=== PATIENT | female | born 1995 | race Caucasian/White ===

== ENCOUNTER 2020-03-19 14:41 | Outpatient (REF) | payer MEDICAID, SELFPAY ==
[2020-03-22 21:57] LABS: SARS-CoV-2 RNA Undetected (Undetected); SARS-CoV-2 Specimen Source Nasal
== END 2020-03-19 15:01 ==
LOC: NCHCN 14:41
PROVIDERS: Visit Provider Nurse Practitioner Family
DX: J02.9 Acute pharyngitis, unspecified (principal)
CPT/HCPCS: U0003

== ENCOUNTER 2020-09-12 16:19 | Outpatient (REF) | payer MEDICAID, SELFPAY ==
[2020-09-16 16:24] LABS: Chlamydia Result Negative (Negative); GC Result Negative (Negative)
== END 2020-09-12 16:20 | disposition home or self-care (01) ==
LOC: NCHCN 16:19
PROVIDERS: Visit Provider Nurse Practitioner Family
DX: Z11.3 Encounter for screening for infections with a predominantly sexual mode of transmission (principal)
CPT/HCPCS: 87491; 87591

== ENCOUNTER 2024-01-27 18:07 | Outpatient (REF) | payer MEDICAID, SELFPAY ==
[2024-01-27 16:22] LABS: Anion Gap 8.8 mmol/L (3-11); BUN 6 mg/dL (7-18); CO2 24.2 mmol/L (21.0-32.0); CREATININE 0.6 mg/dL (0.55-1.02); Calcium 9.1 mg/dL (8.5-10.1); Chloride 106 mmol/L (98-107); Estimated GFR 126.87 (mL/min/1.73m2); Glucose 86 mg/dL (74-106); Sodium 139 mmol/L (136-145); TSH (W/Ref FT4) 2.93 uIU/mL (0.36-3.74)
--- OUTSIDE RECORDS SUMMARY | 2024-01-27 18:09 | XMS_ITS | Encounter Summary ---
Author Organization [facility] Address [address] [place] [address] Care Team Providers Care Insurance Sales Manager Name Role Phone Amanda Knox Tricia AIR AND HYDRONIC BALANCING TECHNICIAN Primary Care Provider [phone] Encounter Details Date Type Department Care Team (Latest Contact Info) Description 11/29/2022 Travel Social History Tobacco Use Types Packs/Day Years Used Date Smoking Tobacco: Every Day Cigarettes Smokeless Tobacco: Never Alcohol Use Standard Drinks/Week Comments Yes 0 (1 standard drink = 0.6 oz pur e alcohol) binges Interpersonal Safety Answer Date Record ed Physically Hurt Never 01/06/2020 Verbally Threaten Not on file 01/06/2020 Sex and Gender Information Value Date Recorded Sex Assigned at Not on file Gender Identity Female 04/01/2019 9:34 EDT Sexual Orientation Not on file COVID-19 Exposure Response Date Recorded In the last 10 days, have yo u been in contact with someone who was confirmed or suspected to have Coronavirus/COVID-19? No / Unsure 11/29/2022 13:02 EDT documented as of this encounter Functional Status Functional Status Response Date of Assess ment Are you deaf or do you have serious difficulty h earing? No 10/12/2022 Are you blind or do you have serious difficulty seeing, even when wearing glasses? No 02/13/2022 Do you have serious difficul ty walking or climbing stairs? (5 years old or older) No 02/13/2022 Do you have difficulty dress ing or bathing? (5 years old or older) No 02/13/2022 Because of a physical, menta l, or emotional condition, do you have difficulty doing errands alone such as visiting a doctor's office or shopping? (15 years old or older) No 02/13/2022 documented as of this encounter Plan of Treatment Not on file documented as of this encounter Visit Diagnoses Not on filedocumented in this encounter Care Teams Insurance Sales Manager Relationship Specialty Start Date End Date Amanda Knox FNP [address] [place] [phone] PCP - General 08/13/19 documented as of this encounter
--- OUTSIDE RECORDS SUMMARY | 2024-01-27 18:09 | XMS_ITS | Encounter Summary ---
Author Organization [facility] Address [address] [place] [address] Care Team Providers Care Evs Tech Name Role Phone Abilio Amanda Tricia SPIRAL RUNNER Primary Care Provider Encounter Details Date Type Department Care Team (Late st Contact Info) Description 02/13/2022 21:22 EDT Anesthesia Event [facility] OR [address] [place], [place] [id number] Lady Javier DO [address] [facility], [address] [place] [phone] Steph Hill MD [address] [facility] [address] [place] [address] Anesthesia Record Procedure Summary Procedure Name Responsible Anesthesiologist Anesthesia Start Time Anesthesia Stop Time APPENDECTOMY, LAPAROSCOPIC Lady Javier DO 02/13/22212102/13/222254 Events Date Time Event Comment 02/13/20222121 An Start The patient was re-evaluated immediately before moderate or deep sedation use, before anesthesia induction, or before the anesthesia procedure. 2121 An Start Data 2128 An Induction The patient was reevaluated immediately before moderate or deep sedation use and before anesthesia induction. 2130 An Intubation 2145 Anesthesia Ready 2148 Jack Pt placed into L lateral trendelenburg, tachycardia and BP improved 5 An Extubation 2240 an stop data 2253 Handoff to RN I completed my handoff to the receiving nurse during which we: 1. Identified the patient 2. Identified the responsible provider 3. Reviewed the pertinent medical history 4. Discussed the surgical course 5. Reviewed intra-op anesthesia management and issues during anesthesia 6. Set expectations for post-procedure period 7. Allowed opportunity for questions and acknowledgement of understanding. 2254 An Stop Meds Name Total fentanyl citrate (PF) injection 100 mcg ondansetron (PF) (ZOFRAN) injection 4 mg lidocaine 2% (PF) injection glass vial 9 0 mg phenylephrine pre-filled syringe 300 mcg propOFol (DIPRIVAN) injection 250 mg propOFol injection 427,344 mcg rocuronium 10 mg/mL vial 40 mg succinylcholine 20 mg/mL vial 140 mg sugammadex 100 mg/mL 2 mL vial 200 mg ceFAZolin injection 2,000 mg phenylephrine pre-made bag 20 mg/250 mL 1,400 mcg diphenhydrAMINE injection 12.5 mg lactated ringers (LR) infusion 550 mL * Agents Name Insp Sevoflurane Exp Sevoflurane O2 N2O Air * Blood No blood administrations on file. Lines, Drains, and Airways Type Details Placement Removal Wound 02/13/22; 2156; Incision; Other (Comment) (x 3 lap sites); Umbilicus; N 02/13/222156 by Brenda Edward RN Peripheral IV 02/13/22; 1200; 20; 1.25; Anterior, Right; Forearm; Documenting on behalf of someone else (enter name) (outside hospital); 02/14/22; 0059; Alternate access; No complications, Catheter intact, Dressing applied 02/13/22 1200 by Ruthie Hamm RN 02/14/22 0059 by Gisella Gallegos RN Peripheral IV 02/13/22; 1916; 18; 1.25; Protect IV Plus; Posterior, Right; Wrist; Inserted by RN; 1; 70% IPA; 02/14/22; 1040; Per protocol, Discharged; No complications, Catheter intact 02/13/221915 by Ruthie Hamm RN 02/14/221039 by Dawna Marques RN Non-Surgical Airway 02/13/22; 2153 (paul [place] via procedure documentation); 02/13/22; 223402/13/222153 by Steph Hill MD 02/13/222234 by Steph Hill MD documented in this encounter Social History Tobacco Use Types Packs/Day Years Used Date Smoking Tobacco: Former Cigarettes Smokeless Tobacco: Never Interpersonal Safety Answer Date Record ed Physically Hurt Never 01/06/2020 Verbally Threaten Not on file 01/06/2020 Comments Yes Sex and Gender Information Value Date Recorded Sex Assigned at Not on file Gender Identity Female 04/01/2019 9:34 EDT Sexual Orientation Not on file COVID-19 Exposure Response Date Recorded In the last 10 days, have yo u been in contact with someone who was confirmed or suspected to have Coronavirus/COVID-19? Unable to assess 02/13/2022 14:48 EDT documented as of this encounter Functional Status Functional Status Response Date of Assess ment Are you deaf or do you have serious difficulty h earing? No 02/13/2022 Are you blind or do you have [...] No 02/13/2022 documented as of this encounter OR Notes * Anesthesia Postprocedure Evaluation - Steph Hill MD - 02/13/20222254 EDT Patient: Ana Juarez Vital signs were reviewed with the recovery nurse. Complete [facility]als [facility]. Vitals Value Taken Time BP 117/82 02/13/222254 Temp 36.9 02/13/225 Resp 14 02/13/222254 Pulse From Oximetry 89 02/13/222254 SpO2 99% 02/13/222254 Heart Rate 89 02/13/222254 Last Pain Score - Numeric Pain Level (Scale 1-10): 4 Type of Anesthesia - general Anesthesia Post Evaluation Post-procedure vitals reviewed and are stable. Level of consciousness: awake Temperature status: normothermia and patient returned to pre-procedure baseline Respiratory status: airway patent, stable and nasal cannula Cardiovascular status: stable Hydration status: adequate Nausea/Vomiting: nausea, no vomiting Pain management: adequate Post-Op Assessment: patient tolerated procedure well with no complications Patient participation: able to participate Disposition: inpatient Anesthesia Complications: No apparent anesthesia complications * Anesthesia Procedure Notes - Steph Hill MD - 02/13/20222153 EDT Associated Order(s): Airway Airway Date/Time: 02/13/2022 21:31 Urgency: elective Airway not difficult General Information and Staff Patient location during procedure: OR Anesthesiologist: Lady Javier DO Resident/CEMENT TRUCK LOADER: Steph Hill MD Performed: resident/CEMENT TRUCK LOADER/AA Indications and Patient Condition Indications for airway management: anesthesia Sedation level: GA Preoxygenated: yes Patient position: sniffing Ventilation assessment: 0 - not attempted Final Airway Details Final airway type: endotracheal airway Successful airway: ETT Cuffed: yes Successful intubation technique: video laryngoscopy Castrejon Facilitating devices/methods: intubating stylet Endotracheal tube insertion site: oral Blade: Christiano Blade size: #3 ETT size (mm): 7.0 Cormack-Lehane Classification: grade I - full view of glottis Placement verified by: chest auscultation and capnometry Measured from: teeth ETT to teeth (cm): 20 Number of attempts at approach: 1 * Anesthesia Preprocedure Evaluation - Lady Javier DO - 02/13/20229 EDT Images from the original note were not included. Anesthesia Preprocedure Evaluation Patient Medical History, including Anesthesia History reviewed. Chart and Nursing Notes reviewed, including NPO status and Medication History. Additional ROS/History Findings: 27 yo female with no significant PMH presents to OR for urgent laparoscopic appendectomy. Patient notes N/V, last vomited today around 11 am. Patient denies any complications with this pregnancyother than acid reflux for which she takes TUMS (last took this morning but vomited shortly after).No problems with anesthesia in the past or family history of anesthetic complications. Current Outpatient Medications Medication Instructions ??? Multivitamins with Minerals tablet tablet 1 Tablet, oral, DAILY Lab Results Component Value Date WBC 18.16 (H) 02/13/2022 HGB 10.1 (L) 02/13/2022 HCT 29.5 (L) 02/13/2022 MCV 82 02/13/2022 PLT 211 02/13/2022 Lab Results Component Value Date NA 139 10/21/2020 K 4.1 10/21/2020 CL 103 10/21/2020 CO2 23 10/21/2020 No Known Allergies Past Medical History: Diagnosis Date ??? Contraceptive management Relevant Problems No relevant active problems Clinical information reviewed: Physical Exam Airway Mallampati: I TM distance: >3 FB Neck ROM: full Cardiovascular Rate: normal Dental Comments: Patient endorses cavities, possibly other chipped teeth Pulmonary Breath sounds clear to auscultation Abdominal Anesthesia Plan ASA 3 Anesthesia Type - general, to include intravenous induction. Anesthesia plan and risks discussed. Informed consent obtained from patient. Use of blood products discussed with patient who consented to blood products. Specific risks discussed were dental injury and other (Discussed potential risks including but not limited to N/V, sore throat, cardiopulmonary issues, and CVA). Consent signed on paper and in the patient's chart. Discussed potential risks to fetus. PAT Note Notes from 01/14/22 through 02/13/22 No notes of this type exist for this encounter. documented in this encounter Plan of Treatment Not on file documented as of this encounter Procedures Procedure Name Priority Date/Time Associated Diagnosis Comments ANESTHESIA INTUBATION Routine 02/13/2022 21:31 EDT documented in this encounter Results * RI AN ELECTIVE ENDOTRACHEAL AIRWAY (02/13/2022 21:31 EDT) Narrative Steph Hill MD - 02/13/2022 21:31 EDT Steph Hill MD ? 02/13/2022 21:54 Airway Date/Time: 02/13/2022 21:31 Urgency: elective Airway not difficult General Information and Staff Patient location during procedure: OR Anesthesiologist: Lady Javier DO Resident/CEMENT TRUCK LOADER: Steph Hill MD Performed: resident/CEMENT TRUCK LOADER/AA Indications and Patient Condition Indications for airway management: anesthesia Sedation level: GA Preoxygenated: yes Patient position: sniffing Ventilation assessment: 0 - not attempted Final Airway Details Final airway type: endotracheal airway Successful airway: ETT Cuffed: yes Successful intubation technique: video laryngoscopy Castrejon Facilitating devices/methods: intubating stylet Endotracheal tube insertion site: oral Blade: Christiano Blade size: #3 ETT size (mm): 7.0 Cormack-Lehane Classification: grade I - full view of glottis Placement verified by: chest auscultation and capnometry Measured from: teeth ETT to teeth (cm): 20 Number of attempts at approach: 1 Lady Javier DO ANESTHESIA ORDERABLE S documented in this encounter Visit Diagnoses Not on filedocumented in this encounter Administered Medications Inactive Administered Medications - up to 3 most recent administrations Medication Order MAR Action Action Date Dose Rate Site ceFAZolin (ANCEF) injection intravenous, PRN, Starting on 02/13/22 at 2144, Until 02/13/22 at 2255, Routine, Anesthesia Intraprocedure Given 02/13/2022 21:44 EDT 2,000 mg diphenhydrAMINE (BENADRYL) injection intravenous, PRN, Starting on 02/13/22 at 2243, Until 02/13/22 at 2255, Routine, Anesthesia Intraprocedure Given 02/13/2022 22:43 EDT 12.5 mg fentaNYL citrate (PF) injection intravenous, PRN, Starting on 02/13/22 at 2129, Until 02/13/22 at 2255, Routine, Anesthesia Intraprocedure Given 02/13/2022 21:53 EDT 50 mcg Given 02/13/2022 21:29 EDT 50 mcg lactated ringers (LR) infusion intravenous, FA IP EQF CONTINUOUS PRN FOR ONE STEP MEDS, Starting on 02/13/22 at 2122, Until 02/13/22 at 2255, Routine, Anesthesia Intraprocedure New Bag 02/13/2022 21:22 EDT lidocaine (PF) 20 mg/mL (2 %) injection intravenous, PRN, Starting on 02/13/22 at 2129, Until 02/13/22 at 2255, Routine, Anesthesia Intraprocedure Given 02/13/2022 21:29 EDT 90 mg ondansetron (PF) (ZOFRAN) injection intravenous, PRN, Starting on 02/13/22 at 2216, Until 02/13/22 at 2255, Routine, Anesthesia Intraprocedure Given 02/13/2022 22:16 EDT 4 mg phenylephrine HCl in 0.9% NaCl (NEO_SYNEPHRINE) 20 mg/250 mL (80 mcg/mL) infusion solution intravenous, FA IP EQF CONTINUOUS PRN FOR ONE STEP MEDS, Starting on 02/13/22 at 2133, Until 02/13/22 at 2255, Routine, Anesthesia Intraprocedure Rate Change 02/13/2022 21:53 EDT 20 mcg/min 15 mL/hr Rate Change 02/13/2022 21:50 EDT 40 mcg/min 30 mL/hr Rate Change 02/13/2022 21:37 EDT 80 mcg/min 60 mL/hr phenylephrine HCl in 0.9% NaCl injection intravenous, PRN, Starting on 02/13/22 at 2141, Until 02/13/22 at 2255, Routine, Anesthesia Intraprocedure Given 02/13/2022 21:41 EDT 150 mcg Given 02/13/2022 21:33 EDT 150 mcg propOFol (DIPRIVAN) injection intravenous, PRN, Starting on 02/13/22 at 2129, Until 02/13/22 at 2255, Routine, Anesthesia Intraprocedure Given 02/13/2022 21:29 EDT 250 mg propOFol (DIPRIVAN) injection intravenous, FA IP EQF CONTINUOUS PRN FOR ONE STEP MEDS, Starting on 02/13/22 at 2133, Until 02/13/22 at 2255, Routine, Anesthesia Intraprocedure Rate Change 02/13/2022 22:20 EDT 50 mcg/kg/min 27.63 mL/hr Rate Change 02/13/2022 21:53 EDT 70 mcg/kg/min 38.682 mL/h r New Bag 02/13/2022 21:33 EDT 50 mcg/kg/min 27.63 mL/hr rocuronium (ZEMURON) injection intravenous, PRN, Starting on 02/13/22 at 2141, Until 02/13/22 at 2255, Routine, Anesthesia Intraprocedure Given 02/13/2022 21:53 EDT 10 mg Given 02/13/2022 21:41 EDT 30 mg succinylcholine (ANECTINE) injection intravenous, PRN, Starting on 02/13/22 at 2129, Until 02/13/22 at 2255, Routine, Anesthesia Intraprocedure Given 02/13/2022 21:29 EDT 140 mg sugammadex (BRIDION) injection intravenous, PRN, Starting on 02/13/22 at 2231, Until 02/13/22 at 2255, Routine, Anesthesia Intraprocedure Given 02/13/2022 22:31 EDT 200 mg documented in this encounter Care Teams Evs Tech Relationship Specialty Start Date End Date Amanda Knox FNP [address] [place] [address] PCP - General 08/13/19 documented as of this encounter
--- OUTSIDE RECORDS SUMMARY | 2024-01-27 18:09 | XMS_ITS | Encounter Summary ---
Author Organization [facility] Address [address] [place] [address] Care Team Providers Care Substation Inspector Name Role Phone Hueymike Amanda Tricia PURE CULTURE OPERATOR Primary Care Provider [phone] Reason for Visit * Reason Onset Date Comments Hospital Discharge Follow Up 02/16/2022 Encounter Details Date Type Department Care Team (Late st Contact Info) Description 02/16/2022 Telephone [facility] [place] Acute Care Surgery - [facility] [address] [place] [address] Nicole Georges RN Hospital Discharge Follow Up Social History Tobacco Use Types Packs/Day Years [...] No 02/13/2022 documented as of this encounter Miscellaneous Notes * Telephone Encounter - Rodger Alexander - 02/16/2022 1108 EDT Patient returning call to Nicole, please call back . Jointer Operator updated phone number.. * Telephone Encounter - Nicole Georges RN - 02/16/2022 1056 EDT ACS/Trauma/Burn Hospital Discharge Call Patient Name: Ana Juarez , : 1995 Admission Date: 02/13/22 Date of Discharge: 02/14/22 Admission Diagnosis: appendicitis Surgeon/Attending: Dr. Schmitt Procedure Date: 02/14 Type of Procedure: lap appy Wound and/or Incisions: Yes healing well Comments: top right side incision is tender, not red, is bruised Home Health?:no Agency: Restrictions: No Driving while on Narcotics No Lifting/Pulling/Pushing greater than 15 lbs for 2 weeks It is ok to shower, wash gently and pat area dry Please no pools, lakes, tubs or hot tubs for 2 weeks Other: Recovery at Home: Fevers since home greater than 101.5?:No Pain: Yes 1 relaxation and pain medication Pain Management: Yes Taking: tylenol and dilaudid as needed Medication Reconciliation: Reviewed with Patient Yes Any Discrepancies?No Comments/Concerns: BM's & Voiding Issues:No Loose last 24 hrs Comments: Bowel Meds: No Comments: Issues with ADL's: No Assistive Device: No Eating & Drinking ok?: Yes Comments: Heavy on fluids, environmental monitoring technician on foods Sleeping ok?: states last 2 nights, she has hard time falling asleep, but is getting rest Any Other Questions or Concerns: [place], will follow up with her PCP Hospital Discharge Follow Up Appointment: 03/09/22 @ 130 pm / cancelled documented in this encounter Plan of Treatment Not on file documented as of this encounter Visit Diagnoses Not on filedocumented in this encounter Care Teams Substation Inspector Relationship Specialty Start Date End Date Amanda Knox FNP [address] [place] [phone] PCP - General 08/13/19 documented as of this encounter
--- OUTSIDE RECORDS SUMMARY | 2024-01-27 18:09 | XMS_ITS | Clinical Summary ---
Author Organization [facility] Address [address] [place] [address] Care Team Providers Care Wind Power Project Manager Name Role Phone Amanda Knox [facility] Primary Care Provider [phone] Allergies No known active allergies Medications Medication Sig Dispensed Refills Start Date End Date Status Multivitamins with Minerals tablet tablet Take 1 Tablet by mouth daily. Active acetaminophen (TYLENOL) 500 mg tablet Take 2 Tablets by mouth every 8 hours as needed for Pain. 02/14/2022 Active Additional Information Patient not taking.Reported on 11/29/2022 cloNIDine HCL (CATAPRES) 0.1 mg tablet Take 0.5 Tablets by mouth 2 times daily as needed for Other (anxiety, agitation). 30 Tablet 10/15/2022 Active Additional Information Patient not taking.Reported on 11/29/2022 calcium carbonate (TUMS) 200 mg calcium (500 mg) tablet,chewable Take 2 Tablets by mouth 4 times daily as needed for Heartburn or Indigestion. 10/15/2022 Active Additional Information Patient not taking.Reported on 11/29/2022 lurasidone HCl (LATUDA ORAL) Take 20 mg by mouth daily. Active Active Problems Problem Noted Date Diagnosed Date Cigarette nicotine dependence without complicati on 10/13/2022 Dyspepsia 10/13/2022 Depression, unspecified depression type 10/13/19 23 RLQ abdominal pain 02/13/2022 MDD (major depressive disord er), recurrent episode, moderate (HCC-CMS) Borderline personality disorder (HCC-CMS) Anxiety disorder Alcohol use disorder Cannabis use disorder Resolved Problems Problem Noted Date Diagnosed Date Resolved Date Supervision of normal 02/13/2022 01/18/2023 Acute appendicitis affecting 02/13/2022 01/18/2023 Overview: Added automatically from request for surgery [id number] Encounter for surveillance o f contraceptive pills 04/20/2019 01/18/2023 Overview: On POPs since delivery 02/2019 Women's annual routine gynec ological examination 04/20/2019 01/18/2023 Overview: Pap 08/2016 WNL with no Tzone cells. GC/CL also negative. Suicidal ideation 10/15/2022 Immunizations Name Administration Dates Next Due DTaP Vaccine (INFANRIX) <7YO IM 02/08/20,05/13/1998,1997,07/09,1997 HPV Quadrivalent Recombinant Vaccine 10/21/2008, 06/17/2008,04/12/2008 Hepatitis B Vaccine Ped/Adol escent 3-dose IM 1997,1997,1997 Hib PRP-T Conjugate Vaccine 4 Dose IM ,1997,1997,04/22 Influenza Vaccine Nasal 03/16/2011,03/09/2010 MMR Vaccine SQ 02/12/2002,1998 Meningococcal Conjugate (MCV 4) Vaccine (MENACTRA) 4-Valent IM 03/16/2011 Pneumococcal Conjugate (PCV7) <5YO IM 2001 PolioVirus Vaccine OPV Oral 1998, 8,1997 Poliovirus Vaccine IPV IM OR SQ 02/12/2002 Tdap Vaccine =>7YO IM 12/15/2018,02/08/2008 Varicella (Chickenpox) vacci ne (VARIVAX) SQ 02/08/2008,05/13/1998 Surgical History Surgery Date Site/Laterality Comments CHOLECYSTECTOMY 06/06/2015 - 06/05/2016 LAPAROSCOPIC APPENDECTOMY N/A 2021 Medical History Medical History Date Comments Contraceptive management Anxiety state Situational depression Covid-24 May 2021, May 25 Mood swings Self mutilating behavior Family History Medical History Relation Comments Diabetes Type II Maternal Grandmother Depression Mother Cancer Paternal Grandmother Relation Status Comments Maternal Grandmother Mother Paternal Grandmother Social History Tobacco Use Types Packs/Day Years Used Date Smoking Tobacco: Every Day Cigarettes Smokeless Tobacco: Never Tobacco Cessation:Ready to Q uit: Not Asked; Counseling Given: Not Answered Alcohol Use Standard Drinks/Week Comments Yes 0 (1 standard drink = 0.6 oz pur e alcohol) binges Interpersonal Safety Answer Date Record ed Physically Hurt Never 01/06/2020 Verbally Threaten Not on file 01/06/2020 Sex and Gender Information Value Date Recorded Sex Assigned at Not on file Gender Identity Female 04/01/2019 9:34 EDT Sexual Orientation Not on file Obstetrics History Para Term AB IAB SAB Ectopic Multiple Livin g Live Births 2 2 2 2 2 Date Outcome GA Total Labor Labor/2nd/3rd Weight Sex Type Anes PTL Mel A1 A5 Name Clin 019 Term 39w 4d 4082 g (9 lb) F N Livin g Qian Baca MD Complications:None [place] [place]22 Term 40w 5d M Vag-S pont Livin g Last Filed Vital Signs Vital Sign Reading Time Taken Comments Blood Pressure 114/80 01/18/2023 1243 EDT Pulse 71 12/01/2022 1007 EDT Temperature 36.5 ??C (97.7 ??F) 12/01/2022 0824 EDT Respiratory Rate 18 12/01/2022 1007 EDT Oxygen Saturation 99% 11/30/2022 2130 EDT Inhaled Oxygen Concentration - - Weight 86.2 kg (190 lb) 01/18/2023 1243 EDT Height 162.6 cm (5' 4) 01/18/2023 1243 EDT Body Mass Index 32.61 01/18/2023 1243 EDT Plan of Treatment Health Maintenance Due Date Last Done Comments Pneumococcal Immunization (1 of 2 - PCV) 2003 2001 COVID-19 Vaccine (2022-24 season) 2023 Hepatitis B Vaccine Completed 1995, [birth year] Hepatitis C Screen Completed 09/28/2021 Procedures Procedure Name Priority Date/Time Associated Diagnosis Comments HEPATITIS C AB W REFLEX TO HCV RNA BY PCR Routine 09/28/2021 8:30 EDT from Last 3 Months or Most Recently Relevant to Health Maintenance Results * HEPATITIS C AB W REFLEX TO HCV RNA BY PCR (09/28/2021 8:30 EDT) Hep C Antibody Negative Negative 09/29/2021 9:[address] [facility] Blood VENOUS BLOOD / Unknown 09/28/2021 8:30 EDT 09/28/2021 16:46 EDT Provider Outr Resulting Lab CHEMISTRY & BLOOD GAS ORDERABLES [facility] [address] [place] [address] from Last 3 Months or Most Recently Relevant to Health Maintenance Advance Directives For more information, please contact: [phone] * Full Code (Latest Code Status on File) Date Activated Date Inactivated Comments 10/12/2022 20:12 10/15/2022 20:03 Question Answer Comments When the patient has NO PULSE: Full Code / CPR Who Made the Decision? Patient * Full Code Date Activated Date Inactivated Comments 02/13/2022 18:22 02/14/2022 12:52 Question Answer Comments When the patient has NO PULSE: Full Code / CPR Who Made the Decision? Default/Not Discussed Care Teams Wind Power Project Manager Relationship Specialty Start Date End Date Amanda Knox FNP [address] [place] [phone] PCP - General 08/13/19
--- OUTSIDE RECORDS SUMMARY | 2024-01-27 18:09 | XMS_ITS | Encounter Summary ---
Author Organization [facility] Address [address] [place] [address] Care Team Providers Care Business Management Intern Name Role Phone Abilio Amanda Tricia UNDERGRADUATE INTERN Primary Care Provider [phone] Encounter Details Date Type Department Care Team (Latest Contact Info) Description 10/12/2022 Travel Social History Tobacco Use Types Packs/Day [...] suspected to have Coronavirus/COVID-19? No / Unsure 10/12/2022 17:54 EDT documented as of this encounter Functional [...] on filedocumented in this encounter Care Teams Business Management Intern Relationship Specialty Start Date End Date Amanda Knox FNP [address] [place] [phone] PCP - General 08/13/19 documented as of this encounter
--- OUTSIDE RECORDS SUMMARY | 2024-01-27 18:09 | XMS_ITS | Encounter Summary ---
Author Organization [facility] Address [address] [place] [address] Care Team Providers Care Loan Approver Name Role Phone Hueymike Amanda Tricia [employer] SPECIALIST Primary Care Provider [phone] Encounter Details Date Type Department Care Team (Late st Contact Info) Description 10/13/2022 Plan of Care Documentation [facility] Inpatient Psychiatry [address] [place] [address] Social History Tobacco Use Types Packs/Day Years [...] No 02/13/2022 documented as of this encounter Progress Notes * Esthela White - 10/13/2022 7654 EDT Psychiatry Treatment Plan Admit Date: 10/12/22 Initial Observation Date (if different): 10/12/2022 Hospital day: LOS: 1 day Date of Service: 10/13/2022 Legal Status: Legal status: Voluntary Locus of Harm: 4 Suicidal Ideation with active plan: No Patient's stated reason for hospitalization: worsening depression and concerns of keeping herself safe. Current Stressors: increase in alcohol use in the setting of trying to cope Target Symptoms: Depressed-reported; Depressed-observed, Racing/pressured- observed; Racing/pressured-reported, Hopeless/desparing-reported Problems being addressed this admission: Anxiety Depression Substance Abuse SI/ Self injury Identified strengths and barriers: Ana Juarez's Strengths:Interested in / accepting treatment and supportive family Ana Juarez's Barriers: traumatic history and substance use Goals: 1. Ana Juarez will demonstrate stabilization of acute target signs and symptoms 2. Ana Juarez will increase understanding of her illness and treatment interventions 3. Ana Juarez will develop and implement aftercare plan for discharge Interventions / Plans: Psychiatry: Ongoing psychiatric evaluation and counseling Pharmacological management Appropriate medical studies and laboratory monitoring Nursing: See Care Plan documentation Social Work: Assist patient with discharge planning, including identifying discharge options Assisting with referrals Facilitate collaboration with family / support network Conduct treatment groups and encourage participation Collaboration with outpatient providers Advanced Practice Provider: See NORRIS's Assessment and Treatment Plan under History and Physical Outpatient Providers information: Name Number Mental Health Agency [facility] [phone] Psychiatrist Therapist Deanna Banks, [facility] [phone] [address] [facility] PCP Amanda Knox [phone] Guardian Family Contact Go Arteaga [phone] Other Pt: Date: MD: Date: AP: Date: RN: Date: SW: Date: documented in this encounter Plan of Treatment Not on file documented as of this encounter Visit Diagnoses Not on filedocumented in this encounter Care Teams Loan Approver Relationship Specialty Start Date End Date Amanda Knox FNP [address] [place] [phone] PCP - General 08/13/19 documented as of this encounter
--- OUTSIDE RECORDS SUMMARY | 2024-01-27 18:09 | XMS_ITS | Encounter Summary ---
Author Organization [facility] Address [address] [place] [address] Care Team Providers Care Fur Cleaner Name Role Phone Amanda Knox [facility] Primary Care Provider [phone] Reason for Visit * Reason Comments Suicidal Pt ambulatory to tri age w/ ; reporting depression, self harm w/ thoughts, w/ plan of drinking heavily. Denies ingestion today. Denies HI. [place] [facility] Taking meds as prescribed. Encounter Details Date Type Department Care Team (Late st Contact Info) Description 11/29/2022 13:06 EDT - 12/01/2022 10:29 EDT Emergency [facility] Emergency Department - [address] [id number] Isael Herrera PA-C [address] [place] [address] [place] [address] [id number] Enriqueta Munoz PA-C [address] [place] [phone] Jun Chester MD [address] [place] [phone] Darling Dale PA-C [address] [place] [phone] Minh Urbano, DO [address] [facility], Level [address] [place] [phone] Discharge Disposition: Psychiatric Hospital Social History Tobacco Use Types Packs/Day Years [...] 13:02 EDT documented as of this encounter Last Filed Vital Signs Vital Sign Reading Time Taken Comments Blood Pressure 104/75 12/01/2022 1007 EDT Pulse 71 12/01/2022 1007 EDT Temperature 36.5 ??C (97.7 ??F) 12/01/2022 0824 EDT Respiratory Rate 18 12/01/2022 1007 EDT Oxygen Saturation 99% 11/30/20222129 EDT Inhaled Oxygen Concentration - - Weight 88.5 kg (195 lb) 11/30/20222129 EDT Height 162.6 cm (5' 4) 11/30/20222129 EDT Body Mass Index 33.47 11/30/2022 2130 EDT documented in this encounter Functional Status Functional Status Response [...] No 02/13/2022 documented as of this encounter Medications at Time of Discharge Medication Sig Dispensed Refills Start Date End Date acetaminophen (TYLENOL) 500 mg tablet Take 2 Tablets by mouth every 8 hours as needed for Pain. 02/14/2022 calcium carbonate (TUMS) 200 mg calcium (500 mg) tablet,chewable Take 2 Tablets by mouth 4 times daily as needed for Heartburn or Indigestion. 10/15/2022 cloNIDine HCL (CATAPRES) 0.1 mg tablet Take 0.5 Tablets by mouth 2 times daily as needed for Other (anxiety, agitation). 30 Tablet 10/15/2022 lurasidone HCl (LATUDA ORAL) Take 20 mg by mouth daily. Multivitamins with Minerals tablet tablet Take 1 Tablet by mouth daily. documented as of this encounter Discharge Disposition Disposition Code Departure Means Destination Comment [facility] documented in this encounter ED Notes * Minh Urbano DO - 12/01/2022 1029 EDT Is a 27-year-old female who is being seen for suicidal ideation. No issues during shift. Patient transported to [facility] in stable condition * Angeles Marie RN - 12/01/2022 1009 EDT Pt off unit with ambulance service for transportation to [facility]. Pt provided with personal belongings for discharge from ER. Paperwork given to ambulance crew. Pt off unit in stable condition and with steady gait. * Nadre Raines RN - 11/30/2022 1046 EDT Spoke with assigned ER attending. Reordered Malachi patch. Awaiting from pharmacy. * Nader Raines RN - 11/30/2022 2030 EDT Pharmacy contacted by this RN requesting Nicotine patch. * Nader Raines RN - 11/30/2022 1850 EDT Spoke with RN from . Facility requests chart with MAR be faxed. Report given by this RN. * Maximus Og - 11/29/2022 2326 EDT Emergency Department Visit Medical Decision Making Corie is a 27-year-old female seen from the evening shift for psychiatry evaluation the morning. Patient came in for suicidal ideation is currently on a one-to-one setting and will be monitored until psychiatric evaluation in the morning. Relevant Data as of 11/30/22 0751 TueNov 29, 2022 1836 Assumed care at change of shift. 27 year-old female presenting with SI with plan to drink herself to Crisis did see the patient and would like patient to be seen by psychiatry, awaiting psychiatry assessment at time of sign out. [SS] 2255 Gates from pharmacy resident, patient will stay in the ED overnight to be re-evaluated by psychiatry team tomorrow. Signed out at change of shift. [SS] 2315 Am reassessemtn [Si, plan drink to ] [WF] Relevant Data User Index [SS] Enriqueta Munoz PA-C [WF] Jun Chester IV, MD Patient signed out to day team in stable condition pending psychiatric evaluation. Laboratory data was reviewed. Medical Decision Making Amount and/or Complexity of Data Reviewed Labs: ordered. Risk OTC drugs. Final diagnoses: None Disposition: Psych Planning Chief complaint: SI HPI Corie Naveed Juarez is a 27 y.o. female assumed from evening shift for psychiatry evaluation in the morning. Per previous shift patient is to be evaluated overnight and is currently in stable condition. Procedures Associated attestation - Jun Chester MD - 11/30/2022 0827 EDT ATTENDING ATTESTATION Jun Aaron IV, performed a history and exam of this patient and discussed the case withthe resident. I have reviewed and edited this note, and the documentation is consistent with my findings, assessment and plan. I fully participated in the medical decision making. * Enirqueta Munoz PA-C - 11/29/2022 1845 EDT Relevant Data as of 11/29/22 2255 Mon Nov 29, 2022 1836 Assumed care at change of shift. 27 year-old female presenting with SI with plan to drink herself to Crisis did see the patient and would like patient to be seen by psychiatry, awaiting psychiatry assessment at time of sign out. [SS] 2255 Gates from pharmacy resident, patient will stay in the ED overnight to be re-evaluated by psychiatry team tomorrow. Signed out at change of shift. [SS] Relevant Data User Index [SS] Enriqueta Munoz PA-C * Isael Herrera PA-C - 11/29/2022 1331 EDT Emergency Department Visit Medical Decision Making Pt presents for vague SI today. Medically cleared. Crisis consult pending at signout to HALLIE Lombardo. Medical Decision Making Amount and/or Complexity of Data Reviewed Labs: ordered. Risk OTC drugs. Final diagnoses: None Disposition: No disposition on file Chief complaint: SI HPI Corie Juarez is a 27 y.o. female with history of depression who comes in with thoughts of wanting to harm herself. She [place] an [place] of drinking herselfto . She did drink alcohol but then called her who picked her up. She comes in today because she continues to have these thoughts of wanting to harm herself. She is taking her medications as prescribed. She uses marijuana daily. She smokes daily. She has no physical complaints today other than some mild diarrhea. She does not drink alcohol daily. She has no abdominal pain. Patient's pertinent PMH, FH, SH were reviewed and edited as necessary. Nursing notes reviewed. A medical screening exam was performed. Physical Exam BP 139/76 Temp 37.2 ??C (99 ??F) (Temporal) Resp 18 Wt 88.5 kg (195 lb) SpO2 100% BMI 33.47 kg/m?? Physical Exam Alert, oriented, appears comfortable Conjunctiva pink, sclera white. Pupils round, 3-4mm, equal sized Neck supple No respiratory distress Gait normal Procedures Procedures * Sangeetha Fagan, DONNA - 11/29/2022 1325 EDT Introduced self and RN role. Discussed POC, CLWR and side rail x 1up for safety. Pt verbalizes understanding documented in this encounter Miscellaneous Notes * ED Consult - Nate Brooke DO - 11/29/2022 2107 EDT [facility] Emergency Department Emergency Psychiatry Assessment Reason for consult: Psychiatric evaluation SUBJECTIVE Ana Juarez is a 27 y.o. female, not previously known by HC (lives in [facility]), history of borderline personality disorder versus bipolar affective disorder, previous psychiatric admissions (last in 10/26 for similar presentation) who presents to the emergency department with SI and prior plan to by alcohol ingestion. Please see Alex's First [facility] assessment from 11/29 for additional details. Most salient details below: -Pt made plan to end her own life yesterday; reserved a campsite and bought a lot of alcohol, went there with a plan to drink herself to , having done some research about what ROLAND could be lethal. Pt drank for a couple hours then called her intoxicated, who came to get her. She had no other plan to end her life but drinking. Today she came to the ED seeking admission to psychiatry because she does not feel safe with herself. ??-Admitted to [facility] [place] this year for SI and depression. - She was discharged [place] [facility] with a plan to attend a DBT program through [facility] but apparently thetiming and insurance didn't work out. Ct sees Amanda Knox at [facility] for primary care and takes 20mg Latuda. - Reports struggling with chronic depression and SI, along with a trauma history growing up -She describes being able to hold it together when around others, but when alone, small emotionalissues can turn into larger ones leading to SI. -She has two children who are deterrents to suicide. - She feels like she doesn't understand her issues that cause her to become so focused on ending her life, and feels guilty after something like what happened last night. -She reports a mostly positive relationship with her , up until a month ago she was considering divorce but has re-committed to the relationship more recently, though some issues around parenting and ct's own issues around sex cause friction. -Since last night, ct hasn't had as much briseyda SI - as she usually only has SI when alone, but has had thoughts of cutting herself, for instance when washing the dishes. -Ct has chronic insomnia but it has improved slightly with the last 6 wks of Latuda (gets 4-6 hrs nightly). - Ct describes her frequent SI as feeling in a panic. Like, I don't know how I am supposed to do it - to manage it. I don't feel like I can trust myself. I always have the thought. When asked what she is looking for, ct states she is looking for psychiatric admission to better understand her issues and learn coping skills, and she has not been feeling safe with herself. On my assessment: Pt confirms the above history. She reports that when it comes to her, I take things very literally. So when I'm asked things like what brought me here, that leads me to last night yesterday. If I were to be asked why I feel I need to be here, it's because at this point I'm scared that my kids are going to end up without a mom. She elaborates that for the last few months, she has been in a placewhere she has been in a place where she tries to fix this or get back on a better path, she has to fight and overcome obstacles. Pt feels that when she starts taking those kind of risks (initiating suicide attempt last night), she feels that things line up perfectly. Right now, my head is telling me what I don't want... which is to end my own life as patient begins to present with tearfulness. She describes her kids as deterrents against ending her own life. Pt states that she has chronic SI, and she feels that a whole bunch of small little things precipitated yesterday's events of per plan to drink herself to . She feels that right now, she cannot handle any kind of agitation or anxiety as it sends her into a place of I don't know what to do. We discussed disposition options and including IP psychiatric hospitalization versus returning to home with her with referrals to [facility] emergency bed, similar to [facility], but it'snearer to her. Also discussed [facility]. Pt is most open to the prior option. Pt has intake number so that she she can call and get connected with DBT group through [facility], whichshe is open to. Also discussed safety planning to do with (lock up sharps, meds, alcohol), which patient believes will be helpful. [facility] left message for pt's therapist and PCP. Psychiatric Review of Systems: ?? Psychotic: none endorsed or evident ?? Suicidal/violent: passive thoughts of ?? Sleep: patient denies any changes ?? Appetite: Pt endorses intermittent eating issues (both restricting and binging), though she is required to eat when taking Latuda so her eating habits have improved recently. ?? General Review of Systems: A complete 10 point ROS was performed and pertinent positive and negative findings listed in HPI, otherwise negative. HISTORY: Past Medical History: Diagnosis Date ??? Anxiety state ??? Contraceptive management ??? COVID-24 May 2021, May 2022 ??? Mood swings ??? Self mutilating behavior ??? Situational depression Pertinent Psychiatric History: Psychiatric history reviewed with patient and from prior records - Lives with 2 kids- 3 years and 8 months. Lives with a . - Prior diagnoses: BPD versus BAPD - Current psychiatric medications: 20 mg Latuda - Prior psychiatric medications: Lamotrigine, Escitalopram, I don't know, I've had a lot of antidepressants - Prior hospitalizations: Ad[place] [facility] [place] this year for SI and depression. [facility] indicated atentative diagnosis of Borderline Personality Disorder though ct has reported a historical diagnosis of a bipolar disorder, which was not entirely ruled out. She has been admitted to [facility] twice in 2019 as well, having attempted suicide by medication overdose shortly after the first admission, precipitating the second. She also had an admission at age 20. Last admission was in 10/26 for same stuff; she notes she was trying to get connected with resources but then did the same thing as she did just barely (binge drank until point of black out which she states was new for her) - Prior suicide attempts: Reports one SA at age 21 with similar plan as now; not really anything major going on at that time. Also reports one other time since (2019; ingestion) with [facility] stay, went to ED and re-admitted to [facility] [place] Pt overdosed on lamotrigine but did not require medicine or ICU admission. - NSSI: She has a hx of SH as a teen, but not recently. - Family psychiatric history: a mother who attempted suicide and a father with anger issues - History of attempted/completed suicide in family/friends: Yes, see above - Current psychiatric providers: She has engaged in a great deal of therapy historically, and currently is seeing a trauma therapist, [facility], [facility]. Feels this is going well- started about [address] sees Amanda Knox at [facility] for primary care and takes 20 mg Latuda. Sue Myles at [facility] prescribes for her. ?? 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 Mental Status Examination: Appearance: 27 y.o. female wearing hospital scrubs, fair grooming and hygiene. Behavior: cooperative, good eye contact, normal psychomotor activity, normal tone and no abnormal movements Speech: of normal rate, tone and volume, normal spontaneity Mood: down Affect: congruent with mood, tearful at times during interview Perceptions: no perceptual disturbances Thought process: logical and goal directedAssociations: tight Thought content: intact, future-oriented, hopelessness, helplessness and [id number] thinking, passive thoughts of and no HI Sensorium: alert Orientation: Not formally assessed, oriented to situation at hand. Attention: grossly intact Memory: grossly intact Language: is normal Knowledge: provider relations representative of her education level Insight: fair to poor Judgment: fair to poor ASSESSMENT Ana Juarez is a 27 y.o. female, not previously known by HC (lives in [facility]), history of borderline personality disorder versus bipolar affective disorder, previous psychiatric admissions (last in 10/26 for similar presentation) who presents to the emergency department with SI and prior plan to by alcohol ingestion. On assessment, patient presents as intermittently tearful and with some insight into her chronic suicidal ideation.The most likely diagnosis is an unspecified mood disorder. This is evidenced by hopelessness, helplessness, anhedonia, changes in appetite, SI. The differential diagnoses includes borderline personality disorder given impulsivity, high risk behaviors including substance use (binge drinking), low distress tolerance/vulnerability to affective states, emotional instability and reaction to day to day events, recurrent suicidal behavior/gestures. There is no evidence of george or psychosis at this time. This patient's presentation is complicated by alcohol use and daily cannabis use,and insomnia. At this time, patient is voluntary for admission, however is also considering the option of returning to her robust treatment care team in OP setting (see above in psychiatric history) in addition toobtaining an emergency crisis bed (similar to [facility]) in the [facility] and self-referring to receive DBT therapy. Also discussed her returning home with who will lock up sharps, medications, alcohol and pick her up from the ED in the evening unless she could get a cab voucher to leave during the daytime. Hospitalization would be appropriate at this time for acute crisis stabilization, medication management, diagnostic clarity, outpatient care coordination, and increasing distress tolerance. However, daytime team will reassess her suicide risk and appropriateness for aforementioned placement options in the morning. Suicide Risk Assessment Modifiable Risk Factors: Current suicidal ideation, Means available, Substance abuse/dependence, Impulsivity, Psychic distress/anxiety/pain, Vulnerability to painful affective states, Hopelessness, Helplessness and Cluster B Personality Disorder/Traits Non-Modifiable Risk Factors: prior suicide attempt discharge from psychiatric hospital in last 3 months personal history of trauma Protective Factors: Children in home, Sense of responsibility to family and social supports/connections, Capacity to establish therapeutic alliance, Willingness to comply with treatment plan and Outpatient care in place Overall Risk Rating: Acute: Moderate Chronic: Moderate Patient may benefit from brief inpatient hospitalization, however at this time does seem like her outpatient treatment care plan in addition to an emergency bed in the [facility] versus [facility] plus DBT group would ultimately be more beneficial for the patient. Patient and treatment team to decide togetherin the AM about which option would be best for her. Patient does not meet criteria for involuntary hold , however is currently voluntary for psychiatric admission. Differential Diagnosis: 1. Cluster B traits; R/o borderline personality disorder 2. R/o Unspecified mood disorder 3. Cannabis use disorder 4. Alcohol use disorder PLAN: 1. Continue 1:1 observation 2. Patient is voluntary for psychiatric admission - Please do not allow to leave the emergency department without psychiatric clearance. 3. Continue GOLD LEAF LAYER medications a. Latuda 20 mg every day 4. In the event of a psychiatric emergency: Haloperidol 5 mg and Lorazepam 2 mg to be offered PO unless patient is an acute danger to themselves/other in which case this should be given IM x1. If emergency medications are given please notify the psychiatrist senior online marketing manager for the ED. Above assessment and plan discussed with psychiatry attending, Dr. Dey. Plan discussed with ED Provider. First Call was updated about this patient's disposition, personal computer network engineer Casey. Srini Botello M.D. Psychiatry PGY1 [facility] 11/29/2022 21:07 Attending Attestation I performed or was present during the cole or critical portions of the visit and participated in themanagement of the patient on 11/30/2022. I agree with the findings and plan of care documented in the resident's/fellow's note. Presentation most consistent with complex PTSD. Could benefit from psychiatric hospitalization for safety/stabilization, and potential clarification of diagnosis. Would also be well served by connecting with DBT groups. My edits to the note above, if present, are OLIVE. Nate Brooke DO 11/30/2022 11:21 * ED Consult - Alex Barragan - 11/29/2022 5804 EDT Computer Systems Support Specialist Initial Assessment Note Clinical Interpretation: Leatha is a 27 yr old female, not previously known by the (lives out of [facility]), presenting for assessment at the [facility] ED due to concerns of SI. Yesterday ct made a plan to end her life. She reserved a campsite and bought a lot of alcohol, and went there with a plan to drink herself to , having done some research about what ROLAND could be lethal. She drank for a couplehours then called her intoxicated, who came to get her. She had no other plan to end her life but drinking. Today she came to the ED seeking admission to psychiatry because she does not feel safe with herself. Leatha was admitted to [facility] [place] this [place] for SI and depression. [facility] indicated a tentative diagnosis of Borderline Personality Disorder though ct has reported a historical diagnosis of a bipolar disorder, which was not entirely ruled out. She has been admitted to [facility] [place] in 2019 as well, having attempted suicide by medication overdose shortly after the first admission, precipitating the second. She also had an admission at age 20. She has engaged in a great deal of therapy historically, and currently is seeing a trauma therapist, [facility], [facility]. She was discharged from [facility] with a plan to attend a DBT program through [facility] but apparently the timing and i nsurance didn't work out. Ct sees Amanda Knox at [facility] for primary care and [id number] Latuda. Upon assessment, leatha was cooperative, somewhat low mood but also engaged in humor and laughing. She described struggling with chronic depression and SI. She reported a trauma history growing up, a mother who attempted suicide and a father with anger issues. She describes being able to hold it together when around others, but when alone, small emotional issues can turn into larger ones leading toSI. She has two children who are deterrents to suicide. She feels like she doesn't understand her issues that cause her to become so focused on ending her life, and feels guilty after something like what happened last night. She reports a mostly positive relationship with her , up until a month ago she was considering divorce but has re-committed to the relationship more recently, though some issues around parenting and leatha's own issues around sex cause friction. Since last night, leatha hasn't had as much briseyda SI - as she usually only has SI when alone, but has had thoughts of cutting herself, for instance when washing the dishes. She has a hx of SH as a teen, but not recently. She binge drinks occasionally and uses cannabis daily 2-7x. Leatha has chronic insomnia but it has improved slightly with the last 6 wks of Latuda (gets 4-6 hrs nightly). Leatha also endorses intermittent eating issues (both restricting and binging), though she is required to eat when taking Latuda so her eating habits have improved recently. Leatha describes her frequent SI as feeling in a panic. Like, I don't know how I am supposed to do it - to manage it. I don't feel like I can trust myself. I always have the thought. When asked what she is looking for, leatha states she is looking for psychiatric admission to better understand her issues and learn coping skills, and she has not been feeling safe with herself. Plan: Leatha is a 27 yr old female who presented for assessment due to concerns of SI. While what occurred last night was quite concerning, it does appear part of a long history of thoughts of suicide, with one lifetime attempt. Given that she had a recent psychiatric admission, as well as prior admissions, and the tentative diagnosis of Borderline Personality Disorder, this promotion writer believes avoiding a psychiatric admission again would be beneficial. Clients with borderline personality organization often do not benefit from psychiatric hospitalization and it can often worsen prognosis. Congruent with that, leatha states [place] [facility] [place], then overdosed shortly after her discharge and was re-admitted. Hence, this promotion writer recommends that leatha continue with her outpatienttherapist, and augment her treatment with a DBT group, which is available through [facility]. There may be some benefit to a brief stabilization placement at a crisis stabilization program, such as [facility]'s emergency beds. If ct is discharged home to wait for such a placement, safety planning will need to be conducted with her and her . This promotion writer left a message for ct's therapist andPCP. Psychiatry will evaluate the patient next and finalize disposition. The planned disposition for this patient is: awaiting psychiatry assessment Consultation with: Dr. Marx Please see full note in scanned media. Alex Barragan Computer Systems Support Specialist [facility] documented in this encounter Plan of Treatment Not on file documented as of this encounter Procedures Procedure Name Priority Date/Time Associated Diagnosis Comments POCT TEST, CLINITEK STAT 11/29/2022 14:00 EDT POCT CSN BARCODE URINE PREG TEST STAT 11/29/2022 13:56 EDT POCT TEST, CLINITEK ORDER STAT 11/29/2022 13:56 EDT DRUG SCREEN 11, URINE STAT 11/29/2022 13:56 EDT documented in this encounter Results * POCT TEST, CLINITEK (11/29/2022 14:00 EDT) UPT Result Negative Negative 11/29/2022 14:06 EDT [facility] HN LAB COMMENT (CLINITEK, UPT) Test performed at Emergency Department 11/29/2022 14:06 EDT [facility] Comment:False negative resul ts may occur in women who are beyond 5-8 weeks gestation. Diagnosis of should be based on a correlation of test results with typical clinical signs and symptoms. Urine URINE SPECIMEN COLLECTION, CLEAN CATCH / Unknown 11/29/2022 14:00 EDT 11/29/2022 14:06 EDT Isael Herrera PA-C POINT OF CARE TEST ORDERABLES [facility] [address] [place] [address] * POCT CSN BARCODE URINE PREG TEST (11/29/2022 13:56 EDT) Urine URINE SPECIMEN COLLECTION, CLEAN CATCH / Unknown Urine Collect / Unknown 11/29/2022 13:56 EDT 11/29/2022 13:56 EDT Isael Herrera PA-C LAB INFO SERVI CE AND SUPPORT & PHONE RESULT [facility] [address] [place] [address] * (ABNORMAL) DRUG SCREEN 11, URINE (11/29/2022 13:56 EDT) Amphetamine Screen, Ur Negative Screen Negative, Negative Screen 11/29/2022 14:28 EDT [facility] Comment: Confirmation testing available upon request. Suitable for medical purposes only. Will not detect all drugs within class. Cutoff = 500 ng/mL Barbiturates Screen, Ur Negative Screen Negative, Negative Screen 11/29/2022 14:28 EDT [facility] Comment: Confirmation testing available upon request. Suitable for medical purposes only. Will not detect all drugs within class. Cutoff = 200 ng/mL Benzodiazepine Screen, Ur Negative Screen Negative, Negative Screen 11/29/2022 14:28 T [facility] Comment: Confirmation testing available upon request. Suitable for medical purposes only. Will not detect all drugs within class. Cutoff = 150 ng/mL Buprenorphine and Metabolites Screen, Ur Negative Screen Negative, Negative Screen 11/29/2022 14:28 T [facility] Comment: Confirmation testing available upon request. Suitable for medical purposes only. Will not detect all drugs within class. Cutoff = 10 ng/mL Cannabinoids Screen, Ur Presumptive Positive, interpret with caution.(A) Negative, Negative Screen 11/29/2022 14:28 T [facility] Comment: Confirmation testing available upon request. Suitable for medical purposes only. Will not detect all drugs within class. Cutoff = 50 ng/mL Cocaine Metabolites Screen, Ur Negative Screen Negative, Negative Screen 11/29/2022 14:28 T [facility] Comment: Confirmation testing available upon request. Suitable for medical purposes only. Will not detect all drugs within class. Cutoff = 150 ng/mL Methadone Screen, Ur Negative Screen Negative, Negative Screen 11/29/2022 14:28 EDT [facility] Comment: Confirmation testing available upon request. Suitable for medical purposes only. Will not detect all drugs within class. Cutoff = 200 ng/mL Methamphetamine Screen, Ur Negative Screen Negative, Negative Screen 11/29/2022 14:28 EDT [facility] Comment: Confirmation testing available upon request. Suitable for medical purposes only. Will not detect all drugs within class. Cutoff = 500 ng/mL Opiates Screen, Ur Negative Screen Negative, Negative Screen 11/29/2022 14:28 EDT [facility] Comment: Confirmation testing available upon request. Suitable for medical purposes only. Will not detect all drugs within class. Cutoff = 100 ng/mL Oxycodone Screen, Ur Negative Screen Negative, Negative Screen 11/29/2022 14:28 EDT [facility] Comment: Confirmation testing available upon request. Suitable for medical purposes only. Will not detect all drugs within class. Cutoff = 100 ng/mL Propoxyphene Screen, Ur Negative Screen Negative, Negative Screen 11/29/2022 14:28 T [facility] Comment: Confirmation testing available upon request. Suitable for medical purposes only. Will not detect all drugs within class. Cutoff = 300 ng/mL Urine URINE / Unknown Urine Collect / Unknown 11/29/2022 13:56 EDT 11/29/2022 14:11 EDT Isael Herrera PA-C GEN LAB UNIT C OLLECT ORDERABLES [facility] [address] [place] [address] documented in this encounter Visit Diagnoses Not on filedocumented in this encounter Administered Medications Inactive Administered Medications - up to 3 most recent administrations Medication Order MAR Action Action Date Dose Rate Site lurasidone (LATUDA) tablet 20 mg 20 mg, oral, DAILY, First dose on Tue11/30/22 at 0900, Until Discontinued, Routine Given 12/01/2022 8:19 EDT 20 mg Given 11/30/2022 10:24 EDT 20 mg melatonin 3 mg tablet 1 dose, Starting on Tue12/01/22 at 0313, Until Tue12/01/22 at 1229 melatonin 3 mg tablet 1 dose, Starting on Tue12/01/22 at 0317, Until Tue12/01/22 at 0315 melatonin tablet 3 mg 3 mg, oral, AT BEDTIME, First dose on Tue12/01/22 at 2100, Until Discontinued, STAT melatonin tablet 3 mg 3 mg, oral, NOW X1, 1 dose, On Tue12/01/22 at 0400, STAT Given 12/01/2022 3:15 EDT 3 mg nicotine (NICODERM CQ) 21 mg/24 hr patch 1 Patch 1 Patch, transdermal, NOW X1, 1 dose, On Tue11/30/22 at 2245, STAT Patch Applied 11/30/2022 22:58 EDT 1 Patch Right Shoulder documented in this encounter Historical Medications * This list may reflect changes made after this encounter. Medication Sig Dispensed Refills Start Date End Date lurasidone HCl (LATUDA ORAL) Take 20 mg by mouth daily. added in this encounter Active and Recently Administered Medications Times are shown in EDT. Scheduled Medication Order 11/29/2022 11/30/2022 12/01/2022 lurasidone (LATUDA) tablet 20 mg 20 mg, oral, DAILY, First dose on Tue11/30/22 at 0900, Until Discontinued, Routine 1024 (Given - Provider: Haritha Jordan RN) 0819 (Given - Provider: Nichole Campos RN) melatonin tablet 3 mg 3 mg, oral, AT BEDTIME, First dose on Tue12/01/22 at 2100, Until Discontinued, STAT melatonin tablet 3 mg (COMPLETED) 3 mg, oral, NOW X1, 1 dose, On Tue12/01/22 at 0400, STAT 0315 (Given - Provid er: Nichole Campos RN) nicotine (NICODERM CQ) 21 mg/24 hr patch 1 Patch 1 Patch, transdermal, NOW X1, 1 dose, On Tue11/30/22 at 2245, STAT 2258 (Patch Applied - Provider: Antonio Hendrix RN) 1029 (Due: Patch Removed - Provider: Batch Job User Admin - Comment: Time automatically adjusted from order being discontinued) No Frequency Medication Order 11/29/2022 11/30/2022 12/01/2022 melatonin 3 mg tablet 1 dose, Starting on Tue12/01/22 at 0313, Until Tue12/01/22 at 1229 documented in this encounter Orders Medications Ordered That Christ ht Not Have Been Administered Count Last Ordered Date First Ordered Date melatonin 3 mg tablet 1 12/01/2022 melatonin tablet 3 mg 1 12/01/2022 nicotine (NICODERM CQ) 21 mg /24 hr patch 1 Patch 1 11/29/2022 documented in this encounter Care Teams Fur Cleaner Relationship Specialty Start Date End Date Amanda Knox FNP [address] [place] [phone] PCP - General 08/13/19 documented as of this encounter
--- OUTSIDE RECORDS SUMMARY | 2024-01-27 18:09 | XMS_ITS | Encounter Summary ---
Author Organization [facility] Address [address] [place] [address] Care Team Providers Care Transformer Molder Name Role Phone Amanda Knox STARCH TREATING ASSISTANT Primary Care Provider [phone] Encounter Details Date Type Department Care Team (Latest Contact Info) Description 02/13/2022 - 02/13/2022 17:17 EDT Hospital Encounter [facility] Secondary Reads [place] Discharge Disposition: Home or Self Care Social History Tobacco Use Types Packs/Day Years [...] 8 hours as needed for Pain. 02/14/2022 HYDROmorphone (DILAUDID) 2 mg tablet Take 1-2 Tablets by mouth every 4 hours as needed for Pain. Daily Max: 24 mg 10 Tablet 02/14/2022 10/12/2022 polyethylene glycol 3350 (MIRALAX) 17 gram packet Take 17 g by mouth daily. 02/14/2022 10/15/2022 documented as of this encounter Discharge Disposition Disposition Code Departure Means Destination Home or Self Care documented in this encounter Plan of Treatment Not on file documented as of this encounter Procedures Procedure Name Priority Date/Time Associated Diagnosis Comments CT OUTSIDE IMAGES BODY Routine 02/13/2022 6:58 EDT documented in this encounter Results * CT OUTSIDE IMAGES BODY (02/13/2022 6:58 EDT) Narrative 02/14/2022 6:58 EDT This is a non-reportable exam. External Imaging IMG OTHER IMAGING OR DERABLES documented in this encounter Visit Diagnoses Not on filedocumented in this encounter Care Teams Transformer Molder Relationship Specialty Start Date End Date Amanda Knox FNP [address] [place] [phone] PCP - General 08/13/19 documented as of this encounter
--- OUTSIDE RECORDS SUMMARY | 2024-01-27 18:09 | XMS_ITS | Encounter Summary ---
Author Organization [facility] Address [address] [place] [address] Care Team Providers Care Manager Pet Name Role Phone Hueymike Amanda Tricia [facility] Primary Care Provider [phone] Reason for Visit * Reason Comments Advice Only * PRECISION LATHE OPERATOR (Routine) - Receiving Office to Obtain Authorization Specialty Diagnoses / Procedures Referred By Cynthia rosenberg Referred To Contact Diagnoses Encounter for contraceptive management, unspecified Procedures CONSULT - [address] [address] Referral ID Status Reason Start Date Expiration Date Visits Requested Visits Authorized [id number] Receiving Office to Obtain Authorization 1 1 Encounter Details Date Type Department Care Team (Latest Contact Info) Description 01/18/2023 12:40 EDT Initial consult [facility] - [address] [phone] Danisha Brunner MD [address] [place] [address] [address] [place] [address] Sterilization consult (Primary Dx) Social History Tobacco Use Types Packs/Day Years [...] 9:34 EDT Sexual Orientation Not on file documented as of this encounter Last Filed Vital Signs Vital Sign Reading Time Taken Comments Blood Pressure 114/80 01/18/2023 1243 EDT Pulse - - Temperature - - Respiratory Rate - - Oxygen Saturation - - Inhaled Oxygen Concentration - - Weight 86.2 kg (190 lb) 01/18/2023 1243 EDT Height 162.6 cm (5' 4) 01/18/2023 1243 EDT Body Mass Index 32.61 01/18/2023 1243 EDT documented in this encounter Functional Status [...] No 02/13/2022 documented as of this encounter Patient Instructions * Attachments The following attachments cannot be sent through Care Everywhere. * levonorgestrel intrauterine system (Lebanese) * IUD: General Info (Lebanese) * Contraceptive Implant (Lebanese) documented in this encounter Progress Notes * Danisha Brunner MD - 01/18/2023 1240 EDT Consult requested by patient HPI Ana Juarez is a 27 y.o. P2 LMP 01/03/2023 who presents for consultation for permanent sterilization. Patient has two children, has very difficult time and does not want future fertility. Patient has regular periods, no heavy bleeding or pain. Patient has tried condoms, depo, oral contraceptive pills. Patient has thought about LARC method, unsure about. Patient denies history of HTN, DM, Liver disease, migraines w/aura, hx of VTE. Every day 3 cigarette smoker. PRECISION LATHE OPERATOR Hx Patient's last menstrual period was 01/03/2023 (approximate). Menses: As above, q28 days with 5-7 days of bleeding. STI's: denies Sexual activity: one male partner Contraception: none Cervical cancer screenin NILM, per patient had pap 2020 normal History of fibroids/polyps/ovarian cysts: denies OB History Para Term AB Living 2 2 2 2 SAB IAB Ectopic Multiple Live Births 2 # Outcome Date GA Lbr Ej/2nd Weight Sex Delivery Anes PTL Lv 2 Term 04/04/22 40w5d M Vag-Spont THIERRY 1 Term 03/03/19 39w4d 4082 g (9 lb) F N THIERRY Problem List Past Medical History Patient Active Problem List Diagnosis ??? RLQ abdominal pain ??? Depression, unspecified depression type ??? MDD (major depressive disorder), recurrent episode, moderate (HCC) ??? Borderline personality disorder (HCC-CMS) (HCC) ??? Anxiety disorder ??? Alcohol use disorder ??? Cannabis use disorder ??? Cigarette nicotine dependence without complication ??? Dyspepsia Past Medical History: Diagnosis Date ??? Anxiety state ??? Contraceptive management ??? COVID-24 May 2021, May 2022 ??? Mood swings ??? Self mutilating behavior ??? Situational depression Allergies Past Surgical History No Known Allergies Past Surgical History: Procedure Laterality Date ??? CHOLECYSTECTOMY 2015 ??? LAPAROSCOPIC APPENDECTOMY N/A 2021 Social History Family History Social History Tobacco Use ??? Smoking status: Every Day Packs/day: .5 Types: Cigarettes ??? Smokeless tobacco: Never Substance Use Topics ??? Alcohol use: Yes Comment: binges ??? Drug use: Yes Types: Marijuana Comment: daily Problem Relation Name Comments Cancer Paternal Grandmother Depression Mother Diabetes Type II Maternal Grandmother Medications Current Outpatient Medications Medication ??? acetaminophen (TYLENOL) 500 mg tablet ??? calcium carbonate (TUMS) 200 mg calcium (500 mg) tablet,chewable ??? cloNIDine HCL (CATAPRES) 0.1 mg tablet ??? lurasidone HCl (LATUDA ORAL) ??? Multivitamins with Minerals tablet tablet No current facility-administered medications for this visit. Objective BP 114/80 Ht 162.6 cm (64) Wt 86.2 kg (190 lb) LMP 01/03/2023 (Approximate) No BMI 32.61 kg/m?? Deferred No data Assessment/Plan Ana Juarez is a 27 y.o. seen today for: 1. Sterilization consult I reviewed numerous contraceptive options today including natural family planning, barrier methods,OCPs, progesterone only pills, patch, ring, Depo- Provera, Nexplanon, IUD, tubal ligation, and partner vasectomy. No contraindications to estrogen use- denies HTN, DM, Liver disease, migraines w/aura, hx of VTE. Does use cigarettes but given age not contraindication to estrogen. After full discussion of contraceptive options patient desires tubal ligation. She understands thatthis is a permanent procedure and that equally effective but reversible methods exist, we reviewed those options today including Nexplanon and IUD. We reviewed that in the absence of hormonal contraception her menstrual cycles may be heavier and longer with more associated symptoms. We discussed the risks of failure, she understands that a tuballigation is greater than 99% effective but not 100% effective. We reviewed that in the event of failure she would have an increased risk of ectopic and that this could be a potentially life-threatening situation. We reviewed the age-related risk of regret (approximately 20% under the age of 30 and 6% over the age of 30). We briefly reviewed the procedure and risks of procedure includingbleeding, infection, damage to surrounding structures, patient has had two prior laparoscopic surger ies which increases her risk of adhesive disease. I recommended bilateral salpingectomy to reduce her risk of ovarian cancer if we are able to perform this safely during the procedure with the alternative being Filshie clips vs cutting and cauterizing a segment of the tube. All of patient questions answered. She is currently using nothing for contraception. We also discussed LARCs, all questions answered regarding. She is desiring more information regarding LARC methods and will consider her options prior to choosing method. 2. Cervical cancer screening Patient states last pap normal October 2020. This note was prepared using voice recognition software and the EMR. There may be inadvertent errors and omissions. I spent a total of 40 minutes on the date of this encounter meeting with the patient and reviewing documentation/coordinating care as described in the above note. Danisha Brunner MD (she/her) Obstetrics and Gynecology [facility] Women's Health 01/18/2023 13:15 * Ayse Alvarez - 01/18/2023 1240 EDT Medical Records release sent to patients home as she requested. Return envelope included. documented in this encounter Plan of Treatment Not on file documented as of this encounter Visit Diagnoses Diagnosis Sterilization consult- Primary Other general counseling and advice for contraceptive management documented in this encounter Care Teams Manager Pet Relationship Specialty Start Date End Date Amanda Knox FNP [address] [place] [phone] PCP - General 08/13/19 documented as of this encounter
--- OUTSIDE RECORDS SUMMARY | 2024-01-27 18:09 | XMS_ITS | Encounter Summary ---
Author Organization [facility] Address [address] [place] [address] Care Team Providers Care Break Out Worker Name Role Phone Amanda Knox EXECUTIVE BUSINESS COACH Primary Care Provider [phone] Reason for Referral * Consult (See Order Priority) - Receiving Office to Obtain Authorization Specialty Diagnoses / Procedures Referred By Cynthia rosenberg Referred To Contact Trauma Surgery Diagnoses Acute appendicitis affecting Ivanna Santiago PA-C [address] [place] [phone] [facility] Ep5 Trauma/Crit Care [address] [place] [address] Referral ID Status Reason Start Date Expiration Date Visits Requested Visits Authorized [id number] Receiving Office to Obtain Authorization Specialty Services Required 2 1 1 Question Answer Scheduling Comments (optional ? describe specific scheduling needs if applicable): 2-3 weeks norris post op Reason for Request: 33 week lap appy with M[facility] for acute uncomplicated non perforated appendicitis * Specialty Diagnoses / Procedures Referred By Cynthia rosenberg Referred To Contact Ivanna Santiago PA-C [address] [place] [phone] Referral ID Status Reason Start Date Expiration Date Visits Re quested Visits Authorized Comments Please make an appointment with your primary care physician in 1 week(s). Call your physician immediately if you have any fevers greater than 102.5, drainage from your wound that is not clear or looks infected, persistent bleeding, increasing abdominal pain, problems urinating, or persistent nausea/vomiting. Our clinic nurse will call you in the next 3-4 days to see how you are doing at home and to schedule an outpatient post operative clinic appointment. If you have any questions or concerns, please call our clinic at [phone] . We have someone available 24 hours a day. * Specialty Diagnoses / Procedures Referred By Cynthia rosenberg Referred To Contact Ivanna Santiago PA-C [address] [place] [phone] Referral ID Status Reason Start Date Expiration Date Visits Re quested Visits Authorized Comments We are currently collecting quality data on patients having surgery. You may receive a phone call, email, and/or letter about your surgery asking you a series of follow up questions to evaluate specifics aspects of your care. Thank you for your participation. * Consult (See Order Priority) - Denied Specialty Diagnoses / Procedures Referred By Cynthia rosenberg Referred To Contact Trauma Surgery Diagnoses Acute appendicitis affecting Pipo Sanchez MD [address] [place] [address] [place] [address] Trauma/Crit Care [address] [place] [phone] Referral ID Status Reason Start Date Expiration Date V isits Requested Visits Authorized [id number] Denied Specialty Services Required 02/14/2022 1 0 Question Answer Reason for Request: 2wk follow-up after appendectomy done at 33wk gestation Expected Discharge Date (Inpatient Only): 02/14/2022 * Specialty Diagnoses / Procedures Referred By Cynthia rosenberg Referred To Contact Pipo Sanchez MD [address] [place] [address] Referral ID Status Reason Start Date Expiration Date Visits Re quested Visits Authorized Comments See your customer servicer in 1 weeks. Please call your home OB for an appointment. * Specialty Diagnoses / Procedures Referred By Cynthia rosenberg Referred To Contact Pipo Sanchez MD [address] [place] [address] Referral ID Status Reason Start Date Expiration Date Visits Re quested Visits Authorized Encounter Details Date Type Department Care Team (Late st Contact Info) Description 02/13/2022 17:18 EDT - 02/14/2022 10:45 EDT Hospital Encounter [facility] [address] [place] [address] Chad Villasenor MD [address] [facility], Level [address] [place] [address] Acute appendicitis affecting (Primary Dx); Encounter for supervision of other normal in third trimester Discharge Disposition: Home or Self Care Social [...] 14:48 EDT documented as of this encounter Last Filed Vital Signs Vital Sign Reading Time Taken Comments Blood Pressure 111/60 02/14/2022 0807 EDT Pulse - - Temperature 37 ??C (98.6 ??F) 02/14/2022 0805 EDT Respiratory Rate 16 02/14/2022 0805 EDT Oxygen Saturation 99% 02/14/2022 1003 EDT Inhaled Oxygen Concentration - - Weight 92.1 kg (203 lb) 02/13/2022 1746 EDT Height 169.5 cm (5' 6.75) 02/13/2022 1746 EDT Body Mass Index 32.03 02/13/2022 1746 EDT documented in this encounter Functional Status [...] No 02/13/2022 documented as of this encounter Discharge Summaries * Pipo Sanchez MD - 02/14/2022 1026 EDT Discharge Summary Admit Date: 02/13/22 Discharge Date: 02/14/22 Principal/Final Diagnosis: Acute appendicitis affecting Chief Complaint: RLQ pain Principal Procedure: laparoscopic appendectomy Secondary Procedure: none Condition at Discharge: Stable Hospital Course: Ana is a 27 y.o. yo at 33wk4d who was transported from [facility] due to RLQ pain and concern for appendicitis. She was evaluated by the General Surgery service at [facility] and taken to the OR overnight for a laparoscopic appendectomy. She did well post-op and had a reactive NST on POD#1. Discharged home with plan to follow-up with her home OB for routine care and a 2 week follow-up visit with [facility]. Discharged with dilaudid for pain control. Relevant Studies at Discharge: none Last Lab Results at Discharge: Lab Results Component Value Date WBC 11.97 02/14/2022 HGB 9.5 (L) 02/14/2022 HCT 27.8 (L) 02/14/2022 MCV 82 02/14/2022 PLT 194 02/14/2022 Discharge Summary Completed: Pipo Sanchez MD 02/14/22 10:29 Obstetrics & Gynecology, PGY4 [employer] Pager #[phone] documented in this encounter Medications at Time of Discharge Medication Sig Dispensed Refills Start Date End Date acetaminophen (TYLENOL) 500 mg tablet Take 2 Tablets by mouth every 8 hours as needed for Pain. 02/14/2022 Multivitamins with Minerals tablet tablet Take 1 Tablet by mouth daily. HYDROmorphone (DILAUDID) 2 mg tablet Take 1-2 Tablets by mouth every 4 hours as needed for Pain. Daily Max: 24 mg 10 Tablet 02/14/2022 10/12/2022 polyethylene glycol 3350 (MIRALAX) 17 gram packet Take 17 g by mouth daily. 02/14/2022 10/15/2022 documented as of this encounter Ordered Prescriptions Prescription Sig Dispensed Refills Start Date End Da te acetaminophen (TYLENOL) 500 mg tablet Take 2 Tablets by mouth every 8 hours as needed for Pain. 02/14/2022 polyethylene glycol 3350 (MIRALAX) 17 gram packet Take 17 g by mouth daily. 02/14/2022 10/15/2022 HYDROmorphone (DILAUDID) 2 mg tablet Take 1-2 Tablets by mouth every 4 hours as needed for Pain. Daily Max: 24 mg 10 Tablet 02/14/2022 10/12/2022 documented in this encounter Discharge Disposition Disposition Code Departure Means Destination Home or Self Assisted documented in this encounter Progress Notes * Dawna Marques RN - 02/14/2022 1034 EDT NST Report Baseline Heart Rate: 120's - very active baby Accelerations: present Movement: present Decelerations: absent Contractions: absent Interpretation: Reactive [id number] Dr Jennings did review NST strip prior to pt d/c'd home. Co-sign Provider (Physician Name): DAWNA MARQUES RN * Ivanna Santiago PA-C - 02/14/2022 1025 EDT Surgery Progress Note Service Date: 02/14/2022 Admit Date: 02/13/2022 17:18 POD: 1 (02/13/2022) Procedure: Laparoscopic Appendectomy Chief Complaint: Acute Appendicitis 24 Hour Events: ?? To OR for above Subjective/Objective Subjective Doing well this am. Pain has resolved. No nausea. Tyron reg diet. Mostly doing well with tylenol for pain control. Passing gas. No BM. Incision sites feel great. Understands all post op care instructions. Denies fevers, chills, nausea, vomiting, CP, SOB, skin changes, dysuria. Objective Vital Signs Temp: [36.1 ??C (97 ??F)-37 ??C (98.6 ??F)] , Heart Rate: [62 BPM-91 BPM] , Pulse: [105] , Pulse From Oximetry: --, Resp: [16-20] , BP: (95-132)/(47-90) , SpO2: [96 %-100 %] Physical Exam General Appearance: alert, cooperative, no distress, , lying in bed with partner at [facility] Lung: non labored breathing Abdomen: Soft, NT, NABS, ND Extremities: Warm and well perfused, no LE edema Skin: Skin color, temperature, turgor normal. No rashes or lesions Incision(s)/Wound(s): clean, dry, intact glue overlying incisions Is PICC or Central line present? No, PICC/Central line not present. Assessment/Plan Assessment Ms Juarez is a 27 yo female who is 33 weeks who presented with acute appendicitis and is now s/p Laparoscopic Appendectomy in the early hours of 02/14/22. Intraoperative findings of a graviduterus with an inflamed non perforated appendix. She is tolerating a regular diet with pain well controlled on an oral regimen and medically appropriate for discharge from a surgical perspective. Plan - OK for DC home - Reg diet - Multimodal pain control per primary - no lifting/pushing/pulling greater than 15 lbs for 2 weeks - shower ok 24-48 hours s/p surgery - no bathing or submersion for 2 weeks or until wounds healed - Rec follow up in 7-10 days with PCP for coordination of care - Follow up in [facility] post op clinic in 2-3 weeks - All follow up recs/referrals will be placed in the discharge navigator - Remaining care per primary - ACS to sign off at this time. Please call with questions or concerns. VTE Prophylaxis Service not responsible for VTE therapy Discharge Plan per Primary vIanna Santiago PA-C 02/14/2022 10:26 * Pipo Sanchez MD - 02/14/2022 0830 EDT Antepartum Progress Note Chief Complaint: IUP @ 33w5d admitted @ 33+4 with appendicitis Hospital Day: 2 Interval Events: - s/p laparoscopic appendectomy with [facility] team Subjective: see attending attestation. Objective: BP 111/60 Temp 37 ??C (98.6 ??F) (Temporal) Resp 16 Ht 169.5 cm (66.75) Wt 92.1kg (203 lb) LMP 06/23/2021 SpO2 99% BMI 32.03 kg/m?? Physical exam deferred, see attending attestation Assessment/Plan: 27 y.o. @ 33w5d with acute appendicitis, now POD#0 s/p laparoscopic appendectomy. Currently stable, pain well controlled with reactive NST. Appendicitis, s/p lap appendectomy - recovering well, tolerating PO, pain well controlled - Plan to follow-up per ACS results ?? FWB - Daily NST Global Rh pos GBS unk, will collect if signs of labor Immunizations indicated : Rubella;Varicella Dispo - Per ACS recommendations, likely today PIPO SANCHEZ MD 02/14/22 10:30 PGY4, OBGYN #[id number] Associated attestation - Mell Jennings MD - 02/14/2022 1535 EDT Attestation statement: I saw and examined the patient. I agree with the resident's/fellow's findings and plans as documented. 27yo female @ 33w5d who is POD#1 s/p laparoscopic appendectomy with ACS for acute appendicitis. - Recovering well, meeting all post-op milestones - Incisions clean/dry/intact - Reactive NST - Cleared for discharge with plan for f/u with ACS in 2wks Mell Jennings MD 02/14/2022 15:33 Obstetrics and Gynecology * Ethan Barrett MD - 02/13/2022 2310 EDT L&D Shift Progress Note CC: 27 y.o. at 33w4d, admitted for appendicitis, now s/p laparoscopic appendectomy Shift resident: ETHAN BARRETT MD Shift provider: Dr. Jacklyn Mckeon - Pain: tylenol PRN, PO/IV dilaudid - EFW: 50% at 33w3d - PPH risk: mod Hct 29.5, plt 211 - Placenta location: posterior - Global: Rh pos, GBS unk Active Problems: - Appendicitis, now s/p laparoscopic appendectomy - Breech malpresentation Assessment/Plan/Updates: 23:10: Cat 1 FHT, 140 bpm, mod variability, pos accels, neg decels. Quiet toco. Feeling nausea, plan for zofran now. 00:30: POD #1 s/p laparoscopic appendectomy. Feeling well, pain is well controlled - only mild discomfort with movement. Passing flatus. Emptying her bladder without issue. Tolerating a regulardiet w/o n/v. Denies ctx, LOF, VB. +FM. Ok to transfer to , anticipate d/c in the morning. ETHAN BARRETT MD 02/13/2022 23:10 * Johnathan Schmitt MD - 02/13/2022 1942 EDT Patient booked and consented for surgery. However, no images pushed from transferring hospital. Multiple calls made, no answer in [facility] Radiology department. Call made to L&D and ED who are bothattempting to contact radiology without success. Will attempt to contact technology administrator educational technology specialist on [facility]. Johnathan Schmitt MD Acute Care Surgery Pager: [phone] * Ruthie Hamm RN - 02/13/2022 1742 EDT 1730 Pt arrived on unit via ambulance transport from [facility]. Pt ambulated to bathroom to urinate then placed EFM on. Pt denies ROM, VB or CTX. Pt states great movement. Pt here for complaints of vomiting and right flank pain. MRI from [facility] for possible appendicitis. 182 Dump Truck Operator at bedside awaiting imaging from [facility] to be reviewed to decide surgical candidate or not. NPO maintained. Labs drawn and IV antibiotics administered. Second IV placed PRTY obtained. Pt report given to Gisella Gallegos Rn. Awaiting Surgery's decision. documented in this encounter H&P Notes * Ethan Barrett MD - 02/13/2022 1842 EDT Department of Obstetrics History & Physical Admit Date: 02/13/2022 No chief complaint on file. Admission indication: Other (comment) (RLQ pain, concern for appendicitis) Maternal transport/Outside delivery: Yes Patient transported from: hospital Sending hospital name: [facility] Indications for transport: maternal disease HPI: Ana Juarez is a 27 y.o. at 33w4d by LMP c/w 1st [facility] who presents with right flank pain and vomiting with symptoms starting at [address] imaging showing a dilated appendix with fat stranding, concerning for appendicitis. CRP 20, WBC 18 with left shift, Hct 29.5. Denies ctx, LOF, VB. +FM. c/b: - Hx of lap cholecystectomy - hx of depression and pp depression. On escitalopram 10 mg daily - rubella non-imm, varicella equivocal - THC use - breech malpresentation Hx of in 2019, 9 lb Review of Systems: as above Current Complications: Preeclampsia prevention: None Testing: Genetic screening: NIPT Medication Exposure: No data recorded Labs: Rh pos/ Antibody screen neg / Rubella imm / Varicella equiv / RPR NR / Gonorrhea neg / Chlamydia neg / Hepatitis B neg/ Hepatitis C neg / HIV neg / 1hr GTT 132 / 3hr GTT not indicated / GBS not done Ultrasound 33w3d: breech malpresentation, EFW 50%, DAWN 15.8 cm 20wk: posterior placenta, normal anatomy FOB History: No data recorded OB History Para Term AB Living 2 1 1 1 SAB TAB Ectopic Multiple Live Births 1 # Outcome Date GA Lbr Ej/2nd Weight Sex Delivery Anes PTL Lv 2 Current 1 Term 03/03/19 39w4d 4082 g (9 lb) F N THIERRY Previous Complications: No data recorded Past Medical History Past Surgical History Past Medical History: Diagnosis Date ??? Contraceptive management Past Surgical History: Procedure Laterality Date ??? CHOLECYSTECTOMY 2016 Past Gynecological History Social History Non-contributory Social History Tobacco Use ??? Smoking status: Former Smoker Types: Cigarettes ??? Smokeless tobacco: Never Used Substance Use Topics ??? Alcohol use: Not on file has no history on file for drug use. Medications Allergies Medications Prior to Admission Medication Sig Dispense Refill Last Dose ??? Multivitamins with Minerals tablet tablet Take 1 Tablet by mouth daily. No Known Allergies Objective: Weights Prepregnancy Weight: 83.9 kg (185 lb) Weight : 92.1 kg (203 lb) Prepregnancy BMI (Calculated): 29.25 Weight Gain (kg) (Calculated): 8.17 kg Patient Vitals for the past 8 hrs: BP Heart Rate Resp Temp SpO2 02/13/22 1956 117/66 87 BPM 16 -- 97 % 02/13/22 1931 -- 80 BPM -- -- -- 02/13/22 1844 107/67 80 BPM 16 36.4 ??C (97.5 ??F) 98 % 02/13/22 1733 100/51 87 BPM 16 36.1 ??C (97 ??F) 96 % General: NAD Cardiovascular: RRR Respiratory: CTAB Abdomen: soft, gravid Extremities: WWP Physical Lie: Longitudinal Presentation: Breech FHT: 130 baseline. mod variability, present accels, no decels; Cat I tracing. TOCO: quiet SSE: deferred SVE: deferred BSUS: deferred, breech on CT imaging Lab Results Component Value Date WBC 18.16 (H) 02/13/2022 HGB 10.1 (L) 02/13/2022 HCT 29.5 (L) 02/13/2022 MCV 82 02/13/2022 PLT 211 02/13/2022 Lab Results Component Value Date CRP 20.0 (H) 02/13/2022 Lab Results Component Value Date CREATININE 0.28 (L) 02/13/2022 Assessment/Problems/Plan: Ana Juarez is a 27 y.o. at 33w4d by LMP c/w 1st tri US presenting with RLQ, leukocytosis and CT imaging concerning for appendicitis. NPO with plans for laparoscopic appendectomy with ACS. Cat 1 tracing pre-op RLQ pain and vomiting, concern for appendicitis - Transported from [facility] - NPO - Attempting to have images pushed from [facility] to [facility] system - IV in place - s/p ceftriaxone at [facility], now given flagyl at [facility] - ACS consulted, recs appreciated FWB - cEFM prior to and immediately following surgery - Plan for recovery on L&D post op - Breech malpresentation - AGA Global Rh pos GBS unk, will collect if signs of labor Immunizations indicated : Rubella;Varicella Discussed with Dr. Villasenor. ETHAN BARRETT MD 02/13/2022 21:42 Associated attestation - Chad Villasenor MD - 02/14/2022 0505 EDT Attending attestation statement: I saw and examined the patient with the resident. I agree with thefindings and plan of care documented in the resident's note. Chad Villasenor MD * Mayo Hanna MD - 02/13/2022 1804 EDT Images from the original note were not included. Surgical H+P Admission Admit Date: 02/13/2022 Date of Service: 02/13/2022 Hospital day: LOS: 0 days Chief Complaint: Vomiting and right flank pain HPI: Ana Juarez is a 27 y.o. female who is 34 weeks with a history of cholecystectomy(2016) presenting with right flank pain and vomiting. She initially presented to [facility] where she was found to have eukocytosis (WBC 17.9 with left shift 83.2%) and CT at [facility] concerning for appendicitis. Onset of symptoms was 0800 on 02/13/22 with right abdominal pain, chills, nausea and emesis. She reports having intermittent chronic diarrhea for the past year. She recently has been having diarrhea. Her pain is worse with movement - of herself and of the fetus. She denies abdominal trauma, fever, chest pain, shortness of breath, dysuria, hematuria, melena, hematochezia, vaginal discharge or bleeding. She denies headache, visual changes, hypertension. PMH PSH Past Medical History: Diagnosis Date ??? Contraceptive management Past Surgical History: Procedure Laterality Date ??? CHOLECYSTECTOMY 2016 Social History Family history Social History Tobacco Use ??? Smoking status: Former Smoker ??? Smokeless tobacco: Never Used Substance Use Topics ??? Alcohol use: Not on file No family history on file. Medications Medications Prior to Admission Medication Sig Dispense Refill Last Dose ??? Multivitamins with Minerals tablet tablet Take 1 Tablet by mouth daily. Allergies No Known Allergies Review of Systems: A ten point review of systems was performed and was negative except for pertinent positives noted in the HPI Last Meal: 0800 Objective/Physical Exam: VS: Patient Vitals for the past 8 hrs: BP Heart Rate Resp Temp SpO2 02/13/22 1733 100/51 87 BPM 16 36.1 ??C (97 ??F) 96 % Pain: No data found. ECG: N/A. Exam: General Appearance: alert, cooperative, mild distress Lung: clear to auscultation bilaterally, non labored breathing Heart: regular rate and rhythm Abdomen: gravid, soft, tender on right side, Extremities: all extremities warm and well perfused Skin: Skin color, temperature, turgor normal. No rashes or lesions Incision(s)/Wound(s): NA Pressure Ulcer Present on admission? No Data Review: I have independently visualized the CT ABDOMEN PELVIS Labs: CBC: Lab Results Component Value Date WBC 18.16 (H) 02/13/2022 RBC 3.59 (L) 02/13/2022 HGB 10.1 (L) 02/13/2022 HCT 29.5 (L) 02/13/2022 MCV 82 02/13/2022 MCH 28.1 02/13/2022 MCHC 34.2 02/13/2022 PLT 211 02/13/2022 NEUTROABS 15.32 (H) 02/13/2022 BMP: Lab Results Component Value Date NA 139 10/21/2020 K 4.1 10/21/2020 CL 103 10/21/2020 CO2 23 10/21/2020 BUN 12 10/21/2020 CREATININE 0.28 (L) 02/13/2022 Assessment: 27 y.o. female who is 34 weeks with a history of cholecystectomy (2016) presenting with acute appendicitis. Plan for emergent laparoscopic appendectomy. Problems/Plan: Acute appendicitis Emergent laparoscopic appendectomy Mayo Hanna MD 02/13/2022 18:04 Associated attestation - Johnathan Schmitt MD - 02/13/2022 2240 EDT Attestation: I performed or was present during the cole or critical portions of the visit and participated in the management of the patient on 02/13/2022. I agree with the findings and plan of care documented in the resident's/NORRIS's note. CT proven appendicitis in 34 week 27 yo female. To OR for laparoscopic appendectomy. Johnathan Schmitt MD Acute Care Surgery Pager: [phone] documented in this encounter OR Notes * OR Surgeon - Johnathan Schmitt MD - 02/14/2022 0015 EDT APPENDECTOMY, LAPAROSCOPIC Operative Note Date: 02/13/2022 Location: [facility] OR Name: Ana Juarez, : 1995, Diagnosis Pre-Op Diagnosis Codes: * Acute appendicitis affecting [O99.619, K35.80] Post-op Diagnosis * Acute appendicitis affecting [O99.619, K35.80] Procedures * APPENDECTOMY, LAPAROSCOPIC Surgeons Johnathan Schmitt MD - Primary HadiShweta MD - Roll Mechanic Procedure Summary Anesthesia: General ASA: III Estimated Blood Loss: No Blood Loss Documented LDAs: Peripheral IV 02/13/22 1200 Anterior;Right Forearm (Active) Peripheral IV 02/13/22 1916 Posterior;Right Wrist (Active) Wound 02/13/22 Incision Other (Comment) Umbilicus (Active) [REMOVED] Non-Surgical Airway (Removed) Staff: Jailer: Brenda Edward RN Scrub Person: Angeles Marrufo Indications: 27 y.o. female who is 34 weeks with a history of cholecystectomy (2016) presenting with acute appendicitis. ?? Procedure Details: Informed consent was obtained. The patient was brought to the operating room and placed in a slightly left lateral decubitus position. After induction of general anesthesia, the anterior abdomen was prepped and draped in the usual sterile fashion. A brief timeout was performed, confirming patient, procedure, position, use of SCDs, and use of perioperative antibiotics. Access to the abdomen was obtained with a 5 mm optical trocar at [place]. The peritoneal cavity was then insufflated to 15 mm Hg with carbon dioxide. The uterus was visualized and there was noinjury after trocar placement. A second 5 mm supraumbilical trocar and a 12 mm epigastric trocar was placed. The tip of the inflamed appendix was noted on the right side of the abdomen. The tip and body of the appendix was quite stuck down. We were able to identify the base of the appendix going into the cecum. Some adhesions throughout the sidewall as well as towards the terminal ileum were noted and taken down with a combination of electrocautery and blunt dissection. We then made a window through the mesoappendix using a [place]. We transected the appendix using an Endo SERGIO campbell load. Given how stuck and shortened the mesoappendix was, we took this structure with a Ligasure. The specimen was placed in an Endocatch bag. We verified that our staple line was intact and there was goodhemostasis. Under direct visualization, all trocars were removed and the specimen was removed via the umbilicalsite. The epigastric port site fascia was reapproximated with a [id number] 0 Vicryl suture. Skin sites were closed with 4-0 Monocryl subcuticular stitches and Dermabond. The patient was then extu bated without complication and transferred to the recovery room in stable condition. There were no complications. Sponge count and needle count were correct at the end of the case. As the attending of record, I was present and scrubbed for the entire procedure. Findings: - Gravid uterus - Inflamed, non-perforated appendicitis Complications: None; patient tolerated the procedure well. Disposition: PACU - hemodynamically stable; patient will stay the night on L&D Condition: stable Specimens:Appendix was sent for Routine Pathology Implants: none Johnathan Schmitt MD Acute Care Surgery Pager: [phone] documented in this encounter Miscellaneous Notes * Plan of Care - Dawna Marques RN - 02/14/2022 1046 EDT Data: Antepartum @ 33+ 5. admitted for s/p appendectomy. Action: monitor maternal/ wellbeing. Educated patient on s/sx to report. Offered pain meds. NST done. Response: Patient verbalizes/demonstrates understanding s/sx to report. NST reactive, +FM, pt denies bleeding, leaking or bryon. maintained. Pt declined pain meds. 0/[address] Jennings looked at strip prior to pt d/c'd. AVS given and reviewed w/ pt. * Plan of Care - Elaine Flores RN - 02/14/2022 0247 EDT Problem: Daily Care Plan Goals Goal: Care Plan Documentation Outcome: Ongoing Flowsheets (Taken 02/14/2022 0152) Area of Focus: Pain/ Comfort Goal This Shift: pain will be well managed Note: Data: Patient is here s/p appy yesterday. 33w5d. VSS. Patient denies bleeding, leaking or bryon and endorses movement. Action: Pain will be well managed with meds. Response: Patient rating her pain 0-5/10 overnight. Discomfort relieved with rest, tylenol and dilaudid. Patient is tolerating PO intake. ELAINE FLORES RN 02/14/2022 2:45 Problem: High Fall Risk: Goal: Patient will Remain Free of Falls due to Med. Side Effects Outcome: Met This Shift * Brief Op Note - Shweta Barcenas MD - 02/13/2022 2231 EDT Date: 02/13/2022 Location: [facility] OR Name: Ana Juarez, : 1995, Diagnosis Pre-Op Diagnosis Codes: * Acute appendicitis affecting [O99.619, K35.80] Post-op Diagnosis * Acute appendicitis affecting [O99.619, K35.80] Procedures * APPENDECTOMY, LAPAROSCOPIC Surgeons * Johnathan Schimtt MD - Primary Procedure Summary Anesthesia: General ASA: ASA status not filed in the log. Estimated Blood Loss: 25ml Total IV Fluids: 500 mL LDAs: Peripheral IV 02/13/22 1200 Anterior;Right Forearm (Active) Peripheral IV 02/13/22 1916 Posterior;Right Wrist (Active) Non-Surgical Airway (Active) Wound 02/13/22 Incision Other (Comment) Umbilicus (Active) Staff: Jailer: Brenda Edward RN Scrub Person: Angeles Marrufo Indications: Ana Juarez is an 27 y.o. female who is having surgery for acute appendicitis Findings: Inflamed retrocecal non perforated appendicitis. Complications: None; patient tolerated the procedure well. Disposition: PACU - hemodynamically stable. Condition: stable Specimens Collected: No specimens collected during this procedure. Attending Attestation: Dr. Schmitt was present and scrubbed for the entire procedure Plan: - No further Antibiotics needed from ACS perspective - Ok to advance to regular diet - Rest of care per primary team Ana Maria Pete documented in this encounter Plan of Treatment Scheduled Referrals Name Type Priority Associated Diagnoses Order Schedule PROVIDER FOLLOW-UP INSTRUCTIONS Outpatient Referral Routine/Next Available Ordered: 02/14/2022 PROVIDER FOLLOW-UP INSTRUCTIONS Outpatient Referral Routine/Next Available Ordered: 02/14/2022 AMB CONS/FOLLOW UP ACUTE CARE SURGERY/TRAUMA/BURN Outpatient Referral Routine/Next Available Acute appendicitis affecting Expected: 02/28/2022 (Approximate), Expires: 02/14/2023 PROVIDER FOLLOW-UP INSTRUCTIONS Outpatient Referral Routine/Next Available Ordered: 02/14/2022 PROVIDER FOLLOW-UP INSTRUCTIONS Outpatient Referral Routine/Next Available Ordered: 02/14/2022 AMB CONS/FOLLOW UP ACUTE CARE SURGERY/TRAUMA/BURN Outpatient Referral Routine/Next Available Acute appendicitis affecting Expected: 03/16/2022 (Approximate), Expires: 02/14/2023 documented as of this encounter Procedures Procedure Name Priority Date/Time Associated Diagnosis Comments COMPLETE BLOOD COUNT Routine 02/14/2022 9:19 EDT SURGICAL PATHOLOGY Routine 02/13/2022 22 :15 EDT APPENDECTOMY, LAPAROSCOPIC 02/13/2022 21:12 EDT Acute appendicitis affecting PATIENT RE-TYPE Routine 02/13/2022 19:12 EDT URINE CHEMICAL (DIP) & SEDIMENT (MICRO) WITH REFLEX TO CULTURE Routine 02/13/2022 18:30 EDT TYPE AND SCREEN Routine 02/13/2022 18:08 EDT COMPLETE BLOOD COUNT AND DIFFERENTIAL Routine 02/13/2022 18:03 EDT C REACTIVE PROTEIN Routine 02/13/2022 18 :03 EDT CREATININE Routine 02/13/2022 18:[address] OUTSIDE IMAGES BODY Routine 02/13/2022 6:58 EDT documented in this encounter Results * (ABNORMAL) COMPLETE BLOOD COUNT (02/14/2022 9:19 EDT) WBC 11.97 4.00 - 12.40 K/cmm 02/14/2022 9:30 EDT [facility] RBC 3.38(L) 3.86 - 5.04 M/cmm 02/14/2022 9:30 EDT [facility] Hemoglobin 9.5(L) 11.6 - 15.2 gm/dL 02/14/2022 9:30 EDT [facility] HCT 27.8(L) 34.9 - 44.4 % 02/14/2022 9:30 EDT [facility] MCV 82 81 - 98 fl 02/14/2022 9:30 EDT [facility] MCH 28.1 26.7 - 33.3 pg 02/14/2022 9:30 EDT [facility] MCHC 34.2 32.1 - 35.9 gm/dL 02/14/2022 9:30 EDT [facility] RDW-CV 14.0 <14.7 % 02/14/2022 9:30 EDT [facility] RDW-SD 41.2 <50.4 fl 02/14/2022 9:30 EDT [facility] PLT 194 141 - 377 K/cmm 02/14/2022 9:30 T [facility] MPV 11.2 9.5 - 12.7 fl 02/14/2022 9:30 EDT [facility] Blood VENOUS BLOOD / Unknown Venipuncture / Unknown 02/14/2022 9:19 EDT 02/14/2022 9:23 EDT Ethan Barrett MD HEMATOLOGY & PF4 ORD ERABLES [facility] [address] [place] [address] * SURGICAL PATHOLOGY (02/13/2022 22:15 EDT) Note to Patient The following pathology results have been interpreted by your pathologist and may be available to you before your health provider has had the opportunity to review them. Please allow time for your provider to receive these results and explore management options, if applicable. 02/18/2022 10:53 EDT [facility] Final Diagnosis A. APPENDIX, APPENDECTOMY: - Acute appendicitis and periappendicitis. 02/18/2022 10:53 EDT [facility] Attestation There was significant resident/fellow involvement in the diagnostic evaluation of this case. By the signature below, the attending physician certifies that they have personally conducted a gross and/or microscopic examination of the described specimens and rendered or confirmed the above diagnosis. 02/18/2022 10:53 [facility] at 1053 Clinical History Acute appendicitis affecting 02/18/2022 10:53 [facility] Gross Description A. Received in normal saline labelled with proper patient identification (initials R, D) and appendix is an appendix (4.5 cm in length x 0.7 cm in diameter), with moderate attached mesoappendix. The proximal margin is stapled. The serosa is smooth and campbell with white exudate. The cut surface is unremarkable. The average wall thickness is 0.2 cm. A perforation site is not identified. The lumen ranges from pinpoint to 0.3 cm in diameter. A fecalith is not identified. The proximal margin is inked black. The section adjacent to the stapled proximal margin, 2 union contract representative cross sections, and one half of the longitudinally bisected distal tip are submitted in A1. Jameson Goodman MD 02/16/2022 15:56 02/18/2022 10:53 [facility] Resident/Tae w: Jameson Goodman MD 02/18/2022 10:53 [facility] Performing Lab [facility] 02/18/2022 10:53 [facility] Scanned Images 02/18/2022 10:53 [facility] Tissue APPENDECTOMY / Unknown 02/13/2022 22:15 EDT 02/15/2022 8:49 EDT Johnathan Schmitt MD PATHOLOGY ORDER BRADY [facility] [address] [place] [address] * PATIENT RE-TYPE (02/13/2022 19:12 EDT) ABO A 02/13/2022 19:36 T [facility] Rh Factor Positive 02/13/2022 19:36 T [facility] Blood VENOUS BLOOD / Unknown Venipuncture / Unknown 02/13/2022 19:12 EDT 02/13/2022 19:20 EDT Pipo Sanchez MD BLOOD BANK TESTS [facility] [address] [place] [address] * (ABNORMAL) URINE CHEMICAL (DIP) & SEDIMENT (MICRO) WITH REFLEX TO CULTURE (02/13/2022 18:30 EDT) Color UA Yellow Colorless, Yellow 02/13/2022 18:52 [facility] Clarity UA Clear Clear 02/13/2022 18:52 [facility] Glucose UA Negative Negative 02/13/2022 18:52 [facility] Bilirubin UA Negative Negative 02/13/2022 18:52 [facility] Ketones UA 3+(AA) Negative 02/13/2022 18:52 [facility] Specific [place], Urine >1.050(H) 1.001 - 1.035 02/13/2022 18:52 [facility] Comment:Urine Specific Gravi ty results greater than 1.035 suggest possible interference from glucose or radiographic dye. Blood UA Negative Negative 02/13/2022 18:52 [facility] Urobilinogen UA Normal Normal mg/dL 022 18:52 [facility] Nitrite UA Negative Negative 02/13/2022 18:52 [facility] Leukocyte Esterase UA Negative Negative 02/13/2022 18:52 [facility] Protein UA 1+(A) Negative 02/13/2022 18:52 [facility] pH, UA 6.5 4.6 - 8.0 02/13/2022 18:52 [facility] Urine RBC Count, Auto 0 - 2 0 - 2 Cells/HPF 02/13/2022 18:52 [facility] Urine WBC Count, Auto 0 - 3 0 - 3 Cells/HPF 02/13/2022 18:52 EDT [facility] Urine Squamous Count, Auto Few(A) None Seen Cells/HPF 02/13/2022 18:52 EDT [facility] Urine Hyaline Cast Count, Auto <=10 <=10 Casts/LPF 02/13/2022 18:52 EDT [facility] Urine Bacteria Count, Auto None Seen None Seen Bacteria/HPF 02/13/2022 18:52 EDT [facility] Urine URINE SPECIMEN COLLECTION, CLEAN CATCH / Unknown Urine Collect / Unknown 02/13/2022 18:30 EDT 02/13/2022 18:36 EDT Narrative [facility] - 02/13/2022 18:52 EDT NOTE: Reflex to Urine Culture test is not indicated based on Urine Sediment Analysis results. Urine Sediment Analysis results are unreliable on urines that are unrefrigerated for >2 hrs or refrigerated >8 hrs. Pipo Sanchez MD URINALYSIS ORDERABLE S Performing Organization Address City/[facility]/ZIP Co de Phone Number [facility] [address] [place] [address] * TYPE AND SCREEN (02/13/2022 18:08 EDT) ABO A 02/13/2022 18:56 EDT [facility] Rh Factor Positive 02/13/2022 18:56 EDT [facility] Antibody Screen Negative 02/13/2022 18:56 EDT [facility] Specimen Expires: 02/16/2022 @ 23:59 02/13/2022 18:56 EDT [facility] Blood VENOUS BLOOD / Unknown Venipuncture / Unknown 02/13/2022 18:08 EDT 02/13/2022 18:17 EDT Pipo Sanchez MD BLOOD BANK TESTS Performing Organization Address City/[facility]/ZIP Co de Phone Number [facility] [address] [place] [address] * (ABNORMAL) C REACTIVE PROTEIN (02/13/2022 18:03 EDT) C-Reactive Protein 20.0(H) <10.0 mg/L 02/13/2022 18:31 EDT [facility] Blood VENOUS BLOOD / Unknown Venipuncture / Unknown 02/13/2022 18:03 EDT 02/13/2022 18:14 EDT Pipo Sanchez MD CHEMISTRY & BLOOD GA S ORDERABLES Performing Organization Address City/[facility] Co de Phone Number [facility] [address] [place] [address] * (ABNORMAL) CREATININE (02/13/2022 18:03 EDT) [facility] Creatinine 0.28(L) 0.52 - 1.04 mg/dL 02/13/2022 18:31 EDT [facility] eGFR 153 >60 mL/min/1.73 m2 02/13/2022 18:31 T [facility] Blood VENOUS BLOOD / Unknown Venipuncture / Unknown 02/13/2022 18:03 EDT 02/13/2022 18:14 EDT Pipo Sanchez MD CHEMISTRY & BLOOD GA S ORDERABLES Performing Organization Address [facility] Co de Phone Number [facility] [address] [place] [address] * (ABNORMAL) COMPLETE BLOOD COUNT AND DIFFERENTIAL (02/13/2022 18:03 EDT) Pathologist [facility] WBC 18.16(H) 4.00 - 12.40 K/cmm 02/13/2022 18:26 T [facility] RBC 3.59(L) 3.86 - 5.04 M/cmm 02/13/2022 18:26 [facility] Hemoglobin 10.1(L) 11.6 - 15.2 gm/dL 02/13/2022 18:26 T [facility] HCT 29.5(L) 34.9 - 44.4 % 02/13/2022 18:26 [facility] MCV 82 81 - 98 fl 02/13/2022 18:26 [facility] MCH 28.1 26.7 - 33.3 pg 02/13/2022 18:26 [facility] MCHC 34.2 32.1 - 35.9 gm/dL 02/13/2022 18:26 [facility] RDW-CV 13.8 <14.7 % 02/13/2022 18:26 [facility] RDW-SD 40.6 <50.4 fl 02/13/2022 18:26 [facility] PLT 211 141 - 377 K/cmm 02/13/2022 18:26 [facility] MPV 11.6 9.5 - 12.7 fl 02/13/2022 18:26 [facility] % Neutrophils 84.3 % 02/13/2022 18:26 [facility] % Lymphocytes 11.1 % 02/13/2022 18:26 [facility] % Monocytes 3.5 % 02/13/2022 18:26 [facility] % Eosinophils 0.3 % 02/13/2022 18:26 [facility] % Basophils 0.2 % 02/13/2022 18:26 [facility] % Immature Grans 0.6 % 02/14/20 18:26 [facility] Absolute Neutrophils 15.32(H) 2.20 - 8.85 K/cmm 02/13/2022 18:26 [facility] Absolute Lymphocytes 2.01 1.09 - 3.30 K/cmm 02/13/2022 18:26 [facility] Absolute Monocytes 0.64 0.10 - 0.80 K/cmm 02/13/2022 18:26 [facility] Absolute Eosinophils 0.06 0.03 - 0.61 K/cmm 02/13/2022 18:26 [facility] ABS Basophils 0.03 0.01 - 0.11 K/cmm 02/13/2022 18:26 EDT [facility] Absolute Immature Grans 0.10(H) 0.00 - 0.06 K/cmm 02/13/2022 18:26 EDT [facility] Type of Differential: Auto 02/13/2022 18:26 EDT [facility] Blood VENOUS BLOOD / Unknown Venipuncture / Unknown 02/13/2022 18:03 EDT 02/13/2022 18:14 EDT Pipo Sanchez MD PACKAGES & DNA PROBE ORDERABLES [facility] [address] [place] [address] * CT OUTSIDE IMAGES BODY (02/13/2022 6:58 EDT) Narrative 02/14/2022 6:58 EDT This is a non-reportable exam. External Imaging IMG OTHER IMAGING OR DERABLES documented in this encounter Visit Diagnoses Diagnosis Acute appendicitis affecting - Primary Acute appendicitis affecting Encounter for supervision of other normal in third trimester RLQ abdominal pain Abdominal pain, right lower quadrant Supervision of normal Supervision of other normal documented in this encounter Admitting Diagnoses Diagnosis RLQ abdominal pain Abdominal pain, right lower quadrant Acute appendicitis affecting documented in this encounter Administered Medications Inactive Administered Medications - up to 3 most recent administrations Medication Order MAR Action Action Date Dose Rate Site acetaminophen (TYLENOL) tablet 1,000 mg 1,000 mg, oral, EVERY 8 HOURS PRN, Starting on 02/13/22 at 2237, Until 02/14/22 at 1252, Pain, Routine Given 02/14/2022 6:47 EDT 1,000 mg Given 02/13/2022 23:16 EDT 1,000 mg HYDROmorphone (DILAUDID) tablet 2-4 mg 2-4 mg, oral, EVERY 30 MINUTES PRN, 2 doses, Starting on 02/13/22 at 2306, Until 02/14/22 at 0129, Pain, Routine Given 02/14/2022 1:29 EDT 4 mg Given 02/13/2022 23:16 EDT 4 mg HYDROmorphone (DILAUDID) tablet 2-4 mg 2-4 mg, oral, EVERY 4 HOURS PRN, Starting on 02/14/22 at 0209, Until 02/14/22 at 1252, Pain, Routine Given 02/14/2022 5:26 EDT 2 mg HYDROmorphone (PF) (DILAUDID) 0.5 mg/0.5 mL syringe 0.3-0.5 mg 0.3-0.5 mg, intravenous, EVERY 10 MINUTES PRN, Starting on 02/13/22 at 2306, Until 02/14/22 at 1252, Pain, Routine lactated ringers (LR) infusion 75 mL/hr, intravenous, CONTINUOUS, Starting on [facility] 02/13/22 at 1845, Until [place] 02/14/22 at 0053, Routine, Pre-Delivery New Bag 02/13/2022 23:23 EDT 75 mL/hr 75 mL/hr New Bag 02/13/2022 18:39 EDT 75 mL/hr 75 mL/hr lactated ringers BOLUS 500 mL 500 mL, intravenous, NOW X1, 1 dose, On 02/13/22 at 1915, Routine Given 02/13/2022 19:00 EDT 500 mL metoclopramide (REGLAN) injection 10 mg 10 mg, intravenous, EVERY 6 HOURS, First dose on 02/13/22 at 1900, Until Discontinued, Routine Given 02/13/2022 19:56 EDT 10 mg metronidazole (FLAGYL) infusion 500 mg 500 mg, intravenous, Administer over 30 Minutes, EVERY 8 HOURS, 1 dose, First dose on [facility] 02/13/22 at 1830, Type of Therapy: Empiric, Suspected Indication (Select all that apply): Appendicitis (including perforated appendicitis), ID Consult: No, Routine Given 02/13/2022 18:41 EDT 500 mg naloxone (NARCAN) injection 0.2 mg 0.2 mg, intravenous, PRN, Starting on 02/13/22 at 2306, Until [place] 02/14/22 at 1252, Opioid Reversal, Routine ondansetron (PF) (ZOFRAN) injection 4 mg 4 mg, intravenous, PRN, 1 dose, Starting on 02/13/22 at 2306, Until 02/13/22 at 2316, Nausea, Vomiting, Routine, Recovery (only) Given 02/13/2022 23:16 EDT 4 m g documented in this encounter Historical Medications * This list may reflect changes made after this encounter. Medication Sig Dispensed Refills Start Date End Date Multivitamins with Minerals tablet tablet Take 1 Tablet by mouth daily. added in this encounter Active and Recently Administered Medications Times are shown in EDT. Scheduled Medication Order 02/12/2022 02/13/2022 02/14/2022 lactated ringers BOLUS 500 mL (COMPLETED) 500 mL, intravenous, NOW X1, 1 dose, On 02/13/22 at 1915, Routine 1900 (Given - Provider: Ruthie Hamm, RN) metoclopramide (REGLAN) injection 10 mg (CANCELED) 10 mg, intravenous, EVERY 6 HOURS, First dose on 02/13/22 at 1900, Until Discontinued, Routine 1955 (Given - Provider: Gisella Gallegos, DONNA)2121 (AUG Hold - Provider: Automatic Transfer Provider Hn - Reason: Patient off unit)2304 (AUG Unhold - Provider: Automatic Transfer Provider Hn) 005 (Not Given - Provider: Gisella Gallegos RN - Reason: Other - Comment: Med not due. Last gvn @1999.) metronidazole (FLAGYL) infusion 500 mg (COMPLETED) 500 mg, intravenous, Administer over 30 Minutes, EVERY 8 HOURS, 1 dose, First dose on 02/13/22 at 1830, Type of Therapy: Empiric, Suspected Indication (Select all that apply): Appendicitis (including perforated appendicitis), ID Consult: No, Routine 184 (Given - Provider: Ruthie Hamm, DONNA) multivitamin vit-iron fumarate-FA (STUARTNATAL) 27 mg iron- 1 mg tablet 1 Tablet 1 Tablet, oral, DAILY, First dose on 02/14/22 at 0900, Until Discontinued, Routine, Release 0900 (Canceled Entry - Provider: Batch Job User Admin - Comment: Automatically canceled at discontinue of medication order) senna (SENOKOT) tablet 1 Tablet 1 Tablet, oral, DAILY, First dose on 02/14/22 at 0900, Until Discontinued, Routine, Release 0900 (Canceled Entry - Provider: Batch Job User Admin - Comment: Automatically canceled at discontinue of medication order) sodium chloride 0.9 % (flush) flush 5 mL 5 mL, intravenous, EVERY 8 HOURS, First dose on 02/14/22 at 0115, Until Discontinued, Routine, Release 0115 (Canceled Entry - Provider: Batch Job User Admin - Comment: Automatically canceled at discontinue of medication order)0800 (Canceled Entry - Provider: Batch Job User Admin - Comment: Automatically canceled at discontinue of medication order) Continuous Medication Order 02/12/2022 02/13/2022 02/14/2022 lactated ringers (LR) infusion (CANCELED) 75 mL/hr, intravenous, CONTINUOUS, Starting on 02/13/22 at 1845, Until 02/14/22 at 0053, Routine, Pre-Delivery 1839 (New Bag - Provider: Ruthie Hamm RN)2323 (New Bag - Provider: Gisella Gallegos RN) PRN Medication Order 02/12/2022 02/13/2022 02/14/2022 acetaminophen (TYLENOL) tablet 1,000 mg 1,000 mg, oral, EVERY 8 HOURS PRN, Starting on 02/13/22 at 2237, Until 02/14/22 at 1252, Pain, Routine 2316 (Given - Provider: Gisella Gallegos RN) 0647 (Given - Provider: Elaine Flores RN) bupivacaine (PF) (MARCAINE) 0.5% injection (CANCELED) PRN, Starting on 02/13/22 at 2223, Until 02/13/22 at 2242, Routine, Intraprocedure 2223 (Given - Provider: Johnathan Schmitt MD) calcium carbonate (TUMS) 200 mg calcium (500 mg) per chewable tablet tablet,chewable 2 Tablet 2 Tablet, oral, 4 TIMES DAILY PRN, Starting on 02/14/22 at 0046, Until 02/14/22 at 1252, Heartburn, Routine, Release HYDROmorphone (DILAUDID) tablet 2-4 mg (COMPLETED) 2-4 mg, oral, EVERY 30 MINUTES PRN, 2 doses, Starting on 02/13/22 at 2306, Until 02/14/22 at 0129, Pain, Routine 2316 (Given - Provider: Gsiella Gallegos RN) 0129 (Given - Provider: Gisella Gallegos RN) HYDROmorphone (DILAUDID) tablet 2-4 mg 2-4 mg, oral, EVERY 4 HOURS PRN, Starting on 02/14/22 at 0209, Until 02/14/22 at 1252, Pain, Routine 0526 (Given - Provid er: Elaine Flores RN)1040 (Not Given - Provider: Dawna Marques RN - Reason: Patient/family refused) HYDROmorphone (PF) (DILAUDID) 0.5 mg/0.5 mL syringe 0.3-0.5 mg 0.3-0.5 mg, intravenous, EVERY 10 MINUTES PRN, Starting on 02/13/22 at 2306, Until 02/14/22 at 1252, Pain, Routine naloxone (NARCAN) injection 0.2 mg 0.2 mg, intravenous, PRN, Starting on 02/13/22 at 2306, Until 02/14/22 at 1252, Opioid Reversal, Routine ondansetron (PF) (ZOFRAN) injection 4 mg (COMPLETED) 4 mg, intravenous, PRN, 1 dose, Starting on 02/13/22 at 2306, Until 02/13/22 at 2316, Nausea, Vomiting, Routine, Recovery (only) 2316 (Given - Provider: Gisella Gallegos RN) documented in this encounter Orders Medications Ordered That Christ ht Not Have Been Administered Count Last Ordered Date First Ordered Date calcium carbonate (TUMS) 200 mg calcium (500 mg) per chewable tablet tablet,chewable 2 Tablet 1 02/14/2022 multivitamin vit-ir on fumarate-FA (STUARTNATAL) 27 mg iron- 1 mg tablet 1 Tablet 1 02/14/2022 senna (SENOKOT) tablet 1 Tablet 1 2 sodium chloride 0.9 % (flush) flush 5 mL 1 02/14/2022 atropine 0.1 mg/mL syringe 0.5 mg 1 022 bupivacaine (PF) (MARCAINE) 0.5% injection 1 02/13/2022 fentaNYL citrate (PF) injection 25-50 mcg 02/13/2022 HYDROmorphone (PF) (DILAUDID ) 0.5 mg/0.5 mL syringe 0.3-0.5 mg 1 02/13/2022 lactated ringers (LR) infusion 1 02/13/2022 lidocaine (PF) 10 mg/mL (1 % ) injection 2 mg 1 02/13/2022 naloxone (NARCAN) injection 0.2 mg 1 2021 ondansetron (PF) (ZOFRAN) injection 4 mg 1 02/13/2022 oxyCODONE (ROXICODONE) immed iate release tablet 5-10 mg 1 02/13/2022 Diet Count Last Ordered Date First Orde red Date DISCHARGE DIET 5 02/14/2022 Nursing Count Last Ordered Date First Orde red Date ACTIVITY INSTRUCTIONS 2 02/14/2022 BATHING INSTRUCTIONS 3 02/14/2022 DRIVING INSTRUCTIONS 1 02/14/2022 WOUND CARE INSTRUCTIONS 3 02/14/2022 Admission Count Last Ordered Date First Orde red Date OUTPATIENT WITH OBSERVATION SERVICES (INITIATE OBSERVATION STATUS) 1 02/13/2022 Discharge Count Last Ordered Date First Orde red Date DISCHARGE PATIENT 1 02/14/2022 Legal Count Last Ordered Date First Orde red Date MISCELLANEOUS DISCHARGE INSTRUCTIONS 2 02/04 Case Request Count Last Ordered Date First Orde red Date CASE REQUEST OPERATING ROOM 1 02/13/2022 documented in this encounter Care Teams Break Out Worker Relationship Specialty Start Date End Date Amanda Knox FNP [address] [place] [id number] PCP - General 08/13/19 documented as of this encounter
--- OUTSIDE RECORDS SUMMARY | 2024-01-27 18:09 | XMS_ITS | Referral Summary ---
Author Organization [facility] Address [address] [place] [address] Care Team Providers Care Technical Clerk Name Role Phone Amanda Knox [facility] Primary Care Provider [phone] Allergies No known active allergies Medications Medication [...] Overview: Added automatically from request for surgery [id number] Encounter for surveillance o f contraceptive pills [...] Varicella (Chickenpox) vacci ne (VARIVAX) SQ 02/08/2008,05/13/1998 Social History Tobacco Use Types Packs/Day Years [...] 9:34 EDT Sexual Orientation Not on file Last Filed Vital Signs Vital Sign Reading [...] Body Mass Index 32.61 01/18/2023 1243 EDT Functional Status Functional Status Response Date of [...] (15 years old or older) No 02/13/2022 Plan of Treatment Not on file Procedures Procedure Name Priority Date/Time Associated Diagnosis Comments HEPATITIS C AB W REFLEX TO HCV RNA BY PCR Routine 09/28/2021 8:30 EDT from Last 3 Months or Most Recently Relevant to Health Maintenance Results * HEPATITIS C AB W REFLEX TO HCV RNA BY PCR (09/28/2021 8:30 EDT) Hep C Antibody Negative Negative 09/29/2021 9:[address] [facility] Blood VENOUS BLOOD / Unknown 09/28/2021 8:30 EDT 09/28/2021 16:46 EDT Provider Outr Resulting Lab CHEMISTRY & BLOOD GAS ORDERABLES [facility] [address] [place] [address] from Last 3 Months or Most Recently Relevant to Health Maintenance Advance Directives For more information, please contact: [phone] * Full Code (Latest Code Status on [...] Made the Decision? Default/Not Discussed Care Teams Technical Clerk Relationship Specialty Start Date End Date Amanda Knox FNP [address] [facility] [place] [address] [facility] - General 08/13/19
--- OUTSIDE RECORDS SUMMARY | 2024-01-27 18:09 | XMS_ITS | Encounter Summary ---
Author Organization [facility] Address [address] [place] [address] Care Team Providers Care Geosciences Associate Professor Name Role Phone Amanda Knox [employer] Primary Care Provider [phone] Reason for Visit * Reason Comments Psychiatric Evaluation Pt arrives statin g I am seeking for inpatient admission or a 24-48 hour hold. Is in contact with psych services in [facility] and they completed intake and pt has plans for [facility] Crisis bed but is unable to get bed today because I drank a lot of alcohol last night and they don't manage detox. Has been admitted here to [facility] in 2020. Pt reports severe depression, I don't trust myself I am making bad decisions, in regards to SI states passive intent to hurt self. * Auth/Cert (Routine) Specialty Diagnoses / Procedures Referred By Contac t Referred To Contact Diagnoses Depression, unspecified depression type Referral ID Status Reason Start Date Expiration Date Visits Re quested Visits Authorized [id number] 1 1 Encounter Details Date Type Department Care Team (Late st Contact Info) Description 10/12/2022 18:13 EDT - 10/15/2022 17:45 EDT Hospital Encounter [facility] Inpatient Psychiatry [address] [place] [address] Yazan Husain MD [address] [facility], Level [address] [place] [address] Gavino Campbell, [address] [place] [address] Yazmin Mobley MD [address] [place] [id number] Suicidal ideation (Primary Dx); MDD (major depressive disorder), recurrent episode, moderate (HCC-CMS); Borderline personality disorder (HCC-CMS); Anxiety disorder, unspecified type; Alcohol use disorder; Cannabis use disorder; Cigarette nicotine dependence without complication; Dyspepsia; Depression, unspecified depression type Discharge Disposition: Home or Self Care Social [...] 17:54 EDT documented as of this encounter Last Filed Vital Signs Vital Sign Reading Time Taken Comments Blood Pressure 101/77 10/15/2022 0900 EDT Pulse 66 10/15/2022 0900 EDT Temperature 36.6 ??C (97.8 ??F) 10/15/2022 0900 EDT Respiratory Rate 16 10/15/2022 0900 EDT Oxygen Saturation 100% 10/15/2022 0900 EDT Inhaled Oxygen Concentration - - Weight 86.2 kg (190 lb) 10/12/20222040 EDT Height 162.6 cm (5' 4) 10/12/20222040 EDT Body Mass Index 32.61 10/12/20222040 EDT documented in this encounter Functional Status [...] as of this encounter Discharge Summaries * Yazmin Mobley MD - 10/15/2022 1354 EDT INPATIENT PSYCHIATRIC DISCHARGE SUMMARY Patient Name: Ana Juarez : 1995 Date of Admission: 10/12/22 Primary Care Provider: Amanda Knox Date of Discharge: 10/15/22 Attending at time of discharge: Yazmin Mobley MD Reason for Admission: Worsening depression and SI Principal/Discharge Diagnosis: Depression, unspecified depression type Additional Problems Managed in the Hospital: Active Hospital Problems Diagnosis Date Noted ??? *Depression, unspecified depression type 10/12/2022 ??? Cigarette nicotine dependence without complication 10/13/2022 ??? Dyspepsia 10/13/2022 ??? Borderline personality disorder (HCC-CMS) (HCC) ??? Anxiety disorder ??? Alcohol use disorder ??? Cannabis use disorder Resolved Hospital Problems Diagnosis Date Noted Date Resolved ??? Suicidal ideation 10/15/2022 History of Present Illness as Documented by Dr. Gavino Campbell on Day of Admission: Patient is a 27 y.o. woman with a reported history of bipolar related illness [facility] complaints of worsening depressive symptoms and concerns related to keeping herself safe at home. She reports that over the past month her mood has been increasingly angry and depressed. She identifies a lifelong history of being quick to anger and dealing with self-hatred. ?? She reports drinking large amounts of alcohol to cope with negative emotions she has been feelings.She reports having thoughts of overdosing on medications but states she would never do so because of her children. ?? She reports carrying a lot of guilt. She reports low energy, anhedonia, and reduced appetite. Shereports feeling overhwelmed and having difficulties improving her circumstances. ?? She denies history of briseyda manic symptoms. She does use the term george to describe a reaction she had to a medication while on IPP at age 24. She is uncertain of the medication but states that she became tachycardic, increasingly suicidal, and tearful. ? Reason for Failure of Outpatient Treatment: Increased severity of psychiatric symptoms Current Support System: ?? HISTORY ?? Psychiatric History: Patient reports 3 prior psychiatric hospitalizations including once at age 20 and twice at [facility] [place] 24. She describes severe anxiety and suicidal thoughts leading to admission at age 20. She reports saving Lamictal she had been receiving on the unit with intent to overdose. She reports overdosing on Lamictal with suicidal intent after discharge from the hospital and being readmitted. She currently sees a therapist weekly, Darling Merritt who she has been seeing the past 5 months. She reports that Sue Washington recently prescribed her Latuda which she only took two doses of and then stopped due to concern that it increased anxiety. ?? PMH PSH Past Medical History: Diagnosis Date ??? Contraceptive management ? Past Surgical History: Procedure Laterality Date ??? CHOLECYSTECTOMY ?? 2016 ? Family History Social History History reviewed. No pertinent family history. Social History ?? Tobacco Use ??? Smoking status: Former ? Types: Cigarettes ??? Smokeless tobacco: Never Substance Use Topics ??? Alcohol use: Not on file ? Family History (psychiatric) suicide attempt: mother - reportedly has taken antidepressants ?? Substance Abuse History (in past 12 months) Substance Abuse History (Lifetime) Social History ?? Substance and Sexual Activity Drug Use Not on file ? Reports drinking 4 drinks - 6 drinks thrice weekly. She reports smoking cannabis weekly. ? Medications Prescriptions Prior to Admission Medications Prior to Admission Medication Sig Dispense Refill Last Dose ??? acetaminophen (TYLENOL) 500 mg tablet Take 2 Tablets by mouth every 8 hours as needed for Pain.? lurasidone (LATUDA) 20 mg tablet TAKE ONE-HALF TABLET BY MOUTH EVERY EVENING WITH MEAL ? Multivitamins with Minerals tablet tablet Take 1 Tablet by mouth daily. ? polyethylene glycol 3350 (MIRALAX) 17 gram packet Take 17 g by mouth daily. ? Allergies No Known Allergies ?? / :: lactating ?? 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 Advanced Directives: Medical: Patient does not have Advance Directive, is not interested. Psychiatric:Patient does not have Advance Directive. ?? Hospital Course: Ana Juarez was a 27 y.o. F with a long history of depression, anxiety, childhood trauma, cannabis use disorder, alcohol use disorder, probable BPD, and previous concern for bipolar disorder due to manic spectrum symptoms in the context of sertraline, with several admissions to [facility]. She was admitted voluntarily for worsening depression, anxiety, and SI in the context of recent alcohol and cannabis use, life stressors, and 6 months post-. While we were unable to rule out bipolar disorder previously, her history and presentation appeared most consistent with MDD with BPD in the context of significant childhood trauma. She has historically struggled to navigate and cope with ambivalence and conflicting thoughts and feelings. It appeared that she was continuing to experience these struggles. History was reviewed. Available medical records were reviewed. Care was coordinated with outpatientpsychiatric provider. Pt was recently started on lurasidone by outpatient psychiatric provider but had only taken on dose. After reviewing options, she collaborated on a plan to resume meds. She appeared to tolerate it and was agreeable to further titration. We also collaborated on a plan to resumePRN clonidine for agitation, anxiety. She was monitored for alcohol withdrawal but remained asymptomatic. She readily acknowledged problems around her alcohol and cannabis use and planned to abstain. She denied any ongoing cravings and MAT did not seem indicated. The patient engaged well in the milieu and activities of the hospital. Patient responded well to the support of the milieu and other patients and also the treatment team. Her mood quickly improved and suicidal ideation resolved. She exhibited improved insight into her struggles and was motivated for ongoing treatment. We discussed recommendation for a stepdown to [facility] and or DBT through [facility]. Alea already initiated intake and had an assessment scheduled for 10/22, with consideration for theirDBT program. She wished to discharge in time for Mother's Day. She convincingly denied any ongoing suicidal ideation or thoughts of self-harm. She was agreeable to a safety plan whereby she will talk with her family, call [phone] or local crisis line, or present to the nearest emergency department if she felt unsafe. She continued to identify her children as deterrents to suicide. Condition on Discharge: Overall improved. The patient reported resolution of suicidal ideation and improvement of mood. Herinsight into illness was improved. There was a corresponding improvement in mental status exam. Although the patient acknowledges important risk factors suicide and worsening of symptoms, including long history of depression and anxiety, childhood trauma, substance use, psychosocial stressors; she is working to mitigate this risk via outpatient therapy, medication treatment, avoiding substances and via safety planning that includes calling 911, local [facility] crisis service or returning to the hospital if she feels unsafe; and the patient consistently and convincingly denies suicidal ideation. I have spoken to the patient and they are in agreement with the discharge plan. The patient was collaborative in their discharge plan and stated that she was grateful for their care here at the hospital. While suicide is difficult to predict and the patient's mental illness is chronic in nature, imminent risk of self-harm or harm of others is not present and there is no contraindication to discharge and there is no grounds for emergency evaluation. Suicide Risk Assessment: Modifiable Risk Factors: Substance abuse / dependence;Impulsivity;Vulnerability to painful affective states;Decreased self esteem;Insomnia Non-modifiable risk factors: Prior suicide attempt;Chronic or terminal illness;;Mood disorder;Cluster B personality disorder / trait;Childhood abuse/neglect;Family history of attempted or completed suicide;Family history of psychiatric illness Protective factors: Children in home;Sense of responsibility to family & social supports/connections;Positive coping skills/potential;Capacity for self- observation;Positive problem solving;Capacity to self-regulate;Capacity to establish therapeutic alliance;Outpatient care in place;Willingness to comply with treatment plan;Capacity to realistically appraise one's self & one's life circumstances Overall Acute Risk Rating: moderate Overall Chronic Risk Rating: moderate Violence Risk Assessment: Historical Risk Factors (in the past 12 months): Substance abuse;Trauma history;Early abuse or trauma (victim or victimizer);Major mental illness;Personality disorder (borderline, histrionic, antisocial) Current Risk Factors: None Modifiable Risk Factors: Impulsivity Protective Risk Factors: History of stable relationships;History of treatment adherence Acute Risk Rating: low Chronic Risk Rating: low Mental Status Exam on Discharge: Appearance: 27 y.o. female appearing chronological age, dressed in casual attire, with intact hygiene and grooming Behavior: calm Arousal: awake, alert Attitude toward examiner: Cooperative; well engaged; good eye contact Attention/Concentration: attentive to conversation Orientation: grossly oriented Memory: recalls recent events and conversations Mood: Good. Affect: bright; relaxed; full range; mood congruent; appropriate; non-labile Speech: regular to rate, rhythm, and volume Thought Process/Language: linear, logical, and goal-directed; organized Associations: no loosening Gait: steady, with normal station Motor: no psychomotor disturbances or abnormal movements Content,Peroccupations, Over-valued, Ideas, Delusions: future oriented; motivated for ongoing treatment; no briseyda delusions Perceptual: denies AVH; none apparent Danger Self: Denies SI or thoughts of self-harm; future oriented and agreeable to a safety plan; deterred by kids Danger Other: Denies homicidal or violent ideation; no threatening statements or postures Fund of Knowledge: appropriate Insight/Judgement: improving; improved; wishes to proceed with discharge as discussed Discharge Medications: Lurasidone 20 mg qPM with dinner Clonidine 0.05 mg BID PRN anxiety, agitation Tums two tabs 4 times daily PRN Acetaminophen as needed MVI one tab daily Rationale for prescription of more than one antipsychotic medication: N/A Disposition: Home Follow-up Referrals and Appointments: 16 Call [facility] Sun Wednesday October 19, 2022 Virtual Session 11:[address] [place] [address] ??[id number] Go to [facility] Thursday October 20, 2022 3:30 p.m. 4 On license of [facility] [id number] Go to [facility] Saturday October 22, 2022 9:45 am with [facility] [phone] Patient was also referred to [facility] program. They will be contacting her to schedule an intakeappointment next week. Patient will also follow up with her psychiatric provider, Sue Evans, as previously scheduled. Time Specifier: Greater than 30 minutes was spent evaluating the patient, preparing the patient fordischarge, preparing paperwork for discharge, and preparing this report. Yazmin Mobley MD documented in this encounter Discharge Instructions * Discharge Instr - AVS First Page* Angeles Montelongo - 10/14/2022 15:58 EDT Corie, you are being discharged with PCP, therapist, and [facility] appointments in place. Please follow up with the appointments listed below. You have also been referred to [facility]. Please follow up with providers. If you are feeling unsafe, please call the [facility] 24 hr Crisis Phone at [phone], the [facility] Crisis Phone at [phone], or go to the nearest hospital ED. documented in this encounter Medications at Time [...] for Other (anxiety, agitation). 30 Tablet 10/15/2022 Multivitamins with Minerals tablet tablet Take 1 Tablet by mouth daily. lurasidone (LATUDA) 20 mg tablet Take 1 Tablet by mouth every evening for 30 days. 30 Tablet 10/15/2022 11/14/2022 documented as of this encounter Ordered Prescriptions Prescription Sig Dispensed Refills Start Date End Da te calcium carbonate (TUMS) 200 mg calcium (500 mg) tablet,chewable Take 2 Tablets by mouth 4 times daily as needed for Heartburn or Indigestion. 10/15/2022 cloNIDine HCL (CATAPRES) 0.1 mg tablet Take 0.5 Tablets by mouth 2 times daily as needed for Other (anxiety, agitation). 30 Tablet 10/15/2022 lurasidone (LATUDA) 20 mg tablet Take 1 Tablet by mouth every evening for 30 days. 30 Tablet 10/15/2022 11/14/2022 documented in this encounter Discharge Disposition Disposition Code Departure Means Destination Home or Self Halfway documented in this encounter Progress Notes * Tash Bermudez NP - 10/15/2022 1427 EDT IPP Communication to PCP on discharge Admit Date: 10/12/2022 Hospital Day: LOS: 3 days Date of Discharge: 10/15/2022 PCP: Amanda Knox Reason for admission: Depression. Anxiety. Psychiatrist evaluation: See psychiatrist discharge summary for more information and list below for conditions addressed during this admission. Assessment/Problems addressed during hospitalization:(update problem list daily as appropriate) Active Hospital Problems Diagnosis Date Noted ??? *Depression, unspecified depression type 10/12/2022 ??? Cigarette nicotine dependence without complication 10/13/2022 ??? Dyspepsia 10/13/2022 ??? Borderline personality disorder (HCC-CMS) ([facility]) ??? Anxiety disorder ??? Alcohol use disorder ??? Cannabis use disorder Resolved Hospital Problems Diagnosis Date Noted Date Resolved ??? Suicidal ideation 10/15/2022 Social History Social History Narrative Lives with male partner Go and their daughter Qian (b. 02/2018) in [place] Family lives close by in [place], [place] Past Medical History: Diagnosis Date ??? Anxiety state ??? Contraceptive management ??? COVID-24 May 2021, May 2022 ??? Situational depression Past Surgical History: Procedure Laterality Date ??? CHOLECYSTECTOMY 2015 ??? LAPAROSCOPIC APPENDECTOMY N/A 2021 Current Facility-Administered Medications Medication Route Frequency ??? acetaminophen (TYLENOL) tablet 650 mg oral Q4H PRN ? ? aluminum & magnesium hydroxide-simethicone (MAALOX PLUS) 200-200-20 mg/5 mL suspension 30 mL oral Q4H PRN ??? calcium carbonate (TUMS) tablet 500 mg (200 mg elemental calcium) 2 Tablet oral QID PRN ??? cloNIDine HCL (CATAPRES) tablet 0.05 mg oral BID PRN ??? lurasidone (LATUDA) tablet 20 mg oral QPM ??? melatonin tablet 3 mg oral AT BEDTIME PRN ??? nicotine (NICOTROL) 10 mg inhaler 1 Inhaler inhalation Q2H PRN ??? nicotine inhaler (delivery device) ??? polyethylene glycol 3350 (MIRALAX) packet 17 g oral Daily PRN ??? senna (SENOKOT) tablet 1 Tablet oral AT BEDTIME PRN Discharge Medications START Sig calcium carbonate 200 mg calcium (500 mg) tablet,chewable Refills: 0 Commonly known as: TUMS Take 2 Tablets by mouth 4 times daily as needed for Heartburn or Indigestion. cloNIDine HCL 0.1 mg tablet Refills: 0 Commonly known as: CATAPRES Take 0.5 Tablets by mouth 2 times daily as needed for Other (anxiety, agitation). Quantity: 30 Tablet MODIFY Sig lurasidone 20 mg tablet Refills: 0 Commonly known as: LATUDA What changed: See the new instructions. Take 1 Tablet by mouth every evening for 30 days. Quantity: 30 Tablet CONTINUE Sig acetaminophen 500 mg tablet Refills: 0 Commonly known as: TYLENOL Take 2 Tablets by mouth every 8 hours as needed for Pain. Multivitamins with Minerals tablet tablet Refills: 0 Take 1 Tablet by mouth daily. STOP polyethylene glycol 3350 17 gram packet Commonly known as: MIRALAX Subjective/HPI: She feels ready for discharge this afternoon, with her picking her up after his work day. She lives in [place] with plans to follow through with DBT at [facility] in [facility], she is not concerned about transportation to make appointments. She denies any new or worsening medical concerns, see A/P for detailed discussion and plan. VS: Patient Vitals for the past 8 hrs: BP Pulse Resp Temp SpO2 10/15/22 0900 101/77 66 16 36.6 ??C (97.8 ??F) 100 % Pain: No data found. Weight: Weight : 86.2 kg (190 lb) Weights Filed This Admission 10/12/22 1759 10/12/222040 Weight: 86.2 kg (190 lb) 86.2 kg (190 lb) Labs: Admission on 10/12/2022 Component Date Value Ref Range Status ??? Glucose, Screening 10/12/2022 93 70 - 100 mg/dL Final ??? Sodium 10/12/2022 138 136 - 145 mmol/L Final ??? Potassium 10/12/2022 3.7 3.5 - 5.0 mmol/L Final ??? Chloride 10/12/2022 106 96 - 110 mmol/L Final ??? CO2 Total 10/12/2022 24 22 - 32 mmol/L Final ??? Anion Gap 10/12/2022 8 5 - 14 mmol/L Final ??? BUN 10/12/2022 8 (A) 10 - 26 mg/dL Final ??? Creatinine 10/12/2022 0.52 0.52 - 1.04 mg/dL Final ? ? eGFR 10/12/2022 132 >60 mL/min/1.73m2 Final ??? Alkaline Phosphatase 10/12/2022 61 38 - 126 U/L Final ? ? GGT 10/12/2022 16 <44 U/L Final ??? Albumin 10/12/2022 4.4 3.4 - 4.9 g/dL Final ??? AST 10/12/2022 27 15 - 46 U/L Final ? ? ALT 10/12/2022 26 <35 U/L Final ??? TSH 10/12/2022 1.50 0.47 - 4.68 mIU/L Final ??? WBC 10/12/2022 8.79 4.00 - 12.40 K/cmm Final ??? RBC 10/12/2022 4.70 3.86 - 5.04 M/cmm Final ??? Hemoglobin 10/12/2022 12.8 11.6 - 15.2 gm/dL Final ??? HCT 10/12/2022 39.1 34.9 - 44.4 % Final ??? MCV 10/12/2022 83 81 - 98 fl Final ??? MCH 10/12/2022 27.2 26.7 - 33.3 pg Final ??? MCHC 10/12/2022 32.7 32.1 - 35.9 gm/dL Final ? ? RDW-CV 10/12/2022 13.5 <14.7 % Final ? ? RDW-SD 10/12/2022 41.1 <50.4 fl Final ??? PLT 10/12/2022 264 141 - 377 K/cmm Final ??? MPV 10/12/2022 11.2 9.5 - 12.7 fl Final ??? % Neutrophils 10/12/2022 58.9 % Final ??? % Lymphocytes 10/12/2022 31.3 % Final ??? % Monocytes 10/12/2022 6.4 % Final ??? % Eosinophils 10/12/2022 2.7 % Final ??? % Basophils 10/12/2022 0.5 % Final ??? % Immature Grans 10/12/2022 0.2 % Final ??? Absolute Neutrophils 10/12/2022 5.18 2.20 - 8.85 K/cmm Final ??? Absolute Lymphocytes 10/12/2022 2.75 1.09 - 3.30 K/cmm Final ??? Absolute Monocytes 10/12/2022 0.56 0.10 - 0.80 K/cmm Final ??? Absolute Eosinophils 10/12/2022 0.24 0.03 - 0.61 K/cmm Final ??? ABS Basophils 10/12/2022 0.04 0.01 - 0.11 K/cmm Final ??? Absolute Immature Grans 10/12/2022 0.02 0.00 - 0.06 K/cmm Final ??? Type of Differential: 10/12/2022 Auto Final ? ? Hemoglobin A1c 10/12/2022 5.1 <5.7 % Final ??? Est Avg Glucose 10/12/2022 100 mg/dL Final ? ? Cholesterol 10/12/2022 133 <200 mg/dL Final ? ? HDL 10/12/2022 48 (A) >=50 mg/dL Final ? ? LDL, Calculated 10/12/2022 66 <160 mg/dL Final ? ? Triglyceride 10/12/2022 93 <=150 mg/dL Final ??? Chol/HDL Ratio 10/12/2022 2.8 See Note Final ? ? Non HDL Cholesterol 10/12/2022 85 <160 mg/dL Final Assessment/Plan: Depression. Anxiety. - See psychiatrist discharge summary for more information and list below for conditions addressed during this admission. Dyspepsia. - TUMS as needed. - Consider discussing PPI or H2 cindy if symptoms persist or worsen. Tobacco use disorder, smoked approx 3 cigarettes/day prior to admission: - Patient has been counseled about the benefits of smoking cessation - Patient would like to continue the nicotine inhaler but aware that insurance will not cover the expense. - She considers the oral habit more addictive than the nicotine; discussed mimicking movements withuse of a straw or empty inhaler cartridge. - Referred to 802-Quits for further support as needed. - Patient encouraged to discuss cessation with PCP at follow up Cannabis use. - She admits that she may likely continue occasional use, but planning to avoid daily, excessive use. - Encouraged to discuss with PCP and/or in individual or group therapy. Hx alcohol overuse, in remission. - Reinforced the benefit of recovery support, reach out as needed. I spent 25 minutes with the patient and in direct floor time today. Over 50% of the time was spent counseling and coordinating care. Tash Bermudez NP 10/15/2022 14:27 * Angeles Montelongo - 10/15/2022 0926 EDT Discharge Note Discharge options / discharge plan discussed: Discharge options and plan were discussed and agreed upon by patient. Demonstration of coping skills prior to discharge: Patient has demonstrated various coping skills while on the unit. Crisis/safety plan identified prior to discharge: Patient has crisis/safety plan in place and crisis line contact information is printed on AVS. * Angeles Montelongo - 10/14/2022 1139 EDT Patient met with , Medical Student & [facility] for check in and discharge planning. [facility] MD stated that she would be able to ask questions during intake call and that the staff there would be the most knowledgeable about times, duration, insurance, etc... Patient stated that she called [facility] and found out that they do have a DBT Group there. SW to make referrals to both. Patient asked about the [facility] program, but neither MD nor SW was familiar with it. SW stated that she would research it. Patient went on to say that her mood is better and that she has not had any negative side effects from her meds. She added that the SI was way better. Patient attributed it, at least in part, to sobriety and good sleep. Patient commented that she wants to learn new coping skills and that her biggest challenge is co-parenting because she and her partner come from different backgrounds that lend themselves to different parenting styles. She went on to say the both are interested in couples therapy to help co-parent more cohesively. Patient and MD discussed medications briefly. Patient requested to d/c on Tuesday evening. MD agreed. She had no further questions or comments. Patient has [facility] assessment call scheduled for October 22. * Yazmin Mobley MD - 10/14/2022 0808 EDT Inpatient Psychiatry Daily Progress Note 10/14/2022 Admit Date: 10/12/22 Hospital day: LOS: 2 days Legal Status: Legal status: Voluntary Observation Level: Observation / visual check: Q 15 minutes (frequent)frequent with SP Locus/Risk of Harm: IV Reason for Admission/Chief Complaint: Depression, unspecified depression type Clinical Update/24-hour Events: Per RN: She appeared sad with flat affect. CIWA of 0. She attended groups. BP elevated after a phone call with . She met with staff and expressed concerns regarding 's comfort and skillwith parenting. She was appreciative of staff. Brighter affect. No SI endorsed. Made needs known. Social with peers. Slept 7+ hours. Per SW: Pt to be referred to [facility]. Per NORRIS: Subjective: Pt is discussed with outpatient psychiatric provider, Sue Washington, at [facility]. She reports that patient recently reached out to reconnect after 1.5 years. She also acknowledges diagnostic uncertainty and concern for borderline traits. However, she has also observed moodcycling over the years and tendency to decompensate during spring and possibly fall. Med managementhas also been challenging as pt has struggled to tolerate meds due to SEs. Lurasidone was identified due to possibility of bipolar spectrum disorder. She is also in support of step down to PPHP and or DBT. Notes that [place] is technically in [facility] catchment area and not [facility]. Pt is seen with SW and MS3 for follow up. She looks considerably brighter and confirms symptom improvement. She reports diminished SI. Mood is brighter, without any irritation or agitation. She is much more future oriented and engages in thoughtful discussion. She demonstrates improved insight intoher cognitive distortions and her tendency to regress into maladaptive behaviors. She attributes improvement to good sleep, sobriety from substances, and getting some time and distance from stressors. Feels she needed to take a breather and resettle. She reports ongoing struggles and disagreement with her around co- parenting. She recognizesthat some of this stems from her own childhood during which she often felt neglected by her parentsand having to fend for herself. However, she and are committed to working through it and are both interested in couples counseling. She also researched [facility] program and brings up very reasonable questions and concerns. She is unsure if PPHP is feasible as it would be difficult to have someone watch her kids for so long butkisha is open to the referral and completing the intake, so that she can ask more questions. She alsonotes that she had already reached out to [facility] previously and has an assessment on 10/22 with consideration for their DBT program. She is hoping to discharge as early as tomorrow, in time for mother's day. She also finds it difficult to be in the hospital over the weekend. She is feeling safe at this time. She also collaborates on a plan to increase lurasidone tonight as she wants to make med adjustments while in the hospital. Current Facility-Administered Medications Medication Route Frequency ??? acetaminophen (TYLENOL) tablet 650 mg oral Q4H PRN ? ? aluminum & magnesium hydroxide-simethicone (MAALOX PLUS) 200-200-20 mg/5 mL suspension 30 mL oral Q4H PRN ??? calcium carbonate (TUMS) tablet 500 mg (200 mg elemental calcium) 2 Tablet oral QID PRN ??? cloNIDine HCL (CATAPRES) tablet 0.05 mg oral BID PRN ??? lurasidone (LATUDA) tablet 20 mg oral QPM ??? melatonin tablet 3 mg oral AT BEDTIME PRN ??? nicotine (NICOTROL) 10 mg inhaler 1 Inhaler inhalation Q2H PRN ??? nicotine inhaler (delivery device) ??? polyethylene glycol 3350 (MIRALAX) packet 17 g oral Daily PRN ??? senna (SENOKOT) tablet 1 Tablet oral AT BEDTIME PRN Objective: BP 111/81 (BP Cuff Location: Right arm, BP Patient Position: Sitting) Pulse 69 Temp 36.3 ??C (97.3 ??F) (Temporal) Resp 16 Ht 162.6 cm (64) Wt 86.2 kg (190 lb) SpO2 99% BMI 32.61 kg/m?? MSE: Appearance: 27 y.o. female appearing chronological age, dressed in casual attire, with intact hygiene and grooming Behavior: calm Arousal: awake, alert Attitude toward examiner: Cooperative; well engagedc Attention/Concentration: attentive to conversation Orientation: grossly oriented Memory: recalls recent events and conversations Mood: Good... A lot better. Affect: brighter and relaxed; full range; mood congruent; appropriate; non-labile Speech: regular to rate, rhythm, and volume Thought Process/Language: linear, logical, and goal-directed; organized Associations: no loosening Gait: steady, with normal station Motor: no psychomotor disturbances or abnormal movements Content,Peroccupations, Over-valued, Ideas, Delusions: future oriented; optimistic; no briseyda delusions Perceptual: denies AVH; none apparent Danger Self: resolution of SI; future oriented; deterred by kids Danger Other: no threatening statements or postures Fund of Knowledge: appropriate Insight/Judgement: improving; improving Data Review: Labs: No results found for this or any previous visit (from the past 24 hour(s)). Other studies:N/A Assessment/Formulation: (include vol/invol, mode of transport to hosp, who referred, risk to self/others) Ana Juarez is a 27 y.o. F with a long history of depression, anxiety, childhood trauma, cannabis use disorder, alcohol use disorder, probable BPD, and previous concern for bipolar disorder due to manic spectrum symptoms in the context of sertraline. She has been hospitalized several times and is readmitted voluntarily for worsening depression, anxiety, and SI in the context of recent alcoholand cannabis use, life stressors, and 6 months post-. While we were unable to rule out bipolar disorder previously, her history and presentation has appeared most consistent with MDD with BPD in the context of significant childhood trauma. She has historically struggled to navigate and cope with ambivalence and conflicts thoughts and feelings. It appears she is continuing to experience these struggles. She has benefited from inpatient hospitalization in the past. While she has been recommended a step down to PPHP and IOP, it appears she has not followed through with them previously, butthis was in part complicated by early phase of pandemic. Pt was recently started on lurasidone by outpatient psychiatric provider. She appears to be tolerating it thus far and is agreeable to further titration. Pt is reporting symptom improvement and resolution of SI. She is appropriately future oriented. Shedemonstrates improved insight and is motivated for outpatient treatment. Should symptom improvementpersistent, she is hoping to discharge tomorrow night. Will dc SP. SW to continue with efforts around discharge planning. Diagnostic Impression Psychiatric Diagnoses (including Personality Traits/Disorders): MDD BPD Unspecified Anxiety Disorder Alcohol Use Disorder Cannabis Use Disorder Other Medical Conditions: 6 months post- Plan: (comment on changes in Level of Observation or Locus Risk of Harm) -Level of Observation: frequent; dc SP -Locus Risk of Harm: Change to III -Medications: -Increase lurasidone to 20 mg q5PM with dinner -continue clonidine 0.05 mg VBID PRN anxiety, agitation, with hold parameters -Continue to review B/R/SE and alternatives to current meds. -Continue to provide support and encouragement. -coordinate care with outpatient providers -Continue to review cognitive and behavioral strategies to help with problems and symptoms. -Continue to encourage ongoing engagement in the milieu and activities of the unit. -Will otherwise continue current treatment plan. Discharge Plan: Discharge planning per multidisciplinary team rounds. Time Specifier: I spent a total of 45 minutes with this patient and in direct floor time today. Over 50% of this time was spent in counseling and coordination of care as described in the note. Yazmin Mobley MD 10/14/2022 14:50 * Yazmin Mobley MD - 10/13/2022 2621 EDT Inpatient Psychiatry Daily Progress Note 10/13/2022 Admit Date: 10/12/22 Hospital day: LOS: 1 day Legal Status: Legal status: Voluntary Observation Level: frequent with SP Locus/Risk of Harm: IV Reason for Admission/Chief Complaint: Depression, unspecified depression type Clinical Update/24-hour Events: Per RN: Admitted voluntarily for worsening depression and suicidal ideation. Reported using alcoholto self medicate. Monitored for withdrawal but scored 0. Slept 7.5 hours. Per SW: Needs a team meeting. Per NORRIS: Chart was reviewed for history. Pt is known to me from previous admission. Subjective: Pt is seen for initial team meeting. Pt reports chronic depression, anxiety, and suicidal ideation, which has been worse in the past month or so. She is 6 months post- and has a healthy 6 month old son and a 3 year old daughter. She had reservation about having another child and bringing kids into a world that (she) hates. Reports that she only agreed to have this child because her wanted it and promised to make somechanges. She expresses frustration that her has not followed through with his promises. Rayo reports conflicts and disagreements around parenting. She reports feeling overwhelmed with everything and life. She expresses anger and frustration over interactions with others. She describes worsening depression, characterized by chronic insomnia, erratic intake, racing thoughts, feelingss of guilt, and self hatred. She has not had any time for selfcare, though notes that she enjoys spending time with her kids. She reports worsening SI with consideration of some plans, but has been deterred by her kids. She feels some SH behavior, including taking a very hot bath. She also reports heavy alcohol use to the point of black out, which she thinks was a passive suicide attempt. She expresses distress and anger that she is forced to continue to live even though she does not want to be alive. She reports about 4 weeks of increased alcohol and cannabis use, during which she drank 5-7 drinks,few times a week. She stopped for a couple of weeks and drank heavily on on Tuesday and blacked out.She acknowledges that she is at low risk of withdrawal. She denies any other substance use. She reports a tendency to over-think and over-analyze things. She worries about her kids health andfears they may be taken away. She also thinks that people are not being truthful with her. She denies any panic. Note that she experienced possible hypomania with sertraline during a previous admission, characterized by elevated mood, decreased sleep, increased energy, and increased SI. When asked about recent episodes, she indicates that she has, but primarily describes episodes of mood lability. It is difficult to elicit any other associated manic symptoms. She expresses frustration with her interactions with [facility] prior to admission. She had hoped to avoid hospitalization as it has only provided temporarily relief. She indicates that she has never consistently participated in PPHP/IOP despite referrals. She is open to [facility] referral as it continues to be available remotely. Current Facility-Administered Medications Medication Route Frequency ??? acetaminophen (TYLENOL) tablet 650 mg oral Q4H PRN ? ? aluminum & magnesium hydroxide-simethicone (MAALOX PLUS) 200-200-20 mg/5 mL suspension 30 mL oral Q4H PRN ??? calcium carbonate (TUMS) tablet 500 mg (200 mg elemental calcium) 2 Tablet oral QID PRN ??? cloNIDine HCL (CATAPRES) tablet 0.05 mg oral BID PRN ??? lurasidone (LATUDA) tablet 10 mg oral QPM ??? melatonin tablet 3 mg oral AT BEDTIME PRN ??? nicotine (NICOTROL) 10 mg inhaler 1 Inhaler inhalation Q2H PRN ??? nicotine inhaler (delivery device) ??? polyethylene glycol 3350 (MIRALAX) packet 17 g oral Daily PRN ??? senna (SENOKOT) tablet 1 Tablet oral AT BEDTIME PRN Objective: BP 102/65 Pulse 71 Temp 36.7 ??C (98 ??F) (Tympanic) Resp 16 Ht 162.6 cm (64) Wt 86.2 kg(190 lb) SpO2 98% BMI 32.61 kg/m?? MSE: Appearance: 27 y.o. female appearing chronological age, dressed in casual attire, with intact hygiene and grooming Behavior: frustrated Arousal: awake, alert Attitude toward examiner: cooperative Attention/Concentration: attentive to conversation Orientation: grossly oriented Memory: recalls recent events and conversations Mood: angry, depressed. Affect: dysphoric, irritated, and frustrated, restricted in range; mood congruent; appropriate Speech: regular to rate, rhythm, and volume Thought Process/Language: linear, logical, and goal-directed; organized Associations: no loosening Gait: steady, with normal station Motor: no psychomotor disturbances or abnormal movements Content,Peroccupations, Over-valued, Ideas, Delusions: low sense of self; self hatred; significant ambivalence and conflicts thoughts; no briseyda delusions Perceptual: denies AVH; none apparent Danger Self: endorses SI but deterred by kids; notes that she doesn't want to live but is forced tocontinue to live for her kids Danger Other: no threatening statements or postures Fund of Knowledge: appropriate Insight/Judgement: limited; impaired Data Review: Labs: Results for orders placed or performed during the hospital encounter of 10/12/22 (from the past 24 hour(s)) SCREENING GLUCOSE Result Value Ref Range Glucose, Screening 93 70 - 100 mg/dL ELECTROLYTES Result Value Ref Range Sodium 138 136 - 145 mmol/L Potassium 3.7 3.5 - 5.0 mmol/L Chloride 106 96 - 110 mmol/L CO2 Total 24 22 - 32 mmol/L Anion Gap 8 5 - 14 mmol/L BUN Result Value Ref Range BUN 8 (L) 10 - 26 mg/dL CREATININE Result Value Ref Range Creatinine 0.52 0.52 - 1.04 mg/dL eGFR 132 >60 mL/min/1.73m2 ALKALINE PHOSPHATASE Result Value Ref Range Alkaline Phosphatase 61 38 - 126 U/L GGT Result Value Ref Range GGT 16 <44 U/L ALBUMIN Result Value Ref Range Albumin 4.4 3.4 - 4.9 g/dL AST Result Value Ref Range AST 27 15 - 46 U/L ALT Result Value Ref Range ALT 26 <35 U/L TSH Result Value Ref Range TSH 1.50 0.47 - 4.68 mIU/L LIPID PROFILE (INCLUDES CHOLESTEROL, TRIGLYCERIDES, HDL, LDL) Result Value Ref Range Cholesterol 133 <200 mg/dL HDL 48 (L) >=50 mg/dL LDL, Calculated 66 <160 mg/dL Triglyceride 93 <=150 mg/dL Chol/HDL Ratio 2.8 See Note Non HDL Cholesterol 85 <160 mg/dL COMPLETE BLOOD COUNT AND DIFFERENTIAL Result Value Ref Range WBC 8.79 4.00 - 12.40 K/cmm RBC 4.70 3.86 - 5.04 M/cmm Hemoglobin 12.8 11.6 - 15.2 gm/dL HCT 39.1 34.9 - 44.4 % MCV 83 81 - 98 fl MCH 27.2 26.7 - 33.3 pg MCHC 32.7 32.1 - 35.9 gm/dL RDW-CV 13.5 <14.7 % RDW-SD 41.1 <50.4 fl PLT 264 141 - 377 K/cmm MPV 11.2 9.5 - 12.7 fl % Neutrophils 58.9 % % Lymphocytes 31.3 % % Monocytes 6.4 % % Eosinophils 2.7 % % Basophils 0.5 % % Immature Grans 0.2 % Absolute Neutrophils 5.18 2.20 - 8.85 K/cmm Absolute Lymphocytes 2.75 1.09 - 3.30 K/cmm Absolute Monocytes 0.56 0.10 - 0.80 K/cmm Absolute Eosinophils 0.24 0.03 - 0.61 K/cmm ABS Basophils 0.04 0.01 - 0.11 K/cmm Absolute Immature Grans 0.02 0.00 - 0.06 K/cmm Type of Differential: Auto HEMOGLOBIN A1C Result Value Ref Range Hemoglobin A1c 5.1 <5.7 % Est Avg Glucose 100 mg/dL Other studies:N/A Assessment/Formulation: (include vol/invol, mode of transport to hosp, who referred, risk to self/others) Ana Juarez is a 27 y.o. F with a long history of depression, anxiety, childhood trauma, cannabis use disorder, alcohol use disorder, probable BPD, and previous concern for bipolar disorder due to manic spectrum symptoms in the context of sertraline. She has been hospitalized several times and is readmitted voluntarily for worsening depression, anxiety, and SI in the context of recent alcoholand cannabis use, life stressors, and 6 months post-. While we were unable to rule out bipolar disorder previously, her history and presentation has appeared most consistent with MDD with BPD in the context of significant childhood trauma. She has historically struggled to navigate and cope with ambivalence and conflicts thoughts and feelings. It appears she is continuing to experience these struggles. She has benefited from inpatient hospitalization. While she has been recommended a stepdown to PPHp and IOP, it appears she has not followed through with them previously. No evidence of alcohol withdrawal at this time and she is at low risk given recent use. Will dc CIWA. Pt was recently started on lurasidone by outpatient psychiatric provider. Plan to continue it for now. Will also offer PRN clonidine with hold parameters as it's been helpful for anxiety and agitation in the past. She reports ongoing SI. She identifies her children as deterrents but also seems to harbor a lot ofresentment Will continue with SP for today. Diagnostic Impression Psychiatric Diagnoses (including Personality Traits/Disorders): MDD BPD Unspecified Anxiety Disorder Alcohol Use Disorder Cannabis Use Disorder Other Medical Conditions: 6 months post- Plan: (comment on changes in Level of Observation or Locus Risk of Harm) -Level of Observation: frequent with SP -Locus Risk of Harm: IV -Medications: -Resume lurasidone 10 mg q5PM with dinner -reintroduce clonidine 0.05 mg VBID PRN anxiety, agitation, with hold parameters -DC CIWA -Continue to review B/R/SE and alternatives to current meds. -Continue to provide support and encouragement. -coordinate care with outpatient providers -Continue to review cognitive and behavioral strategies to help with problems and symptoms. -Continue to encourage ongoing engagement in the milieu and activities of the unit. -Will otherwise continue current treatment plan. Discharge Plan: Discharge planning per multidisciplinary team rounds. Time Specifier: I spent a total of 80 minutes with this patient and in direct floor time today. Over 50% of this time was spent in counseling and coordination of care as described in the note. Yazmin Mobley MD 10/13/2022 16:58 * Valarie Stoner RN - 10/13/2022 0653 EDT Pt admitted for depression and passive si, having racing thoughts especially after and children are asleep. Reported recent decrease in alcohol and two 14% drink the night 10/11. No symptoms ofdetox during CIWA assessments. Appeared to sleep 7.5hrs. * José Luis Chirinos - 10/12/2022 1820 EDT Patient admitted to the [facility] at 1820, patient changed into scrubs and wanded by security. documented in this encounter H&P Notes * Olinda Devlin NP - 10/13/2022 0920 EDT Date of Service: 10/13/22 Admit Date : 10/12/2022 PCP: Amanda Knox Subjective: Chief Complaint: feeling overwhelmed with life. I don't want to live, but I have to because of the kids. Patient is a 27 y.o. female with depression, anxiety, borderline personality traits, alcohol abuse who was voluntarily admitted to inpatient psychiatry on 10/12/2022 for worsening depression and suicidal ideation. Pt is known [facility] for 2 prior admissions both of which were in the spring and one . She is currently 6 months with her second child. . See psychiatrist Admission Psychiatric Assessment for further details. Therapist: Rena Merritt Outpatient psychiatrist: Leti Washington APRN, surveying teacher residential sales manager: none Today in team meeting, she corroborated what she told the admitting psychiatrist. She endorses being overwhelmed with life and that having her second child has been much harder than anticipated. She endorses hopelessness with thoughts that everyone would be better off and less stressed without her. When talking about suicide she notes she has chronic suicidal ideation, but the thought have becomemore acute. She has recently been engaged in some self harm through alcohol abuse and taking very hot showers in hopes of burning self. She notes that her mood is up and down and her head just says things (thoughts) and becomes easily irritated and agitated. She notes poor sleep. She does not trust others or herself right now. She questions her experiences and feels that she is told one thing, then the complete opposite happens. I don't like myself. I don't like being alone and describes experiences of depersonalization, dissociation, and feeling like an imposter. She notes racing thoughts and constantly analyzing things to a fault. She worries about her children with a fear that they will be taken away despite being a good mother. Substance [place], she reports she was drinking heavily for about a month, but quit 2 weeks ago, and then drank two 20 oz 14% beers the day before presenting to the ED. When she was drinking she drank 4days a week 5-7 drinks in a sitting. She also was smoking marijuana daily until recently and cut back knowing that she was using too much. She denies any other illicit drugs. She drinks a Monster drink 1-2 times a week, but no coffee or soda. She smokes a ppd of cigarettes. Physically, she reports she has been consciously trying to lose weight and has lost about 7 lbs- 10lbs in recent weeks. She has been trying to watch what she eating and walking every day. [facility]. She states she was just prescribed Latuda, but only took 1 dose. Shehas not taken any other medications recently except Tums or an OTC NSAID. She has had some indigestion, reflux symptoms, nausea since the heavy drinking. She has used TUMs prn. She reports her appetite is ok. She tends to get the cannabis munchies, but since not using her appetite has decreased. She did have COVID 19 twice since the Pandemic. [facility] She notices she gets some fogginess, pressure in bridge of nose and forehead which she associates with stress. These episodes are fleeting, last 30- 60 seconds a couple time a day and have occurred in the past 2 months. More recently she has noticed her right hand dorsum aspect of wrist and 1st, second finger has been painful, particularly with use, but has not recalled any repetitive movements or injury. Pain seems to radiated into the fingers and up the forearm a bit and is sharp. Patient Active Problem List Diagnosis ??? Encounter for surveillance of contraceptive pills ??? Women's annual routine gynecological examination ??? RLQ abdominal pain ??? Supervision of normal ??? Acute appendicitis affecting ??? Depression, unspecified depression type ??? Suicidal ideation ??? MDD (major depressive disorder), recurrent episode, moderate (HCC) ??? Borderline personality disorder (HCC-CMS) (HCC) ??? Anxiety disorder ??? Alcohol use disorder ??? Cannabis use disorder ??? Cigarette nicotine dependence without complication ??? Dyspepsia Past Medical History: Diagnosis Date ??? Anxiety state ??? Contraceptive management ??? COVID-24 May 2021, May 2022 ??? Situational depression Past Surgical History: Procedure Laterality Date ??? CHOLECYSTECTOMY 2015 ??? LAPAROSCOPIC APPENDECTOMY N/A 2021 Medications Prior to Admission Medication Sig Dispense Refill Last Dose ??? acetaminophen (TYLENOL) 500 mg tablet Take 2 Tablets by mouth every 8 hours as needed for Pain. ??? lurasidone (LATUDA) 20 mg tablet TAKE ONE-HALF TABLET BY MOUTH EVERY EVENING WITH MEAL ??? Multivitamins with Minerals tablet tablet Take 1 Tablet by mouth daily. ??? polyethylene glycol 3350 (MIRALAX) 17 gram packet Take 17 g by mouth daily. No Known Allergies Family History Problem Relation Age of Onset ??? Diabetes Type II Maternal Grandmother ??? Cancer Paternal Grandmother Social history: 27 yo woman lives with , 3 yo daughter Annette and 6 month old son. Her mother is helpful and swings by daily to give her a break. 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 Her 3 yo does attend [employer]. Etoh: heavy use for a couple of months, stopped 2 weeks ago except brief slip up a day before presenting to the ED Tobacco: 1ppd Marijuana:was heavy use, stopped 2 weeks ago Other substance use:denies Review of Systems A ten point review of systems was performed and was negative except for pertinent positives noted in the HPI Objective: VS: Patient Vitals for the past 24 hrs: BP Temp Temp src Pulse Resp SpO2 10/13/22 1921 131/80 36.2 ??C (97.1 ??F) Temporal 65 14 100 % 10/13/22 1330 102/65 -- -- -- -- -- 10/13/22 0631 104/70 36.7 ??C (98 ??F) Tympanic 71 16 98 % Exam: General appearance: alert, cooperative, no distress, appears stated age, moderately obese Skin: Skin color, temperature, turgor normal. No rashes or lesions Head: Normocephalic, without obvious abnormality, atraumatic Eyes: conjunctivae/corneas clear. PERRL, EOM's intact. Ears: normal TM's and external ear canals AU Nose: Nares normal. Septum midline. Mucosa normal. No drainage Throat/Mouth: lips, mucosa, and tongue normal; teeth and gums normal Neck: supple, symmetrical, trachea midline, no adenopathy and thyroid: not enlarged, symmetric, no tenderness/mass/nodules Lungs: clear to auscultation bilaterally, non labored breathing Heart: regular rate and rhythm, S1, S2 normal, no murmur, click, rub or gallop Abdomen: soft, non-tender; bowel sounds normal; no masses, no organomegaly Back: symmetric, no curvature. ROM normal. No CVA tenderness. Neurologic: Alert and oriented X 3, normal strength and tone. Normal symmetric reflexes. Normal coordination and gait Mental Status: awake and alert; oriented to person, place, and time Extremities: extremities warm, atraumatic, no cyanosis or edema positive pulses bilat ECG: N/A CXR: none Data Review: CBC: Lab Results Component Value Date WBC 8.79 10/12/2022 RBC 4.70 10/12/2022 HGB 12.8 10/12/2022 HCT 39.1 10/12/2022 MCV 83 10/12/2022 MCH 27.2 10/12/2022 MCHC 32.7 10/12/2022 PLT 264 10/12/2022 NEUTROABS 5.18 10/12/2022 BMP: Lab Results Component Value Date NA 138 10/12/2022 K 3.7 10/12/2022 CL 106 10/12/2022 CO2 24 10/12/2022 BUN 8 (L) 10/12/2022 CREATININE 0.52 10/12/2022 LABALBU 4.4 10/12/2022 LFT: Lab Results Component Value Date ALKPHOS 61 10/12/2022 AST 27 10/12/2022 ALT 26 10/12/2022 LIPASE 87 08/07/2018 TSH 1.50 Assessment: Active Hospital Problems Diagnosis Date Noted ??? *Depression, unspecified depression type 10/12/2022 ??? Cigarette nicotine dependence without complication 10/13/2022 ??? Dyspepsia 10/13/2022 ??? Suicidal ideation ??? MDD (major depressive disorder), recurrent episode, moderate (HCC) ??? Borderline personality disorder (HCC-CMS) (HCC) ??? Anxiety disorder ??? Alcohol use disorder ??? Cannabis use disorder Resolved Hospital Problems No resolved problems to display. Plan: Depression with suicidal ideation, Borderline Personality disorder -Admission to Inpatient Psychiatry per psychiatrist, see psychiatrist intake note. -Associate Providers will collaborate with psychiatrist for ongoing assessment, education, and interventions. -Will co- monitor usage patterns, efficacy, and side effects of current psychiatric medications. - Will encourage groups and socializing with peers in the milieu. - Metabolic screen for antipsychotic medication prescribing -Measurements Lab Results Component Value Date CHOL 133 10/12/2022 HDL 48 (L) 10/12/2022 LDLBASE 66 10/12/2022 TRIG 93 10/12/2022 CHOLHDL 2.8 10/12/2022 Lab Results Component Value Date HGBA1C 5.1 10/12/2022 Wt Readings from Last 1 Encounters: 10/12/22 86.2 kg (190 lb) Ht Readings from Last 1 Encounters: 10/12/22 162.6 cm (64) BMI Readings from Last 1 Encounters: 10/12/22 32.61 kg/m?? -Plan: 1) Reviewed numbers and counseled on diet and exercise 2) Recommend repeat studies at 3 months post start or change in antipsychotic dosing. 3) Options for medication management with Metformin/statin is not currently indicated. Dyspesia -Tums PRN -Pepcid 20 mg BID x 7 days then prn -abstinence from alcohol Alcohol use disorder,early remission -pt declined vitamin therapies at this time -CIWA not indicated and discontinued -head tennis coach may be helpful for support Tobacco dependence - Pt currently smoking 1ppd.. she is contemplative about quitting at this time. - Discussed cessation including thinking as non smoker currently, making smoking unpleasant, comingup with other habits, triggers for use. - The patient has a 21 mg patch and is using the nicotine inhaler prn. We discussed acute nicotine withdrawal including insomnia, restlessness, and irritability. Health maintenance/health supervision: -Discussed use of exercise bike or walking. -Discussed warm compress to loosen tight painful muscles/tendons, and or icepacks to reduce swelling /pain as needed by requesting from your nurse. Acetaminophen and/or ibuprofen also available. -Discussed frequency of constipation while hospitalized, bowel preparations are available from nursing, don't wait for problem to be significant before asking for help. Immunizations: No Immunizations Indicated VTE Prophylaxis: Ambulate Patient was discussed with psychiatry team in rounds and team meetings. Release of information obtained for continuity of care and communication with PCP. I spent a total of 60 minutes on the date of this encounter meeting with the patient and reviewing documentation/coordinating care as described in the above note.as well as participated in Team Meeting. Olinda Devlin NP 10/13/2022 22:57 * Gavino Campbell, DO - 10/12/2022 2118 EDT Inpatient Admission Psychiatric Evaluation Inpatient admit date: 10/12/22 Initial arrival date (if different): 10/12/2022 Date of service: 10/12/2022 [place] [facility] PCP: Amanda Knox Information obtained from: patient Legal Status: Admission is voluntary Chief Complaint: I cannot trust myself; worsening depressive symptoms HPI: Patient is a 27 y.o. woman with a reported history of bipolar related illness who [facility] complaints of worsening depressive symptoms and concerns related to keeping herself safe at home. She reports that over the past month her mood has been increasingly angry and depressed. She identifies a lifelong history of being quick to anger and dealing with self-hatred. She reports drinking large amounts of alcohol to cope with negative emotions she has been feelings.She reports having thoughts of overdosing on medications but states she would never do so because of her children. She reports carrying a lot of guilt. She reports low energy, anhedonia, and reduced appetite. Shereports feeling overhwelmed and having difficulties improving her circumstances. She denies history of briseyda manic symptoms. She does use the term george to describe a reaction she had to a medication while on IPP at age 24. She is uncertain of the medication but states that she became tachycardic, increasingly suicidal, and tearful. Reason for Failure of Outpatient Treatment: Increased severity of psychiatric symptoms Current Support System: HISTORY Psychiatric History: Patient reports 3 prior psychiatric hospitalizations including once at age 20 and twice at [facility] [place] 24. She describes severe anxiety and suicidal thoughts leading to admission at age 20. She reports saving Lamictal she had been receiving on the unit with intent to overdose. She reports overdosing on Lamictal with suicidal intent after discharge from the hospital and being readmitted. She currently sees a therapist weekly, Darling Merritt who she has been seeing the past 5 months. She reports that Sue Washington recently prescribed her Latuda which she only took two doses of and then stopped due to concern that it increased anxiety. PMH PSH Past Medical History: Diagnosis Date ??? Contraceptive management Past Surgical History: Procedure Laterality Date ??? CHOLECYSTECTOMY 2016 Family History Social History History reviewed. No pertinent family history. Social History Tobacco Use ??? Smoking status: Former Types: Cigarettes ??? Smokeless tobacco: Never Substance Use Topics ??? Alcohol use: Not on file Family History (psychiatric) suicide attempt: mother - reportedly has taken antidepressants Substance Abuse History (in past 12 months) Substance Abuse History (Lifetime) Social History Substance and Sexual Activity Drug Use Not on file Reports drinking 4 drinks - 6 drinks thrice weekly. She reports smoking cannabis weekly. Medications Medications Prior to Admission Medication Sig Dispense Refill Last Dose ??? acetaminophen (TYLENOL) 500 mg tablet Take 2 Tablets by mouth every 8 hours as needed for Pain. ??? lurasidone (LATUDA) 20 mg tablet TAKE ONE-HALF TABLET BY MOUTH EVERY EVENING WITH MEAL ??? Multivitamins with Minerals tablet tablet Take 1 Tablet by mouth daily. ??? polyethylene glycol 3350 (MIRALAX) 17 gram packet Take 17 g by mouth daily. 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 Psychiatric:Patient does not have Advance Directive. Review of Systems: Denies visual problems or pain OBJECTIVE: Patient Vitals for the past 24 hrs: BP Temp Temp src Pulse Resp SpO2 Height Weight 10/12/22 2041 128/88 36.3 ??C (97.3 ??F) Tympanic 67 17 98 % 162.6 cm (64) 86.2 kg (190 lb) 10/12/22 1759 (!) 135/93 36.7 ??C (98 ??F) Oral 82 14 100 % 169.5 cm (66.75) 86.2 kg (190 lb) Labs: Results for orders placed or performed during the hospital encounter of 10/12/22 (from the past 24 hour(s)) SCREENING GLUCOSE Result Value Ref Range Glucose, Screening 93 70 - 100 mg/dL ELECTROLYTES Result Value Ref Range Sodium 138 136 - 145 mmol/L Potassium 3.7 3.5 - 5.0 mmol/L Chloride 106 96 - 110 mmol/L CO2 Total 24 22 - 32 mmol/L Anion Gap 8 5 - 14 mmol/L BUN Result Value Ref Range BUN 8 (L) 10 - 26 mg/dL CREATININE Result Value Ref Range Creatinine 0.52 0.52 - 1.04 mg/dL eGFR 132 >60 mL/min/1.73m2 ALKALINE PHOSPHATASE Result Value Ref Range Alkaline Phosphatase 61 38 - 126 U/L ALBUMIN Result Value Ref Range Albumin 4.4 3.4 - 4.9 g/dL AST Result Value Ref Range AST 27 15 - 46 U/L ALT Result Value Ref Range ALT 26 <35 U/L COMPLETE BLOOD COUNT AND DIFFERENTIAL Result Value Ref Range WBC 8.79 4.00 - 12.40 K/cmm RBC 4.70 3.86 - 5.04 M/cmm Hemoglobin 12.8 11.6 - 15.2 gm/dL HCT 39.1 34.9 - 44.4 % MCV 83 81 - 98 fl MCH 27.2 26.7 - 33.3 pg MCHC 32.7 32.1 - 35.9 gm/dL RDW-CV 13.5 <14.7 % RDW-SD 41.1 <50.4 fl PLT 264 141 - 377 K/cmm MPV 11.2 9.5 - 12.7 fl % Neutrophils 58.9 % % Lymphocytes 31.3 % % Monocytes 6.4 % % Eosinophils 2.7 % % Basophils 0.5 % % Immature Grans 0.2 % Absolute Neutrophils 5.18 2.20 - 8.85 K/cmm Absolute Lymphocytes 2.75 1.09 - 3.30 K/cmm Absolute Monocytes 0.56 0.10 - 0.80 K/cmm Absolute Eosinophils 0.24 0.03 - 0.61 K/cmm ABS Basophils 0.04 0.01 - 0.11 K/cmm Absolute Immature Grans 0.02 0.00 - 0.06 K/cmm Type of Differential: Auto Mental Status Examination: Appearance: appropriate Behavior: cooperative Psychomotor activity: normal Musculoskeletal: normal tone, normal bulk and no abnormal movements Gait: steady Speech: normal rate, normal rhythm and normal volume Mood: angry, depressed Affect: restricted Perceptions: no perceptual disturbances Thought Process: goal-directed Thought Content: excessive guilt Impulses: passive thoughts of Sensorium: alert Orientation: person, place, time and situation Attention: intact Concentration: intact Short Term Memory: intact Glass Novelty Maker Memory: intact Language: normal Fund of Knowledge: 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 She identifies negative coping strategies including drinking alcohol. She identifies as strong support. She advocates for inpatient treatment and reports feeling unsafe to leave the hospital. She would benefit from inpatient treatment at this time. Diagnostic Impression w/ Differential Diagnosis Psychiatric Diagnoses (including Personality Traits/Disorders): Unspecified depressive disorder Borderline traits Rule out anxiety disorder Medical Conditions: None acute SUICIDE RISK ASSESSMENT: Risks include prior suicide attempt, mood disorder, excessive guilt, anxiety. She has supportive family and identifies children as reasons for living. Risk appears moderate. Violence Risk Assessment: No reported history of violence. Denies HI. Risk is low. PLAN: Immediate Plan of Treatment: Admit to [address] with frequent observation Check usual admission labs It would be useful to obtain prior [facility] records to clarify treatment course and diagnostic impression at that time. Acuity / Indications for admission: I certify having a reasonable expectation that this patient has acute medical/psychiatric needs which will require that he or she receives inpatient services for no less than two midnights. This patient requires active treatment in the Inpatient Psychiatric Unit because of the following: Threat to self. PLAN TO RESTRICT ACCESS TO FIREARMS (outpatient setting): Access to firearms? no Gavino Campbell DO 10/12/2022 21:18 documented in this encounter Consult Notes * Marcia Lynch - 10/15/2022 1414 EDT Spiritual Care Department Fermentation Operator Consult Note Re: Ana Juarez : 1995 Room: [id number] Service: Psychiatry Oriental Orthodox: Unknown Ana has received a visit from the Spiritual Care Department on 10/15/2022. Assessment/Comments: Corie wanted to visit with the preschool assistant director before discharging. She was raised Mandaeism and attended taoism until age 15, and has felt a sense of divine presence and support all her life. She has two children, a daughter, 3, and a son, 6 months. She stays home with them while her partner works. Corie likes to help others, feels called to do so, and believes that her difficulty of putting herself first may be due to shame as a result of past trauma. She sometimes feels the burden of the state of the world and doesn't want to be here. Helping others and being a mother give her life meaning and purpose. Corie is close with a grandmother and aunt, with whom she can discuss deeper, more spiritual matters. She acknowledged that when she chooses a course of action that aligns with her deeper self, doors seem to open. DEMOGRAPHICS Spiritual Care Welcomed End of Life Patient Is Spiritual Importance Moderately Important Current Support System Spouse/Significant Other Level of Support ENCOUNTER DATA Date of Encounter 10/15/22 Time of Encounter Reason for Encounter Referred by Care Level 4 - Significant Patient Concerns Reason not visited ENCOUNTER Needs Addressed See Assessment/Comments, Fermentation Operator Support Interventions Assessed and Affirmed Strengths, Assessed Spiritual/Faith Needs, Build Relationship, Explored Spiritual/Relgious/Social Supports, Explored Values and Goals, See Assessment/Comments,Spiritual Counseling Sacraments Provided Date of Anointing Communion Date of Communion Date of Gnosticism OUTCOME Outcome Stress Level Reduced Stress Outcome of Encounter Needs Met, Patient Satisfied CARE PLAN Plan No Support Needed Consult With Additional Support Was Clergy Needed? , TIME STAMP: Total time spent 25 minutes in direct floor time; >50% of time was spent in spiritual care. Marcia Lynch 10/15/2022 14:14 documented in this encounter ED Notes * Yazan Husain MD - 10/15/2022 6207 EDT Emergency Department Visit Medical Decision Making Relevant Data as of 10/16/22 1110 Tue October 12, [address] Campbell about this patient (attending psychiatry), who agrees to evaluate the patient by Zoom and think she may benefit from inpatient admission here on a voluntary basis. [GK] [address] Campbell who is evaluated the patient and feels the patient would benefit from voluntary psychiatric admission, patient will be admitted tonight. [GK] Relevant Data User Index [GK] Yazan Husain MD Laboratory data was reviewed. Medical Decision Making Suicidal ideation: chronic illness or injury Risk Decision regarding hospitalization. To summarize this is a 27-year-old woman who reports most symptoms of depression,, who believes shemay have a history of depression, who presents with suicidal ideation as well as increased alcohol use and binge drinking. That said, the patient denies a history of alcohol dependence or s ymptoms of same. She has not been treated for alcohol withdrawal in the past and I have a low concern for alcohol withdrawal today. She denies any other medical complaints. She was evaluated by psychiatry who agrees to admit the patient here for voluntary admission. She was admitted in stable condition, and was signed out pending transfer to psychiatric unit. Final diagnoses: Suicidal ideation Disposition: Admitted Chief complaint: Depression, suicidal ideation HPI Corie Juarez is a 27 y.o. female with a history of depressed mood in the past with at least 2 prior hospitalizations for same, who presents to the emergency department with depressed mood, as well as frequent binge drinking recently in the setting of depressed mood. She also reports suicidal ideation without a concrete plan but states that she feels fixated on the notion of ending her life. She denies access to firearms. She denies a drug use. She denies hallucinations, symptoms of psychosis, symptoms of george. The patient notes that she experienced worsening depression after the of her first child at 6 months postoperative and wonders if she might be suffering from depression. She reports decreased sleep, decreased appetite, decreased interest, feelings of guilt, decreased concentration. She denies psychomotor changes. History was provided by: Patient Records reviewed include: Review of notes in EMR Patient's pertinent PMH, FH, SH were reviewed and edited as necessary. Nursing notes reviewed. A medical screening exam was performed. Physical Exam BP 101/77 (BP Patient Position: Sitting) Pulse 66 Temp 36.6 ??C (97.8 ??F) (Oral) Resp 16 Ht 162.6 cm (64) Wt 86.2 kg (190 lb) SpO2 100% BMI 32.61 kg/m?? Physical Exam GENERAL: Awake, Alert, Nontoxic, anxious and depressed appearing, occasionally tearful HEAD: Normocephalic, atraumatic EENT: PERRLA, no scleral icterus. Conjunctiva not injected. No thyromegaly CARDS: Normal RR no murmurs rubs or gallubs. Radial, DP and PT pulses 2+ bilaterally LUNGS: CTAB with normal respiratory rate and effort ABD: Nondistended, MUSC: normal tone and bulk. NEURO: A&O x4. Psych: well oriented, and appropriate. Mood described as depressed and anxious. Affect congruent with mood. Positive for suicidal ideation. Negative for homicidal ideation. No access to firearms at home. Procedures Procedures * Carlin Ames RN - 10/12/20222023 EDT Report to DONNA Sheppard * Nilda William RN - 10/12/20222020 EDT Blood drawn via Right AC per protocol, gold and lavender tube(s) sent to lab per order. * Justina Hightower - 10/12/20222020 EDT Pt ambulated to the bathroom. And is now in her rm using her cell phone * Justina Hightower - 10/12/20222002 EDT Pt is finished zoom appointment with the doctor and is in her room on her cell phone. * Justina Hightower - 10/12/20221931 EDT Pt is on a zoom appointment with the doctor * Justina Hightower - 10/12/2022 190 EDT Pt is sitting at her desk and using her cell phone. No concerns at this moment.. * Carlin Ames RN - 10/12/2022 1842 EDT Pt presents anxious but cooperative. Reports has been making poor choices including drinking 2 14% alcohol drinks yesterday in an attempt to end it all. Pt reports she is worried about the decisions she is making and how it will impact her 6mo old and 3 yr old. Pt reports she and her havenot been fighting, but do not see eye to eye and she just feels like it is too much. Pt reports racing thoughts, difficulty sleeping, hopelessness, poor appetite for several days then just eating everything in an effort to shove a much food in as possible and make herself feel better. Pt restless, easily distracted and difficulty remembering what the question was after thinking too long. Reports, I am worried about what I am going to do if I go home. * Yolanda Tolliver - 10/12/2022 1830 EDT Patient brought back to [facility], provided with safety scrubs and went into bathroom and changed withoutincident. Patients belongings were inventoried, placed into a patient belongings bag which was labeled with patient sticker. (See charting for contents.) Patient provided with serge buck upon request, given TV remote and appears to be sitting at desk in assigned room. documented in this encounter Miscellaneous Notes * Plan of Care - Olinda Gallagher RN - 10/15/2022 1757 EDT Discharge instructions reviewed with pt and copy given. Pt verbalized understanding. Belongings returned to pt including cell phone, wallet, and ring. Pt appeared stable at time of discharge with target symptoms continuing to resolve. Pt departed unit at 1750, ambulating to main entrance with for car ride home. Problem: Discharge Planning Goal: Patient/Family Verbalizes Awareness Of Resources Outcome: Met This Shift Problem: Discharge Planning Goal: Patient's Continuum of care needs are met Outcome: Ongoing Problem: Discharge Planning Goal: Patient/Family Participate In Treatment And DC Plans Outcome: Ongoing * Plan of Care - Olinda Gallagher RN - 10/15/2022 1623 EDT Patient visible in milieu this shift. Observed doing activity in main room in afternoon. In main dining room for meals. Pleasant facial expressions. Pt preparing to discharge this evening. Spoke with her on phone. Pt remains safe on unit and verbalizes ability to be safe at home. Denies physical pain. Answers questions appropriately. OLINDA GALLAGHER RN 10/15/2022 16:23 Problem: Cognitive: Goal: Utilization of techniques to improve thought processes will improve 10/15/2022 1621 by Olinda Gallagher RN Outcome: Ongoing 10/15/2022 1449 by Olinda Gallagher RN Outcome: Ongoing Problem: Activity: Goal: Interest or engagement in leisure activities will improve 10/15/2022 1621 by Olinda Gallagher RN Outcome: Ongoing 10/15/2022 1449 by Olinda Gallagher RN Outcome: Ongoing Goal: Imbalance in normal sleep/wake cycle will improve 10/15/2022 1621 by Olinda Gallagher RN Outcome: Ongoing 10/15/2022 1449 by Olinda Gallagher RN Outcome: Ongoing Problem: Coping: Goal: Ability to cope will improve Outcome: Ongoing Goal: Level of anxiety will decrease 10/15/2022 1621 by Olinda Gallagher RN Outcome: Ongoing 10/15/2022 1449 by Olinda Gallagher RN Outcome: Ongoing Problem: Self-Concept: Goal: Ability to verbalize positive feelings about self will improve 10/15/2022 1621 by Olinda Gallagher RN Outcome: Ongoing 10/15/2022 1449 by Olinda Gallagher RN Outcome: Ongoing * Group Note - Neema Chowdhury - 10/15/2022 1439 EDT Mindfulness Education, task and process group. The group goals include: developing coping skills, identifying feelings, identifying stressors and problems, increasing awareness of self in relation to others, increasing expression of needs, increasing relaxation, increasing responsibility for behavior, increasing self-esteem, increasing attention span, increasing organization, and increasing self-control. Assessment: *Pt attended and participated in group. Communication: Pt was an active participant in group; asking questions and participating in discussion. Behavior:Pt was appropriate in group. Plan: Continue to attend group * Group Note - Patsy Jaeger - 10/15/2022 1219 EDT Supportive Relationships process,education and task Group. The group goals include: developing coping skills, responsibility for behavior, self-esteem and socialization, improved judgment with regard to issues of trust, honesty, loyalty, information sharing,privacy and healthy boundaries. Assessment: open and engaged with group. appositely shared and was supported by as well as being supportive to peers. Communication: consisted of spontaneous verbalization Behavior:included initiation without prompts Plan: Continue to attend group * Plan of Care - Valarie Stoner RN - 10/15/2022 0600 EDT Problem: Coping: Goal: Ability to cope will improve Outcome: Ongoing Pt attended group, vss, completed safety plan and appeared to sleep 8hrs. * Group Note - Patsy Jaeger - 10/14/2022 1730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 Specialty Start Date End Date Amanda Knox FNP [address] [place] [address] PCP - General 08/13/19 documented as of this encounter
--- OUTSIDE RECORDS SUMMARY | 2024-01-27 18:10 | XMS_ITS | Encounter Summary ---
Author Organization [facility] Address [address] [place] [address] Care Team Providers Care Serology Teacher Name Role Phone Unknown, Provider Primary Care Provider + [phone] Amanda Knox Primary Care Provider + [phone] Encounter Details Date Type Department Care Team (Late st Contact Info) Description 05/16/2019 Results [address] [facility] Radiology Results [address] [place] [address] Jad Sutton MD [address] [place] [address] Social History Tobacco Use Types Packs/Day Years Used Date Smoking Tobacco: Former Smokeless Tobacco: Never Sex and Gender Information Value Date Recorded Sex Assigned at Not on file Gender Identity Female 04/01/2019 9:34 EDT Sexual Orientation Not on file documented as of this encounter Plan of Treatment Not on file documented as of this encounter Procedures Procedure Name Priority Date/Time Associated Diagnosis Comments XR KNEE LEFT 4 OR MORE VIEWS 05/16/2019 21:01 EST documented in this encounter Results * XR KNEE LEFT 4 OR MORE VIEWS (05/16/2019 21:01 EST) Anatomical Region Laterality Modality Lower Extremities Left Other 05/16/2019 21:0 0 EST Narrative 05/16/2019 21:01 EST ? AN ADDENDUM IS INCLUDED ON THIS REPORT ? ADDENDUM ? Tiny osseous density adjacent to the medial aspect of the ? patella may represent a fracture fragment or ligamentous ? calcification. Correlate clinically. ? ADDENDUM SIGNED IN OTHER VENDOR SYSTEM 05/21/2019 ?Reported By: Lauren Holt MD ?Transcribed: 05/21/2019 (3807) HIS.VRAD ?REPORT ? EXAM: RADIOLOGY/KNEE COMPLETE LT 4+VIEW ?? EX. D/ (2037) ? CLINICAL INFORMATION: ? trauma ? PROCEDURE INFORMATION: ? Exam: XR Left Knee ? Exam date and time: 05/16/2019 7:55 PM ? Age: 24 years old ? Clinical history: Other: Trauma ? TECHNIQUE: ? Imaging protocol: XR Left knee. ? Views: 4 or more views. ? COMPARISON: ? No relevant prior studies available. ? FINDINGS: ? Bones/joints: Normal. ? Soft tissues: Normal. ? IMPRESSION: ? No acute findings. ? REPORT SIGNED IN OTHER VENDOR SYSTEM 05/16/2019 ?Reported By: Lauren Holt MD ? CC: ? Transcribed Date/Time: 05/16/2019 (2100) ? Olericulture Professor: ? Printed Date/Time: 05/21/2019 (1906) ? PAGE 1 ? Signed Report ? Procedure Note Lauren Holt MD - 05/21/2019 AN ADDENDUM IS INCLUDED ON THIS REPORT ADDENDUM Tiny osseous density adjacent to the medial aspect of the patella may represent a fracture fragment or ligamentous calcification. Correlate clinically. ADDENDUM SIGNED IN OTHER VENDOR SYSTEM 05/21/2019 Reported By: Lauren Holt MD Transcribed: 05/21/2019 (1906) HIS.[facility]AD REPORT EXAM: RADIOLOGY/KNEE COMPLETE LT 4+VIEW EX. D/ (2036) CLINICAL INFORMATION: trauma PROCEDURE INFORMATION: Exam: XR Left Knee Exam date and time: 05/16/2019 7:55 PM Age: 24 years old Clinical history: Other: Trauma TECHNIQUE: Imaging protocol: XR Left knee. Views: 4 or more views. COMPARISON: No relevant prior studies available. FINDINGS: Bones/joints: Normal. Soft tissues: Normal. IMPRESSION: No acute findings. REPORT SIGNED IN OTHER VENDOR SYSTEM 05/16/2019 Reported By: Lauren Holt MD CC: Transcribed Date/Time: 05/16/2019 (2100) Olericulture Professor: VRAD Printed Date/Time: 05/21/2019 (1906) PAGE 1 Signed Report Jad Sutton MD IMG DIAGNOSTIC IMAGI NG ORDERABLES documented in this encounter Visit Diagnoses Not on filedocumented in this encounter Care Teams Serology Teacher Relationship Specialty Start Date End Date Unknown, Provider, PCP - General 04/01/19 08/12/19 Amanda Knox FNP [address] [place] [address] PCP - General 08/13/19 documented as of this encounter
--- OUTSIDE RECORDS SUMMARY | 2024-01-27 18:10 | XMS_ITS | Encounter Summary ---
Author Organization [facility] Address [address] [place] [address] Care Team Providers Care Metal Stamping Machine Operator Name Role Phone Piotr Ward MD Primary Care Provider Encounter Details Date Type Department Care Team (Latest Contact Info) Description 10/20/2018 9:23 EDT - 10/20/2018 23:59 EDT Hospital Encounter [facility] [address] [place] [address] Unknown, Provider, Discharge Disposition: Home or Self Care Social History Tobacco Use Types Packs/Day Years Used Date Smoking Tobacco: Never Assessed Sex and Gender Information Value Date Recorded Sex Assigned at Not on file Gender Identity Female 04/01/2019 9:34 EDT Sexual Orientation Not on file documented as of this encounter Discharge Disposition Disposition Code Departure Means Destination Home or Self Longterm documented in this encounter Plan of Treatment Not on file documented as of this encounter Visit Diagnoses Not on filedocumented in this encounter Care Teams Metal Stamping Machine Operator Relationship Specialty Start Date End Date Piotr Ward MD [address] [place] [address] PCP - General 12/15/15 03/31/19 documented as of this encounter
--- OUTSIDE RECORDS SUMMARY | 2024-01-27 18:10 | XMS_ITS | Encounter Summary ---
Author Organization [facility] Address [address] [place] [address] Care Team Providers Care Blow Torch Operator Name Role Phone Piotr Ward MD Primary Care Provider Unknown, Provider Primary Care Provider [phone] Encounter Details Date Type Department Care Team (Late st Contact Info) Description 03/03/2019 Results Only [facility] - [facility] Lab - Main [address] [phone] Shawna Baca MD [address] [place] [address], [address] [place] [address] Social History Tobacco Use Types Packs/Day Years Used Date Smoking Tobacco: Never Assessed Sex and Gender Information Value Date Recorded Sex Assigned at Not on file Gender Identity Female 04/01/2019 9:34 EDT Sexual Orientation Not on file documented as of this encounter Plan of Treatment Not on file documented as of this encounter Procedures Procedure Name Priority Date/Time Associated Diagnosis Comments PROTIME/PARTIAL PROTIME ([facility]) Routine 03/03/2019 16:30 EDT COMPLETE BLOOD COUNT WITH DIFFERENTIAL (AUTO) Routine 03/03/2019 14:30 EDT BLOOD BANK HOLD Routine 03/03/2019 14:30 EDT URIC ACID Routine 03/03/2019 14:30 EDT BUN Routine 03/03/2019 14:30 EDT ALT Routine 03/03/2019 14:30 EDT AST Routine 03/03/2019 14:30 EDT CREATININE Routine 03/03/2019 14:30 EDT SURGICAL PATHOLOGY Routine 03/03/2019 documented in this encounter Results * PROTIME/PARTIAL PROTIME ([facility]) (03/03/2019 16:30 EDT) INR - [facility] 0.9 0.9 - 1.1 03/03/2019 16:[address] [facility] Comment: Moderate Intensity Coumadin INR = 2.0-3.0 Adjustments in anticoagulant therapy dose should be based upon the INR and NOT the Protime. PROTHROMBIN TIME - [facility] 10.5 10.3 - 13.4 SECONDS 03/03/2019 16:[address] [facility] PARTIAL THROMBO TIME - [facility] 30 25.1 - 36.5 SECONDS 03/03/2019 16:[address] [facility] Comment:Therapeutic Heparin Range: 55 - 84 seconds 03/03/2019 16:3 0 EDT 03/03/2019 16:[address] [facility] - 03/03/2019 16:55 EDT NO BLUE TOP REC'D WITH BLOOD DRAWN AT TIME OF IV PLACEMENT. PER RN, THEY WILL OBTAIN THIS SPECIMEN LATER. DLP 1608 Shawna Baca MD HEMATOLOGY & PF4 ORD ERABLES [facility] * URIC ACID (03/03/2019 14:30 EDT) URIC ACID - [facility] 5.7 2.2 - 7.7 mg/dL 03/03/2019 15:[address] [facility] 03/03/2019 14:3 0 EDT 03/03/2019 14:43 EDT Shawna Baca MD CHEMISTRY & BLOOD GA S ORDERABLES Performing Organization Address City/[facility]/ZIP Co de Phone Number [facility] * ALT (03/03/2019 14:30 EDT) Pathologist [facility] SGPT/ALT - [facility] <10 9 - 52 U/L 9 15:[address] [facility] 03/03/2019 14:3 0 EDT 03/03/2019 14:43 EDT Shawna Baca MD CHEMISTRY & BLOOD GA S ORDERABLES Performing Organization Address [facility]/ZIP Co de Phone Number [facility] * AST (03/03/2019 14:30 EDT) Pathologist [facility] SGOT/AST - CV 22 14 - 36 U/L 03/03/2019 15:[address] [facility] 03/03/2019 14:3 0 EDT 03/03/2019 14:43 EDT Shawna Baca MD CHEMISTRY & BLOOD GA S ORDERABLES Performing Organization Address [facility] Co de Phone Number [facility] * (ABNORMAL) CREATININE (03/03/2019 14:30 EDT) [facility] CREATININE 0.50(L) 0.52 - 1.04 mg/dL 03/03/2019 15:[address] [facility] eGFR >60 03/03/2019 15:[address] [facility] Comment: Chronic renal impairment is defined as GFR <60 Multiply result by 1.210 for patients. eGFR calculated using the IDMS-traceable MDRD Study Equation. ??(effective 04/08/2014) 03/03/2019 14:3 0 EDT 03/03/2019 14:43 EDT Shawna Baca MD CHEMISTRY & BLOOD GA S ORDERABLES Performing Organization Address City/[facility]/ZIP Co de Phone Number [facility] * (ABNORMAL) BUN (03/03/2019 14:30 EDT) Pathologist [facility] BUN [facility] 7(L) 10 - 26 mg/dL 03/03/2019 15:[address] [facility] 03/03/2019 14:3 0 EDT 03/03/2019 14:43 EDT Shawna Baca MD CHEMISTRY & BLOOD GA S ORDERABLES [facility] * BLOOD BANK HOLD (03/03/2019 14:30 EDT) Pathologist [facility] CLOT TO HOLD [facility] See Note [facility] Comment: CLOT TO HOLD WILL IN 48 HOURS FROM DATE ?AND TIME OF COLLECTION ?BLOOD BANK HISTORY HAS BEEN CHECKED 03/03/2019 14:3 0 EDT 03/03/2019 14:43 EDT Shawna Baca MD BLOOD BANK TESTS Performing Organization Address [facility]/ZIP Co de Phone Number [facility] * (ABNORMAL) COMPLETE BLOOD COUNT WITH DIFFERENTIAL (AUTO) (03/03/2019 14:30 EDT) Pathologist [facility] ABSOLUTE NEUTROPHIL COUN - [facility] 14.9(H) 2.2 - 8.85 10e3/uL 03/03/2019 14:[address] [facility] BASO # - [facility] 0.02 0.01 - 0.11 10e/uL 03/03/2019 14:[address] [facility] BASO % - [facility] 0 0 - 2 % 03/03/2019 14:[address] [facility] EOS # - [facility] 0.02(L) 0.03 - 0.61 10e3/ul 03/03/2019 14:[address] [facility] EOS % - [facility] 0 0 - 5 % 03/03/2019 14:[address] [facility] GRAN % - [facility] 83.2(H) 40 - 80 % 03/03/2019 14:49 [facility] HEMATOCRIT - [facility] 40.5 34.9 - 44.4 % 03/03/2019 14:49 [facility] HEMOGLOBIN - [facility] 13.5 11.6 - 15.2 g/dl 03/03/2019 14:49 [facility] IG# - [facility] 0.07 0 - 0.7 10e3/uL 03/03/2019 14:49 [facility] IG% - [facility] 0.4 0 - 0.9 % 03/03/2019 14:49 [facility] LYMPH # - CV 2.0 1.09 - 3.3 10e3/ul 03/03/2019 14:49 [facility] LYMPH% - CV 11.3(L) 20 - 40 % 03/03/2019 14:49 [facility] MEAN CORPUSCULAR HGB - [facility] 28.2 26.7 - 33.3 pg 03/03/2019 14:49 [facility] MEAN CORPUSCULAR HGB CONC - [facility] 33.3 32.1 - 35.9 g/dL 03/03/2019 14:49 [facility] MEAN CELL VOLUME - [facility] 84.7 81 - 98 fl 03/03/2019 14:49 [facility] MONO # - [facility] 0.9(H) 0.1 - 0.8 10e3/uL 03/03/2019 14:49 [facility] MONO% - [facility] 4.9 0 - 12 % 03/03/2019 14:49 [facility] PLATELET COUNT 221 141 - 377 10e3/ul 03/03/2019 14:49 [facility] RED BLOOD COUNT - [facility] 4.78 3.86 - 5.04 10e3/ul 03/03/2019 14:49 [facility] RED CELL DISTRI WIDTH - [facility] 14.5 <14.7 % 03/03/2019 14:49 [facility] WHITE BLOOD COUNT - [facility] 17.9(H) 4.0 - 12.4 10e3/ul 03/03/2019 14:[address] [facility] 03/03/2019 14:3 0 EDT 03/03/2019 14:43 EDT Shawna Baca MD HEMATOLOGY & PF4 ORD ERABLES [facility] * SURGICAL PATHOLOGY (03/03/2019) 03/03/2019 03/05/2019 10: [address] [facility] - 03/08/2019 12:19 EDT ----- ------- Name: ANA JULES ?: 97 ?Age/Sex: 24/F ?Unit#: [id number] ? Loc: OBS ? Status: DIS IN ? Reg Date: 03/03/19 ? Pt.Phone Number: ? ----- ------- Specimen: [id number] ? STATUS: SOUT ?Spec Date:03/03/19 ? Physician Copies: ?Shawna Baca MD ? Tissues: A ?? Placenta, third trimester ?Javier,Alondra ? CPT: 39075 ?? Units: ??1 ? [id number] ? 1 ?FINAL DIAGNOSIS ? PLACENTA (549 GRAMS), MEMBRANES AND UMBILICAL CORD, VAGINAL DELIVERY AT 39 WKS; ? - Unremarkable trivascular umbilical cord. ? - Columnar metaplasia and vacuolization of amnion. ? - Unremarkable chorion and decidual vessels. ? - Villous maturity consistent with gestational age. ? See comment. ----- ------- ?COMMENT ? Note 1: ??549 grams falls between the 50th and 75th percentiles for weight at 39 weeks gestation. ?? Note 2: ??The length of submitted umbilical cord is 29 cm. ??The average umbilical cord length at 39 weeks gestation is 44-70 cm. ?? Note 3: ??Many pigmented-laden macrophages are present within the chorion. ??The iron stain is negative ruling out hemosiderin, thus, the pigment is most consistent with meconium. ?? Note 4: ??Scattered neutrophils are identified within subchorionic fibrin and rarely in the membranes. ??Most likely the presence of neutrophils and the changes of the amnion are reactive response to the meconium as other stigmata of acute amniotic fluid infection are not present. ? GROSS DESCRIPTION ? Received in a single formalin container labeled with Ana Jules, 97 ? is a craig placenta (20.0 x 17.2 x 2.7 cm; trimmed fixed weight 549 grams) ? with an attached segment of umbilical cord (29 cm in length x 1.3 cm in ? diameter) that shows eccentric insertion 5.7 cm from the closest placental ? edge. The umbilical cord shows normal coiling and no true knots. Sectioning ? shows three vessels and no discrete lesions. The membranes are campbell-green and ? translucent. ??They show marginal insertion at the placental edge. ?? plate ----- ------- Patient: DHARAANA A ?#[id number] ? (Continued) ----- ------- Specimen: [id number] ? Received: 03/05/19-1016 ?(Continued) ? GROSS DESCRIPTION ?(Continued) ? vessels show normal radiation pattern. ??The maternal surface is intact and has ? scant adherent maternal decidua. ??Also in the bucket are multiple fragments of ? apparent fixed acute blood clot that measure 13.0 x 6.5 x 2.5 cm in greatest ? aggregate dimension. Sectioning confirms the impression of acute fixed blood ? clot. No indentation or adherent clot is appreciated on the maternal surface. ? Sectioning shows a beefy red parenchyma with no discrete lesions. ? Television Newscast Director sections are submitted as per block summary. ?1: ?? Membrane roll, ?2: ?? Umbilical cord, ?3-4: Placenta. ??THANG ?? PREOP DX/CLINICAL HISTORY ?TERM ----- ------- ORDER QUERIES: Baby wgt in grams: 4090 ? Gestational Age: 39 + 4 ? 1 min score: 8 ?5 min score: 9 ?? Signed ____(signature on file)____ Selam Snider M.D. 03/08/19 ? By the signature above, the attending physician certifies that he/she has personally conducted a gross and/or microscopic examination of the described specimens and rendered or confirmed the above diagnosis. Test Performed by [facility], [address] [place] [address] Adobe Layer: Kim Joaquin MD PHD ----- ------- Shawna Baca MD PATHOLOGY ORDERABLES [facility] documented in this encounter Visit Diagnoses Not on filedocumented in this encounter Care Teams Blow Torch Operator Relationship Specialty Start Date End Date Piotr Ward MD [address] [place] [address] PCP - General 12/15/15 03/31/19 Unknown, Provider, [address] [place] [address] PCP - General 04/01/19 08/12/19 documented as of this encounter
--- OUTSIDE RECORDS SUMMARY | 2024-01-27 18:10 | XMS_ITS | Encounter Summary ---
Author Organization [facility] Address [address] [place] [address] Care Team Providers Care Pharmaceutical Physician Name Role Phone Piotr Ward MD Primary Care Provider Unknown, Provider Primary Care Provider [phone] Encounter Details Date Type Department Care Team (Late st Contact Info) Description 02/14/2019 Historical Results Only [facility] Lab - Main [place] [address] [place] [id number] Mercy Haro NP [facility] [address] [facility], [address] [place] [address] Social History Tobacco Use Types [...] Date/Time Associated Diagnosis Comments COMPLETE BLOOD COUNT WITH DIFFERENTIAL (AUTO) Routine 02/14/2019 10:02 EDT documented in this encounter Results * (ABNORMAL) COMPLETE BLOOD COUNT WITH DIFFERENTIAL (AUTO) (02/14/2019 10:02 EDT) ABSOLUTE NEUTROPHIL COUN [facility] 8.3 2.2 - 8.85 10e3/uL 02/14/2019 10:59 EDT [facility] BASO # - [facility] 0.02 0.01 - 0.11 10e/uL 02/14/2019 10:59 [facility] BASO % - [facility] 0 0 - 2 % 02/14/2019 10:59 [facility] EOS # - [facility] 0.05 0.03 - 0.61 10e3/ul 02/14/2019 10:59 [facility] EOS % - [facility] 1 0 - 5 % 02/14/2019 10:59 [facility] GRAN % - [facility] 74.6 40 - 80 % 02/14/2019 10:59 [facility] HEMATOCRIT - [facility] 32.2(L) 34.9 - 44.4 % 02/14/2019 10:59 [facility] HEMOGLOBIN - [facility] 10.7(L) 11.6 - 15.2 g/dl 02/14/2019 10:59 [facility] IG# - [facility] 0.06 0 - 0.7 e3/uL 02/14/2019 10:59 [facility] IG% - [facility] 0.5 0 - 0.9 % 02/14/2019 10:59 [facility] LYMPH # - [facility] 2.1 1.09 - 3.3 e3/ul 02/14/2019 10:59 [facility] LYMPH% - [facility] 19.1(L) 20 - 40 % 02/14/2019 10:59 [facility] MEAN CORPUSCULAR HGB - [facility] 28.2 26.7 - 33.3 pg 02/14/2019 10:59 [facility] MEAN CORPUSCULAR HGB CONC - [facility] 33.2 32.1 - 35.9 g/dL 02/14/2019 10:59 [facility] MEAN CELL VOLUME - [facility] 85.0 81 - 98 fl 02/14/2019 10:59 [facility] MONO # - [facility] 0.6 0.1 - 0.8 10e3/uL 02/14/2019 10:59 [facility] MONO% - [facility] 5.1 0 - 12 % 02/14/2019 10:59 EDT [facility] PLATELET COUNT 182 141 - 377 10e3/ul 02/14/2019 10:59 EDT [facility] RED BLOOD COUNT - [facility] 3.79(L) 3.86 - 5.04 10e3/ul 02/14/2019 10:59 EDT [facility] RED CELL DISTRI WIDTH - [facility] 14.2 <14.7 % 02/14/2019 10:59 EDT [facility] WHITE BLOOD COUNT - [facility] 11.1 4.0 - 12.4 10e3/ul 02/14/2019 10:59 EDT [facility] 02/14/2019 10:0 2 EDT 02/14/2019 10:02 EDT Narrative [facility] - 02/14/2019 10:59 EDT Does PT Have a Latex Allergy? NO [facility] [address] LIGHT CLEANER CNM HEMATOL OGY & PF4 ORDERABLES [facility] documented in this encounter Visit Diagnoses Not on filedocumented in this encounter Care Teams Pharmaceutical Physician Relationship Specialty Start Date End Date Piotr Ward MD [address] [place] [address] PCP - General 12/15/15 03/31/19 Unknown, Provider, [address] [place] [address] PCP - General 04/01/19 08/12/19 documented as of this encounter
--- OUTSIDE RECORDS SUMMARY | 2024-01-27 18:10 | XMS_ITS | Encounter Summary ---
Author Organization [facility] Address [address] [place] [address] Care Team Providers Care Frame Hand Name Role Phone Amanda Knox SENIOR MOBILE WEB DEVELOPER Primary Care Provider [phone] Encounter Details Date Type Department Care Team (Late st Contact Info) Description 09/28/2021 Lab Requisition [facility] Pathology & Laboratory Medicine - [address] [address] Outr Resulting Lab, Provider Social History Tobacco Use Types Packs/Day Years Used Date Smoking Tobacco: Former Smokeless Tobacco: Never Interpersonal Safety Answer Date [...] Procedure Name Priority Date/Time Associated Diagnosis Comments RUBELLA IGG ANTIBODY Routine 09/28/2021 8:30 EDT documented in this encounter Results * RUBELLA IGG ANTIBODY (09/28/2021 8:30 EDT) Rubella IgG Ab Negative See Note 09/29/2021 10:55 EDT [facility] Comment:Sample is considered negative for IgG antibodies to Rubella virus. A negative result presumes that immunity has not been acquired. If exposure to Rubella virus is suspected despite a negative finding, a second specimen should be collected and tested for Rubella IgG Ab one or two weeks later. Blood VENOUS BLOOD / Unknown 09/28/2021 8:30 EDT 09/28/2021 16:46 EDT Provider Outr Resulting Lab CHEMISTRY & BLOOD GAS ORDERABLES [facility] [address] [place] [address] documented in this encounter Visit Diagnoses Not on filedocumented in this encounter Care Teams Frame Hand Relationship Specialty Start Date End Date Amanda Knox FNP [address] [place] [address] PCP - General 08/13/19 documented as of this encounter
--- OUTSIDE RECORDS SUMMARY | 2024-01-27 18:10 | XMS_ITS | Encounter Summary ---
Author Organization [facility] Address [address] [place] [address] Care Team Providers Care Machine Helper Name Role Phone Amanda Knox INSURANCE VERIFY REP Primary Care Provider [phone] Encounter Details Date Type Department Care Team (Late st Contact Info) Description 02/13/2022 20:35 EDT - 02/13/2022 22:15 EDT Surgery [facility] OR [address] [place] [address] [id number] Johnathan Schmitt MD [address] [place] [address], [facility], [address] [place] [address] APPENDECTOMY, LAPAROSCOPIC [[id number] (CPT??)] Surgery Details Date/Time Status Location OR Service Patient Class Case Class Case Type Trauma Case? 02/13/222034 Posted [facility] [place] [facility] [place] Inpatient E - Less than 12 hours Panel 1 Procedure LRB Anes Op Region Wound Class Comments APPENDECTOMY, LAPAROSCOPIC N/A General Class II/ Clean Contaminated Surgeon Surgeon Role Service Panel Johnathan Schmitt MD Primary Trauma 1 documented in this encounter Social History Tobacco [...] Sign Reading Time Taken Comments Blood Pressure 117/66 02/13/20221955 EDT Pulse - - Temperature 36.4 ??C (97.5 ??F) 02/13/2022 1844 EDT Respiratory Rate 16 02/13/20221955 EDT Oxygen Saturation 97% 02/13/20221955 EDT Inhaled Oxygen Concentration - - Weight 92.1 kg (203 lb) 02/13/20221745 EDT Height 169.5 cm (5' 6.75) 02/13/2022 174 EDT Body Mass Index 32.03 02/13/2022 174 EDT documented in this encounter Functional Status [...] yo at 33wk4d who was transported from [facility] due to RLQ pain and concern for appendicitis. She was evaluated by the General Surgery service at [facility] and taken to the OR overnight [...] MD 02/14/22 10:29 Obstetrics & Gynecology, PGY4 JIG BORE OPERATOR Pager #[phone] documented in this encounter Medications at Time [...] Code Departure Means Destination Home or Self Shelter documented in this encounter Progress Notes * Dawna Marques, DONNA - 02/14/2022 1034 EDT NST Report Baseline Heart Rate: 120's - very active baby Accelerations: present Movement: present Decelerations: absent Contractions: absent Interpretation: Reactive [id number] Dr Jennings did review NST strip prior [...] , lying in bed with partner at [facility] Lung: non labored breathing Abdomen: Soft, [...] for VTE therapy Discharge Plan per Primary Ivanna Santiago PA-C 02/14/2022 10:26 * Pipo Sanchez [...] PIPO SANCHEZ MD 02/14/22 10:30 PGY4, OBGYN #[id number] Associated attestation - Mell Jennings MD - [...] resident: ETHAN BARRETT MD Shift provider: Dr. Villas[employer] - Pain: tylenol PRN, PO/IV dilaudid - [...] 23:10 * Johnathan Schmitt MD - 02/13/2022 194 EDT Patient booked and consented for surgery. However, no images pushed from transferring hospital. Multiple calls made, no answer in [facility] Radiology department. Call made to L&D and ED who are bothattempting to contact radiology without success. Will attempt to contact helpdesk administrator telecommunications clerk on [facility]. Johnathan Schmitt MD Acute Care Surgery Pager: [phone] * Ruthie Hamm RN - 02/13/2022 1742 EDT 1730 Pt arrived on unit via ambulance transport from [facility]. Pt ambulated to bathroom to urinate then placed EFM on. Pt denies ROM, VB or CTX. Pt states great movement. Pt here for complaints of vomiting and right flank pain. MRI from [facility] for possible appendicitis. 182 Office Equipment Technician at bedside awaiting [facility] from [facility] [...] 33w4d by LMP c/w 1st tri US who presents with right flank pain and [...] malpresentation Hx of in 2019, 9 lb infant Review of Systems: as above Current Complications: [...] images pushed from [facility] to [facility] system - IV in place - s/p ceftriaxone at [facility], now given flagyl at [facility] - ACS consulted, recs appreciated FWB [...] is 34 weeks with a history of cholecystectomy(2015) presenting with right flank pain and vomiting. [...] History: Procedure Laterality Date ??? CHOLECYSTECTOMY 2015 Social History Family history Social History Tobacco [...] Johnathan Schmitt MD Acute Care Surgery Pager: [phone] documented in this encounter OR Notes * OR Surgeon - Johnathan Schmitt MD - 02/14/2022 0015 EDT APPENDECTOMY, LAPAROSCOPIC Operative Note Date: 02/13/2022 Location: [facility] OR Name: Ana Juarez, : 1995, Diagnosis Pre-Op Diagnosis Codes: * Acute appendicitis affecting [O99.619, K35.80] Post-op Diagnosis * Acute appendicitis affecting [O99.619, K35.80] Procedures * APPENDECTOMY, LAPAROSCOPIC Surgeons Johnathan Schmitt MD - Primary Hadi, MD Shweta - Gas Adjuster Procedure Summary Anesthesia: General ASA: III Estimated Blood Loss: No Blood Loss Documented LDAs: Peripheral IV 02/13/22 1200 Anterior;Right Forearm (Active) Peripheral IV 02/13/22 1916 Posterior;Right Wrist (Active) Wound 02/13/22 Incision Other (Comment) Umbilicus (Active) [REMOVED] Non-Surgical Airway (Removed) Staff: Oil Sales And Service Rep: Brenda Edward RN Scrub Person: Yaron [place] Indications: 27 y.o. female who is 36 [...] port site fascia was reapproximated with a [id number] 0 Vicryl suture. Skin sites were closed [...] Johnathan Schmitt MD Acute Care Surgery Pager: [phone] documented in this encounter Miscellaneous Notes * [...] Op Note - Shweta Barcenas MD - 02/13/20222230 EDT Date: 02/13/2022 Location: [facility] OR Name: Ana Juarez DOB: 1995, Diagnosis Pre-Op Diagnosis Codes: * Acute appendicitis affecting [O99.619, K35.80] Post-op Diagnosis * Acute appendicitis affecting [O99.619, K35.80] Procedures * APPENDECTOMY, LAPAROSCOPIC Surgeons * Johnathan Schmitt MD - Primary Procedure Summary Anesthesia: General ASA: ASA status not filed in the log. Estimated Blood Loss: 25ml Total IV Fluids: 500 mL LDAs: Peripheral IV 02/13/22 1200 Anterior;Right Forearm (Active) Peripheral IV 02/13/22 1916 Posterior;Right Wrist (Active) Non-Surgical Airway (Active) Wound 02/13/22 Incision Other (Comment) Umbilicus (Active) Staff: Oil Sales And Service Rep: Brenda Edward RN Scrub Person: [place] Marrufo [...] 11.97 4.00 - 12.40 K/cmm 02/14/2022 9:30 T [facility] RBC 3.38(L) 3.86 - 5.04 M/cmm 02/14/2022 9:30 [facility] Hemoglobin 9.5(L) 11.6 - 15.2 gm/dL 02/14/2022 9:30 [facility] HCT 27.8(L) 34.9 - 44.4 % 02/14/2022 9:30 [facility] MCV 82 81 - 98 fl 02/14/2022 9:30 [facility] MCH 28.1 26.7 - 33.3 pg 02/14/2022 9:30 [facility] MCHC 34.2 32.1 - 35.9 gm/dL 02/14/2022 9:30 [facility] RDW-CV 14.0 <14.7 % 02/14/2022 9:30 [facility] RDW-SD 41.2 <50.4 fl 02/14/2022 9:30 [facility] PLT 194 141 - 377 K/cmm 02/14/2022 9:30 [facility] MPV 11.2 9.5 - 12.7 fl 02/14/2022 9:30 [facility] Blood VENOUS BLOOD / Unknown Venipuncture / Unknown 02/14/2022 9:19 EDT 02/14/2022 9:23 EDT Ethan Barrett MD HEMATOLOGY & PF4 ORD ERABLES [facility] [address] [place] [address] * SURGICAL PATHOLOGY (02/13/2022 22:15 EDT) Note to Patient The following pathology results have been interpreted by your pathologist and may be available to you before your health provider has had the opportunity to review them. Please allow time for your provider to receive these results and explore management options, if applicable. 02/18/2022 10:53 [facility] Final Diagnosis A. APPENDIX, APPENDECTOMY: - Acute appendicitis and periappendicitis. 02/18/2022 10:53 [facility] Attestation There was significant resident/fellow involvement in the diagnostic evaluation of this case. By the signature below, the attending physician certifies that they have personally conducted a gross and/or microscopic examination of the described specimens and rendered or confirmed the above diagnosis. 02/18/2022 10:53 [facility] at 1053 Clinical History Acute appendicitis affecting 02/18/2022 10:53 [facility] Gross Description A. Received in [...] adjacent to the stapled proximal margin, 2 sales representative business courses cross sections, and one half of the longitudinally bisected distal tip are submitted in A1. Jameson Goodman MD 02/16/2022 15:56 02/18/2022 10:53 [facility] Resident/Tae w: Jameson Goodman MD 02/18/2022 10:53 T [facility] Performing Lab [facility] 02/18/2022 10:53 [facility] Scanned Images 02/18/2022 10:53 [facility] Tissue APPENDECTOMY / Unknown 02/13/2022 22:15 EDT 02/15/2022 8:49 EDT Johnathan Schmitt MD PATHOLOGY ORDER BRADY [facility] [address] [place] [address] * PATIENT RE-TYPE (02/13/2022 19:12 EDT) ABO A 02/13/2022 19:36 EDT [facility] Rh Factor Positive 02/13/2022 19:36 EDT [facility] Blood VENOUS BLOOD / Unknown Venipuncture / Unknown 02/13/2022 19:12 EDT 02/13/2022 19:20 EDT Pipo Sanchez MD BLOOD BANK TESTS [facility] [address] [place] [address] * (ABNORMAL) URINE CHEMICAL (DIP) & SEDIMENT (MICRO) WITH REFLEX TO CULTURE (02/13/2022 18:30 EDT) Color UA Yellow Colorless, Yellow 02/13/2022 18:52 EDT [facility] Clarity UA Clear Clear 02/13/2022 18:52 T [facility] Glucose UA Negative Negative 02/13/2022 18:52 T [facility] Bilirubin UA Negative Negative 02/13/2022 18:52 [facility] Ketones UA 3+(AA) Negative 02/13/2022 18:52 [facility] Specific [place], Urine >1.050(H) 1.001 - 1.035 02/13/2022 18:52 [facility] Comment:Urine Specific Gravi ty results greater than 1.035 suggest possible interference from glucose or radiographic dye. Blood UA Negative Negative 02/13/2022 18:52 T [facility] Urobilinogen UA Normal Normal mg/dL 022 18:52 T [facility] Nitrite UA Negative Negative 02/13/2022 18:52 [facility] Leukocyte Esterase UA Negative Negative 02/13/2022 18:52 [facility] Protein UA 1+(A) Negative 02/13/2022 18:52 T [facility] pH, UA 6.5 4.6 - 8.0 02/13/2022 18:52 EDT [facility] Urine RBC Count, Auto 0 - 2 0 - 2 Cells/HPF 02/13/2022 18:52 EDT [facility] Urine WBC Count, Auto 0 - 3 0 - 3 Cells/HPF 02/13/2022 18:52 EDT [facility] Urine Squamous Count, Auto Few(A) None Seen Cells/HPF 02/13/2022 18:52 EDT [facility] Urine Hyaline Cast Count, Auto <=10 <=10 Casts/LPF 02/13/2022 18:52 T [facility] Urine Bacteria Count, Auto None Seen None Seen Bacteria/HPF 02/13/2022 18:52 EDT [facility] Urine URINE SPECIMEN COLLECTION, CLEAN CATCH / Unknown Urine Collect / Unknown 02/13/2022 18:30 EDT 02/13/2022 18:36 EDT Narrative [facility] - 02/13/2022 18:52 EDT NOTE: Reflex to Urine Culture test is not indicated based on Urine Sediment Analysis results. Urine Sediment Analysis results are unreliable on urines that are unrefrigerated for >2 hrs or refrigerated >8 hrs. Pipo Sanchez MD URINALYSIS ORDERABLE S [facility] [address] [place] [address] * TYPE AND SCREEN (02/13/2022 18:08 EDT) ABO A 02/13/2022 18:56 EDT [facility] Rh Factor Positive 02/13/2022 18:56 T [facility] Antibody Screen Negative 02/13/2022 18:56 T [facility] Specimen Expires: 02/16/2022 @ 23:59 02/13/2022 18:56 T [facility] Blood VENOUS BLOOD / Unknown Venipuncture / Unknown 02/13/2022 18:08 EDT 02/13/2022 18:17 EDT Pipo Sanchez MD BLOOD BANK TESTS [facility] [address] [place] [address] * (ABNORMAL) C REACTIVE PROTEIN (02/13/2022 18:03 EDT) Pathologist [facility] C-Reactive Protein 20.0(H) <10.0 mg/L 02/13/2022 18:31 EDT [facility] Blood VENOUS BLOOD / Unknown Venipuncture / Unknown 02/13/2022 18:03 EDT 02/13/2022 18:14 EDT Pipo Sanchez MD CHEMISTRY & BLOOD GA S ORDERABLES [facility] [address] [place] [address] * (ABNORMAL) CREATININE (02/13/2022 18:03 EDT) [facility] Creatinine 0.28(L) 0.52 - 1.04 mg/dL 02/13/2022 18:31 EDT [facility] eGFR 153 >60 mL/min/1.73 m2 02/13/2022 18:31 EDT [facility] Blood VENOUS BLOOD / Unknown Venipuncture / Unknown 02/13/2022 18:03 EDT 02/13/2022 18:14 EDT Pipo Sanchez MD CHEMISTRY & BLOOD GA S ORDERABLES [facility] [address] [place] [address] * (ABNORMAL) COMPLETE BLOOD COUNT AND DIFFERENTIAL (02/13/2022 18:03 EDT) WBC 18.16(H) 4.00 - 12.40 K/cmm 02/13/2022 18:26 EDT [facility] RBC 3.59(L) 3.86 - 5.04 M/cmm 02/13/2022 18:26 [facility] Hemoglobin 10.1(L) 11.6 - 15.2 gm/dL 02/13/2022 18:26 [facility] HCT 29.5(L) 34.9 - 44.4 % 02/13/2022 18:26 [facility] MCV 82 81 - 98 fl 02/13/2022 18:26 [facility] MCH 28.1 26.7 - 33.3 pg 02/13/2022 18:26 [facility] MCHC 34.2 32.1 - 35.9 gm/dL 02/13/2022 18:26 [facility] RDW-CV 13.8 <14.7 % 02/13/2022 18:26 [facility] RDW-SD 40.6 <50.4 fl 02/13/2022 18:26 [facility] PLT 211 141 - 377 K/cmm 02/13/2022 18:26 [facility] MPV 11.6 9.5 - 12.7 fl 02/13/2022 18:26 [facility] % Neutrophils 84.3 % 02/13/2022 18:26 [facility] % Lymphocytes 11.1 % 02/13/2022 18:26 [facility] % Monocytes 3.5 % 02/13/2022 18:26 [facility] % Eosinophils 0.3 % 02/13/2022 18:26 [facility] % Basophils 0.2 % 02/13/2022 18:26 [facility] % Immature Grans 0.6 % 02/14/20 18:26 [facility] Absolute Neutrophils 15.32(H) 2.20 - 8.85 K/cmm 02/13/2022 18:26 [facility] Absolute Lymphocytes 2.01 1.09 - 3.30 K/cmm 02/13/2022 18:26 [facility] Absolute Monocytes 0.64 0.10 - 0.80 K/cmm 02/13/2022 18:26 EDT [facility] Absolute Eosinophils 0.06 0.03 - 0.61 K/cmm 02/13/2022 18:26 EDT [facility] ABS Basophils 0.03 0.01 - 0.11 K/cmm 02/13/2022 18:26 EDT [facility] Absolute Immature Grans 0.10(H) 0.00 - 0.06 K/cmm 02/13/2022 18:26 EDT [facility] Type of Differential: Auto 02/13/2022 18:26 EDT [facility] Blood VENOUS BLOOD / Unknown Venipuncture / Unknown 02/13/2022 18:03 EDT 02/13/2022 18:14 EDT Pipo Sanchez MD PACKAGES & DNA PROBE ORDERABLES Performing Organization Address City/State/[facility] Co de Phone Number [facility] [address] [place] [address] * CT OUTSIDE IMAGES BODY (02/13/2022 6:58 EDT) Narrative 02/14/2022 6:58 EDT This is a non-reportable exam. External Imaging IMG OTHER IMAGING OR DERABLES documented in this encounter Visit Diagnoses Diagnosis Acute appendicitis affecting - Primary Acute appendicitis affecting Encounter for supervision of other normal in third trimester RLQ abdominal pain Abdominal pain, right lower quadrant Supervision of normal Supervision of other normal Acute appendicitis affecting documented in this encounter Admitting Diagnoses Diagnosis [...] mg Given 02/13/2022 23:16 EDT 1,000 mg bupivacaine (PF) (MARCAINE) 0.5% injection PRN, Starting on 02/13/22 at 2223, Until 02/13/22 at 2242, Routine, Intraprocedure Given 02/13/2022 22:23 EDT 10 mL HYDROmorphone (DILAUDID) tablet 2-4 mg 2-4 mg, oral, EVERY 30 MINUTES PRN, 2 doses, Starting on 02/13/22 at 2306, Until 02/14/22 at 0129, Pain, Routine Given 02/14/2022 1:29 EDT 4 mg Given 02/13/2022 23:16 EDT 4 mg HYDROmorphone (DILAUDID) tablet 2-4 mg 2-4 mg, oral, EVERY 4 HOURS PRN, Starting on 02/14/22 at 0209, Until [place] 02/14/22 at 1252, Pain, Routine Given 02/14/2022 5:26 EDT 2 mg HYDROmorphone (PF) (DILAUDID) 0.5 mg/0.5 mL syringe 0.3-0.5 mg 0.3-0.5 mg, intravenous, EVERY 10 MINUTES PRN, Starting on 02/13/22 at 2306, Until 02/14/22 at 1252, Pain, Routine lactated ringers (LR) infusion 75 mL/hr, intravenous, CONTINUOUS, Starting on 02/13/22 at 1845, Until [place] 02/14/22 at 0053, Routine, Pre-Delivery New Bag [...] 1915, Routine 1900 (Given - Provider: Ruthie Hamm RN) metoclopramide (REGLAN) injection 10 mg (CANCELED) 10 mg, intravenous, EVERY 6 HOURS, First dose on 02/13/22 at 1900, Until Discontinued, Routine 1956 (Given - Provider: Gisella Gallegos RN)2121 (AUG Hold - Provider: Automatic Transfer Provider Hn - Reason: Patient off unit)2304 (MAR Unhold - Provider: Automatic Transfer Provider Hn) 0055 (Not Given - Provider: Gisella Gallegos RN [...] No, Routine 184 (Given - Provider: Ruthie Hamm RN) multivitamin vit-iron fumarate-FA (STUARTNATAL) 27 mg iron- [...] Hamm RN)2323 (New Bag - Provider: Gisella Gallegos, DONNA) PRN Medication Order 02/12/2022 02/13/2022 02/14/2022 acetaminophen (TYLENOL) tablet 1,000 mg 1,000 mg, oral, EVERY 8 HOURS PRN, Starting on 02/13/22 at 2237, Until 02/14/22 at 1252, Pain, Routine 2316 (Given - Provider: Gisella Gallegos, RN) 0647 (Given - Provider: Elaine Flores [...] 0129, Pain, Routine 2316 (Given - Provider: Gisella Gallegos RN) 0129 (Given - Provider: Gisella [...] 02/14/2022 senna (SENOKOT) tablet 1 Tablet 1 sodium chloride 0.9 % (flush) flush 5 mL 1 02/14/2022 atropine 0.1 mg/mL syringe 0.5 mg 1 022 fentaNYL citrate (PF) injection 25-50 mcg 1 02/13/2022 HYDROmorphone (PF) (DILAUDID ) 0.5 mg/0.5 [...] 02/13/2022 documented in this encounter Care Teams Machine Helper Relationship Specialty Start Date End Date Amanda Knox FNP [address] [place] [address] PCP - General 08/13/19 documented as of this encounter
--- OUTSIDE RECORDS SUMMARY | 2024-01-27 18:10 | XMS_ITS | Encounter Summary ---
Author Organization [facility] Address [address] [place] [address] Care Team Providers Care Nib Adjuster Name Role Phone Piotr Ward MD Primary Care Provider Encounter Details Date Type Department Care Team (Late st Contact Info) Description 02/16/2019 Historical Results Only [facility] Radiology Results [address] [place] [address] Shawna Baca MD [address] [facility], [address] [place] [address] Social History Tobacco Use Types Packs/Day Years Used Date Smoking Tobacco: Never Assessed Sex and Gender Information Value Date Recorded Sex Assigned at Not on file Gender Identity Female 04/01/2019 9:34 EDT Sexual Orientation Not on file documented as of this encounter Plan of Treatment Not on file documented as of this encounter Procedures Procedure Name Priority Date/Time Associated Diagnosis Comments US OB LIMITED 02/16/2019 13:31 EDT documented in this encounter Results * US OB LIMITED (02/16/2019 13:31 EDT) Anatomical Region Laterality Modality Pelvis Other 02/16/2019 13:3 1 EDT Narrative 02/20/2019 14:58 EDT ? EXAM: ULTRASOUND/TRANSABDOMINAL OB LIMITE EX. D/ (1331) ? CLINICAL INFORMATION: ? Z34.93, CARE IN THIRD TRIMESTER ? See attached report. ??Report also available in PACS. ? JSP:[email or web address] ?Reported By: Moises Burrell MD ? CC: ? Transcribed Date/Time: 02/20/2019 (7544) ? Civil Engineering Project Manager: MEGAN ? Printed Date/Time: 02/21/2019 (3953) ? PAGE 1 ? Signed Report ? Procedure Note Moises Burrell MD - 04/10/2019 EXAM: ULTRASOUND/TRANSABDOMINAL OB LIMITE EX. D/ (1331) CLINICAL INFORMATION: Z34.93, CARE IN THIRD TRIMESTER See attached report. Report also available in PACS. MARQUISE:[email or web address] Reported By: Moises Burrell MD CC: Transcribed Date/Time: 02/20/2019 (9062) Civil Engineering Project Manager: MEGAN Printed Date/Time: 02/21/2019 (6506) PAGE 1 Signed Report Shawna Baca MD IMG OB ORDERABLES documented in this encounter Visit Diagnoses Not on filedocumented in this encounter Care Teams Nib Adjuster Relationship Specialty Start Date End Date Piotr Ward MD [address] [place] [address] PCP - General 12/15/15 03/31/19 documented as of this encounter
--- OUTSIDE RECORDS SUMMARY | 2024-01-27 18:10 | XMS_ITS | Encounter Summary ---
Author Organization [facility] Address [address] [place] [address] Care Team Providers Care Java Web Services Developer Name Role Phone Hueymike Amanda Tricia EXPERIMENTAL PREFLIGHT MECHANIC Primary Care Provider [phone] Encounter Details Date Type Department Care Team (Late st Contact Info) Description 08/05/2021 Lab Requisition [facility] Pathology & Laboratory Medicine - [address] [address] Outr Resulting Lab, Provider Social History Tobacco [...] Procedure Name Priority Date/Time Associated Diagnosis Comments CHLAMYDIA/N. GONORRHOEAE AMPLIFIED NUCLEIC ACID Routine 08/05/2021 13:30 EST documented in this encounter Results * CHLAMYDIA/N. GONORRHOEAE AMPLIFIED RNA (08/05/2021 13:30 EST) Neisseria gonorrhoeae Result Negative Negative 08/06/2021 15:26 EST [facility] Chlamydia trachomatis Result Negative Negative 08/06/2021 15:26 EST [facility] Swab ENTIRE WALL OF CERVIX / Unknown 08/05/2021 13:30 EST 08/05/2021 21:29 EST Provider Outr Resulting Lab MICROBIOLOGY - GENERAL ORDERABLES [facility] [address] [place] [address] documented in this encounter Visit Diagnoses Not on filedocumented in this encounter Care Teams Java Web Services Developer Relationship Specialty Start Date End Date Amanda Knox FNP [address] [place] [phone] PCP - General 08/13/19 documented as of this encounter
--- OUTSIDE RECORDS SUMMARY | 2024-01-27 18:10 | XMS_ITS | Encounter Summary ---
Author Organization [facility] Address [address] [place] [address] Care Team Providers Care Wrecking Supervisor Name Role Phone Piotr Ward MD Primary Care Provider Unknown, Provider Primary Care Provider [phone] Encounter Details Date Type Department Care Team (Late st Contact Info) Description 12/15/2018 Historical Results Only [facility] Lab - Main [address] [id number] Vaishali Rainey MD [address] [place] [address], [address] [place] [address] Social History Tobacco Use Types Packs/Day Years Used Date Smoking Tobacco: Never Assessed Sex and Gender Information Value Date Recorded Sex Assigned at Not on file Gender Identity Female 04/01/2019 9:34 EDT Sexual Orientation Not on file documented as of this encounter Plan of Treatment Not on file documented as of this encounter Procedures Procedure Name Priority Date/Time Associated Diagnosis Comments ONE HOUR PC - CV Routine 12/15/2018 10 :02 EDT HEMOGLOBIN - [facility] Routine 12/15/2018 10: 02 EDT documented in this encounter Results * (ABNORMAL) ONE HOUR PC - CV (12/15/2018 10:02 EDT) ONE HOUR - CV 151(H) 88 - 139 mg/dL 12/15/2018 11:21 EDT [facility] Comment: ACOG RECOMMENDED GUIDELINES Greater than or equal to ??140 mg/dL suspect gestational diabetes. ?? Recommend confirmation with 3 hr GTT 12/15/2018 10:0 2 EDT 12/15/2018 10:02 EDT [facility] - 12/15/2018 11:21 EDT Does PT Have a Latex Allergy? NO Vaishali Rainey MD CHEMISTRY & BLOOD GA S ORDERABLES Performing Organization Address City/[facility]/ZIP Co de Phone Number [facility] * (ABNORMAL) HEMOGLOBIN [facility] (12/15/2018 10:02 EDT) HEMOGLOBIN - [facility] 10.5(L) 11.6 - 15.2 g/dl 12/15/2018 10:51 EDT [facility] 12/15/2018 10:0 2 EDT 12/15/2018 10:02 EDT [facility] - 12/15/2018 10:51 EDT Does PT Have a Latex Allergy? NO Vaishali Rainey MD HEMATOLOGY & PF4 ORD ERABLES Performing Organization Address [facility] Co de Phone Number [facility] documented in this encounter Visit Diagnoses Not on filedocumented in this encounter Care Teams Wrecking Supervisor Relationship Specialty Start Date End Date Piotr Ward MD [address] [place] [address] PCP - General 12/15/15 03/31/19 Unknown, ProviderMD [address] [place] [address] PCP - General 04/01/19 08/12/19 documented as of this encounter
--- OUTSIDE RECORDS SUMMARY | 2024-01-27 18:10 | XMS_ITS | Encounter Summary ---
Author Organization [facility] Address [address] [place] [address] Care Team Providers Care Swatch Cutter Name Role Phone Unknown, Provider Primary Care Provider Reason for Visit * Reason Comments Post- Care Encounter Details Date Type Department Care Team (Latest Contact Info) Description 04/20/2019 8:40 EST Visit [facility] [address] [place], [place] [phone] Mercy Haro NP [facility] [address] [facility], [address] [place] [address] care and examination of lactating mother (Primary Dx); Encounter for surveillance of contraceptive pills Social History Tobacco Use Types Packs/Day Years Used Date Smoking Tobacco: Former Smokeless Tobacco: Never Sex and Gender Information Value Date Recorded Sex Assigned at Not on file Gender Identity Female 04/01/2019 9:34 EDT Sexual Orientation Not on file documented as of this encounter Last Filed Vital Signs Vital Sign Reading Time Taken Comments Blood Pressure 110/52 04/20/2019 0911 EST Pulse 82 04/20/2019 0911 EST Temperature - - Respiratory Rate 16 04/20/2019 0911 EST Oxygen Saturation - - Inhaled Oxygen Concentration - - Weight 80.7 kg (178 lb) 04/20/2019 0911 EST Height - - Body Mass Index - - documented in this encounter Ordered Prescriptions Prescription Sig Dispensed Refills Start Date End Da te Cmmhbctq-Ge-Rda-Fe-FA ( VITAMIN) tablet Take 1 Tab by mouth daily for 336 days. 84 Tab 3 04/20/2019 05/25/2019 norethindrone (MICRONOR) 0.35 mg tablet Take 1 Tab by mouth daily for 336 doses. 84 Tab 3 04/20/2019 05/25/2019 documented in this encounter Progress Notes * Mercy Haro, SEAT COVER INSTALLER - 04/20/2019 0840 EST 6 Week Visit SUBJECTIVE: Here for a routine post- exam. Now 6 weeks post-. Date of Delivery: 03/03/2019 Sex of baby: female Name: Qian Arteaga Type of delivery: spontaneous vaginal delivery Laceration: 2nd degree Any complications: no Dr. Baca attended her Now on 3rd week of OCPs, minipill. Had her first period last week. Concerns: Any health problems or concerns during or since the delivery? none How much sleep are you gettin hrs night, naps rarely Activity level/exercise? Starting to increase. Would like to do more, but with care for baby, harder to organize and getting out with winter. Social supports? Lives with partner Go. Family in the area. How is family adjusting to new baby? Doing well. Breast or Bottlefeeding? Breast Bleeding: Done! Resumed intercourse? No Contraception oral progesterone-only contraceptive Any urinary Symptoms No Any bowel Symptoms No Arjay Depression Screen EPDS of 4 today. ROS Constitutional: Denies fever, chills, malaise. HEENT: Denies vision changes CV: Denies chest pain Pulm: Denies SOB or dyspnea GI: No constipation, no pain with BMs. Denies rectal bleeding, bowel incontinence. No hemorrhoids. : Denies dysuria, incontinence and frequency. TIRE BAGGER: Vaginal bleeding is resolved. Some d/c with no odor. No vaginal pain. Breasts: No concerns. + and feels like she has ample milk. Neuro: Denies headaches MSK: Denies leg pain Psych: Denies low mood, depression or feeling anxious. Current Outpatient Medications: norethindrone (MICRONOR) 0.35 mg tablet Hsbygwgp-Rs-Wsv-Fe-FA ( VITAMIN) tablet No Known Allergies OBJECTIVE: BP 110/52 Pulse 82 Resp 16 Wt 80.7 kg (178 lb) LMP 04/06/2019 (Exact Date) There is no height or weight on file to calculate BMI. Appears well, NAD, interactive. Good eye contact & bright affect HEENT: eyes clear, OP clear Thyroid: supple, no nodes, no Tmegaly Cardio:RRR, normal S1S2 no murmur Pulmonary: clear to auscultation bilaterally Breasts: soft, NT, breast milk present, no axillary or clavicular lymphadenopathy, No masses. Symmetric. No skin retraction. Nipples intact. Diastasis: no fingerbredths Abdomen: SND, no HSM, NT Uterine Fundus: Non-tender and below SP exam deferred Neuro: grossly intact Skin: clear, no lesions ASSESSMENT 1. Healthy 24 y.o. Now at 6 weeks post status post spontaneous vaginal delivery 2. 6 week PP exam 3. successfully 4. Contraceptive Management : on POPs and wants to continue for now PLAN 1. Continue PNV, RX sent #84 x 3 months 2. Contraception - Discussed options and spacing. May opt to change to LARC method. Reviewed at length and handouts given. Updated RX sent to [facility]) #84 with RF x 3. Return to clinic in 1 year for routine annual wellness exam, see sooner PRN. Mercy Haro CNM, FNP Certified Nurse Senior Bookkeeper & Family Nurse Practitioner documented in this encounter Plan of Treatment Not on file documented as of this encounter Visit Diagnoses Diagnosis care and examination of lactating mother- Primary Encounter for surveillance of contraceptive pills Surveillance of previously prescribed contraceptive pill documented in this encounter Discontinued Medications Medication Sig Discontinue Reason Start Date End Da te norethindrone (MICRONOR) 0.35 mg tablet Take 1 Tab by mouth daily. Reorder 03/05/2019 04/20/2019 vit/iron fum/folic ac ( 1+1 ORAL) Take 1 Tab by mouth daily. Alternate therapy 04/20/2019 documented as of this encounter Historical Medications * This list may reflect changes made after this encounter. Medication Sig Dispensed Refills Start Date End Date norethindrone (MICRONOR) 0.35 mg tablet Take 1 Tab by mouth daily. 0 03/05/2019 04/20/2019 vit/iron fum/folic ac ( 1+1 ORAL) Take 1 Tab by mouth daily. 04/20/2019 added in this encounter Care Teams Swatch Cutter Relationship Specialty Start Date End Date Unknown, Provider, PCP - General 04/01/19 08/12/19 documented as of this encounter
--- OUTSIDE RECORDS SUMMARY | 2024-01-27 18:10 | XMS_ITS | Encounter Summary ---
Author Organization [facility] Address [address] [place] [address] Care Team Providers Care In Service Education Teacher Name Role Phone Piotr Ward MD Primary Care Provider Unknown, Provider Primary Care Provider [phone] Encounter Details Date Type Department Care Team (Late st Contact Info) Description 02/08/2019 Historical Results Only [facility] - Main [address] [id number] Mercy Haro NP [facility] [address] [facility], [address] [place] [address] Social History Tobacco Use Types Packs/Day Years Used Date Smoking Tobacco: Never Assessed Sex and Gender Information Value Date Recorded Sex Assigned at Not on file Gender Identity Female 04/01/2019 9:34 EDT Sexual Orientation Not on file documented as of this encounter Plan of Treatment Not on file documented as of this encounter Procedures Procedure Name Priority Date/Time Associated Diagnosis Comments FERRITIN Routine 02/08/2019 9:41 EDT documented in this encounter Results * FERRITIN (02/08/2019 9:41 EDT) [facility] 7 6.2 - 137.0 ng/mL 02/08/2019 11:33 EDT [facility] Comment: The results of this assay can be falsely lowered due to the consumption of Biotin. 02/08/2019 9:41 EDT 02/08/2019 9:41 EDT Narrative [facility] - 02/08/2019 18:37 EDT Does PT Have a Latex Allergy? NO AOT: 02/08/19 1821: FE/IBC Mercy Haro NP CNM SOFTWARE DEVELOPER MANAGER RY & BLOOD GAS ORDERABLES [facility] documented in this encounter Visit Diagnoses Not on filedocumented in this encounter Care Teams In Service Education Teacher Relationship Specialty Start Date End Date Piotr Ward MD [address] [place] [address] PCP - General 12/15/15 03/31/19 Unknown, Provider, [address] [place] [address] PCP - General 04/01/19 08/12/19 documented as of this encounter
--- OUTSIDE RECORDS SUMMARY | 2024-01-27 18:10 | XMS_ITS | Encounter Summary ---
Author Organization [facility] Address [address] [place] [address] Care Team Providers Care Medication Aide Name Role Phone Piotr Ward MD Primary Care Provider Unknown, Provider Primary Care Provider [phone] Encounter Details Date Type Department Care Team (Late st Contact Info) Description 02/08/2019 Historical Results Only [facility] - Main [address] [phone] Mercy Haro NP [facility] [address] [facility], [address] [place] [address] Social History Tobacco Use Types Packs/Day Years Used Date Smoking Tobacco: Never Assessed Sex and Gender Information Value Date Recorded Sex Assigned at Not on file Gender Identity Female 04/01/2019 9:34 EDT Sexual Orientation Not on file documented as of this encounter Plan of Treatment Not on file documented as of this encounter Procedures Procedure Name Priority Date/Time Associated Diagnosis Comments IRON Routine 02/08/2019 9:41 EDT documented in this encounter Results * IRON (02/08/2019 9:41 EDT) [facility] 92 37 - 170 ug/dL 02/08/2019 18:[address] [facility] 02/08/2019 9:41 EDT 02/08/2019 9:[address] [facility] - 02/08/2019 18:37 EDT Does PT Have a Latex Allergy? NO AOT: 02/08/19 1821: FE/IBC Mercy Haro NP CNM AUTO PARTS PROFESSIONAL RY & BLOOD GAS ORDERABLES [facility] documented in this encounter Visit Diagnoses Not on filedocumented in this encounter Care Teams Medication Aide Relationship Specialty Start Date End Date Piotr Ward MD [address] [place] [address] PCP - General 12/15/15 03/31/19 Unknown, Provider, [address] [place] [address] PCP - General 04/01/19 08/12/19 documented as of this encounter
--- OUTSIDE RECORDS SUMMARY | 2024-01-27 18:10 | XMS_ITS | Encounter Summary ---
Author Organization [facility] Address [address] [place] [address] Care Team Providers Care Furnace Operator And Tender Name Role Phone HueyAmanda mckeon Tricia PSYCHOLOGY TECHNICIAN Primary Care Provider [phone] Encounter Details Date Type Department Care Team (Late st Contact Info) Description 09/28/2021 Lab Requisition [facility] Pathology & Laboratory Medicine - [address] [address] Outr Resulting Lab, Provider Social History Tobacco [...] RNA BY PCR Routine 09/28/2021 8:30 EDT documented in this encounter Results * HEPATITIS C AB W REFLEX TO HCV RNA BY PCR (09/28/2021 8:30 EDT) Hep C Antibody Negative Negative 09/29/2021 9:42 EDT [facility] Blood VENOUS BLOOD / Unknown 09/28/2021 8:30 EDT 09/28/2021 16:46 EDT Provider Outr Resulting Lab CHEMISTRY & BLOOD GAS ORDERABLES [facility] [address] [place] [address] documented in this encounter Visit Diagnoses Not on filedocumented in this encounter Care Teams Furnace Operator And Tender Relationship Specialty Start Date End Date Amanda Knox FNP [address] [place] [address] PCP - General 08/13/19 documented as of this encounter
--- OUTSIDE RECORDS SUMMARY | 2024-01-27 18:10 | XMS_ITS | Encounter Summary ---
Author Organization [facility] Address [address] [place] [address] Care Team Providers Care Annual Greenhouse Manager Name Role Phone Unknown, Provider Primary Care Provider [phone] Encounter Details Date Type Department Care Team (Late st Contact Info) Description 04/20/2019 9:40 EST [facility] - [facility] [address] [place] [address] [facility] Social History Tobacco Use Types Packs/Day Years Used Date Smoking Tobacco: Former Smokeless Tobacco: Never Sex and Gender Information Value Date Recorded Sex Assigned at Not on file Gender Identity Female 04/01/2019 9:34 EDT Sexual Orientation Not on file documented as of this encounter Progress Notes * Meaghan Salcido LICSW - 04/20/2019 0940 EST General: Brief check in w/ pt in the presence of baby and patient's mom. Pt. Shares she is doing well overall, feeling good and accepting help. Pt is a 4 on the EPDS. Pt. Wondering about giving Annette a bottle as well as questions about Medicaid/ food stamps. Pt shares she is navigating her relationship well,using positive communication and asking for help. Plan: Counseled pt on management of symptoms. Shared resources related to PMAD supports as well as WIC/ Food stamps, etc. Pt is aware she can reach out to this television writer for support as she finds necessary. documented in this encounter Plan of Treatment Not on file documented as of this encounter Visit Diagnoses Not on filedocumented in this encounter Care Teams Annual Greenhouse Manager Relationship Specialty Start Date End Date Unknown, Provider, PCP - General 04/01/19 08/12/19 documented as of this encounter
--- OUTSIDE RECORDS SUMMARY | 2024-01-27 18:10 | XMS_ITS | Encounter Summary ---
Author Organization [facility] Address [address] [place] [address] Care Team Providers Care Aluminum Boat Assembly Supervisor Name Role Phone Hueymike Amanda Tricia BOILER WATER TESTER Primary Care Provider [phone] Encounter Details Date Type Department Care Team (Late st Contact Info) Description 09/15/2020 Lab Requisition [facility] Pathology & Laboratory Medicine - [address] [address] Outr Resulting Lab, Provider Social History Tobacco [...] Comments CHLAMYDIA/N. GONORRHOEAE AMPLIFIED NUCLEIC ACID Routine 09/12/2020 15:35 EDT documented in this encounter Results * CHLAMYDIA/N. GONORRHOEAE AMPLIFIED RNA (09/12/2020 15:35 EDT) Neisseria gonorrhoeae Result Negative Negative 09/16/2020 16:20 EDT [facility] Chlamydia trachomatis Result Negative Negative 09/16/2020 16:20 EDT [facility] Swab ENTIRE WALL OF CERVIX / Unknown 09/12/2020 15:35 EDT 09/15/2020 16:39 EDT Provider Outr Resulting Lab MICROBIOLOGY - GENERAL ORDERABLES [facility] [address] [place] [address] documented in this encounter Visit Diagnoses Not on filedocumented in this encounter Care Teams Aluminum Boat Assembly Supervisor Relationship Specialty Start Date End Date Amanda Knox FNP [address] [place] [phone] PCP - General 08/13/19 documented as of this encounter
--- OUTSIDE RECORDS SUMMARY | 2024-01-27 18:10 | XMS_ITS | Encounter Summary ---
Author Organization [facility] Address [address] [place] [address] Care Team Providers Care Winder Operator Name Role Phone Amanda Knox [facility] Primary Care Provider [phone] Encounter Details Date Type Department Care Team (Late st Contact Info) Description 10/22/2020 Results Only [facility] Lab - Main [address] [address] Jad Sutton MD [address] [place] [address] Social History Tobacco Use Types Packs/Day [...] Procedure Name Priority Date/Time Associated Diagnosis Comments [facility] SCREEN (URINE) Routine 10/22/2020 1:33 EDT documented in this encounter Results * [facility]CG SCREEN (URINE) - [facility] (10/22/2020 1:33 EDT) [facility]CG SCREEN (URINE) - [facility] NEG 10/22/2020 1:51 EDT [facility] 10/22/2020 1:33 EDT 10/22/2020 1:33 EDT Jad Sutton MD CHEMISTRY & BLOOD GA S ORDERABLES [facility] [address] [place] [address] documented in this encounter Visit Diagnoses Not on filedocumented in this encounter Care Teams Winder Operator Relationship Specialty Start Date End Date Amanda Knox, LICENSED SALES PRODUCER [address] [place] [address] PCP - General 08/13/19 documented as of this encounter
--- OUTSIDE RECORDS SUMMARY | 2024-01-27 18:10 | XMS_ITS | Encounter Summary ---
Author Organization [facility] Address [address] [place] [address] Care Team Providers Care Forming Machine Operator Name Role Phone Unknown, Provider Primary Care Provider [phone] Encounter Details Date Type Department Care Team (Late st Contact Info) Description 08/09/2019 Results Only [facility] [phone] Yazmin Mobley MD [address] [place] [phone] Social History Tobacco Use Types Packs/Day Years Used Date Smoking Tobacco: Former Smokeless Tobacco: Never Sex and Gender Information Value Date Recorded Sex Assigned at Not on file Gender Identity Female 04/01/2019 9:34 EDT Sexual Orientation Not on file documented as of this encounter Plan of Treatment Not on file documented as of this encounter Procedures Procedure Name Priority Date/Time Associated Diagnosis Comments [facility] Routine 08/09/2019 8:36 EST documented in this encounter Results * [facility] (08/09/2019 8:36 EST) [facility] NEG 08/09/2019 9:15 EST [facility] 08/09/2019 8:36 EST 08/09/2019 8:36 EST Yazmin Mobley MD HEMATOLOGY & PF4 OR DERABLES [facility] documented in this encounter Visit Diagnoses Not on filedocumented in this encounter Care Teams Forming Machine Operator Relationship Specialty Start Date End Date Unknown, Provider, PCP - General 04/01/19 08/12/19 documented as of this encounter
--- OUTSIDE RECORDS SUMMARY | 2024-01-27 18:10 | XMS_ITS | Encounter Summary ---
Author Organization [facility] Address [address] [place] [address] Care Team Providers Care Bellows Charger Assembler Name Role Phone Piotr Ward MD Primary Care Provider Unknown, Provider Primary Care Provider [phone] Encounter Details Date Type Department Care Team (Late st Contact Info) Description 02/08/2019 Historical Results Only [facility] Lab - Main [address] [phone] Mercy Haro NP [facility] [address] [facility], [address] [place] [address] Social History Tobacco Use Types Packs/Day Years Used Date Smoking Tobacco: Never Assessed Sex and Gender Information Value Date Recorded Sex Assigned at Not on file Gender Identity Female 04/01/2019 9:34 EDT Sexual Orientation Not on file documented as of this encounter Plan of Treatment Not on file documented as of this encounter Procedures Procedure Name Priority Date/Time Associated Diagnosis Comments IBC Routine 02/08/2019 9:41 EDT GROUP B STREP PCR Routine 02/08/2019 8:52 EDT documented in this encounter Results * (ABNORMAL) [facility] (02/08/2019 9:41 EDT) IRON BINDING CAPACITY [facility] [place](H) 261 - 462 ug/dL 02/08/2019 18:37 EDT [facility] 02/08/2019 9:41 EDT 02/08/2019 9:41 EDT Narrative [facility] - 02/08/2019 18:37 EDT Does PT Have a Latex Allergy? NO AOT: 02/08/19 1821: FE/IBC Mercy Haro COSMETICS PRESSER CNM TUBE BENDER RY & BLOOD GAS ORDERABLES Performing Organization Address City/[facility]/ZIP Co de Phone Number [facility] * GROUP B STREP PCR (02/08/2019 8:52 EDT) Group B Strep PCR Group B Strep Not-Detect ed by PCR 02/09/2019 11:38 EDT [facility] Group B Strep PCR 02/09/2019 11:38 EDT [facility] Group B Strep PCR Not Done 02/09/2019 11:38 EDT [facility] 02/08/2019 8:52 EDT 02/08/2019 10:04 EDT Narrative [facility] - 02/09/2019 11:38 EDT Patient allergic to penicillin? No Mercy Haro NP CNM MICROBI OLOGY - GENERAL ORDERABLES Performing Organization Address [facility] Co de Phone Number [facility] documented in this encounter Visit Diagnoses Not on filedocumented in this encounter Care Teams Bellows Charger Assembler Relationship Specialty Start Date End Date Piotr Ward MD [address] [place] [address] PCP - General 12/15/15 03/31/19 Unknown, ProviderMD [address] [place] [address] PCP - General 04/01/19 08/12/19 documented as of this encounter
--- OUTSIDE RECORDS SUMMARY | 2024-01-27 18:10 | XMS_ITS | Encounter Summary ---
Author Organization [facility] Address [address] [place] [address] Care Team Providers Care Vision Rehabilitation Therapist Name Role Phone Amanda Knox [facility] Primary Care Provider Encounter Details Date Type Department Care Team (Late st Contact Info) Description 10/21/2020 Results Only [facility] - Main [address] [address] Jad Sutton MD [address] [place] [phone] Social History Tobacco Use Types Packs/Day [...] Procedure Name Priority Date/Time Associated Diagnosis Comments ETHYL ALCOHOL - [facility] Routine 10/21/2020 23:59 EDT COMPLETE BLOOD COUNT WITH DIFFERENTIAL (AUTO) Routine 10/21/2020 23:59 EDT THYROID CASCADE Routine 10/21/2020 23:59 EDT T4 FREE Routine 10/21/2020 23:59 EDT COMPREHENSIVE METABOLIC PANEL (CMP) Routine 10/21/2020 23:59 EDT DRUGS OF ABUSE SCREEN, URINE - CV Routine 10/21/2020 23:23 EDT documented in this encounter Results * (ABNORMAL) THYROID CASCADE (10/21/2020 23:59 EDT) TSH 5.80(H) 0.46 - 4.68 uIU/mL 10/22/2020 1:14 EDT [facility] 10/21/2020 23:5 9 EDT 10/22/2020 0:02 EDT Jad Sutton MD CHEMISTRY & BLOOD GA S ORDERABLES Performing Organization Address [facility] Co de Phone Number [facility] [address] [place] [address] * T4 FREE (10/21/2020 23:59 EDT) FREE T4 - CV 1.22 0.78 - 2.19 ng/dl 10/22/2020 1:42 EDT [facility] 10/21/2020 23:5 9 EDT 10/22/2020 0:02 EDT Jad Sutton MD CHEMISTRY & BLOOD GA S ORDERABLES Performing Organization Address [facility] Co de Phone Number [facility] [address] [place] [phone] * ETHYL ALCOHOL - CV (10/21/2020 23:59 EDT) ETHYL ALCOHOL - [facility] <10.0 <10 mg/dL 10/22/2020 0:33 EDT [facility] 10/21/2020 23:5 9 EDT 10/22/2020 0:02 EDT Jad Sutton MD CHEMISTRY & BLOOD GA S ORDERABLES Performing Organization Address [facility] Co de Phone Number [facility] [address] [place] [phone] * COMPREHENSIVE METABOLIC PANEL (CMP) (10/21/2020 23:59 EDT) [facility] Albumin % 4.4 3.4 - 4.9 g/dL 10/22/2020 0:33 [facility] ALKALINE PHOSPHATASE - [facility] 85 38 - 126 U/L 10/22/2020 0:33 [facility] BILIRUBIN TOTAL 0.7 0.2 - 1.3 mg/dL 10/22/2020 0:33 [facility] BUN - [facility] 12 10 - 26 mg/dL 10/22/2020 0:33 [facility] CALCIUM - [facility] 9.6 8.5 - 10.5 mg/dL 10/22/2020 0:33 [facility] Chloride 103 96 - 110 mmol/L 10/22/2020 0:33 [facility] CO2 Total 23 22 - 32 mEq/L 10/22/2020 0:33 [facility] CREATININE 0.54 0.52 - 1.04 mg/dL 10/22/2020 0:33 [facility] eGFR >60 10/22/2020 0:33 [facility] Comment: Chronic renal impairment is defined as GFR <60 Multiply result by 1.210 for patients. eGFR calculated using the IDMS-traceable MDRD Study Equation. ??(effective 04/08/2014) Anion Gap 13 0 - 18 10/22/2020 0:33 [facility] GLUCOSE - [facility] 94 70 - 100 mg/dL 10/22/2020 0:33 [facility] Potassium 4.1 3.5 - 5.0 mEq/L 10/22/2020 0:33 [facility] Sodium 139 136 - 145 mEq/L 10/22/2020 0:33 [facility] TOTAL PROTEIN - [facility] 7.4 6.2 - 8.2 gm/dL 10/22/2020 0:33 [facility] SGOT/AST - [facility] 23 14 - 36 U/L 10/22/2020 0:33 EDT [facility] SGPT/ALT - [facility] 22 0 - 35 U/L 0:33 EDT [facility] 10/21/2020 23:5 9 EDT 10/22/2020 0:02 EDT Jad Sutton MD CHEMISTRY & BLOOD GA S ORDERABLES [facility] [address] [place] [address] * (ABNORMAL) COMPLETE BLOOD COUNT WITH DIFFERENTIAL (AUTO) (10/21/2020 23:59 EDT) ABSOLUTE NEUTROPHIL COUN - [facility] 6.5 2.2 - 8.85 10e3/uL 10/22/2020 0:32 EDT [facility] BASO # - [facility] 0.08 0.01 - 0.11 10e/uL 10/22/2020 0:32 EDT [facility] BASO % - [facility] 1 0 - 2 % 10/22/2020 0:32 [facility] EOS # - [facility] 0.83(H) 0.03 - 0.61 10e3/ul 10/22/2020 [facility] % - [facility] 7(H) 0 - 5 % 10/22/2020 0:32 EDT [facility] GRAN % - [facility] 57.0 40 - 80 % 10/22/2020 0:32 EDT [facility] HEMATOCRIT - [facility] 40.1 34.9 - 44.4 % 10/22/2020 0:32 [facility] HEMOGLOBIN - [facility] 13.5 11.6 - 15.2 g/dl 10/22/2020 0:32 T [facility] IG# - [facility] 0.06 0 - 0.7 10e3/uL 10/22/2020 0:32 [facility] IG% - [facility] 0.5 0 - 0.9 % 10/22/2020 0:32 EDT [facility] LYMPH # - [facility] 3.3 1.09 - 3.3 10e3/ul 10/22/2020 0:32 [facility] LYMPH% - [facility] 28.8 20 - 40 % 10/22/2020 0:32 [facility] MEAN CORPUSCULAR HGB - [facility] 28.4 26.7 - 33.3 pg 10/22/2020 0:32 [facility] MEAN CORPUSCULAR HGB CONC - [facility] 33.7 32.1 - 35.9 g/dL 10/22/2020 0:32 [facility] MEAN CELL VOLUME - [facility] 84.4 81 - 98 fl 10/22/2020 0:32 [facility] MONO # - [facility] 0.7 0.1 - 0.8 10e3/uL 10/22/2020 0:32 [facility] MONO% - [facility] 5.8 0 - 12 % 10/22/2020 0:32 [facility] PLATELET COUNT 263 141 - 377 10e3/ul 10/22/2020 0:32 [facility] RED BLOOD COUNT - [facility] 4.75 3.86 - 5.04 10e6/ul 10/22/2020 0:32 [facility] RED CELL DISTRI WIDTH - [facility] 13.2 <14.7 % 10/22/2020 0:32 [facility] WHITE BLOOD COUNT - [facility] 11.5 4.0 - 12.4 10e3/ul 10/22/2020 0:32 [facility] 10/21/2020 23:5 9 EDT 10/22/2020 0:02 EDT Jad Sutton MD HEMATOLOGY & PF4 ORD ERABLES [facility] [address] [place] [address] * (ABNORMAL) DRUGS OF ABUSE SCREEN, URINE - [facility] (10/21/2020 23:23 EDT) AMPHETAMINES NEG NEG 10/21/2020 23:41 [facility] BARBITURATES,UR - [facility] NEG NEG 10/21/2020 23:41 [facility] BENZODIAZEPINES NEG NEG 23:41 [facility] COCAINE,URINE - [facility] NEG NEG 10/21/2020 23:41 [facility] MAMP (METHAMPHETAMINES - [facility] NEG NEG 10/21/2020 23:41 [facility] MARIJUANA,URINE - [facility] POS(A) NEG 10/21/2020 23:41 [facility] MTD (METHADONE) - [facility] NEG NEG 10/21/2020 23:41 [facility] OPIATES,URINE - [facility] NEG NEG 10/21/2020 23:41 [facility] OXY (OXYCODONE) - [facility] NEG NEG 10/21/2020 23:41 [facility] PCP (PHENCYCLIDINE) - [facility] NEG NEG 10/21/2020 23:41 [facility] PROPOXYPHENE (PPX) - [facility] NEG NEG 10/21/2020 23:41 [facility] TRICYCLIC ANTIDEPRESSANTS - [facility] NEG NEG 10/21/2020 23:41 [facility] Comment: Drug Class ?Cutoff Concentration Amphetamines (AMP) ?500 ng/ml Barbiturates (BAR) ?200 ng/ml Benzodiazepines (BZO) ? 150 ng/ml Cocaine (SILVANA) ? 150 ng/ml Methamphetamine (mAMP) ?500 ng/ml Methadone (MTD) ? 200 ng/ml Opiates (OPI) ? 100 ng/ml Oxycodone (OXY) ? 100 ng/ml Phencyclidine (PCP) ?25 ng/ml Tetrahydrocannabinol (THC) ? 50 ng/ml Propoxyphene (PPX) ?300 ng/ml Tricyclic antidepressants (TCA) ? 300 ng/ml This is a screening assay only, intended for use in clinical monitoring or management of patients. False positive or false negative results can occur. If confirmation testing is needed, please call the lab. Specimens are retained in the laboratory for 7 days. 10/21/2020 23:2 3 EDT 10/21/2020 23:23 EDT Jad Sutton MD URINALYSIS ORDERABLE S Performing Organization Address City/State/[facility] Co de Phone Number [facility] [address] [place] [address] documented in this encounter Visit Diagnoses Not on filedocumented in this encounter Care Teams Vision Rehabilitation Therapist Relationship Specialty Start Date End Date Amanda Knox FNP [address] [place] [phone] PCP - General 08/13/19 documented as of this encounter
--- OUTSIDE RECORDS SUMMARY | 2024-01-27 18:10 | XMS_ITS | Encounter Summary ---
Author Organization [facility] Address [address] [place] [address] Care Team Providers Care Photo Tech Name Role Phone Piotr Ward MD Primary Care Provider Encounter Details Date Type Department Care Team (Late st Contact Info) Description 10/20/2018 Historical Results Only [facility] Radiology Results [address] [place] [address] Olga Guevara, SPEECH TEACHER [address] [facility], [address] [place] [address] Social History Tobacco Use Types [...] Priority Date/Time Associated Diagnosis Comments US OB ROUTINE (GREATER THAN 14 WEEKS) 10/20/2018 13:30 EDT documented in this encounter Results * US OB ROUTINE (GREATER THAN 14 WEEKS) (10/20/2018 13:30 EDT) Anatomical Region Laterality Modality Pelvis Other 10/20/2018 13:3 0 EDT Narrative 10/23/2018 12:58 EDT ? EXAM: ULTRASOUND/OB-LEVEL 2 ? EX. D/ (1330) ? CLINICAL INFORMATION: ? Z34.92 CARE IN 2ND TRIMESTER ? GROWTH ?? DEVELOPMENT ? TANIKA 03/06/19 ? See attached report. ??Report also available in PACS. ? DCJ:[email or web address] ?Reported By: Chidi Dale MD ? CC: ? Transcribed Date/Time: 10/23/2018 (7006) ? Hide Inspector: MEGAN ? Printed Date/Time: 02/21/2019 (1153) ? PAGE 1 ? Signed Report ? Procedure Note Chidi Dale MD, - 04/10/2019 EXAM: ULTRASOUND/OB-LEVEL 2 EX. D/ (1330) CLINICAL INFORMATION: Z34.92 CARE IN 2ND TRIMESTER GROWTH DEVELOPMENT TANIKA 03/06/19 See attached report. Report also available in PACS. DCPedrito:[email or web address] Reported By: Chidi Dale MD CC: Transcribed Date/Time: 10/23/2018 (2185) Hide Inspector: MEGAN Printed Date/Time: 02/21/2019 (7678) PAGE 1 Signed Report Olga Guevara SPEECH TEACHER IMG US OB ORDERABLES documented in this encounter Visit Diagnoses Not on filedocumented in this encounter Care Teams Photo Tech Relationship Specialty Start Date End Date Piotr Ward MD [address] [place] [address] PCP - General 12/15/15 03/31/19 documented as of this encounter
--- OUTSIDE RECORDS SUMMARY | 2024-01-27 18:10 | XMS_ITS | Encounter Summary ---
Author Organization [facility] Address [address] [place] [address] Care Team Providers Care Nurse Practitioner Name Role Phone HueyAmanda mckeon Tricia AUTOCUTTER Primary Care Provider [phone] Encounter Details Date Type Department Care Team (Late st Contact Info) Description 09/28/2021 Lab Requisition [facility] Pathology & Laboratory Medicine - [address] [phone] Outr Resulting Lab, Provider Social History Tobacco [...] Name Priority Date/Time Associated Diagnosis Comments HEPATITIS B SURFACE ANTIGEN Routine 09/28/2021 8:30 EDT documented in this encounter Results * HEPATITIS B SURFACE ANTIGEN (09/28/2021 8:30 EDT) Hep B Surface Ag Negative Negative 09/29/2021 9:06 EDT [facility] Blood VENOUS BLOOD / Unknown 09/28/2021 8:30 EDT 09/28/2021 16:46 EDT Provider Outr Resulting Lab CHEMISTRY & BLOOD GAS ORDERABLES [facility] [address] [place] [address] documented in this encounter Visit Diagnoses Not on filedocumented in this encounter Care Teams Nurse Practitioner Relationship Specialty Start Date End Date Amanda Knox FNP [address] [place] [address] PCP - General 08/13/19 documented as of this encounter
--- OUTSIDE RECORDS SUMMARY | 2024-01-27 18:10 | XMS_ITS | Encounter Summary ---
Author Organization [facility] Address [address] [place] [address] Care Team Providers Care Radiochemical Technician Name Role Phone Amanda Knox [employer]ORCEL[employer] ENAMEL INSTALLER Primary Care Provider [phone] Encounter Details Date Type Department Care Team (Late st Contact Info) Description 10/21/2020 Results Only [facility] - [facility] Lab - Main [address] [phone] Galen Pablo MD Social History Tobacco Use Types Packs/Day Years [...] Procedure Name Priority Date/Time Associated Diagnosis Comments COVID-19 TESTING Routine 10/21/2020 23:5 9 EDT documented in this encounter Results * COVID-19 TESTING (10/21/2020 23:59 EDT) Performing Lab [place] () 10/22/2020 12:20 EDT [facility] Comment: Please indicate the Triage Tier1 Test performed or referred by The [address] [address] COVID-19 rt-PCR Result Not Detected Negative 10/22/2020 12:20 EDT [facility] Comment: This test has not been FDA cleared or approved. This test has been authorized by FDA under an EUA for use by authorized laboratories. This test has been authorized only for detection of nucleic acid from 2019-nCoV, not for any other viruses or pathogens. This test is only authorized for the duration of the declaration that circumstances exist justifying the authorization of emergency use of in vitro diagnostic tests for detection and/or diagnosis of 2019-nCoV under section 564(b)(1) of Act, 21 U.S.C ? 360bbb-3(b) (1), unless the authorization is terminated or revoked sooner. Negative results do not preclude 2019-nCoV infection and should not be used as the sole basis for treatment or other patient management decisions. Negative results must be combined with clinical observations, patient history, and epidemiological information. Performed on the [employer] Fusion instrument 10/21/2020 23:5 9 EDT 10/22/2020 0:02 EDT Galen Pablo MD MICROBIOLOGY - GENER AL ORDERABLES [facility] [address] [place] [address] documented in this encounter Visit Diagnoses Not on filedocumented in this encounter Care Teams Radiochemical Technician Relationship Specialty Start Date End Date Amanda Knox FNP [address] [place] [phone] PCP - General 08/13/19 documented as of this encounter
--- OUTSIDE RECORDS SUMMARY | 2024-01-27 18:10 | XMS_ITS | Encounter Summary ---
Author Organization [facility] Address [address] [place] [address] Care Team Providers Care Director Of Informatics Name Role Phone Unknown, Provider Primary Care Provider Encounter Details Date Type Department Care Team (Late st Contact Info) Description 07/31/2019 Results Only [facility] Lab - Main [place] [address] [place] [address] Lyly Kumar PA-C [address] [place] [phone] Social History Tobacco Use Types Packs/Day [...] Procedure Name Priority Date/Time Associated Diagnosis Comments HEMOGLOBIN A1C Routine 07/31/2019 11:25 EST LIPID PROFILE (INCLUDES CHOLESTEROL, TRIGLYCERIDES, HDL, LDL) Routine 07/31/2019 11:25 EST documented in this encounter Results * HEMOGLOBIN A1C (07/31/2019 11:25 EST) Hemoglobin A1c 5.0 4.0 - 6.0 % 07/31/2019 12:34 EST [facility] Comment: > or =18 years: ??Increased risk for diabetes (prediabetes): 5.7-6.4% Diabetes: > or =6.5% Therapeutic goals for glycemic control (ADA) Adults: - Goal of therapy: <7.0% HbA1c - Action suggested: >8.0% HbA1c Pediatric patients: - Toddlers and preschoolers: <8.5% (but >7.5%) - School age (6-12 years): <8% - Adolescents and young adults (13-19 years): <7.5% Est Avg Glucose 97 mg/dL 0 12:34 EST [facility] 07/31/2019 11:2 5 EST 07/31/2019 11:25 EST Lyly Kumar PA-C CHEMISTRY & BLOOD GA S ORDERABLES [facility] * LIPID PROFILE (INCLUDES CHOLESTEROL, TRIGLYCERIDES, HDL, LDL) (07/31/2019 11:25 EST) Triglyceride 229 <150 mg/dL 07/31/2019 11:48 [facility] Comment: Adult: Normal: ?<150 mg/dl ? Borderline High: 150-199 mg/dl ? High: ?200-499 mg/dl ? Very High: >rx=064 Cholesterol 159 <200 mg/dL 07/31/2019 11:48 [facility] Comment: Acceptable: ??<200 Borderline: ??200-239 High: ?> or = 240 Chol/HDL Ratio 3.4 0 - 4.5 07/31/2019 11:48 [facility] Comment: DESIRABLE RATIO IS LESS THAN 4.1 PATIENTS ARE CONSIDERED AT RISK: WOMEN RATIO >5 MEN RATIO >6 FASTING? - [facility] Unknown 0 11:25 [facility] HDL 46 40 - 60 mg/dL 07/31/2019 11:48 [facility] Comment: ?? Reference Range Low: ? < 40 ??mg/dL Normal: ??40-60 mg/dL High: ?>= 60 mg/dL LDL CHOLESTEROL - [facility] 67 60 - 100 mg/dL 07/31/2019 11:48 EST [facility] Non HDL Cholesterol 113 mg/dl 07/31/2019 11:48 EST [facility] Comment: Desirable: ?Less than 130 Borderline High: ??130-159 High: ? 160-189 Very High: ?Greater than or equal to 190 07/31/2019 11:2 5 EST 07/31/2019 11:25 EST Lyly Kumar PA-C CHEMISTRY & BLOOD GA S ORDERABLES [facility] documented in this encounter Visit Diagnoses Not on filedocumented in this encounter Care Teams Director Of Informatics Relationship Specialty Start Date End Date Unknown, Provider, PCP - General 04/01/19 08/12/19 documented as of this encounter
--- OUTSIDE RECORDS SUMMARY | 2024-01-27 18:10 | XMS_ITS | Encounter Summary ---
Author Organization [facility] Address [address] [place] [address] Care Team Providers Care Textile Designer Name Role Phone Piotr Ward MD Primary Care Provider Encounter Details Date Type Department Care Team (Late st Contact Info) Description 11/13/2018 Historical Results Only [facility] Radiology Results [address] [place] [address] Vaishali Rainey MD [address] [place] [address], [address] [place] [address] Social History Tobacco Use Types [...] Priority Date/Time Associated Diagnosis Comments US OB FOLLOWUP 11/13/2018 14:52 EDT documented in this encounter Results * US OB FOLLOWUP (11/13/2018 14:52 EDT) Anatomical Region Laterality Modality Pelvis Other 11/13/2018 14:5 2 EDT Narrative 11/15/2018 15:27 EDT ? EXAM: ULTRASOUND/OB LEVEL 2 FOLLOW UP ? EX. D/ (1452) ? CLINICAL INFORMATION: ? F/U LVOT ? Z33.1 PREGNANCT ? See attached report. ??Report also available in PACS. ? DCJ:Collin ?Reported By: Chidi Dale MD ? CC: ? Transcribed Date/Time: 11/15/2018 (1677) ? [employer] Business Analyst: MEGAN ? Printed Date/Time: 02/21/2019 (7588) ? PAGE 1 ? Signed Report ? Procedure Note Chidi Dale MD, MD - 04/10/2019 EXAM: ULTRASOUND/OB LEVEL 2 FOLLOW UP EX. D/ (0112) CLINICAL INFORMATION: F/U LVOT Z33.1 PREGNANCT See attached report. Report also available in PACS. DCPedrito:[email or web address] Reported By: Chidi Dale MD CC: Transcribed Date/Time: 11/15/2018 (1527) [employer] Business Analyst: MEGAN Printed Date/Time: 02/21/2019 (2756) PAGE 1 Signed Report Vaishali Rainey MD IMG US OB ORDERABLES documented in this encounter Visit Diagnoses Not on filedocumented in this encounter Care Teams Textile Designer Relationship Specialty Start Date End Date Piotr Ward MD [address] [place] [address] PCP - General 12/15/15 03/31/19 documented as of this encounter
--- OUTSIDE RECORDS SUMMARY | 2024-01-27 18:10 | XMS_ITS | Encounter Summary ---
Author Organization [facility] Address [address] [place] [address] Care Team Providers Care Plumbing Assembler Installer Name Role Phone Hueymike Amanda Tricia [facility] Primary Care Provider [phone] Encounter Details Date Type Department Care Team (Late st Contact Info) Description 10/22/2020 Lab Requisition [facility] Pathology & Laboratory Medicine - [facility] [address] [place], [place] [address] Outr Resulting Lab, Provider Social History Tobacco [...] Procedure Name Priority Date/Time Associated Diagnosis Comments ZZCOVID-19 TEST [facility] PCR Today 10/21/2020 23:59 EDT COVID-19 TESTING Routine 10/21/2020 23:5 9 EDT documented in this encounter Results * COVID-19 TEST [facility] PCR (10/21/2020 23:59 EDT) Swab ENTIRE NASOPHARYNX / Unknown 10/21/2020 23:59 EDT 10/22/2020 7:36 EDT Provider Outr Resulting Lab MICROBIOLOGY - GENERAL ORDERABLES Performing Organization Address [facility] Co de Phone Number [facility] [address] [place] [address] * COVID-19 TESTING (10/21/2020 23:59 EDT) COVID-19 rt-PCR Result Negative Negative 10/22/2020 11:12 EDT [facility] Comment: This test has not been FDA [...] under section 564(b)(1) of Act, 21 U.S.C ?? 360bbb-3(b) (1), unless the authorization is terminated or revoked sooner. Negative results do not preclude 2019-nCoV infection and should not be used as the sole basis for treatment or other patient management decisions. Negative results must be combined with clinical observations, patient history, and epidemiological information. Performed on the [employer] Fusion instrument Performing Lab [place] [facility] 10/22/2020 11:12 EDT [facility] Swab 10/21/2020 23:5 9 EDT 10/22/2020 7:36 EDT Provider Outr Resulting Lab MICROBIOLOGY - GENERAL ORDERABLES Performing Organization Address [facility] Co de Phone Number [facility] [address] [place] [address] documented in this encounter Visit Diagnoses Not on filedocumented in this encounter Care Teams Plumbing Assembler Installer Relationship Specialty Start Date End Date Amanda Knox FNP [address] [place] [phone] PCP - General 08/13/19 documented as of this encounter
--- OUTSIDE RECORDS SUMMARY | 2024-01-27 18:10 | XMS_ITS | Encounter Summary ---
Author Organization [facility] Address [address] [place] [address] Care Team Providers Care Otr Truck Driver Name Role Phone Unknown, Provider Primary Care Provider + [phone] Amanda Knox Primary Care Provider [phone] Encounter Details Date Type Department Care Team (Late st Contact Info) Description 08/08/2019 Results Only Imaging [facility] [address] [place] [address] Yazmin Mobley MD [address] [place] [phone] Social History Tobacco Use Types Packs/Day [...] Procedure Name Priority Date/Time Associated Diagnosis Comments EKG 12-LEAD 08/08/2019 18:17 EST documented in this encounter Results * EKG 12-LEAD (08/08/2019 18:17 EST) 08/08/2019 18:[address] [facility] - 08/08/2019 18:17 EST ? [facility] ? Test Date: ?2019-08-08 18:17:20 Pat Name: ? ANA JULES ?Department: ?Room: ? 323 Gender: ? F ?Mobile Phone Salesperson: ?? CS : ?1995 ? Requested By: Order Number: ?Reading MD: ?? Mynor Lischke, MD ? Measurements Intervals ?[place] ? Rate: ? 89 ? P: ?38 UT: ? 162 ?QRS: ?34 QRSD: ? 84 ? T: ?32 QT: ? 374 ? QTc: ?455 ? Interpretive Statements Normal sinus rhythm Normal ECG No previous ECG available for comparison Electronically Signed On 08-09-2019 11:38:49 EST by Mynor Castaneda MD [email or web address] Procedure Note Mynor Castaneda MD - 08/09/[address] [facility] Test Date: 2019-08-08 18:17:20 Pat Name: ANA JULES Department: Room: 323 Gender: F Mobile Phone Salesperson: : 1995 Requested By: Order Number: Reading MD: Mynor Castaneda MD Measurements Intervals [place] Rate: 89 P: 38 UT: 162 QRS: 34 QRSD: 84 T: 32 QT: 374 QTc: 455 Interpretive Statements Normal sinus rhythm Normal ECG No previous ECG available for comparison Electronically Signed On 08-09-2019 11:38:49 EST by Mynor Castaneda MD [email or web address] Yazmin Mobley MD CARDIAC ECG ORDERAB LES [facility] documented in this encounter Visit Diagnoses Not on filedocumented in this encounter Care Teams Otr Truck Driver Relationship Specialty Start Date End Date Unknown, Provider, PCP - General 04/01/19 08/12/19 Amanda Knox FNP [address] [place] [phone] PCP - General 08/13/19 documented as of this encounter
--- OUTSIDE RECORDS SUMMARY | 2024-01-27 18:10 | XMS_ITS | Encounter Summary ---
Author Organization [facility] Address [address] [place] [address] Care Team Providers Care Agent Contract Clerk Name Role Phone Piotr Wrad MD Primary Care Provider Unknown, Provider Primary Care Provider [phone] Encounter Details Date Type Department Care Team (Late st Contact Info) Description 10/27/2018 Historical Results Only [facility] - Main [address] [id number] Vaishali Rainey MD [address] [place] [address], [address] [place] [address] Social History Tobacco Use Types Packs/Day Years Used Date Smoking Tobacco: Never Assessed Sex and Gender Information Value Date Recorded Sex Assigned at Not on file Gender Identity Female 04/01/2019 9:34 EDT Sexual Orientation Not on file documented as of this encounter Plan of Treatment Not on file documented as of this encounter Procedures Procedure Name Priority Date/Time Associated Diagnosis Comments BACTERIAL CULTURE, URINE Routine 10/27/2018 13:41 EDT documented in this encounter Results * BACTERIAL CULTURE, URINE (10/27/2018 13:41 EDT) USUAL [facility] 10/29/2018 9:12 T [facility] CitrateConcentration 10,000-1 00,000 CFU/ML 10/29/2018 9:12 [facility] 10/27/2018 13:4 1 EDT 10/27/2018 15:38 EDT Comment:VOID Vaishali Rainey MD MICROBIOLOGY - GENER AL ORDERABLES [facility] documented in this encounter Visit Diagnoses Not on filedocumented in this encounter Care Teams Agent Contract Clerk Relationship Specialty Start Date End Date Piotr Ward MD [address] [place] [address] PCP - General 12/15/15 03/31/19 Unknown, Provider, [address] [place] [address] PCP - General 04/01/19 08/12/19 documented as of this encounter
--- OUTSIDE RECORDS SUMMARY | 2024-01-27 18:10 | XMS_ITS | Encounter Summary ---
Author Organization [facility] Address [address] [place] [address] Care Team Providers Care Engineering Technician Parking Name Role Phone Hueymike Amanda Tricia POTATO CHIP FRIER Primary Care Provider [phone] Encounter Details Date Type Department Care Team (Late st Contact Info) Description 09/28/2021 Lab Requisition [facility] Pathology & Laboratory Medicine - [address] [address] Outr Resulting Lab, Provider Social History Tobacco [...] Procedure Name Priority Date/Time Associated Diagnosis Comments VARICELLA IGG ANTIBODY Routine 09/28/2021 8:30 EDT documented in this encounter Results * VARICELLA IGG ANTIBODY (09/28/2021 8:30 EDT) Varicella IgG Ab Equivocal See Note 09/29/2021 13:43 EDT [facility] Comment:Recommend collecting a second sample for testing in no less than one to two weeks. Blood VENOUS BLOOD / Unknown 09/28/2021 8:30 EDT 09/28/2021 16:46 EDT Provider Outr Resulting Lab IMMUNOLOGY A ND SEROLOGY ORDERABLES [facility] [address] [place] [address] documented in this encounter Visit Diagnoses Not on filedocumented in this encounter Care Teams Engineering Technician Parking Relationship Specialty Start Date End Date Amanda Knox FNP [address] [place] [address] PCP - General 08/13/19 documented as of this encounter
--- OUTSIDE RECORDS SUMMARY | 2024-01-27 18:10 | XMS_ITS | Encounter Summary ---
Author Organization [facility] Address [address] [place] [address] Care Team Providers Care Cloud Services Architect Name Role Phone HueyAmanda mckeon Tricia ENTRY LEVEL ELECTRICAL ENGINEER Primary Care Provider [phone] Encounter Details Date Type Department Care Team (Late st Contact Info) Description 09/28/2021 Lab Requisition [facility] Pathology & Laboratory Medicine - [address] [address] Outr Resulting Lab, Provider Social History Tobacco [...] Procedure Name Priority Date/Time Associated Diagnosis Comments HIV 1/2 ANTIGEN AND ANTIBODY, 4TH GENERATION Routine 09/28/2021 8:30 EDT documented in this encounter Results * HIV 1/2 ANTIGEN AND ANTIBODY, 4TH GENERATION (09/28/2021 8:30 EDT) HIV 1 and 2 Antibody/p24 Antigen, 4th Generation Negative Negative 09/29/2021 10:09 EDT [facility] Comment:If acute HIV-1 infec tion is suspected in a high risk patient, submit plasma specimen for HIV-1 RNA quantitation test. Blood VENOUS BLOOD / Unknown 09/28/2021 8:30 EDT 09/28/2021 16:46 EDT Narrative [facility] - 09/29/2021 10:09 EDT Fourth Generation assay performed on the Siemens Commun.itaur XPT. Provider Outr Resulting Lab IMMUNOLOGY A ND SEROLOGY ORDERABLES [facility] [address] [place] [address] documented in this encounter Visit Diagnoses Not on filedocumented in this encounter Care Teams Cloud Services Architect Relationship Specialty Start Date End Date Amanda Knox FNP [address] [place] [address] PCP - General 08/13/19 documented as of this encounter
--- OUTSIDE RECORDS SUMMARY | 2024-01-27 18:10 | XMS_ITS | Encounter Summary ---
Author Organization [facility] Address [address] [place] [address] Care Team Providers Care Industrial Recruiter Name Role Phone Amanda Knox COLLECTION SYSTEMS MODELER Primary Care Provider [phone] Encounter Details Date Type Department Care Team (Late st Contact Info) Description 10/22/2019 Lab Requisition [facility] Pathology & Laboratory Medicine - [address] [phone] Outr Resulting Lab, Provider Social History Tobacco [...] Comments ZZCOVID-19 TEST [facility] PCR Today 10/21/2019 20:56 EDT COVID-19 TESTING Routine 10/21/2019 20:5 6 EDT documented in this encounter Results * COVID-19 TEST [facility] PCR (10/21/2019 20:56 EDT) Swab ENTIRE NASOPHARYNX / Unknown 10/21/2019 20:56 EDT 10/22/2019 12:08 EDT Provider Outr Resulting Lab MICROBIOLOGY - GENERAL ORDERABLES [facility] [address] [place] [address] * COVID-19 TESTING (10/21/2019 20:56 EDT) COVID-19 rt-PCR Result Negative Negative 10/22/2019 15:52 EDT [facility] Comment: This test has not [...] history, and epidemiological information. Performed on the Quaamher Fusion instrument Performing Lab [place] [facility] 10/22/2019 15:52 EDT [facility] Swab ENTIRE NASOPHARYNX / Unknown 10/21/2019 20:56 EDT 10/22/2019 12:08 EDT Provider Outr Resulting Lab MICROBIOLOGY - GENERAL ORDERABLES [facility] [address] [place] [address] documented in this encounter Visit Diagnoses Not on filedocumented in this encounter Care Teams Industrial Recruiter Relationship Specialty Start Date End Date Amanda Knox FNP [address] [place] [phone] PCP - General 08/13/19 documented as of this encounter
--- OUTSIDE RECORDS SUMMARY | 2024-01-27 18:10 | XMS_ITS | Encounter Summary ---
Author Organization [facility] Address [address] [place] [address] Care Team Providers Care Warehouse Shipping Supervisor Name Role Phone Amanda Knox Tricia ICE CREAM VENDOR Primary Care Provider [phone] Encounter Details Date Type Department Care Team (Late st Contact Info) Description 10/23/2019 Results Only Imaging [facility] [address] [place] [address] Lyly Kumar PA-C [address] [place] [address] Social History Tobacco Use Types [...] Priority Date/Time Associated Diagnosis Comments EKG 12-LEAD 10/23/2019 8:06 EDT documented in this encounter Results * EKG 12-LEAD (10/23/2019 8:06 EDT) 10/23/2019 8:06 EDT Narrative [facility] - 10/23/2019 8:06 EDT ? [facility] ? Test Date: ?2019-10-23 08:06:46 Pat Name: ? ANA ROBARGE ?Department: ?Room: ? 321 Gender: ? F ?Lead Sustainability Specialist: ?? TIB : ?1995 ? Requested By: Order Number: ?Reading MD: ?? Preeth Sundaran, MD ? Measurements Intervals ?[place] ? Rate: ? 71 ? P: ?41 UT: ? 170 ?QRS: ?63 QRSD: ? 86 ? T: ?52 QT: ? 402 ? QTc: ?436 ? Interpretive Statements Normal sinus rhythm Normal ECG Compared to ECG 08/08/2019 18:17:20 No significant changes Electronically Signed On 10-23-2019 15:01:08 EDT by Jann Camejo MD [email or web address] Procedure Note Jann Camejo MD - 10/23/2019 [facility] Test Date: 2019-10-23 08:06:46 Pat Name: ANA JULES Department: Room: 321 Gender: F Lead Sustainability Specialist: APOLINAR : 1995 Requested By: Order Number: Reading MD: Jann Camejo MD Measurements Intervals [place] Rate: 71 P: 41 UT: 170 QRS: 63 QRSD: 86 T: 52 QT: 402 QTc: 436 Interpretive Statements Normal sinus rhythm Normal ECG Compared to ECG 08/08/2019 18:17:20 No significant changes Electronically Signed On 10-23-2019 15:01:08 EDT by Jann Camejo MD [email or web address] Lyly Kumar PA-C CARDIAC ECG ORDERABL ES [facility] documented in this encounter Visit Diagnoses Not on filedocumented in this encounter Care Teams Warehouse Shipping Supervisor Relationship Specialty Start Date End Date Amanda Knox FNP [address] [place] [phone] PCP - General 08/13/19 documented as of this encounter
--- OUTSIDE RECORDS SUMMARY | 2024-01-27 18:10 | XMS_ITS | Encounter Summary ---
Author Organization [facility] Address [address] [place] [address] Care Team Providers Care Lotteries Agent Name Role Phone Hueymike Amanda Tricia CIGAR MAKING MACHINE OPERATOR Primary Care Provider [phone] Encounter Details Date Type Department Care Team (Late st Contact Info) Description 10/16/[address] [facility] Pathology & Laboratory Medicine - [address] [address] Outr Resulting Lab, Provider Social History Tobacco [...] Comments CHLAMYDIA/N. GONORRHOEAE AMPLIFIED NUCLEIC ACID Routine 10/16/2021 15:10 EDT documented in this encounter Results * CHLAMYDIA/N. GONORRHOEAE AMPLIFIED RNA (10/16/2021 15:10 EDT) Neisseria gonorrhoeae Result Negative Negative 10/17/2021 12:39 EDT [facility] Chlamydia trachomatis Result Negative Negative 10/17/2021 12:39 EDT [facility] Urine URINE / Unknown 10/16/2021 1 5:10 EDT 10/16/2021 21:04 EDT Narrative [facility] - 10/17/2021 12:39 EDT A first catch urine specimen is acceptable for detection of Gonorrhea and Chlamydia, but might detect up to 10% fewer infections when compared with vaginal and endocervical swab samples. Provider Outr Resulting Lab MICROBIOLOGY - GENERAL ORDERABLES [facility] [address] [place] [address] documented in this encounter Visit Diagnoses Not on filedocumented in this encounter Care Teams Lotteries Agent Relationship Specialty Start Date End Date Amanda Knox FNP [address] [place] [phone] PCP - General 08/13/19 documented as of this encounter
--- OUTSIDE RECORDS SUMMARY | 2024-01-27 18:10 | XMS_ITS | Encounter Summary ---
Author Organization [facility] Address [address] [place] [address] Care Team Providers Care Telecom Analyst Name Role Phone Unknown, Provider Primary Care Provider Encounter Details Date Type Department Care Team (Late st Contact Info) Description 07/20/2019 Results Only [facility] Lab - Main [address] [address] Tyrone Gibson MD [address] [place] [phone] Social History Tobacco Use Types Packs/Day [...] Procedure Name Priority Date/Time Associated Diagnosis Comments DRUGS OF ABUSE SCREEN, URINE - CV Routine 07/20/2019 15:10 EST COMPLETE BLOOD COUNT WITH DIFFERENTIAL (AUTO) Routine 07/20/2019 11:40 EST THYROID CASCADE Routine 07/20/2019 11:40 EST COMPREHENSIVE METABOLIC PANEL (CMP) Routine 07/20/2019 11:40 EST documented in this encounter Results * DRUGS OF ABUSE SCREEN, URINE - [facility] (07/20/2019 15:10 EST) AMPHETAMINES NEG NEG 07/20/2019 16:19 [facility] BARBITURATES,UR - [facility] NEG NEG 07/20/2019 16:19 [facility] BENZODIAZEPINES NEG NEG 0 16:19 [facility] COCAINE,URINE - [facility] NEG NEG 07/07 16:19 [facility] MAMP (METHAMPHETAMINES - [facility] NEG NEG 07/20/2019 16:19 [facility] MARIJUANA,URINE - [facility] NEG NEG 07/20/2019 16:19 [facility] MTD (METHADONE) - [facility] NEG NEG 07/20/2019 16:19 [facility] OPIATES,URINE - [facility] NEG NEG 07/07 16:19 [facility] OXY (OXYCODONE) - [facility] NEG NEG 07/20/2019 16:19 [facility] PCP (PHENCYCLIDINE) - [facility] NEG NEG 07/20/2019 16:19 [facility] PROPOXYPHENE (PPX) - [facility] NEG NEG 07/20/2019 16:19 [facility] TRICYCLIC ANTIDEPRESSANTS - [facility] NEG NEG 07/20/2019 16:19 [facility] Comment: Drug Class ?Cutoff Concentration [...] retained in the laboratory for 7 days. 07/20/2019 15:1 0 EST 07/20/2019 15:28 EST Tyrone Gibson MD URINALYSIS ORDERABLE S Performing Organization Address [facility]/State/ZIP Co de Phone Number [facility] * THYROID CASCADE (07/20/2019 11:40 EST) [facility] TSH 2.36 0.46 - 4.68 uIU/mL 07/20/2019 12:37 EST [facility] 07/20/2019 11:4 0 EST 07/20/2019 11:42 EST Tyrone Gibson MD CHEMISTRY & BLOOD GA S ORDERABLES Performing Organization Address [facility]/State/ZIP Co de Phone Number [facility] * (ABNORMAL) COMPREHENSIVE METABOLIC PANEL (CMP) (07/20/2019 11:40 EST) Pathologist [facility] Albumin % 4.4 3.4 - 4.9 g/dL 07/20/2019 12:05 EST [facility] ALKALINE PHOSPHATASE - [facility] 80 38 - 126 U/L 07/20/2019 12:05 EST [facility] BILIRUBIN TOTAL 0.3 0.2 - 1.3 mg/dL 07/20/2019 12:05 [facility] BUN - [facility] 15 10 - 26 mg/dL 07/20/2019 12:05 [facility] CALCIUM - [facility] 9.7 8.5 - 10.5 mg/dL 07/20/2019 12:05 [facility] Chloride 106 96 - 110 mmol/L 07/20/2019 12:05 [facility] CO2 Total 24 22 - 32 mEq/L 07/20/2019 12:05 [facility] CREATININE 0.47(L) 0.52 - 1.04 mg/dL 07/20/2019 12:05 [facility] eGFR >60 07/20/2019 12:05 [facility] Comment: Chronic renal impairment is defined as GFR <60 Multiply result by 1.210 for patients. eGFR calculated using the IDMS-traceable MDRD Study Equation. ??(effective 04/08/2014) Anion Gap 10 0 - 18 07/20/2019 12:05 [facility] GLUCOSE - [facility] 87 70 - 100 mg/dL 07/20/2019 12:05 [facility] Potassium 4.1 3.5 - 5.0 mEq/L 07/20/2019 12:05 [facility] Sodium 140 136 - 145 mEq/L 07/20/2019 12:05 [facility] TOTAL PROTEIN - [facility] 7.9 6.2 - 8.2 gm/dL 07/20/2019 12:05 [facility] SGOT/AST - [facility] 26 14 - 36 U/L 07/20/2019 12:05 [facility] SGPT/ALT - [facility] 39(H) 0 - 35 U/L 0 12:05 [facility] 07/20/2019 11:4 0 EST 07/20/2019 11:42 EST Tyrone Gibson MD CHEMISTRY & BLOOD GA S ORDERABLES [facility] * COMPLETE BLOOD COUNT WITH DIFFERENTIAL (AUTO) (07/20/2019 11:40 EST) Gran # 4.6 2.2 - 8.85 10e3/uL 07/20/2019 11:48 [facility] BASO # - [facility] 0.02 0.01 - 0.11 10e/uL 07/20/2019 11:48 [facility] BASO % - [facility] 0 0 - 2 % 07/20/2019 11:48 [facility] EOS # - [facility] 0.05 0.03 - 0.61 10e3/ul 07/20/2019 11:48 [facility] EOS % - [facility] 1 0 - 5 % 07/20/2019 11:48 [facility] GRAN % - [facility] 62.3 40 - 80 % 07/20/2019 11:48 [facility] HEMATOCRIT - [facility] 37.5 34.9 - 44.4 % 07/20/2019 11:48 [facility] HEMOGLOBIN - [facility] 12.3 11.6 - 15.2 g/dl 07/20/2019 11:48 [facility] IG# - [facility] 0.02 0 - 0.7 10e3/uL 07/20/2019 11:48 [facility] IG% - [facility] 0.3 0 - 0.9 % 07/20/2019 11:48 [facility] LYMPH # - [facility] 2.2 1.09 - 3.3 10e3/ul 07/20/2019 11:48 [facility] LYMPH% - [facility] 30.1 20 - 40 % 07/20/2019 11:48 [facility] MEAN CORPUSCULAR HGB - [facility] 26.8 26.7 - 33.3 pg 07/20/2019 11:48 [facility] MEAN CORPUSCULAR HGB CONC - [facility] 32.8 32.1 - 35.9 g/dL 07/20/2019 11:48 [facility] MEAN CELL VOLUME - [facility] 81.7 81 - 98 fl 07/20/2019 11:48 [facility] MONO # - [facility] 0.5 0.1 - 0.8 10e3/uL 07/20/2019 11:48 [facility] MONO% - [facility] 6.3 0 - 12 % 07/20/2019 11:48 [facility] PLATELET COUNT 231 141 - 377 10e3/ul 07/20/2019 11:48 [facility] RED BLOOD COUNT - [facility] 4.59 3.86 - 5.04 10e3/ul 07/20/2019 11:48 [facility] RED CELL DISTRI WIDTH - [facility] 14.1 <14.7 % 07/20/2019 11:48 [facility] WHITE BLOOD COUNT - [facility] 7.3 4.0 - 12.4 10e3/ul 07/20/2019 11:48 [facility] 07/20/2019 11:4 0 EST 07/20/2019 11:42 EST Tyrone Gibson MD HEMATOLOGY & PF4 ORD ERABLES [facility] documented in this encounter Visit Diagnoses Not on filedocumented in this encounter Care Teams Telecom Analyst Relationship Specialty Start Date End Date Unknown, Provider, PCP - General 04/01/19 08/12/19 documented as of this encounter
--- OUTSIDE RECORDS SUMMARY | 2024-01-27 18:10 | XMS_ITS | Encounter Summary ---
Author Organization [facility] Address [address] [place] [address] Care Team Providers Care Pharmacy Benefits Coordinator Name Role Phone Piotr Ward MD Primary Care Provider Unknown, Provider Primary Care Provider [phone] Encounter Details Date Type Department Care Team (Late st Contact Info) Description 12/22/2018 Historical Results Only [facility] Lab - Main [address] [id number] Vaishali Rainey MD [address] [place] [address], [address] [place] [address] Social History Tobacco Use Types Packs/Day Years Used Date Smoking Tobacco: Never Assessed Sex and Gender Information Value Date Recorded Sex Assigned at Not on file Gender Identity Female 04/01/2019 9:34 EDT Sexual Orientation Not on file documented as of this encounter Plan of Treatment Not on file documented as of this encounter Procedures Procedure Name Priority Date/Time Associated Diagnosis Comments GLUCOSE TOLERANCE, 3HR Routine 12/22/2018 10:42 EDT GLUCOSE TOLERANCE, 2HR Routine 12/22/2018 9:41 EDT GLUCOSE TOLERANCE, 1HR Routine 12/22/2018 8:35 EDT FASTING GLUCOSE - [facility] Routine 12/22/2018 7:37 EDT GESTATIONAL GLUCOSE [facility] - [facility] Routine 12/22/2018 7:37 EDT documented in this encounter Results * GLUCOSE TOLERANCE, 3HR (12/22/2018 10:42 EDT) Gest Gluc Tyron, 3hr 129 mg/dL 12/22/2018 11:08 EDT [facility] Comment: ACOG RECOMMENDED GUIDELINES Normal Results: ?? * Fasting glucose: ?? < 95 ??mg/dL ?? * 1 hour glucose: ?< 180 mg/dL ?? * 2 hour glucose: ?< 155 mg/dL ?? * 3 hour glucose: ?< 140 mg/dL Gestational diabetes is diagnosed when TWO or more values meet or exceed: ?? * 95 mg/dL at fasting ?? * 180 mg/dL at 1 hour ?? * 155 mg/dL at 2 hours ?? * 140 mg/dL at 3 hours 12/22/2018 10:4 2 EDT 12/22/2018 10:42 EDT [facility] - 12/22/2018 11:08 EDT GESTATIONAL TYRON 3 HR GLU 3 HR GLUCOSE from [id number]. Vaishali Rainey MD CHEMISTRY & BLOOD GA S ORDERABLES Performing Organization Address City/[facility]/ZIP Co de Phone Number [facility] * GLUCOSE TOLERANCE, 2HR (12/22/2018 9:41 EDT) Glucose Tyron, 2hr 129 mg/dL 12/22/2018 11:07 EDT [facility] 12/22/2018 9:41 EDT 12/22/2018 9:41 EDT [facility] - 12/22/2018 11:07 EDT GESTATIONAL TYRON 2 HR GLU 2 HR GLUCOSE from [id number]. Vaishali Rainey MD CHEMISTRY & BLOOD GA S ORDERABLES [facility] * GLUCOSE TOLERANCE, 1HR (12/22/2018 8:35 EDT) Glucose Tyron, 1 hr 180 mg/dL 12/22/2018 11:07 EDT [facility] 12/22/2018 8:35 EDT 12/22/2018 8:40 EDT Narrative [facility] - 12/22/2018 11:07 EDT GESTATIONAL TYRON 1 HR GLU 1 HR GLUCOSE from [id number]. Vaishali Rainey MD CHEMISTRY & BLOOD GA S ORDERABLES [facility] * GESTATIONAL GLUCOSE [facility] (12/22/2018 7:37 EDT) [facility] GESTATIONAL GLUCOSE [facility] - [facility] mg/dL 12/22/2018 11:08 EDT [facility] Comment: ACOG RECOMMENDED GUIDELINES Normal Results: ?? * Fasting glucose: ?? < 95 ??mg/dL ?? * 1 hour glucose: ?< 180 mg/dL ?? * 2 hour glucose: ?< 155 mg/dL ?? * 3 hour glucose: ?< 140 mg/dL Gestational diabetes is diagnosed when TWO or more values meet or exceed: ?? * 95 mg/dL at fasting ?? * 180 mg/dL at 1 hour ?? * 155 mg/dL at 2 hours ?? * 140 mg/dL at 3 hours 12/22/2018 7:37 EDT 12/22/2018 7:37 EDT Narrative [facility] - 12/22/2018 11:08 EDT Does PT Have a Latex Allergy? NO Vaishali Rainey MD CHEMISTRY & BLOOD GA S ORDERABLES [facility] * FASTING GLUCOSE - [facility] (12/22/2018 7:37 EDT) [facility] FASTING GLUCOSE - [facility] 89 70 - 100 mg/dL 12/22/2018 11:06 EDT [facility] 12/22/2018 7:37 EDT 12/22/2018 7:37 EDT Narrative [facility] - 12/22/2018 11:06 EDT GESTATIONAL TYRON FASTING FASTING GLUCOSE from [id number]. Vaishali Rainey MD CHEMISTRY & BLOOD GA S ORDERABLES [facility] documented in this encounter Visit Diagnoses Not on filedocumented in this encounter Care Teams Pharmacy Benefits Coordinator Relationship Specialty Start Date End Date Piotr Ward MD [address] [place] [address] PCP - General 12/15/15 03/31/19 Unknown, Provider, [address] [place] [address] PCP - General 04/01/19 08/12/19 documented as of this encounter
--- OUTSIDE RECORDS SUMMARY | 2024-01-27 18:10 | XMS_ITS | Encounter Summary ---
Author Organization [facility] Address [address] [place] [address] Care Team Providers Care Library Page Name Role Phone Piotr Ward MD Primary Care Provider Encounter Details Date Type Department Care Team (Latest Contact Info) Description 02/16/2019 8:35 EDT - 02/16/2019 23:59 EDT Hospital Encounter [facility] [address] [place] [address] Unknown, Provider, Discharge Disposition: Home or Self Care Social History Tobacco Use Types Packs/Day Years Used Date Smoking Tobacco: Never Assessed Sex and Gender Information Value Date Recorded Sex Assigned at Not on file Gender Identity Female 04/01/2019 9:34 EDT Sexual Orientation Not on file documented as of this encounter Discharge Disposition Disposition Code Departure Means Destination Home or Self Retirement documented in this encounter Plan of Treatment Not on file documented as of this encounter Visit Diagnoses Not on filedocumented in this encounter Care Teams Library Page Relationship Specialty Start Date End Date Piotr Ward MD [address] [place] [address] PCP - General 12/15/15 03/31/19 documented as of this encounter
--- OUTSIDE RECORDS SUMMARY | 2024-01-27 18:10 | XMS_ITS | Encounter Summary ---
Author Organization [facility] Address [address] [place] [address] Care Team Providers Care Senior Cisco Network Engineer Name Role Phone Unknown, Provider Primary Care Provider Reason for Referral * PT/OT/ST (Routine) - Closed Specialty Diagnoses / Procedures Referred By Cynthia t Referred To Contact Diagnoses Patellar instability of left knee Shaun Green MD [address] [place] [phone] [facility] [address] [address] Referral ID Status Reason Start Date Expiration Date V isits Requested Visits Authorized [id number] Closed Specialty Services Required 05/25/2019 1 1 Question Answer Reason for Request: PT - First time patella subluxation, eval/treat Practice Site (External Referral Only): [facility] Physical therapy Reason for Visit * Reason Comments Follow-up * Referral (Routine) - Receiving Office to Obtain Authorization Specialty Diagnoses / Procedures Referred By Contac t Referred To Contact Orthopedic Surgery Diagnoses Left knee pain [facility] [address], [address] [place], [place] [address] Referral ID Status Reason Start Date Expiration Date Visits Requested Visits Authorized [id number] Receiving Office to Obtain Authorization 1 1 Encounter Details Date Type Department Care Team (Late st Contact Info) Description 05/25/2019 10:15 EST Office Visit [facility] [address], [address] [place] [address] Shaun Green MD [address] [place] [phone] Patellar instability of left knee (Primary Dx) Social History Tobacco Use Types Packs/Day Years Used Date Smoking Tobacco: Former Smokeless Tobacco: Never Sex and Gender Information Value Date Recorded Sex Assigned at Not on file Gender Identity Female 04/01/2019 9:34 EDT Sexual Orientation Not on file documented as of this encounter Last Filed Vital Signs Vital Sign Reading Time Taken Comments Blood Pressure - - Pulse - - Temperature - - Respiratory Rate - - Oxygen Saturation - - Inhaled Oxygen Concentration - - Weight 81.6 kg (180 lb) 05/25/2019 0959 EST Height 170.2 cm (5' 7) 05/25/2019 0959 EST Body Mass Index 28.19 05/25/2019 0959 EST documented in this encounter Progress Notes * Shaun Green - 05/25/2019 1015 EST [facility] Orthopedics New Patient Visit Subjective: Chief Complaint Patient presents with ??? Left Knee - Follow-up HPI: Ana is a 24 y.o. female who was referred to our clinic today for evaluation of left knee injury that occurred 1.5 weeks ago, twisting mechanism. [place] 3 pops, then sat back and felt lightheaded, didn't try to move knee, felt a bit numb. Initially unable to straighten her knee due to pain and mechanical block. Was seen in ED within 30 minutes. Suspected a subluxation of the patella. Had some swelling, no a lot. No prior injuries to the knee. Knee is still painful, and the more she uses it the more it hurts at the end of the day. No further instability o fthe patella. ROS: A 10-point review of systems has been documented on the patient intake form and reviewed by me. This will be scanned into their chart. I have reviewed patient's current problem list, medications, medical history, surgical history, andfamily history Objective: Ht 170.2 cm (67) Wt 81.6 kg (180 lb) BMI 28.19 kg/m?? Ortho Exam General: No acute distress, appears comfortable, cooperative HEENT: Vision and hearing grossly intact, normocephalic Cardiovascular: Normal capillary refill Pulmonary: Unlabored breathing Extremities: No peripheral edema noted Skin: Warm and well-perfused, dry, no obvious lesions Neuro: Sensation to soft touch/pressure is grossly intact Psych: Normal and appropriate affect, engaged, good eye contact, goal-directed Musculoskeletal: Knee: Systematic examination of both knees performed, including observation of alignment and gait, palpation of cole structures, active and passive range of motion, observation of overlying skin, assessment for effusion and swelling, and provocative testing. Provocative testing includes varus and valgus stress, anterior and posterior drawer, Adrien, Crys, Thessaly, patellar translation and grind, apprehension. Strength testing for knee also performed, basic hip and ankle examination performed. Pertinent findings include: Left knee effusion, associated TTP over the medial patella, +apprehension, translation not fully assessed due to guarding ROM R: -10 to 140 ROM L: -10 to 130 painful endpoints Imaging: Radiographs of the patient's right knee were independently reviewed by me. These demonstrate an effusion and a tiny ossific fragment just medial to the patella Assessment & Plan: Ana is a 24 y.o. female who is here today with a left knee injury consistent with left patella instability, first-time subluxation. I think she is a great candidate for non-operative treatment, and after a thorough discussion patient agrees to start physical therapy, she will do this at [facility]. Patient will follow-up in 6 weeks. 1. Patellar instability of left knee AMB CONS/FOLLOW UP PHYSICAL THERAPY Shaun Green MD, CAQSM documented in this encounter Plan of Treatment Scheduled Referrals Name Type Priority Associated Diagnoses Orde r Schedule AMB CONS/FOLLOW UP PHYSICAL THERAPY Outpatient Referral Routine Patellar instability of left knee Ordered: 05/25/2019 documented as of this encounter Visit Diagnoses Diagnosis Patellar instability of left knee- Primary Other joint derangement, not elsewhere classified, lower leg documented in this encounter Discontinued Medications Medication Sig Discontinue Reason Start Date End Da te norethindrone (MICRONOR) 0.35 mg tablet Take 1 Tab by mouth daily for 336 doses. 04/20/2019 05/25/2019 Ebqinuvu-Jh-Cdw-Fe-FA ( VITAMIN) tablet Take 1 Tab by mouth daily for 336 days. 04/20/2019 05/25/2019 documented as of this encounter Care Teams Senior Cisco Network Engineer Relationship Specialty Start Date End Date Unknown, Provider, PCP - General 04/01/19 08/12/19 documented as of this encounter
--- OUTSIDE RECORDS SUMMARY | 2024-01-27 18:10 | XMS_ITS | Encounter Summary ---
Author Organization [facility] Address [address] [place] [address] Care Team Providers Care Electric Sign Assembler Name Role Phone Amanda Knox Primary Care Provider Reason for Visit * Reason Onset Date Comments Follow-up 08/21/2019 Encounter Details Date Type Department Care Team (Late st Contact Info) Description 08/21/2019 Telephone [facility] - [address] [phone] Jameson Quick LIME HIDE INSPECTOR [facility] [address] [place] [phone] Follow-up Social History Tobacco Use Types Packs/Day Years [...] on filedocumented in this encounter Care Teams Electric Sign Assembler Relationship Specialty Start Date End Date Amanda Knox FNP [address] [place] [phone] PCP - General 08/13/19 documented as of this encounter
--- OUTSIDE RECORDS SUMMARY | 2024-01-27 18:10 | XMS_ITS | Encounter Summary ---
Author Organization [facility] Address [address] [place] [address] Care Team Providers Care Assistant Restaurant General Manager Name Role Phone Amanda Knox Primary Care Provider Reason for Visit * Reason Onset Date Comments Follow-up 08/21/2019 Encounter Details Date Type Department Care Team (Late st Contact Info) Description 08/21/2019 [place] [facility] [place] [address] [id number] Jameson Quick QA MANAGER [facility] [address] [place] [phone] Follow-up Social History Tobacco Use Types [...] on filedocumented in this encounter Care Teams Assistant Restaurant General Manager Relationship Specialty Start Date End Date Amanda Knox FNP [address] [place] [phone] PCP - General 08/13/19 documented as of this encounter
--- OUTSIDE RECORDS SUMMARY | 2024-01-27 18:10 | XMS_ITS | Encounter Summary ---
Author Organization [facility] Address [address] [place] [address] Care Team Providers Care Electric Meter Inspector Name Role Phone Hueymike Amanda Tricia MANAGER RELIABILITY Primary Care Provider [phone] Encounter Details Date Type Department Care Team (Late st Contact Info) Description 10/21/2019 Results Only [facility] - Main [place] [address] [place] [address] Elmer Mcguire PA-C [address] [place] [address] Social History Tobacco Use Types [...] Date/Time Associated Diagnosis Comments COVID-19 TESTING Routine 10/21/2019 20:5 6 EDT DRUGS OF ABUSE SCREEN, URINE - [facility] Routine 10/21/2019 14:37 EDT URINALYSIS/COMPLETE - [facility] Routine 10/21/2019 14:37 EDT BACTERIAL CULTURE, URINE Routine 10/21/2019 14:37 EDT ETHYL ALCOHOL - [facility] Routine 10/21/2019 14:15 EDT COMPLETE BLOOD COUNT WITH DIFFERENTIAL (AUTO) Routine 10/21/2019 14:15 EDT THYROID CASCADE Routine 10/21/2019 14:15 EDT COMPREHENSIVE METABOLIC PANEL (CMP) Routine 10/21/2019 14:15 EDT documented in this encounter Results * COVID-19 TESTING (10/21/2019 20:56 EDT) Performing Lab [facility] () 10/22/2019 16:58 EDT [facility] Comment: Is Patient Admitted or Awaiting Admission?:Admitted NOTE: RESULTS HAVE BEEN REFORMATTED PLEASE REVIEW RESULTS CAREFULLY THE LOCATION OF INFORMATION MAY HAVE CHANGED Test performed or referred by The [address] [address] COVID-19 rt-PCR Result Not Detected Negative 10/22/2019 16:58 EDT [facility] Comment: This test has not been [...] history, and epidemiological information. Performed on the [employer] instrument 10/21/2019 20:5 6 EDT 10/21/2019 21:00 EDT Narrative [facility] - 10/22/2019 16:58 EDT PATIENT STATUS PT TO BE ADMITTED Elmer Mcguire PA-C MICROBIOLOGY - GENER AL ORDERABLES [facility] * BACTERIAL CULTURE, URINE (10/21/2019 14:37 EDT) Pathologist [facility] USUAL UROGENITAL LYNDA - [facility] UUV 10/23/2019 10:33 EDT [facility] COLONY COUNT >100,000 CFU/ML 10/23/2019 10:33 EDT [facility] Urine specimen (specimen) 10/21/2019 14:37 EDT 10/21/2019 15:04 EDT Comment:VOID Elmer Mcguire PA-C MICROBIOLOGY - GENER AL ORDERABLES Performing Organization Address [facility]/ZIP Co de Phone Number [facility] * DRUGS OF ABUSE SCREEN, URINE - [facility] (10/21/2019 14:37 EDT) Pathologist [facility] AMPHETAMINES NEG NEG 10/21/2019 15:04 EDT [facility] BARBITURATES,UR - [facility] NEG NEG 10/21/2019 15:04 EDT [facility] BENZODIAZEPINES NEG NEG 0 15:04 EDT [facility] COCAINE,URINE - [facility] NEG NEG 10/04 15:04 EDT [facility] MAMP (METHAMPHETAMINES - [facility] NEG NEG 10/21/2019 15:04 EDT [facility] MARIJUANA,URINE - [facility] NEG NEG 10/21/2019 15:04 EDT [facility] MTD (METHADONE) - [facility] NEG NEG 10/21/2019 15:04 EDT [facility] OPIATES,URINE - [facility] NEG NEG 10/04 15:04 EDT [facility] OXY (OXYCODONE) - [facility] NEG NEG 10/21/2019 15:04 EDT [facility] PCP (PHENCYCLIDINE) - [facility] NEG NEG 10/21/2019 15:04 EDT [facility] PROPOXYPHENE (PPX) - [facility] NEG NEG 10/21/2019 15:04 EDT [facility] TRICYCLIC ANTIDEPRESSANTS - [facility] NEG NEG 10/21/2019 15:04 EDT [facility] Comment: Drug Class ?Cutoff Concentration [...] retained in the laboratory for 7 days. 10/21/2019 14:3 7 EDT 10/21/2019 14:47 EDT Elmer Mcguire PA-C URINALYSIS ORDERABLE S [facility] * URINALYSIS/COMPLETE - [facility] (10/21/2019 14:37 EDT) URINE APPEARANCE - [facility] Clear CLEAR 10/21/2019 15:03 EDT [facility] URINE BACTERIA - [facility] RARE 10/21/2019 15:04 EDT [facility] URINE BILIRUBIN - DIPSTICK - [facility] Negative NEGATIVE 10/21/2019 15:03 EDT [facility] URINE BLOOD - [facility] Negative NEG 10/21/2019 15:03 EDT [facility] URINE COLOR - [facility] Yellow YELLOW 10/21/2019 15:03 [facility] URINE GLUCOSE - DIPSTICK - [facility] Negative NEGATIVE 10/21/2019 15:03 [facility] URINE KETONE - [facility] Negative NEGATIVE 10/21/2019 15:03 [facility] URINE LEUK ESTERASE - [facility] 1+ NEG 10/21/2019 15:03 [facility] URINE MUCUS - [facility] RARE [facility]ITRITE - DIPST[facility] - [facility] Negative NEG 10/21/2019 15:03 [facility] URINE PH - [facility] 7.5 4.0 - 8.0 0 15:03 [facility] URINE PROTEIN - DIPSTICK - [facility] Negative NEG 10/21/2019 15:03 [facility] URINE RBC - [facility] NEG rbc/hpf 10/21/19 20 15:04 [facility] URCULTIF+? - [facility] Culture Ordered 10/21/2019 15:04 [facility] URINE SPECIFIC GRAVITY - [facility] 1.010 1.001 - 1.035 10/21/2019 15:03 [facility] URINE SQUAMOUS CELLS - [facility] FEW NEG #/hpf 10/21/2019 15:04 [facility] URINE UROBILINOGEN - DIPSTICK - [facility] 0.2 0.2 - 1.0 10/21/2019 15:03 [facility] URINE WBC - [facility] RARE NEG wbc/hpf 020 15:04 EDT [facility] 10/21/2019 14:3 7 EDT 10/21/2019 14:46 EDT Elmer Hare PA-C CHEMISTRY & BLOOD GA S ORDERABLES [facility] * THYROID CASCADE (10/21/2019 14:15 EDT) TSH 2.48 0.46 - 4.68 uIU/mL 10/21/2019 15:08 EDT [facility] 10/21/2019 14:1 5 EDT 10/21/2019 14:18 EDT Elmer Scoobye PA-C CHEMISTRY & BLOOD GA S ORDERABLES Performing Organization Address City/[facility]/ZIP Co de Phone Number [facility] * ETHYL ALCOHOL - CV (10/21/2019 14:15 EDT) ETHYL ALCOHOL - [facility] <10.0 <10 mg/dL 10/21/2019 14:38 EDT [facility] 10/21/2019 14:1 5 EDT 10/21/2019 14:18 EDT Elmermini Almodovare PA-C CHEMISTRY & BLOOD GA S ORDERABLES Performing Organization Address City/[facility]/ZIP Co de Phone Number [facility] * (ABNORMAL) COMPREHENSIVE METABOLIC PANEL (CMP) (10/21/2019 14:15 EDT) Albumin % 4.4 3.4 - 4.9 g/dL 10/21/2019 14:38 EDT [facility] ALKALINE PHOSPHATASE - [facility] 78 38 - 126 U/L 10/21/2019 14:38 EDT [facility] BILIRUBIN TOTAL 0.4 0.2 - 1.3 mg/dL 10/21/2019 14:38 EDT [facility] BUN - [facility] 8(L) 10 - 26 mg/dL 10/21/2019 14:38 [facility] CALCIUM - [facility] 9.9 8.5 - 10.5 mg/dL 10/21/2019 14:38 [facility] Chloride 103 96 - 110 mmol/L 10/21/2019 14:38 [facility] CO2 Total 24 22 - 32 mEq/L 10/21/2019 14:38 [facility] CREATININE 0.59 0.52 - 1.04 mg/dL 10/21/2019 14:38 [facility] eGFR >60 10/21/2019 14:38 [facility] Comment: Chronic renal impairment is defined as GFR <60 Multiply result by 1.210 for patients. eGFR calculated using the IDMS-traceable MDRD Study Equation. ??(effective 04/08/2014) Anion Gap 9 0 - 18 10/21/2019 14:38 [facility] GLUCOSE - [facility] 95 70 - 100 mg/dL 10/21/2019 14:38 [facility] Potassium 4.4 3.5 - 5.0 mEq/L 10/21/2019 14:38 [facility] Sodium 136 136 - 145 mEq/L 10/21/2019 14:38 [facility] TOTAL PROTEIN - [facility] 7.8 6.2 - 8.2 gm/dL 10/21/2019 14:38 [facility] SGOT/AST - [facility] 33 14 - 36 U/L 10/21/2019 14:38 [facility] SGPT/ALT - [facility] 33 0 - 35 U/L 0 14:38 [facility] 10/21/2019 14:1 5 EDT 10/21/2019 14:18 EDT Elmer Mcguire PA-C CHEMISTRY & BLOOD GA S ORDERABLES [facility] * (ABNORMAL) COMPLETE BLOOD COUNT WITH DIFFERENTIAL (AUTO) (10/21/2019 14:15 EDT) Pathologist [facility] Gran # 5.9 2.2 - 8.85 10e3/uL 10/21/2019 14:26 [facility] BASO # - [facility] 0.06 0.01 - 0.11 10e/uL 10/21/2019 14:26 [facility] BASO % - [facility] 1 0 - 2 % 10/21/2019 14:26 [facility] EOS # - [facility] 0.61 0.03 - 0.61 10e3/ul 10/21/2019 14:26 [facility] EOS % - [facility] 6(H) 0 - 5 % 10/21/2019 14:26 [facility] GRAN % - [facility] 61.0 40 - 80 % 10/21/2019 14:26 [facility] HEMATOCRIT - [facility] 40.4 34.9 - 44.4 % 10/21/2019 14:26 [facility] HEMOGLOBIN - [facility] 13.2 11.6 - 15.2 g/dl 10/21/2019 14:26 [facility] IG# - [facility] 0.02 0 - 0.7 10e3/uL 10/21/2019 14:26 [facility] IG% - [facility] 0.2 0 - 0.9 % 10/21/2019 14:26 [facility] LYMPH # - [facility] 2.5 1.09 - 3.3 10e3/ul 10/21/2019 14:26 [facility] LYMPH% - [facility] 25.6 20 - 40 % 10/21/2019 14:26 [facility] MEAN CORPUSCULAR HGB - [facility] 26.9 26.7 - 33.3 pg 10/21/2019 14:26 [facility] MEAN CORPUSCULAR HGB CONC - [facility] 32.7 32.1 - 35.9 g/dL 10/21/2019 14:26 [facility] MEAN CELL VOLUME - [facility] 82.4 81 - 98 fl 10/21/2019 14:26 [facility] MONO # - [facility] 0.6 0.1 - 0.8 10e3/uL 10/21/2019 14:26 EDT [facility] MONO% - [facility] 6.3 0 - 12 % 10/21/2019 14:26 EDT [facility] PLATELET COUNT 255 141 - 377 10e3/ul 10/21/2019 14:26 EDT [facility] RED BLOOD COUNT - [facility] 4.90 3.86 - 5.04 10e3/ul 10/21/2019 14:26 EDT [facility] RED CELL DISTRI WIDTH - [facility] 13.2 <14.7 % 10/21/2019 14:26 EDT [facility] WHITE BLOOD COUNT - [facility] 9.7 4.0 - 12.4 10e3/ul 10/21/2019 14:26 [facility] 10/21/2019 14:1 5 EDT 10/21/2019 14:18 EDT Elmer Mcguire PA-C HEMATOLOGY & PF4 ORD ERABLES [facility] documented in this encounter Visit Diagnoses Not on filedocumented in this encounter Care Teams Electric Meter Inspector Relationship Specialty Start Date End Date Amanda Knox FNP [address] [place] [phone] PCP - General 08/13/19 documented as of this encounter
--- OUTSIDE RECORDS SUMMARY | 2024-01-27 18:10 | XMS_ITS | Encounter Summary ---
Author Organization [facility] Address [address] [place] [address] Care Team Providers Care Cert Pharmacy Tech Name Role Phone Hueymike Amanda Tricia BATH MIXER Primary Care Provider [phone] Encounter Details Date Type Department Care Team (Late st Contact Info) Description 09/28/2021 Lab Requisition [facility] Pathology & Laboratory Medicine - [address] [id number] Outr Resulting Lab, Provider Social History Tobacco [...] Procedure Name Priority Date/Time Associated Diagnosis Comments SYPHILIS SEROLOGY Routine 09/28/2021 8:30 EDT documented in this encounter Results * SYPHILIS SEROLOGY (09/28/2021 8:30 EDT) Syphilis Serology Negative Negative 09/29/2021 10:39 EDT [facility] Blood VENOUS BLOOD / Unknown 09/28/2021 8:30 EDT 09/28/2021 16:46 EDT Provider Outr Resulting Lab IMMUNOLOGY A ND SEROLOGY ORDERABLES [facility] [address] [place] [address] documented in this encounter Visit Diagnoses Not on filedocumented in this encounter Care Teams Cert Pharmacy Tech Relationship Specialty Start Date End Date Amanda Knox FNP [address] [place] [address] PCP - General 08/13/19 documented as of this encounter
--- OUTSIDE RECORDS SUMMARY | 2024-01-27 18:10 | XMS_ITS | Encounter Summary ---
Author Organization [facility] Address [address] [place] [address] Care Team Providers Care Automation Qtp Tester Name Role Phone Hueymike Amanda Tricia SUSPECT ARTIST SUPERVISOR Primary Care Provider [phone] Encounter Details Date Type Department Care Team (Latest Contact Info) Description 02/13/2022 Travel Social History Tobacco Use Types Packs/Day [...] on filedocumented in this encounter Care Teams Automation Qtp Tester Relationship Specialty Start Date End Date Amanda Knox FNP [address] [place] [address] PCP - General 08/13/19 documented as of this encounter
--- OUTSIDE RECORDS SUMMARY | 2024-01-27 18:11 | XMS_ITS ---
Author Organization Unknown Address [address] [place] [phone] Phone Care Team Providers Care Supervisor Tunnel Heading Name Role Phone YAHIR Barth Attending Unavailable JAJA Clarke Primary Unavailable Immunization Immunization Date Status Additional Notes Code Code System MMR 04/05/2022 Completed 03 CVX Social History Type Status Start Date End Date Code Code Syst em Smoking History Former smoker 5377195 SNOMED CT Smoking History Current every day smoker 706862570 SNOMED CT Sex Female Medications Medication Start Date End Date Route Frequency Dose Code Code System Medication Instructions Home Meds Ondansetron 4MG Oral Tablet, Disintegrating 12/11/2021 03/22/2023 ORAL NEEDED EVERY 6 HOURS 1 TABLET 133636 RxNorm TAKE 1 TABLET ORAL NEEDED EVERY 6 HOURS FOR Nausea/Vomiting Hospital Discharge Instructions Should you have any questions prior to discharge, please contact a member of your healthcare team. If you have left the hospital and have any questions, please contact your primary care physician. Reason For Referral No Data Found Problems Problem Start Date Resolved Date Status Code Code System 08/05/2021 resolved [id number] SNOMED-CT Allergies and Adverse Reactions Allergy Substance Reaction Severity Start Date Concern Status Co de Code System No Known Drug Allergies Moderate Active 643085362 SNOMED-CT Plan of Treatment US OB COMPLETE 03/09/2022 US OB COMPLETE 02/12/2022 US BREAST UNI RT 01/26/2022 US OB COMPLETE 11/10/2021 Encounters Encounter Diagnosis Start Date Code Code Sys tem Encounter for supervision of other normal , second trimester 09/23/2021 SNOMED-CT Personal Care Team Section Performer Name Performer Role Active Date Inactive Da te
--- OUTSIDE RECORDS SUMMARY | 2024-01-27 18:11 | XMS_ITS | Encounter Summary ---
Author Organization [facility] Address [address] [place] [address] Care Team Providers Care Line Driver Name Role Phone iPotr Ward MD Primary Care Provider Encounter Details Date Type Department Care Team (Latest Contact Info) Description 08/10/2018 15:36 EST - 08/10/2018 23:59 EST Hospital Encounter [facility] [address] [place] [address] Unknown, Provider, Discharge Disposition: Home or Self Care Social History Tobacco Use Types Packs/Day Years Used Date Smoking Tobacco: Never Assessed Sex and Gender Information Value Date Recorded Sex Assigned at Not on file Gender Identity Female 04/01/2019 9:34 EDT Sexual Orientation Not on file documented as of this encounter Discharge Disposition Disposition Code Departure Means Destination Home or Self Intermediate documented in this encounter Plan of Treatment Not on file documented as of this encounter Visit Diagnoses Not on filedocumented in this encounter Care Teams Line Driver Relationship Specialty Start Date End Date Piotr Ward MD [address] [place] [address] PCP - General 12/15/15 03/31/19 documented as of this encounter
--- OUTSIDE RECORDS SUMMARY | 2024-01-27 18:11 | XMS_ITS ---
Author Organization Unknown Address [address] [place] [phone] Phone Care Team Providers Care C D Still Operator Name Role Phone ALEJANDRA Clarke Attending Unavailable JAJA Clarke Primary Unavailable Immunization Immunization Date Status Additional Notes Code Code System MMR 04/05/2022 Completed 03 CVX Results CHLAMYDIA/GC AMPLIFIED PROBE * - Collect Date/Time: 10/16/2021 15:10 [facility] ID: [id number] [address] [place], [place], [phone] LOINC: 93563-4 Test Value Unit Reference Range Code Code System Flag Chlamydia Result Negative Negative GC Result Negative Negative Social History Type Status Start Date End Date Code Code Syst em Smoking History Former smoker 4584525 SNOMED CT Smoking History Current every day smoker 311969667 SNOMED CT Sex Female Medications Medication Start Date End Date Route Frequency Dose Code Code System Medication Instructions Home Meds Ondansetron 4MG Oral Tablet, Disintegrating 12/11/2021 03/22/2023 ORAL NEEDED EVERY 6 HOURS 1 TABLET 847018 RxNorm TAKE 1 TABLET ORAL NEEDED EVERY [...] Date Status Code Code System 08/05/2021 resolved 02402272 SNOMED-CT Allergies and Adverse Reactions Allergy Substance Reaction Severity Start Date Concern Status Co de Code System No Known Drug Allergies Moderate Active 580225052 SNOMED-CT Plan of Treatment US OB COMPLETE 03/09/2022 US OB COMPLETE 02/12/2022 US BREAST UNI RT 01/26/2022 US OB COMPLETE 11/10/2021 Encounters Encounter Diagnosis Start Date Code Code Sys tem Encounter for supervision of other normal , second trimester 10/16/2021 SNOMED-CT Personal Care Team Section Performer Name Performer Role Active Date Inactive Da te
--- OUTSIDE RECORDS SUMMARY | 2024-01-27 18:11 | XMS_ITS | Encounter Summary ---
Author Organization [facility] Address [address] [place] [address] Care Team Providers Care Sailor Name Role Phone Piotr Ward MD Primary Care Provider Encounter Details Date Type Department Care Team (Late st Contact Info) Description 08/10/2018 Historical Results Only [facility] Radiology Results [address] [place] [address] Olga Guevara, TRANSPORTATION OFFICER [address] [facility] [place] [address] Social History Tobacco Use Types Packs/Day Years Used Date Smoking Tobacco: Never Assessed Sex and Gender Information Value Date Recorded Sex Assigned at Not on file Gender Identity Female 04/01/2019 9:34 EDT Sexual Orientation Not on file documented as of this encounter Plan of Treatment Not on file documented as of this encounter Procedures Procedure Name Priority Date/Time Associated Diagnosis Comments GC/CHLAMYDIA PCR - [facility] Routine 08/10/2018 14:07 EST US OB FIRST TRIMESTER (LESS THAN 14 WEEKS) TRANSVAGINAL 08/10/2018 13:36 EST PAP TEST Routine 08/10/2018 documented in this encounter Results * GC/CHLAMYDIA PCR - [facility] (08/10/2018 14:07 EST) CHLAMYDIA PCR - [facility] NOT DETECTED 08/10/2018 21:27 EST [facility] GONORRHEA PCR - [facility] NOT DETECTED 08/10/2018 21:27 EST [facility] SOURCE CERVICAL 08/10/2018 21:27 EST [facility] 08/10/2018 14:0 7 EST 08/10/2018 16:26 EST Olga Rosa Guevara TRANSPORTATION OFFICER CHEMISTRY & BLOOD GA S ORDERABLES [facility] * US OB FIRST TRIMESTER (LESS THAN 14 WEEKS) TRANSVAGINAL (08/10/2018 13:36 EST) Anatomical Region Laterality Modality Pelvis Other 08/10/2018 13:3 6 EST Narrative 08/11/2018 16:00 EST ? EXAM: ULTRASOUND/TRANSVAGINAL - OB (LEVEL EX. D/ (4866) ? CLINICAL INFORMATION: ? Z33.1 STATE INCIDENTAL ? DATING ? See attached report. ??Report also available in PACS. ? [email or web address] ?Reported By: Moises Burrell MD ? CC: ? Transcribed Date/Time: 08/11/2018 (1600) ? Pediatric Cns: MEGAN ? Printed Date/Time: 11/26/2018 (2731) ? PAGE 1 ? Signed Report ? Procedure Note Moises Burrell MD - 04/12/2019 EXAM: ULTRASOUND/TRANSVAGINAL - OB (LEVEL EX. D/ (2337) CLINICAL INFORMATION: Z33.1 STATE INCIDENTAL DATING See attached report. Report also available in PACS. [email or web address] Reported By: Moises Burrell MD CC: Transcribed Date/Time: 08/11/2018 (1600) Pediatric Cns: MEGAN Printed Date/Time: 11/26/2018 (0439) PAGE 1 Signed Report Olga Guevara TRANSPORTATION OFFICER IMG US OB ORDERABLES * PAP TEST (08/10/2018) 08/10/2018 08/10/2018 17: 56 EST Narrative [facility] - 08/15/2018 11:21 EDT ----- ------- Name: DHARADEMETRIUSANA Naveed ?: [birth year] ?Age/Sex: 23/F ?Unit#: [id number] ? Loc: AGO ? Status: REG POV ?? Reg Date: 08/10/18 ? Pt.Phone Number: ? ----- ------- Specimen: [id number] ? STATUS: SOUT ?Spec Date:08/10/18 ? Physician Copies: ?Olga Guevara ? Tissues: ? Cervical/Endo Pap ?Alondra Herrera ? CPT: 29120 ?? Units: ??1 ----- ------- ? CYTOLOGY DIAGNOSIS SPECIMEN ADEQUACY: ?Satisfactory for evaluation. Transformation zone component ABSENT. GENERAL CATEGORIZATION: ?Negative for Intraepithelial Lesion or Malignancy DESCRIPTIVE DIAGNOSIS: ?Fungal organisms present morphologically consistent with Rhiannon species. ----- ------- ORDER QUERIES: LMP: 05/30/18- ? Y Post ? N ??PREVIOUS ATYPICAL: N BCP/HRT? N Rad Rx? N IUD? N ??PAP PLUS HPV? N ??REFLEX TO HR-HPV IF ASCUS Y REFLEX TO HPV 16/18 IF HPV POS/PAP NEG Y HPV REGARDLESS? N ??RFLX HPV IF LSIL ?? Signed Todd Chery CT(ASCP) 08/15/18 By the signature above, the attending physician certifies that he/she has personally conducted a gross and/or microscopic examination of the described specimens and rendered or confirmed the above diagnosis. Test Performed by [facility], [address] [address] [employer] Supervisor: Kim Joaquin MD PHD ----- ------- Olga Guevara TRANSPORTATION OFFICER PATHOLOGY ORDERABLES [facility] documented in this encounter Visit Diagnoses Not on filedocumented in this encounter Care Teams Sailor Relationship Specialty Start Date End Date Piotr Ward MD [address] [place] [address] PCP - General 12/15/15 03/31/19 documented as of this encounter
--- OUTSIDE RECORDS SUMMARY | 2024-01-27 18:11 | XMS_ITS | Encounter Summary ---
Author Organization [facility] Address [address] [place] [address] Care Team Providers Care Psychiatric Nursing Aide Name Role Phone Piotr Ward MD Primary Care Provider Unknown, Provider Primary Care Provider [phone] Encounter Details Date Type Department Care Team (Late st Contact Info) Description 09/08/2018 Historical Results Only [facility] - Main [place] [address] [place] [address] [phone] Olga Guevara, JERRY [address] [facility], [address] [place] [address] Social History Tobacco Use [...] Priority Date/Time Associated Diagnosis Comments HIV 1/2 AB, P24 AG - [facility] Routine 09/08/2018 11:32 EDT COMPLETE BLOOD COUNT WITH DIFFERENTIAL (AUTO) Routine 09/08/2018 11:32 EDT RAPID PLASMA REAGIN (RPR) WITH REFLEX, S Routine 09/08/2018 11:32 EDT RUBELLA IGG ANTIBODY Routine 09/08/2018 11:32 EDT HEPATITIS B SURFACE ANTIGEN Routine 09/08/2018 11:32 EDT TYPE AND SCREEN Routine 09/08/2018 11:32 EDT VARICELLA IGG ANTIBODY Routine 09/08/2018 11:32 EDT documented in this encounter Results * RUBELLA IGG ANTIBODY (09/08/2018 11:32 EDT) RUBELLA IGG ANTIBODY - [facility] Positive 09/08/2018 13:43 EDT [facility] Comment: Expected value: Positive The presence of Rubella IgG suggest immunity against rubella 09/08/2018 11:3 2 EDT 09/08/2018 11:32 EDT [facility] - 09/08/2018 13:43 EDT Does PT Have a Latex Allergy? UNKNOWN Olga Guevara NP CHEMISTRY & BLOOD GA S ORDERABLES Performing Organization Address [facility]/ZIP Co de Phone Number [facility] * HEPATITIS B SURFACE ANTIGEN (09/08/2018 11:32 EDT) Hep B Surface Ag Negative 09/08/2018 13:44 EDT [facility] Comment: Expected Values: ??Negative. The results of this assay can be falsely lowered due to the consumption of Biotin. 09/08/2018 11:3 2 EDT 09/08/2018 11:32 EDT [facility] - 09/08/2018 13:44 EDT Does PT Have a Latex Allergy? UNKNOWN Enter/Edit CPT and ICD codes? N Olga Guevara NP CHEMISTRY & BLOOD GA S ORDERABLES [facility] * HIV 1/2 AB, P24 AG - [facility] (09/08/2018 11:32 EDT) HIV 1/2 AB, P24 AG - [facility] Negative Negative 09/08/2018 13:42 EDT [facility] 09/08/2018 11:3 2 EDT 09/08/2018 11:32 EDT Narrative [facility] - 09/08/2018 13:42 EDT Does PT Have a Latex Allergy? UNKNOWN Olga Guevara NP CHEMISTRY & BLOOD GA S ORDERABLES [facility] * VARICELLA IGG ANTIBODY (09/08/2018 11:32 EDT) Pathologist [facility] [place] Varicella IgG Ab Positive Negative 09/14/2018 23:44 EDT [facility] Comment:Presumed immune to V aricella infection. 09/08/2018 11:3 2 EDT 09/08/2018 11:32 EDT [facility] - 09/14/2018 23:44 EDT Does PT Have a Latex Allergy? UNKNOWN Olga Guevara NP IMMUNOLOGY AND SEROL OGY ORDERABLES [facility] * (ABNORMAL) COMPLETE BLOOD COUNT WITH DIFFERENTIAL (AUTO) (09/08/2018 11:32 EDT) Pathologist [facility] [place] ABSOLUTE NEUTROPHIL COUN - [facility] 6.7 2.2 - 8.85 10e3/uL 09/08/2018 12:38 [facility] BASO # - [facility] 0.02 0.01 - 0.11 10e/uL 09/08/2018 12:38 EDT [facility] BASO % - [facility] 0 0 - 2 % 09/08/2018 12:38 [facility] EOS # - [facility] 0.06 0.03 - 0.61 10e3/ul 09/08/2018 12:38 [facility] EOS % - [facility] 1 0 - 5 % 09/08/2018 12:38 [facility] GRAN % - [facility] 70.9 40 - 80 % 09/08/2018 12:38 EDT [facility] HEMATOCRIT - [facility] 34.1(L) 34.9 - 44.4 % 09/08/2018 12:38 [facility] HEMOGLOBIN - [facility] 11.3(L) 11.6 - 15.2 g/dl 09/08/2018 12:38 [facility] IG# - [facility] 0.04 0 - 0.7 10e3/uL 09/08/2018 12:38 [facility] IG% - [facility] 0.4 0 - 0.9 % 09/08/2018 12:38 [facility] LYMPH # - [facility] 2.1 1.09 - 3.3 10e3/ul 09/08/2018 12:38 [facility] LYMPH% - [facility] 21.9 20 - 40 % 09/08/2018 12:38 [facility] MEAN CORPUSCULAR HGB - [facility] 28.2 26.7 - 33.3 pg 09/08/2018 12:38 [facility] MEAN CORPUSCULAR HGB CONC - [facility] 33.1 32.1 - 35.9 g/dL 09/08/2018 12:38 [facility] MEAN CELL VOLUME - [facility] 85.0 81 - 98 fl 09/08/2018 12:38 [facility] MONO # - [facility] 0.6 0.1 - 0.8 10e3/uL 09/08/2018 12:38 [facility] MONO% - [facility] 6.0 0 - 12 % 09/08/2018 12:38 [facility] PLATELET COUNT 183 141 - 377 10e3/ul 09/08/2018 12:38 [facility] RED BLOOD COUNT - [facility] 4.01 3.86 - 5.04 10e3/ul 09/08/2018 12:38 [facility] RED CELL DISTRI WIDTH - [facility] 12.3 <14.7 % 09/08/2018 12:38 [facility] WHITE BLOOD COUNT - [facility] 9.4 4.0 - 12.4 10e3/ul 09/08/2018 12:38 [facility] 09/08/2018 11:3 2 EDT 09/08/2018 11:32 EDT Narrative [facility] - 09/08/2018 12:38 EDT Does PT Have a Latex Allergy? UNKNOWN Olga Guevara NP HEMATOLOGY & PF4 ORD ERABLES [facility] * RAPID PLASMA REAGIN (RPR) WITH REFLEX, S (09/08/2018 11:32 EDT) [facility] APID PLASMA REAGIN [facility] Nonreactive NEG 09/14/2018 9:09 EDT [facility] 09/08/2018 11:3 2 EDT 09/08/2018 11:32 EDT Narrative [facility] - 09/14/2018 9:09 EDT Does PT Have a Latex Allergy? UNKNOWN Olga Guevara NP IMMUNOLOGY AND SEROL OGY ORDERABLES [facility] * TYPE AND SCREEN (09/08/2018 11:32 EDT) [facility] BLOOD TYPE - [facility] A Positive [facility] Antibody Screen NEGATIVE [facility] Specimen Expires: 09/11/18 AT 2359 [facility] Comment: PATIENT'S RESPONSES INDICATE A HISTORY OF SURGERY, TRANSFUSION OR WITHIN THE LAST 3 MONTHS. FOR BLOOD PRODUCTS, THIS SPECIMEN WILL OUTDATE 72 HOURS FROM THE TIME IT WAS COLLECTED. ??ANY BLOOD PRODUCTS ORDERED AFTER 72 HOURS MUST BE WORKED UP ON A NEW SPECIMEN. 09/08/2018 11:3 2 EDT 09/08/2018 11:32 EDT Narrative [facility] - 09/08/2018 11:24 EDT Does PT Have a Latex Allergy? UNKNOWN IS THIS A PREOPERATIVE PATIENT? N Olga Guevara [facility] BLOOD [facility] TESTS [facility] documented in this encounter Visit Diagnoses Not on filedocumented in this encounter Care Teams Psychiatric Nursing Aide Relationship Specialty Start Date End Date Piotr Ward MD [address] [place] [address] PCP - General 12/15/15 03/31/19 Unknown, Provider, [address] [place] [address] PCP - General 04/01/19 08/12/19 documented as of this encounter
--- OUTSIDE RECORDS SUMMARY | 2024-01-27 18:11 | XMS_ITS | Encounter Summary ---
Author Organization [facility] Address [address] [place] [address] Care Team Providers Care Group President Name Role Phone Amado Gonsalez MD Primary Care Provider Unavailable Encounter Details Date Type Department Care Team (Latest Contact Info) Description 12/10/2015 9:02 EDT - 12/10/2015 23:59 EDT Hospital Encounter [address] [address] Unknown, Provider, Discharge Disposition: Home or Self Care Social History Tobacco Use Types Packs/Day Years Used Date Smoking Tobacco: Never Assessed Sex and Gender Information Value Date Recorded Sex Assigned at Not on file Gender Identity Female 04/01/2019 9:34 EDT Sexual Orientation Not on file documented as of this encounter Discharge Disposition Disposition Code Departure Means Destination Home or Self Snf documented in this encounter Plan of Treatment Not on file documented as of this encounter Visit Diagnoses Not on filedocumented in this encounter Care Teams Group President Relationship Specialty Start Date End Date Amado Gonsalez MD PCP - General 04/13/15 12/14/15 documented as of this encounter
--- OUTSIDE RECORDS SUMMARY | 2024-01-27 18:11 | XMS_ITS | Encounter Summary ---
Author Organization [facility] Address [address] [place] [address] Care Team Providers Care Carbon Coating Machine Operator Name Role Phone Piotr Ward MD Primary Care Provider Unknown, Provider Primary Care Provider [phone] Encounter Details Date Type Department Care Team (Late st Contact Info) Description 08/07/2018 Historical Results Only [facility] - [address] [phone] Justino Ragland MD [address] [place] [phone] Social History Tobacco Use Types Packs/Day [...] Associated Diagnosis Comments BACTERIAL CULTURE, URINE Routine 08/07/2018 19:56 EST BETA-HCG QUANT(WITH DILUT) - [facility] Routine 08/07/2018 19:15 EST COMPLETE BLOOD COUNT WITH DIFFERENTIAL (AUTO) Routine 08/07/2018 19:15 EST LIPASE Routine 08/07/2018 19:15 EST COMPREHENSIVE METABOLIC PANEL (CMP) Routine 08/07/2018 19:15 EST documented in this encounter Results * BACTERIAL CULTURE, URINE (08/07/2018 19:56 EST) ESCHERIACHIA COLI - [facility] ESCHERICHIA COLI 08/09/2018 7:18 EST [facility] CitrateConcentration >100,000 CFU/ML 11/2018 7:18 EST [facility] 08/07/2018 19:5 6 EST 08/07/2018 19:56 EST Comment:VOID Narrative Organism Antibiotic Method Susceptibility Escherichia coli Ampicillin Sulbactam GRAM NEGAT MANJU SUSCEPTIBILITY - [facility] >=32: Resistant Escherichia coli Ampicillin GRAM NEGATIVE SUSCEPTIBILITY - [facility] >=32: Resistant Escherichia coli Amoxicillin Clavulan ic acid GRAM NEGATIVE SUSCEPTIBILITY - [facility] 16: Intermediate Escherichia coli Ceftriaxone GRAM NEGATIVE SUSCEPTIBILITY - [facility] <=1: Susceptible Escherichia coli Cefazolin GRAM NEGATIVE SUSCEPTIBILITY - [facility] <=4: Susceptible Escherichia coli Ciprofloxacin GRAM NEGATIVE SUSCEPTIBILITY - [facility] <=0.25: Susceptible Escherichia coli Cefepime GRAM NEGATIVE SUSCEPTIBILITY - [facility] <=1: Susceptible Escherichia coli Ertapenem GRAM NEGATIVE SUSCEPTIBILITY - [facility] <=0.5: Susceptible Escherichia coli Nitrofurantoin GRAM NEGATIVE SUSCEPTIBILITY - [facility] <=16: Susceptible Escherichia coli Gentamicin GRAM NEGATIVE SUSCEPTIBILITY - [facility] <=1: Susceptible Escherichia coli Levofloxacin GRAM NEGATIVE SUSCEPTIBILITY - [facility] <=0.12: Susceptible Escherichia coli Trimethoprim-Sulfame th oxazole GRAM NEGATIVE SUSCEPTIBILITY - [facility] <=20: Susceptible Escherichia coli Tobramycin GRAM NEGATIVE SUSCEPTIBILITY - [facility] <=1: Susceptible Comment:See Reason(s) for St [facility] Donnie Kelly MD MICROBIOLOGY - GENER AL ORDERABLES [facility] * LIPASE (08/07/2018 19:15 EST) Lipase 87 <251 U/L 08/07/2018 19:45 EST [facility] 08/07/2018 19:1 5 EST 08/07/2018 19:20 EST Justino Ragland MD CHEMISTRY & BLOO D GAS ORDERABLES [facility] * (ABNORMAL) COMPREHENSIVE METABOLIC PANEL (CMP) (08/07/2018 19:15 EST) Albumin % 4.4 3.4 - 4.9 g/dL 08/07/2018 19:45 [facility] ALKALINE PHOSPHATASE - [facility] 41 38 - 126 U/L 08/07/2018 19:45 [facility] BILIRUBIN TOTAL 0.3 0.2 - 1.3 mg/dL 08/07/2018 19:45 [facility] BUN - [facility] 4(L) 10 - 26 mg/dL 08/07/2018 19:45 [facility] CALCIUM - [facility] 9.4 8.5 - 10.5 mg/dL 08/07/2018 19:45 [facility] Chloride 102 96 - 110 mmol/L 08/07/2018 19:45 [facility] CO2 Total 23 22 - 32 mEq/L 08/07/2018 19:45 [facility] CREATININE 0.38(L) 0.52 - 1.04 mg/dL 08/07/2018 19:45 [facility] eGFR >60 08/07/2018 19:45 [facility] Comment: Chronic renal impairment is defined as GFR <60 Multiply result by 1.210 for patients. eGFR calculated using the IDMS-traceable MDRD Study Equation. ??(effective 04/08/2014) Anion Gap 11 0 - 18 08/07/2018 19:45 [facility] GLUCOSE - [facility] 96 70 - 100 mg/dL 08/07/2018 19:45 [facility] Potassium 4.0 3.5 - 5.0 mEq/L 08/07/2018 19:45 [facility] Sodium 136 136 - 145 mEq/L 08/07/2018 19:45 [facility] TOTAL PROTEIN - [facility] 7.3 6.2 - 8.2 gm/dL 08/07/2018 19:45 [facility] SGOT/AST - [facility] 18 14 - 36 U/L 08/07/2018 19:45 [facility] SGPT/ALT - [facility] 29 9 - 52 U/L 9 19:45 [facility] 08/07/2018 19:1 5 EST 08/07/2018 19:20 EST Justino Ragland MD CHEMISTRY & BLOO D GAS ORDERABLES Performing Organization Address [facility]/ZIP Co de Phone Number [facility] * (ABNORMAL) BETA-HCG QUANT(WITH DILUT) - [facility] (08/07/2018 19:15 EST) Pathologist [facility] BETA-HCG QUANTITATIVE 94,889(H) <5 mIU/mL 08/07/2018 20:29 [facility] Comment: Negative: ?< 5 Indeterminate: 5-25 (repeated in 48 hrs) Positive: ?> 25 The results of this assay can be falsely lowered due to the consumption of Biotin. 08/07/2018 19:1 5 EST 08/07/2018 19:20 EST Justino Ragland MD CHEMISTRY & BLOO D GAS ORDERABLES Performing Organization Address [facility] Co de Phone Number [facility] * COMPLETE BLOOD COUNT WITH DIFFERENTIAL (AUTO) (08/07/2018 19:15 EST) ABSOLUTE NEUTROPHIL COUN - [facility] 5.5 2.2 - 8.85 10e3/uL 08/07/2018 19:34 [facility] BASO # - [facility] 0.01 0.01 - 0.11 10e/uL 08/07/2018 19:34 [facility] BASO % - [facility] 0 0 - 2 % 08/07/2018 19:34 [facility] EOS # - [facility] 0.07 0.03 - 0.61 10e3/ul 08/07/2018 19:34 [facility] EOS % - [facility] 1 0 - 5 % 08/07/2018 19:34 [facility] GRAN % - [facility] 68.0 40 - 80 % 08/07/2018 19:34 [facility] HEMATOCRIT - [facility] 36.5 34.9 - 44.4 % 08/07/2018 19:34 [facility] HEMOGLOBIN - [facility] 12.2 11.6 - 15.2 g/dl 08/07/2018 19:34 [facility] IG# - [facility] 0.02 0 - 0.7 10e3/uL 08/07/2018 19:34 [facility] IG% - [facility] 0.2 0 - 0.9 % 08/07/2018 19:34 [facility] LYMPH # - [facility] 2.0 1.09 - 3.3 10e3/ul 08/07/2018 19:34 [facility] LYMPH% - [facility] 24.8 20 - 40 % 08/07/2018 19:34 [facility] MEAN CORPUSCULAR HGB - [facility] 28.4 26.7 - 33.3 pg 08/07/2018 19:34 [facility] MEAN CORPUSCULAR HGB CONC - [facility] 33.4 32.1 - 35.9 g/dL 08/07/2018 19:34 [facility] MEAN CELL VOLUME - [facility] 84.9 81 - 98 fl 08/07/2018 19:34 [facility] MONO # - [facility] 0.5 0.1 - 0.8 10e3/uL 08/07/2018 19:34 [facility] MONO% - [facility] 6.0 0 - 12 % 08/07/2018 19:34 [facility] PLATELET COUNT 184 141 - 377 10e3/ul 08/07/2018 19:34 [facility] RED BLOOD COUNT - [facility] 4.30 3.86 - 5.04 10e3/ul 08/07/2018 19:34 [facility] RED CELL DISTRI WIDTH - [facility] 12.0 <14.7 % 08/07/2018 19:34 [facility] WHITE BLOOD COUNT - [facility] 8.1 4.0 - 12.4 10e3/ul 08/07/2018 19:34 [facility] 08/07/2018 19:1 5 EST 08/07/2018 19:20 EST Justino Ragland MD HEMATOLOGY & PF4 ORDERABLES [facility] documented in this encounter Visit Diagnoses Not on filedocumented in this encounter Care Teams Carbon Coating Machine Operator Relationship Specialty Start Date End Date Piotr Ward MD [address] [place] [address] PCP - General 12/15/15 03/31/19 Unknown, Provider, [address] [place] [address] PCP - General 04/01/19 08/12/19 documented as of this encounter
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
--- OUTSIDE RECORDS SUMMARY | 2024-01-27 18:11 | XMS_ITS ---
Author Organization Unknown Address [address] [place] [address] [phone] Phone Care Team Providers Care Slate Handler Name Role Phone YAHIR Barth Attending Unavailable JAJA Clarke Primary Unavailable Immunization Immunization Date Status Additional Notes Code Code System MMR 04/05/2022 Completed 03 CVX Results VARICELLA IGG ANTIBODY* - Co llect Date/Time: 09/28/2021 08:30 [facility] ID: [id number] [address] [place] [address], [phone] LOINC: 03454-0 Test Value Unit Reference Range Code Code System Flag Varicella IgG Antibody Equivocal See Note HEP B SURF ANTIGEN* - Collec t Date/Time: 09/28/2021 08:30 [facility] ID: [id number] [address] [place] [address], [id number] LOINC: 5196-1 Test Value Unit Reference Range Code Code System Flag Hep B Surface Ag Negative Negative HEP C ANTIBODY WITH REFLEX P CR - Collect Date/Time: 09/28/2021 08:30 [facility] ID: [id number] [address] [place] [address], [id number] LOINC: 17689-3 Test Value Unit Reference Range Code Code System Flag Hep C Ab w Rfx PCR Negative Negative ECW URINE CULTURE* - Collect Date/Time: 09/28/2021 08:30 [facility] ID: [id number] [address] [place] [address], [id number] LOINC: 630-4 Test Value Unit Reference Range Code Code System Flag COLLECTION MODE: NOT STATED 66364-6 LOINC SYPHILIS SEROLOGY* - Collect Date/Time: 09/28/2021 08:30 [facility] ID: [id number] [address] [place] [address], [phone] LOINC: 79506-1 Test Value Unit Reference Range Code Code System Flag Syphilis Serology Negative Negative RUBELLA IGG ANTIBODY - Colle ct Date/Time: 09/28/2021 08:30 [facility] ID: [id number] [address] [place] [address], [phone] LOINC: 86026-5 Test Value Unit Reference Range Code Code System Flag Rubella IgG Ab Negative See Note TYPE AND ANTIBODY S CREEN* - Collect Date/Time: 09/28/2021 08:30 [facility] ID: [id number] [address] [place] [address], [id number] LOINC: 882-1 Test Value Unit Reference Range Code Code System Flag Blood Group A 883-9 LOINC Rh (D) POSITIVE 09790-7 LOINC Antibody Screen NEGATIVE 1005-8 LOINC HEMATOLOGY* - Colle ct Date/Time: 09/28/2021 08:30 [facility] ID: [id number] [address] [place] [address], [id number] LOINC: 44686-4 Test Value Unit Reference Range Code Code System Flag WBC 7.53 th/cmm L=5.00 H=10.00 6690-2 LOINC NEUT % 73.6 % L=40.0 H=80.0 LYMPH % 21.5 % L=10.0 H=50.0 MONO % 4.1 % L=2.0 H=12.0 27786-7 LOINC EOS % 0.4 % L=0.0 H=8.0 BASO % 0.1 % L=0.0 H=3.0 IG % 0.3 % L=0.0 H=1.1 2514-8 LOINC NRBC % 0.0 % L=0.0 H=0.0 81991-6 LOINC NEUT abs count 5.5 th/cmm L=1.6 H=8.4 751-8 LOINC LYMPH abs count 1.6 th/cmm L=1.5 H=4.0 731-0 LOINC MONO abs count 0.3 th/cmm L=0.2 H=1.0 742-7 LOINC EOS abs count 0.0 th/cmm L=0.0 H=0.5 711-2 LOINC BASO abs count 0.0 th/cmm L=0.0 H=0.2 704-7 LOINC IG abs count 0.0 th/cmm L=0.0 H=0.1 66250-8 LOINC NRBC abs count 0.0 mil/cmm L=0.0 H=0.0 22824-9 LOINC RBC 4.10 mil/cmm L=3.90 H=5.40 789-8 LOINC HEMOGLOBIN 12.0 gm/dL L=12.0 H=16.0 718-7 LOINC HEMATOCRIT 35 % L=37 H=47 4544-3 LOINC L MCV 86 fL L=82 H=92 787-2 LOINC MCH 29.3 pg L=27.0 H=31.0 785-6 LOINC MCHC 34.0 % L=32.0 H=36.0 786-4 LOINC RDW-SD 40.8 fL L=39.0 H=49.0 788-0 LOINC PLATELET COUNT 188 th/cmm L=150 H=450 777-3 LOINC HIV 1/2 ANTIGEN AND ANTIBODY SCREEN - Collect Date/Time: 09/28/2021 08:30 [facility] ID: [id number] [address] [place], [place], [phone] LOINC: 45812-7 Test Value Unit Reference Range Code Code System Flag HIV 1/2 Antigen andAntibody Negative Negative Social History Type Status Start Date End Date Code Code Syst em Smoking History Former smoker 5622337 SNOMED CT Smoking History Current every day smoker 957168026 SNOMED CT Sex Female Medications Medication Start Date End Date Route Frequency Dose Code Code System Medication Instructions Home Meds Ondansetron 4MG Oral Tablet, Disintegrating 12/11/2021 03/22/2023 ORAL NEEDED EVERY 6 HOURS 1 TABLET 031176 RxNorm TAKE 1 TABLET ORAL NEEDED EVERY [...] Date Status Code Code System 08/05/2021 resolved [id number] SNOMED-CT Allergies and Adverse Reactions Allergy Substance Reaction Severity Start Date Concern Status Co de Code System No Known Drug Allergies Moderate Active 640692037 SNOMED-CT Plan of Treatment US OB COMPLETE 03/09/2022 US OB COMPLETE 02/12/2022 US BREAST UNI RT 01/26/2022 US OB COMPLETE 11/10/2021 Encounters Encounter Diagnosis Start Date Code Code Sys tem screening 09/28/2021 536822216 SNOMED-C T Personal Care Team Section Performer Name Performer Role Active Date Inactive Da louisa
--- OUTSIDE RECORDS SUMMARY | 2024-01-27 18:11 | XMS_ITS | Encounter Summary ---
Author Organization [facility] Address [address] [place] [address] Care Team Providers Care Material Inspector Name Role Phone Piotr Ward MD Primary Care Provider Unknown, Provider Primary Care Provider [phone] Encounter Details Date Type Department Care Team (Late st Contact Info) Description 12/19/2017 Historical Results Only [facility] - [address] [id number] Noam Horton, LORE [address] [place] [phone] Social History Tobacco Use Types Packs/Day [...] Date/Time Associated Diagnosis Comments ETHYL ALCOHOL - [facility] Routine 12/19/2017 15:52 EDT COMPLETE BLOOD COUNT WITH DIFFERENTIAL (AUTO) Routine 12/19/2017 15:52 EDT THYROID CASCADE Routine 12/19/2017 15:52 EDT COMPREHENSIVE METABOLIC PANEL (CMP) Routine 12/19/2017 15:52 EDT SPEC W/O ORDERS - [facility] Routine 8 15:27 EDT DRUG SCREEN, PRESCRIPTION/OTC, URINE Routine 12/19/2017 15:12 EDT documented in this encounter Results * ETHYL ALCOHOL - [facility] (12/19/2017 15:52 EDT) Pathologist [facility] ETHYL ALCOHOL - [facility] <10.0 <10 mg/dL 12/19/2017 16:13 EDT [facility] 12/19/2017 15:5 2 EDT 12/19/2017 15:56 EDT Noam Horton PA-C CHEMISTRY & BLOOD G ORDERABLES [facility] * (ABNORMAL) COMPREHENSIVE METABOLIC PANEL (CMP) (12/19/2017 15:52 EDT) Pathologist [facility] Albumin % 4.3 3.4 - 4.9 g/dL 12/19[facility]2017 [facility] ALKALINE PHOSPHATASE - [facility] 56 38 - 126 U/L 12/19/2017 16:13 [facility] BILIRUBIN TOTAL 0.4 0.2 - 1.3 mg/dL 12/19/2017 16:13 [facility] BUN - [facility] 6(L) 10 - 26 mg/dL 12/19/2017 16:13 [facility] CALCIUM - [facility] 9.4 8.5 - 10.5 mg/dL 12/19/2017 16:13 [facility] Chloride 107 96 - 110 mmol/L 12/19/2017 16:13 [facility] CO2 Total 20(L) 22 - 32 mEq/L 12/19/2017 16:13 [facility] CREATININE 0.54 0.52 - 1.04 mg/dL 12/19/2017 16:13 [facility] eGFR >60 12/19/2017 16:13 [facility] Comment: Chronic renal impairment is defined as GFR <60 Multiply result by 1.210 for patients. eGFR calculated using the IDMS-traceable MDRD Study Equation. ??(effective 04/08/2014) Anion Gap 13 0 - 18 12/19/2017 16:13 EDT [facility] GLUCOSE - [facility] 88 70 - 100 mg/dL 12/19/2017 16:13 [facility] Potassium 3.9 3.5 - 5.0 mEq/L 12/19/2017 16:13 [facility] Sodium 140 136 - 145 mEq/L 12/19/2017 16:13 [facility] TOTAL PROTEIN - [facility] 7.1 6.2 - 8.2 gm/dL 12/19/2017 16:13 [facility] SGOT/AST - [facility] 13(L) 14 - 36 U/L 12/19/2017 16:13 [facility] SGPT/ALT - [facility] 27 9 - 52 U/L 8 16:13 EDT [facility] 12/19/2017 15:5 2 EDT 12/19/2017 15:56 EDT Noam Horton PA-C CHEMISTRY & BLOOD G ORDERABLES [facility] * THYROID CASCADE (12/19/2017 15:52 EDT) TSH 1.37 0.46 - 4.68 uIU/mL 12/19/2017 16:42 EDT [facility] 12/19/2017 15:5 2 EDT 12/19/2017 15:56 EDT Noam Horton PA-C CHEMISTRY & BLOOD G ORDERABLES [facility] * (ABNORMAL) COMPLETE BLOOD COUNT WITH DIFFERENTIAL (AUTO) (12/19/2017 15:52 EDT) ABSOLUTE NEUTROPHIL COUN - [facility] 5.19 1.7 - 7.0 10e3/ul 12/19/2017 16:04 [facility] BASO # - [facility] 0.04 0.0 - 0.3 10e3/uL 12/19/2017 16:04 [facility] BASO % - [facility] 0 0 - 2 % 12/19/2017 16:04 [facility] EOS # - [facility] 0.84(H) 0.05 - 0.5 10e3/uL 12/19/2017 16:04 [facility] EOS % - [facility] 9(H) 0 - 5 % 12/19/2017 16:04 [facility] GRAN % - [facility] 55 40 - 80 % 12/19/2017 16:04 [facility] HEMATOCRIT - [facility] 35.8 34.0 - 47.0 % 12/19/2017 16:04 [facility] HEMOGLOBIN - [facility] 12.1 11.2 - 15.7 g/dl 12/19/2017 16:04 [facility] IG# - [facility] 0.02 0 - 0.07 10e3/uL 12/19/2017 16:04 [facility] IG% - [facility] 0.2 0 - 0.9 % 12/19/2017 16:04 [facility] LYMPH # - [facility] 2.79 0.9 - 2.9 10e3/uL 12/19/2017 16:04 [facility] LYMPH% - [facility] 29 20 - 40 % 12/19/2017 16:04 [facility] MEAN CORPUSCULAR HGB - [facility] 28.3 26 - 34 pg 12/19/2017 16:04 [facility] MEAN CORPUSCULAR HGB CONC - [facility] 33.8 31 - 36 g/dL 12/19/2017 16:04 [facility] MEAN CELL VOLUME - [facility] 83.8 77 - 100 fl 12/19/2017 16:04 [facility] MONO # - [facility] 0.65 0.3 - 0.9 10e3/uL 12/19/2017 16:04 [facility] MONO% - [facility] 7 0 - 12 % 12/19/2017 16:04 EDT [facility] PLATELET COUNT 208 150 - 400 10e3/ul 12/19/2017 16:04 EDT [facility] RED BLOOD COUNT - [facility] 4.27 3.8 - 5.2 10e6/ul 12/19/2017 16:04 EDT [facility] RED CELL DISTRI WIDTH - [facility] 13.3 11.8 - 15.6 % 12/19/2017 16:04 EDT [facility] WHITE BLOOD COUNT - [facility] 9.5 3.5 - 10.5 10e3/ul 12/19/2017 16:04 EDT [facility] 12/19/2017 15:5 2 EDT 12/19/2017 15:56 EDT Noam Horton PA-C HEMATOLOGY & PF4 OR DERABLES [facility] * SPEC W/O ORDERS - [facility] (12/19/2017 15:27 EDT) SPEC W/O ORDERS - [facility] SEE NOTE 12/19/2017 15:27 EDT [facility] Comment: ?Emergency Room Specimen(s) without Orders These specimens will be discarded in 8 hours: URINE 12/19/2017 15:2 7 EDT 12/19/2017 15:27 EDT Jad Sutton MD CHEMISTRY & BLOOD GA S ORDERABLES [facility] * (ABNORMAL) DRUG SCREEN, PRESCRIPTION/OTC, URINE (12/19/2017 15:12 EDT) AMPHETAMINES NEG NEG 12/19/2017 15:56 EDT [facility] BARBITURATES,UR - [facility] NEG NEG 12/19/2017 15:56 EDT [facility] BENZODIAZEPINES NEG NEG 8 15:56 EDT [facility] COCAINE,URINE - [facility] NEG NEG 12/19/2017 15:56 EDT [facility] MAMP (METHAMPHETAMINES - [facility] NEG NEG 12/19/2017 15:56 EDT [facility] MARIJUANA,URINE - [facility] POS(A) NEG 12/19/2017 15:56 EDT [facility] MTD (METHADONE) - [facility] NEG NEG 12/19/2017 15:56 EDT [facility] OPIATES,URINE - [facility] NEG NEG 12/19/2017 15:56 EDT [facility] OXY (OXYCODONE) - [facility] NEG NEG [facility]2017 [facility]ENC[facility] - [facility] NEG NEG 12/19/2017 [facility] PROPOXYPHENE (PPX) - [facility] NEG NEG 12/19/2017 [facility] TRICYCLIC ANTIDEPRESSANTS - [facility] NEG NEG 12/19/2017 15:56 EDT [facility] Comment: Drug Class [...] retained in the laboratory for 7 days. 12/19/2017 15:1 2 EDT 12/19/2017 15:38 EDT Noam Horton PA-C URINALYSIS ORDERABL ES [facility] documented in this encounter Visit Diagnoses Not on filedocumented in this encounter Care Teams Material Inspector Relationship Specialty Start Date End Date Piotr Ward MD [address] [place] [address] PCP - General 12/15/15 03/31/19 Unknown, ProviderMD [address] [place] [address] PCP - General 04/01/19 08/12/19 documented as of this encounter
--- OUTSIDE RECORDS SUMMARY | 2024-01-27 18:11 | XMS_ITS ---
Author Organization Unknown Address [address] [place] [phone] Phone Care Team Providers Care Computing Tutor Name Role Phone BECKIE LAND Registered Nurse Unavailable LEORA Mcmanus Attending Unavailable JAJA Clarke Primary Unavailable Immunization Immunization Date Status Additional Notes Code Code System MMR 04/05/2022 Completed 03 CVX Results CHLAMYDIA/GC AMPLIFIED PROBE * - Collect Date/Time: 08/05/2021 13:30 [facility] ID: [id number] [address] [place] [address], [id number] LOINC: 21574-7 Test Value Unit Reference Range Code Code System Flag Chlamydia Result Negative Negative GC Result Negative Negative HCG QUANTITATIVE WHOLE MOLEC ULE* - Collect Date/Time: 08/05/2021 13:22 [facility] ID: [id number] [address] [place] [address], [address]661 LOINC: 32857-2 Test Value Unit Reference Range Code Code System Flag HCG, total+Beta subs 03403 76032-2 LOINC URINALYSIS WITH REFLEX CULT IF POSITIVE* - Collect Date/Time: 08/05/2021 13:22 [facility] ID: [id number] [address] [place] [address], 5661 LOINC: 24731-7 Test Value Unit Reference Range Code Code System Flag COLLECTION MODE: CLEAN CATCH Color STRAW yellow 5778-6 LOINC Appearance CLEAR clear 5767-9 LOINC Glucose urine NEGATIVE negative mg/dl 36690-1 LOINC Bilirubin NEGATIVE negative 5770-3 LOINC Ketones NEGATIVE negative mg/dl 2514-8 LOINC Spec gravity <=1.005 1.003 - 1.030 5811-5 LOINC pH urine 7.0 5.0 - 7.0 2756-5 LOINC Protein NEGATIVE negative mg/dl 77643-0 LOINC Urobilinogen 0.2 <or= 1 EU/dl 76621-5 LOINC Nitrite. NEGATIVE negative 5802-4 LOINC Blood NEGATIVE negative 5794-3 LOINC Leukocytes. NEGATIVE negative MICROSCOPIC NOT INDICAT LIPASE* - Collect Date/Time: 08/05/2021 13:22 [facility] ID: [id number] [address] [place] [address], [phone] LOINC: 3040-3 Test Value Unit Reference Range Code Code System Flag LIPASE 102 U/L L=73 H=393 TEST (URINE) QUALI TATIVE - Collect Date/Time: 08/05/2021 13:22 [facility] ID: [id number] [address] [place] [address], 5661 LOINC: 2106-3 Test Value Unit Reference Range Code Code System Flag TEST POSITIVE 2106-3 LOINC COMPREHENSIVE METABOLIC PANE L (CMP) - Collect Date/Time: 08/05/2021 13:22 [facility] ID: [id number] [address] [place] [address], [address] LOINC: 51121-1 Test Value Unit Reference Range Code Code System Flag GLUCOSE 103 mg/dL L=70 H=116 2345-7 LOINC BUN 7 mg/dL L=6 H=25 3094-0 LOINC CREATININE 0.60 mg/dL L=0.51 H=0.95 2160-0 LOINC SODIUM SERUM 137 mmol/L L=136 H=145 2951-2 LOINC POTASSIUM SERUM 3.4 mmol/L L=3.4 H=5.2 2823-3 LOINC CHLORIDE SERUM 101 mmol/L L=96 H=110 2075-0 LOINC CARBON DIOXIDE (CO2) 27 mmol/L L=22 H=34 2028-9 LOINC ANION GAP 8.7 mmol/L 51266-2 LOINC CALCIUM SERUM 9.1 mg/dL L=8.2 H=10.2 76126-0 LOINC BILIRUBIN TOTAL 0.2 mg/dL L=0.0 H=1.3 1975-2 LOINC ALK. PHOS. 66 U/L L=46 H=116 6768-6 LOINC SGOT (AST) 24 U/L L=15 H=37 1920-8 LOINC SGPT (ALT) 52 U/L L=12 H=78 1742-6 LOINC TOTAL PROTEIN 8.1 gm/dL L=6.0 H=8.0 2885-2 LOINC H ALBUMIN 4.3 gm/dL L=3.4 H=5.0 1751-7 LOINC AGE 26 years eGFR (non-Afr.Amer.) > 120 mL/min 47739-4 LOINC eGFR (Afr-[place]er) > 120 mL/min 81639-8 LOINC CBC W/ DIFFERENTIAL* - Colle ct Date/Time: 08/05/2021 13:22 [facility] ID: [id number] [address] [place], [place], [address] LOINC: 64044-2 Test Value Unit Reference Range Code Code System Flag WBC 10.21 th/cmm L=5.00 H=10.00 6690-2 LOINC H NEUT % 70.5 % L=40.0 H=80.0 LYMPH % 22.7 % L=10.0 H=50.0 MONO % 5.3 % L=2.0 H=12.0 80034-6 LOINC EOS % 0.7 % L=0.0 H=8.0 BASO % 0.3 % L=0.0 H=3.0 IG % 0.5 % L=0.0 H=1.1 2514-8 LOINC NRBC % 0.0 % L=0.0 H=0.0 17819-6 LOINC NEUT abs count 7.2 th/cmm L=1.6 H=8.4 751-8 LOINC LYMPH abs count 2.3 th/cmm L=1.5 H=4.0 731-0 LOINC MONO abs count 0.5 th/cmm L=0.2 H=1.0 742-7 LOINC EOS abs count 0.1 th/cmm L=0.0 H=0.5 711-2 LOINC BASO abs count 0.0 th/cmm L=0.0 H=0.2 704-7 LOINC IG abs count 0.1 th/cmm L=0.0 H=0.1 53000-4 LOINC NRBC abs count 0.0 mil/cmm L=0.0 H=0.0 47662-1 LOINC RBC 4.44 mil/cmm L=3.90 H=5.40 789-8 LOINC HEMOGLOBIN 13.0 gm/dL L=12.0 H=16.0 718-7 LOINC HEMATOCRIT 38 % L=37 H=47 4544-3 LOINC MCV 86 fL L=82 H=92 787-2 LOINC MCH 29.3 pg L=27.0 H=31.0 785-6 LOINC MCHC 34.2 % L=32.0 H=36.0 786-4 LOINC RDW-SD 39.0 fL L=39.0 H=49.0 788-0 LOINC PLATELET COUNT 224 th/cmm L=150 H=450 777-3 LOINC US OB LESS THAN 14 WKS TRANS VAGINAL* - Completed: 08/05/2021 15:07 LOINC: OBSTETRICAL ULTRASOUND:There is a single living intrauterine gestation. Estimated sonographic age is 6 weeks 2 days based on crown rump length. The yolk sac was visualized. heart rate is 122 bpm. Right ovarian volume is 10.8 cc. A corpus luteal cyst is seen on the right ovary measuring 2 by 1.7 by 2.1 cm. There is normal blood flow to the right ovary. The left ovarian volume is 4.5 cc. There is normal blood flow and the left ovary is unremarkable. No cervical nabothian cysts are seen. No free pelvic fluid is identified. IMPRESSION: 1. Single living intrauterine gestation. Estimated sonographic age is 6 weeks 2 days. 2. Findings were discussed with the Emergency Department on the date of the examination. Dictated by: YENI BROWN MD Transcribed by: HERNANDO 08/05/2116:12 D Thursday, August 05, 2021 3:15:47 PM [id number] Electronically Reviewed and Signed By: BIN BROWN MD 08/06/21 12:02 Copy for: UNLISTED PROVIDER - REQUESTED Copy for: 185 HEALTH INFORMATION MGMT DISCHARGED Social History Type Status Start Date End Date Code Code Syst em Smoking History Former smoker 0407896 SNOMED CT Smoking History Current every day smoker 398993749 SNOMED CT Sex Female Vital Signs Vital Sign Value Unit Noble Value Noble Unit Date/Time Recent/Initial? Code Code System Body Mass Index 29.76 kg/m2 08/05/2021 13:08 Initial 86546 -5 LOINC Systolic Blood Pressure 99 mm[Hg] 08/05/2021 15:52 Most Recent 8480- 6 LOINC Diastolic Blood Pressure 66 mm[Hg] 08/05/2021 15:52 Most Recent 8462- 4 LOINC Systolic Blood Pressure 115 mm[Hg] 08/05/2021 13:08 Initial 8480- 6 LOINC Diastolic Blood Pressure 73 mm[Hg] 08/05/2021 13:08 Initial 8462- 4 LOINC Body Surface Area 2.02 m2 08/05/2021 13:08 Initial 3140- 1 LOINC Height 170.180 0 cm 67.00 in 08/05/2021 13:08 Initial 8302- 2 LOINC O2 Saturation 100 % 2021 15:52 Most Recent 67746 -5 LOINC O2 Saturation 100 % 2021 13:08 Initial 83824 -5 LOINC Pulse 82.0 /min 08/05/2021 15:52 Most Recent 8867- 4 LOINC Pulse 77.0 /min 08/05/2021 13:08 Initial 8867- 4 LOINC Respiration 18 /min 08/06/19 15:52 Most Recent 9279- 1 LOINC Respiration 17 /min 08/06/19 13:08 Initial 9279- 1 LOINC Temperature 36.8 Lin 98.2 F 08/06/19 15:52 Most Recent 8310- 5 LOINC Temperature 36.1 Lin 97.0 F 08/06/19 13:08 Initial 8310- 5 LOINC Weight 86.18 kg 190.00 lbs 08/05/2021 13:08 Initial 56292 -7 [facility] Medications Medication Start Date End Date Route Frequency Dose Code Code System Medication Instructions Home Meds Ondansetron 4MG Oral Tablet, Disintegrating 12/11/2021 03/22/2023 ORAL NEEDED EVERY 6 HOURS 1 TABLET 173812 RxNorm TAKE 1 TABLET ORAL NEEDED EVERY 6 HOURS FOR Nausea/Vomiting Hospital Discharge Instructions Should you have any questions prior to discharge, please contact a member of your healthcare team. If you have left the hospital and have any questions, please contact your primary care physician. Reason For Referral No Data Found Procedures Procedure Name Date Status Code Code Syste m Cholecystectomy completed [id number] SNOMEDCT Problems Problem Start Date Resolved Date Status Code Code System 08/05/2021 resolved 48543362 SNOMED-CT Allergies and Adverse Reactions Allergy Substance Reaction Severity Start Date Concern Status Co de Code System No Known Drug Allergies Moderate Active 529725705 SNOMED-CT Plan of Treatment US OB COMPLETE 03/09/2022 US OB COMPLETE 02/12/2022 US BREAST UNI RT 01/26/2022 US OB COMPLETE 11/10/2021 Encounters Encounter Diagnosis Start Date Code Code Sys tem Other specified re lated conditions, first trimester 08/05/2021 SNOMED-CT Personal Care Team Section Performer Name Performer Role Active Date Inactive Da louisa
--- OUTSIDE RECORDS SUMMARY | 2024-01-27 18:11 | XMS_ITS ---
Author Organization Unknown Address [address] [place] [phone] Phone Care Team Providers Care Pig Caster Name Role Phone ALEJANDRA Clarke Attending Unavailable JAJA Clarke Primary Unavailable Immunization Immunization Date Status Additional Notes Code Code System MMR 04/05/2022 Completed 03 CVX Social History Type Status Start Date End Date Code Code Syst em Smoking History Former smoker [id number] SNOMED CT Smoking History Current every day smoker [id number] SNOMED CT Sex Female Medications Medication Start Date End Date Route Frequency Dose Code Code System Medication Instructions Home Meds Ondansetron 4MG Oral Tablet, Disintegrating 12/11/2021 03/22/2023 ORAL NEEDED EVERY 6 HOURS 1 TABLET 330230 RxNorm TAKE 1 TABLET ORAL NEEDED EVERY [...] Date Status Code Code System 08/05/2021 resolved [id number] SNOMED-CT Allergies and Adverse Reactions Allergy Substance Reaction Severity Start Date Concern Status Co de Code System No Known Drug Allergies Moderate Active [id number] SNOMED-CT Plan of Treatment US OB COMPLETE 03/09/2022 US OB COMPLETE 02/12/2022 US BREAST UNI RT 01/26/2022 US OB COMPLETE 11/10/2021 Encounters Encounter Diagnosis Start Date Code Code Sys tem Encounter for test, result positive 08/22/19 22 SNOMED-CT Personal Care Team Section Performer Name Performer Role Active Date Inactive Da te
--- OUTSIDE RECORDS SUMMARY | 2024-01-27 18:11 | XMS_ITS | Encounter Summary ---
Author Organization [facility] Address [address] [place] [address] Care Team Providers Care Heel Coverer Machine Operator Name Role Phone Amado Gonsalez MD Primary Care Provider Unavailable Encounter Details Date Type Department Care Team (Late st Contact Info) Description 12/10/2015 Results Only [facility] [phone] Jorge L Lanier MD [address] [place] [id number] Social History Tobacco Use Types Packs/Day Years Used Date Smoking Tobacco: Never Assessed Sex and Gender Information Value Date Recorded Sex Assigned at Not on file Gender Identity Female 04/01/2019 9:34 EDT Sexual Orientation Not on file documented as of this encounter Plan of Treatment Not on file documented as of this encounter Procedures Procedure Name Priority Date/Time Associated Diagnosis Comments SURGICAL PATHOLOGY Routine 12/10/2015 10 :52 EDT documented in this encounter Results * SURGICAL PATHOLOGY (12/10/2015 10:52 EDT) Pathology Report: SURGICAL PATHOLOGY REPORT Reports generated via electronic interface contain original data; however they are lacking the format of the original report. Caution should be taken when reading/interpret ing unformatted reports. Name: ? ANA JULES ? Accession #: ? [id number] ? : ? 1995 (Age: 20) ??F ? Collect Date: ? 12/10/2015 ? Location: ? [facility] ? Receive Date: ? 12/11/2015 ? Provider: JORGE L LANIER MD Copy to: RHONA DEAN MD ? Final Pathologic Diagnosis: GALLBLADDER, CHOLECYSTECTOMY: - ??Chronic cholecystitis with cholelithiasis. - ??Two benign reactive lymph nodes. Document reviewed and electronically signed by: BETTYE KIM MD Report ??Date: 12/15/2015 13:26 By the signature above, the attending physician certifies that he/she has personally conducted a gross and/or microscopic examination of the described specimens and rendered or confirmed the above diagnosis. Specimen(s) Received: Gallbladder Clinical History: Cholecystitis; clinical diagnosis code: K81.9 Gross Description: ? Received in formalin labelled with proper patient identification (initials R, D) and gallbladder is a focally disrupted gallbladder (8.2 x 2.2 x 2.0 cm) with an attached segment of cystic duct (1.0 cm in length x 0.4 cm in diameter). Two campbell-brown cystic duct lymph nodes (1.0 x 1.0 x 0.4 cm and 0.4 x 0.4 x 0.3 cm) are present. ? The serosa is purple-saavedra and smooth. The mucosa is green-yellow and velvety. The wall ranges from 0.2-0.4 cm in thickness. The cystic duct lumen is patent. The cystic duct margin is inked blue. Multiple dark green multifaceted choleliths are present, measuring 5.0 x 3.2 x 1.5 cm in aggregate. ? Two patient services representative sections and the inked en face cystic duct margin are submitted in 1 and the cystic duct lymph nodes are submitted in 2. Dr. 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
--- OUTSIDE RECORDS SUMMARY | 2024-01-27 18:12 | XMS_ITS ---
Author Organization Unknown Address [address] [place] [phone] Phone Care Team Providers Care Chief Operator Name Role Phone JUANY REYNOLDS Registered Nurse Unavailable TRENT Boudreaux Attending Unavailable JAJA Clarke Primary Unavailable UNLISTED PROVIDER - REQUESTED Xhandoff Un available Immunization Immunization Date Status Additional Notes Code Code System MMR 04/05/2022 Completed 03 CVX Results URINALYSIS WITH MICROSCOPIC* - Collect Date/Time: 12/11/2021 13:30 [facility] ID: [id number] [address] [place], [place], [address] LOINC: 61298-0 Test Value Unit Reference Range Code Code System Flag COLLECTION MODE: CLEAN CATCH 06929-5 LOINC Color YELLOW yellow 5778-6 LOINC Appearance CLEAR clear 5767-9 LOINC Glucose urine NEGATIVE negative mg/dl 96099-5 LOINC Bilirubin NEGATIVE negative 5770-3 LOINC Ketones 15 negative mg/dl 2514-8 LOINC A Spec gravity >=1.030 1.003 - 1.030 5811-5 LOINC pH urine 6.0 5.0 - 7.0 2756-5 LOINC Protein NEGATIVE negative mg/dl 71487-9 LOINC Urobilinogen 0.2 <or= 1 EU/dl 83489-7 LOINC Nitrite NEGATIVE negative 5802-4 LOINC Blood NEGATIVE negative 5794-3 LOINC Leukocytes NEGATIVE negative 00145-7 LOINC WBCs none 0-5 / hpf RBCs none 0-5 / hpf Epith cells none 0-5 / hpf Crystals none none Bacteria none none Mucus present none 8247-9 LOINC Casts none none /lpf Other [facility] COVID RHEONIX* - Cathy ect Date/Time: 12/11/2021 13:13 [facility] ID: [id number] [address] [place], [place], [id number] LOINC: 28575-0 Test Value Unit Reference Range Code Code System Flag Tier- SYMPTOMS 12593-1 LOINC SARS COV2 RNA: NEGATIVE REFERENCE RAN GE: NEGAT 84140-8 LOINC COMPREHENSIVE METABOLIC PANE L (CMP) - Collect Date/Time: 12/11/2021 12:30 [facility] ID: [id number] [address] [place], [place], [address] LOINC: 69000-2 Test Value Unit Reference Range Code Code System Flag GLUCOSE 98 mg/dL L=70 H=116 2345-7 LOINC BUN 7 mg/dL L=6 H=25 3094-0 LOINC CREATININE 0.40 mg/dL L=0.51 H=0.95 2160-0 LOINC L SODIUM SERUM 137 mmol/L L=136 H=145 2951-2 LOINC POTASSIUM SERUM 3.5 mmol/L L=3.4 H=5.2 2823-3 LOINC CHLORIDE SERUM 105 mmol/L L=96 H=110 2075-0 LOINC CARBON DIOXIDE (CO2) 21 mmol/L L=22 H=34 2028-9 LOINC L ANION GAP 11.0 mmol/L 28019-3 LOINC CALCIUM SERUM 7.9 mg/dL L=8.2 H=10.2 33160-5 LOINC L BILIRUBIN TOTAL 0.3 mg/dL L=0.0 H=1.3 1975-2 LOINC ALK. PHOS. 61 U/L L=46 H=116 6768-6 LOINC SGOT (AST) 9 U/L L=15 H=37 1920-8 LOINC L SGPT (ALT) 12 U/L L=12 H=78 1742-6 LOINC TOTAL PROTEIN 6.6 gm/dL L=6.0 H=8.0 2885-2 LOINC ALBUMIN 2.7 gm/dL L=3.4 H=5.0 1751-7 LOINC L AGE 24 years eGFR (non-Afr.Amer.) > 120 mL/min 86258-3 LOINC eGFR (Afr-[place]er) > 120 mL/min 16894-4 LOINC CBC W/ DIFFERENTIAL* - Colle ct Date/Time: 12/11/2021 12:30 [facility] ID: [id number] [address] [place] [address], [address] LOINC: 63545-7 Test Value Unit Reference Range Code Code System Flag WBC 15.81 th/cmm L=5.00 H=10.00 6690-2 LOINC H NEUT % 91.6 % L=40.0 H=80.0 H LYMPH % 5.4 % L=10.0 H=50.0 L MONO % 2.2 % L=2.0 H=12.0 67291-5 LOINC EOS % 0.3 % L=0.0 H=8.0 BASO % 0.1 % L=0.0 H=3.0 IG % 0.4 % L=0.0 H=1.1 2514-8 LOINC NRBC % 0.0 % L=0.0 H=0.0 37437-6 LOINC NEUT abs count 14.5 th/cmm L=1.6 H=8.4 751-8 LOINC H LYMPH abs count 0.9 th/cmm L=1.5 H=4.0 731-0 LOINC L MONO abs count 0.3 th/cmm L=0.2 H=1.0 742-7 LOINC EOS abs count 0.1 th/cmm L=0.0 H=0.5 711-2 LOINC BASO abs count 0.0 th/cmm L=0.0 H=0.2 704-7 LOINC IG abs count 0.1 th/cmm L=0.0 H=0.1 57031-0 LOINC NRBC abs count 0.0 mil/cmm L=0.0 H=0.0 13756-1 LOINC RBC 3.85 mil/cmm L=3.90 H=5.40 789-8 LOINC L HEMOGLOBIN 11.3 gm/dL L=12.0 H=16.0 718-7 LOINC L HEMATOCRIT 33 % L=37 H=47 4544-3 LOINC L MCV 86 fL L=82 H=92 787-2 LOINC MCH 29.4 pg L=27.0 H=31.0 785-6 LOINC MCHC 34.0 % L=32.0 H=36.0 786-4 LOINC RDW-SD 41.5 fL L=39.0 H=49.0 788-0 LOINC PLATELET COUNT 175 th/cmm L=150 H=450 777-3 LOINC Social History Type Status Start Date End Date Code Code Syst em Smoking History Former smoker 5563928 SNOMED CT Smoking History Current every day smoker 999393178 SNOMED CT Sex Female Vital Signs Vital Sign Value Unit [place] Value [place] Unit Date/Time Recent/Initial? Code Code System Body Mass Index 29.86 kg/m2 12/11/2021 12:10 Initial 84984 -5 [facility] Systolic Blood Pressure 106 mm[Hg] 12/11/2021 12:10 Initial 8480- 6 [facility] Diastolic Blood Pressure 66 mm[Hg] 12/11/2021 12:10 Initial 8462- 4 [facility] Body Surface Area 1.98 m2 12/11/2021 12:10 Initial 3140- 1 [facility] Height 167.640 0 cm 66.00 in 12/11/2021 12:10 Initial 8302- 2 [facility] O2 Saturation 100 % 2021 12:10 Initial 76186 -5 [facility] Pulse 98.0 /min 12/11/2021 12:10 Initial 8867- 4 [facility] Respiration 18 /min 12/12/19 12:10 Initial 9279- 1 [facility] Temperature 36.3 Lin 97.3 F 12/12/19 12:10 Initial 8310- 5 [facility] Weight 83.91 kg 185.00 lbs 12/11/2021 12:10 Initial 36846 -7 [facility] Medications Medication Start Date End Date Route Frequency Dose Code Code System Medication Instructions Home Meds Ondansetron 4MG Oral Tablet, Disintegrating 12/11/2021 03/22/2023 ORAL NEEDED EVERY 6 HOURS 1 TABLET 341349 RxNorm TAKE 1 TABLET ORAL NEEDED EVERY 6 HOURS FOR Nausea/Vomiting Hospital Discharge Instructions Should you have any questions prior to discharge, please contact a member of your healthcare team. If you have left the hospital and have any questions, please contact your primary care physician. Reason For Referral No Data Found Procedures Procedure Name Date Status Code Code Syste m Gallbladder completed 43391439 SNOMEDCT Problems Problem Start Date Resolved Date Status Code Code System 08/05/2021 resolved 36123671 SNOMED-CT Allergies and Adverse Reactions Allergy Substance Reaction Severity Start Date Concern Status Co de Code System No Known Drug Allergies Moderate Active 347808515 SNOMED-CT Plan of Treatment US OB COMPLETE 03/09/2022 US OB COMPLETE 02/12/2022 US BREAST UNI RT 01/26/2022 US OB COMPLETE 11/10/2021 Encounters Encounter Diagnosis Start Date Code Code Sys tem Vomiting of 12/11/2021 17651761 SNOMED -CT Personal Care Team Section Performer Name Performer Role Active Date Inactive Da te
--- OUTSIDE RECORDS SUMMARY | 2024-01-27 18:12 | XMS_ITS ---
Author Organization Unknown Address [address] [place] [phone] Phone Care Team Providers Care Sample Weaver Name Role Phone DEMAREUGENE COSME Steven Attending Unavailable JAJA Clarke Primary Unavailable Immunization Immunization Date Status Additional Notes Code Code System MMR 04/05/2022 Completed 03 CVX Social History Type Status Start Date End Date Code Code Syst em Smoking History Former smoker 2572213 SNOMED CT Smoking History Current every day smoker 732634343 SNOMED CT Sex Female Medications Medication Start Date End Date Route Frequency Dose Code Code System Medication Instructions Home Meds Ondansetron 4MG Oral Tablet, Disintegrating 12/11/2021 03/22/2023 ORAL NEEDED EVERY 6 HOURS 1 TABLET 097649 RxNorm TAKE 1 TABLET ORAL NEEDED EVERY [...] Date Status Code Code System 08/05/2021 resolved 58227401 SNOMED-CT Allergies and Adverse Reactions Allergy Substance Reaction Severity Start Date Concern Status Co de Code System No Known Drug Allergies Moderate Active 545246066 SNOMED-CT Plan of Treatment US OB COMPLETE 03/09/2022 US OB COMPLETE 02/12/2022 US BREAST UNI RT 01/26/2022 US OB COMPLETE 11/10/2021 Encounters Encounter Diagnosis Start Date Code Code Sys tem Other mental disorders compl icating , second trimester 12/14/2021 SNOMED-CT Personal Care Team Section Performer Name Performer Role Active Date Inactive Da te
--- OUTSIDE RECORDS SUMMARY | 2024-01-27 18:12 | XMS_ITS ---
Author Organization Unknown Address [address] [place] [phone] Phone Care Team Providers Care Jacquard Card Lacer Name Role Phone YAHIR Barth Attending Unavailable JAJA Clarke Primary Unavailable Immunization Immunization Date Status Additional Notes Code Code System MMR 04/05/2022 Completed 03 CVX Results US OB GREATER THAN 14 WEEKS - Completed: 11/10/2021 15:45 LOINC: OB ULTRASOUND: Compared to 08/05/21. There is a single viable intrauterine gestation with cardiac activity identified at 148 bpm. The fetus is presently in breech position. There is a normal amount of amniotic fluid. The placenta is posterior grade 0 with no evidence of placenta previa. Dating parameters place this at approximately 20 weeks and 2 days gestational age implying TANIKA of March 28, 2022. BPD measures 19 weeks and 4 days. Head circumference measures 20 weeks and 0 days. Abdominal circumference measures 20 weeks and 0 days. Femur length measures 20 weeks and 4 days. Humerus length measures 20 weeks and 6 days. Estimated weight is 350 grams (0 pounds, 12 ounces). The fetus is at the 67th percentile on the Hadlock scale. morphology: 3 vessel umbilical cord was noted. 4 chamber cardiac view obtained as were cardiac outflow tracks. No intracranial anomalies evident. No obvious abnormality of the spinal column. stomach and bladder are seen and there is no evidence of obvious hydronephrosis. IMPRESSION: Single viable intrauterine gestation which is approximately 20 weeks and 2 days gestational age implying TANIKA of 03/28/22. No obvious anomalies. Normal amount of amniotic fluid. Posterior grade 0 placenta. Dictated by: DESTINI CASTILLO MD Transcribed by: HERNANDO 11/11/21/15:27 D Wednesday, November 10, 2021 6:39:40 PM [id number] Electronically Reviewed and Signed By: REJI CASTILLO MD 11/12/21 19:26 Copy for: 185 [facility] MG[facility] Social History Type Status Start Date End Date Code Code Syst em Smoking History Former smoker 3815510 SNOMED CT Smoking History Current every day smoker 844029334 SNOMED CT Sex Female Medications Medication Start Date End Date Route Frequency Dose Code Code System Medication Instructions Home Meds Ondansetron 4MG Oral Tablet, Disintegrating 12/11/2021 03/22/2023 ORAL NEEDED EVERY 6 HOURS 1 TABLET 751120 RxNorm TAKE 1 TABLET ORAL NEEDED EVERY [...] Date Status Code Code System 08/05/2021 resolved 38374207 SNOMED-CT Allergies and Adverse Reactions Allergy Substance Reaction Severity Start Date Concern Status Co de Code System No Known Drug Allergies Moderate Active 347450540 SNOMED-CT Plan of Treatment US OB COMPLETE 03/09/2022 US OB COMPLETE 02/12/2022 US BREAST UNI RT 01/26/2022 US OB COMPLETE 11/10/2021 Encounters Encounter Diagnosis Start Date Code Code Sys tem Encounter for other specified screening 12/2021 SNOMED-CT Personal Care Team Section Performer Name Performer Role Active Date Inactive Choco jasso
--- OUTSIDE RECORDS SUMMARY | 2024-01-27 18:13 | XMS_ITS ---
Author Organization Unknown Address [address] [place] [phone] Phone Care Team Providers Care Meat Department Manager Name Role Phone SEPTEMBER Attending Unavailable TRIXIEMIGEL OSMAR Tricia Primary Unavailable Immunization Immunization Date Status Additional Notes Code Code System MMR 04/05/2022 Completed 03 CVX Results GLUCOSE - 1 HOUR AFTER 50GM GLUCOLA - Collect Date/Time: 01/08/2022 16:15 ID: [id number] [address] [place], [place], [address] LOINC: 1504-0 Test Value Unit Reference Range Code Code System Flag GLUCOSE 1 HOUR 132 mg/dL L=0 H=135 1504-0 LOINC HEMOGRAM + PLATELET WO DIFF - Collect Date/Time: 01/08/2022 16:15 ID: [id number] [address] [place] [address], [id number] LOINC: 37028-3 Test Value Unit Reference Range Code Code System Flag WBC 14.12 th/cmm L=5.00 H=10.00 6690-2 LOINC H NRBC % 0.0 % L=0.0 H=0.0 79298-2 LOINC NRBC abs count 0.0 mil/cmm L=0.0 H=0.0 05165-9 LOINC RBC 3.90 mil/cmm L=3.90 H=5.40 789-8 LOINC HEMOGLOBIN 11.1 gm/dL L=12.0 H=16.0 718-7 LOINC L HEMATOCRIT 33 % L=37 H=47 4544-3 LOINC L MCV 85 fL L=82 H=92 787-2 LOINC MCH 28.5 pg L=27.0 H=31.0 785-6 LOINC MCHC 33.6 % L=32.0 H=36.0 786-4 LOINC RDW-SD 41.9 fL L=39.0 H=49.0 788-0 LOINC PLATELET COUNT 214 th/cmm L=150 H=450 777-3 LOINC Social History Type Status Start Date End Date Code Code Syst em Smoking History Former smoker 9119665 SNOMED CT Smoking History Current every day smoker 223560871 SNOMED CT Sex Female Medications Medication Start Date End Date Route Frequency Dose Code Code System Medication Instructions Home Meds Ondansetron 4MG Oral Tablet, Disintegrating 12/11/2021 03/22/2023 ORAL NEEDED EVERY 6 HOURS 1 TABLET 933853 RxNorm TAKE 1 TABLET ORAL NEEDED EVERY [...] Date Status Code Code System 08/05/2021 resolved 21799805 SNOMED-CT Allergies and Adverse Reactions Allergy Substance Reaction Severity Start Date Concern Status Co de Code System No Known Drug Allergies Moderate Active 158110670 SNOMED-CT Plan of Treatment US OB COMPLETE 03/09/2022 US OB COMPLETE 02/12/2022 US BREAST UNI RT 01/26/2022 US OB COMPLETE 11/10/2021 Encounters Encounter Diagnosis Start Date Code Code Sys tem Encounter for supervision of other normal , third trimester 01/08/2022 SNOMED-CT Personal Care Team Section Performer Name Performer Role Active Date Inactive Da te
--- OUTSIDE RECORDS SUMMARY | 2024-01-27 18:13 | XMS_ITS ---
Author Organization Unknown Address [address] [place] [phone] Phone Care Team Providers Care Cable Television Line Technician Name Role Phone YAHIR Barth Attending Unavailable JAJA Clarke Primary Unavailable Immunization Immunization Date Status Additional Notes Code Code System MMR 04/05/2022 Completed 03 CVX Social History Type Status Start Date End Date Code Code Syst em Smoking History Former smoker 9429191 SNOMED CT Smoking History Current every day smoker 193975609 SNOMED CT Sex Female Medications Medication Start Date End Date Route Frequency Dose Code Code System Medication Instructions Home Meds Ondansetron 4MG Oral Tablet, Disintegrating 12/11/2021 03/22/2023 ORAL NEEDED EVERY 6 HOURS 1 TABLET 304945 RxNorm TAKE 1 TABLET ORAL NEEDED EVERY [...] Date Status Code Code System 08/05/2021 resolved 63957186 SNOMED-CT Allergies and Adverse Reactions Allergy Substance Reaction Severity Start Date Concern Status Co de Code System No Known Drug Allergies Moderate Active 985360617 SNOMED-CT Plan of Treatment US OB COMPLETE 03/09/2022 US OB COMPLETE 02/12/2022 US BREAST UNI RT 01/26/2022 US OB COMPLETE 11/10/2021 Encounters Encounter Diagnosis Start Date Code Code Sys tem Other mental disorders compl icating , second trimester 02/05/2022 SNOMED-CT Personal Care Team Section Performer Name Performer Role Active Date Inactive Da te
--- OUTSIDE RECORDS SUMMARY | 2024-01-27 18:14 | XMS_ITS ---
Author Organization Unknown Address [address] [place] [address] [phone] Phone Care Team Providers Care Anatomic Pathologist Name Role Phone September Attending Unavailable TRIXIEMIGEL OSMAR Clarke Primary Unavailable Immunization Immunization Date Status Additional Notes Code Code System MMR 04/05/2022 Completed 03 CVX Social History Type Status Start Date End Date Code Code Syst em Smoking History Former smoker 6532060 SNOMED CT Smoking History Current every day smoker 612084430 SNOMED CT Sex Female Medications Medication Start Date End Date Route Frequency Dose Code Code System Medication Instructions Home Meds Ondansetron 4MG Oral Tablet, Disintegrating 12/11/2021 03/22/2023 ORAL NEEDED EVERY 6 HOURS 1 TABLET 731431 RxNorm TAKE 1 TABLET ORAL NEEDED EVERY [...] Date Status Code Code System 08/05/2021 resolved 96252491 SNOMED-CT Allergies and Adverse Reactions Allergy Substance Reaction Severity Start Date Concern Status Co de Code System No Known Drug Allergies Moderate Active 655016700 SNOMED-CT Plan of Treatment US OB COMPLETE 03/09/2022 US OB COMPLETE 02/12/2022 US BREAST UNI RT 01/26/2022 US OB COMPLETE 11/10/2021 Encounters Encounter Diagnosis Start Date Code Code Sys tem Encounter for supervision of other normal , third trimester 02/19/2022 SNOMED-CT Personal Care Team Section Performer Name Performer Role Active Date Inactive Da te
--- OUTSIDE RECORDS SUMMARY | 2024-01-27 18:14 | XMS_ITS ---
Author Organization Unknown Address [address] [place] [address] [phone] Phone Care Team Providers Care Railroad Dining Car Steward/Stewardess Name Role Phone JUANY Janusz REYNOLDS Registered Nurse Unavailable LORY Sidhu Attending Unavailable SUZANNE Clarke [facility] Unavailable JAJA Clarke Primary Unavailable UNLISTED PROVIDER - REQUESTED Xhandoff Un available Immunization Immunization Date Status Additional Notes Code Code System MMR 04/05/2022 Completed 03 [facility] - Co llect Date/Time: 02/13/2022 13:00 [facility] ID: [id number] [address] [place] [address], [id number] LOINC: 37446-2 Test Value Unit Reference Range Code Code System Flag COVID NEGATIVE Normal: Negative 17076-5 LOINC Tier- SYMPTOMS 24460-7 LOINC URINALYSIS WITH REFLEX CULT IF POSITIVE* - Collect Date/Time: 02/13/2022 12:30 [facility] ID: [id number] [address] [place] [address], [address] LOINC: 72106-0 Test Value Unit Reference Range Code Code System Flag COLLECTION MODE: CLEAN CATCH 68893-2 LOINC Color YELLOW yellow 5778-6 LOINC Appearance CLEAR clear 5767-9 LOINC Glucose urine NEGATIVE negative mg/dl 01967-5 LOINC Bilirubin NEGATIVE negative 5770-3 LOINC Ketones 40 negative mg/dl 2514-8 LOINC A Spec gravity 1.025 1.003 - 1.030 5811-5 LOINC pH urine 6.5 5.0 - 7.0 2756-5 LOINC Protein NEGATIVE negative mg/dl 83783-6 LOINC Urobilinogen 0.2 <or= 1 EU/dl 97168-1 LOINC Nitrite. NEGATIVE negative 5802-4 LOINC Blood NEGATIVE negative 5794-3 LOINC Leukocytes. SMALL negative A MICROSCOPIC INDICATED WBCs. 5-10 0-5 / hpf 59223-9 LOINC RBCs none 0-5 / hpf 17788-2 LOINC Epith cells 10-25 0-5 / hpf 90608-6 LOINC Cell types squamous Crystals none none Bacteria moderate none Mucus present none 8247-9 LOINC Casts none none /lpf 91864-7 LOINC Other 18309-6 LOINC LIPASE* - Collect Date/Time: 02/13/2022 11:15 [facility] ID: [id number] [address] [place] [address], [id number] LOINC: 3040-3 Test Value Unit Reference Range Code Code System Flag LIPASE 121 U/L L=73 H=393 HEPATIC FUNCTION PANEL - Col lect Date/Time: 02/13/2022 11:15 [facility] ID: [id number] [address] [place] [address], [id number] LOINC: 05607-6 Test Value Unit Reference Range Code Code System Flag ALBUMIN 2.6 gm/dL L=3.4 H=5.0 1751-7 LOINC L TOTAL PROTEIN 7.0 gm/dL L=6.0 H=8.0 2885-2 LOINC BILIRUBIN TOTAL 0.3 mg/dL L=0.0 H=1.3 1975-2 LOINC BILIRUBIN DIRECT 0.10 mg/dL L=0.00 H=0.50 1971-1 LOINC SGOT (AST) 11 U/L L=15 H=37 1920-8 LOINC L SGPT (ALT) 12 U/L L=12 H=78 1742-6 LOINC ALK. PHOS. 102 U/L L=46 H=116 6768-6 LOINC CBC W/ DIFFERENTIAL* - Colle ct Date/Time: 02/13/2022 11:15 [facility] ID: [id number] 8 [facility], [place], [place], [address] LOINC: 29362-2 Test Value Unit Reference Range Code Code System Flag WBC 17.78 th/cmm L=5.00 H=10.00 6690-2 LOINC H NEUT % 86.0 % L=40.0 H=80.0 H LYMPH % 8.3 % L=10.0 H=50.0 L MONO % 4.3 % L=2.0 H=12.0 09968-2 LOINC EOS % 0.7 % L=0.0 H=8.0 BASO % 0.1 % L=0.0 H=3.0 IG % 0.6 % L=0.0 H=1.1 2514-8 LOINC NRBC % 0.0 % L=0.0 H=0.0 92448-9 LOINC NEUT abs count 15.3 th/cmm L=1.6 H=8.4 751-8 LOINC H LYMPH abs count 1.5 th/cmm L=1.5 H=4.0 731-0 LOINC MONO abs count 0.8 th/cmm L=0.2 H=1.0 742-7 LOINC EOS abs count 0.1 th/cmm L=0.0 H=0.5 711-2 LOINC BASO abs count 0.0 th/cmm L=0.0 H=0.2 704-7 LOINC IG abs count 0.1 th/cmm L=0.0 H=0.1 60827-9 LOINC NRBC abs count 0.0 mil/cmm L=0.0 H=0.0 77031-0 LOINC RBC 3.91 mil/cmm L=3.90 H=5.40 789-8 LOINC HEMOGLOBIN 10.9 gm/dL L=12.0 H=16.0 718-7 LOINC L HEMATOCRIT 33 % L=37 H=47 4544-3 LOINC L MCV 83 fL L=82 H=92 787-2 LOINC MCH 27.9 pg L=27.0 H=31.0 785-6 LOINC MCHC 33.5 % L=32.0 H=36.0 786-4 LOINC RDW-SD 42.3 fL L=39.0 H=49.0 788-0 [facility] PLATELET COUNT 212 th/cmm L=150 H=450 777-3 [facility] BASIC METABOLIC PANEL (BMP) - Collect Date/Time: 02/13/2022 11:15 [facility] ID: [id number] 8 [place], [place], [address] LOINC: 98231-9 Test Value Unit Reference Range Code Code System Flag GLUCOSE 92 mg/dL L=70 H=116 2345-7 LOINC BUN 4 mg/dL L=6 H=25 3094-0 LOINC L CREATININE 0.38 mg/dL L=0.51 H=0.95 2160-0 LOINC L SODIUM SERUM 138 mmol/L L=136 H=145 2951-2 LOINC POTASSIUM SERUM 3.3 mmol/L L=3.4 H=5.2 2823-3 [facility] L CHLORIDE SERUM 105 mmol/L L=96 H=110 2075-0 INC CARBON DIOXIDE (CO2) 21 mmol/L L=22 H=34 2028-9 LOINC L ANION GAP 11.7 mmol/L 13563-1 INC CALCIUM SERUM 8.4 mg/dL L=8.2 H=10.2 91747-6 INC AGE 25 years eGFR (non-Afr.Amer.) > 120 mL/min 31329-2 INC eGFR (Afr-Russian) > 120 mL/min 61481-[address] ABD PELVIS W IV CONTRAST ONLY - Completed: 02/13/2022 14:46 [facility]: Radiation optimization: All CT scans at this facility use at least one of these dose optimization techniques: automated exposure control; mA and/or kV adjustment per patient size (includes targeted exams where dose is matched to clinical indication); or iterative reconstruction. CT ABDOMEN PELVIS WITH IV CONTRAST Images are submitted for interpretation. Visualized lung bases are clear and there are no pleural effusions. No focal hepatic lesions nor dilatation of intrahepatic ducts. Gallbladder is surgically absent. CBD is not dilated. Pancreas unremarkable. Spleen size upper normal-minimally prominent. Splenic and portal veins are patent. No significant adrenal masses. No significant findings in the kidneys. No hydronephrosis. Abdominal aorta is not enlarged. No retroperitoneal-paraaortic adenopathy. In the pelvis there is a gravid uterus noted with posterior placenta. No intrapelvic nor inguinal adenopathy. However, in the right side of the abdomen the appendix is distended up to 9-10 mm diameter and there is periappendiceal fat streaking. No obvious rupture. No drainable abscess. No appendicolith evident. No significant diverticular disease. Urinary bladder non-distended. Osseous: No significant osseous lesions. No fractures. IMPRESSION: 1. Findings consistent with acute appendicitis as described above. No abscess nor free air identified at this time. 2. Gravid uterus with fetus in breech position. Placenta is posterior. 3. Spleen size is upper normal-minimally prominent. Dictated by: DESTINI CASTILLO MD Transcribed by: [facility] [place] 02/15/22/11:48 D Sunday, February 13, 2022 3:12:27 PM [id number] Electronically Reviewed and Signed By: REJI CASTILLO MD 02/15/22 22:01 Copy for: [facility] HEALTH INFORMATION MGMT DISCHARGED Social History Type Status Start Date End Date Code Code Syst em Smoking History Former smoker 7969833 SNOMED CT Smoking History Current every day smoker 237185075 SNOMED CT Sex Female Vital Signs Vital Sign Value Unit Placer Value Placer Unit Date/Time Recent/Initial? Code Code System Body Mass Index 31.46 kg/m2 02/13/2022 10:22 Initial 18285 -5 LOINC Systolic Blood Pressure 132 mm[Hg] 02/13/2022 10:22 Initial 8480- 6 LOINC Diastolic Blood Pressure 90 mm[Hg] 02/13/2022 10:22 Initial 8462- 4 LOINC Body Surface Area 2.08 m2 02/13/2022 10:22 Initial 3140- 1 LOINC Height 170.180 0 cm 67.00 in 02/13/2022 10:22 Initial 8302- 2 LOINC O2 Saturation 96 % 2021 10:22 Initial 97930 -5 LOINC Pulse 105.0 /min 02/13/2022 10:22 Initial 8867- 4 LOINC Respiration 20 /min 02/14/20 10:22 Initial 9279- 1 LOINC Temperature 2.8 Lin 37.0 F 02/14/20 10:22 Initial 8310- 5 [facility] Weight 91.10 kg 200.84 lbs 02/13/2022 10:22 Initial 71279 -7 [facility] Medications Medication Start Date End Date Route Frequency Dose Code Code System Medication Instructions Home Meds Ondansetron 4MG Oral Tablet, Disintegrating 12/11/2021 03/22/2023 ORAL NEEDED EVERY 6 HOURS 1 TABLET 812591 RxNorm TAKE 1 TABLET ORAL NEEDED EVERY [...] Date Status Code Code System 08/05/2021 resolved 64432514 SNOMED-CT Allergies and Adverse Reactions Allergy Substance Reaction Severity Start Date Concern Status Co de Code System No Known Drug Allergies Moderate Active 415949763 SNOMED-CT Plan of Treatment US OB COMPLETE 03/09/2022 US OB COMPLETE 02/12/2022 US BREAST UNI RT 01/26/2022 US OB COMPLETE 11/10/2021 Encounters Encounter Diagnosis Start Date Code Code Sys tem Other specified re lated conditions, first trimester 02/13/2022 SNOMED-CT Personal Care Team Section Performer Name Performer Role Active Date Inactive Da louisa
--- OUTSIDE RECORDS SUMMARY | 2024-01-27 18:14 | XMS_ITS ---
Author Organization Unknown Address [address] [place] [address] [phone] Phone Care Team Providers Care [place] Cutting Machine Operator Name Role Phone September Attending Unavailable JAJA Clarke Primary Unavailable Immunization Immunization Date Status Additional Notes Code Code System [facility] 04/05/2022 Completed 03 CVX Results US OB GREATER THAN 14 WEEKS - Completed: 02/12/2022 14:34 LOINC: [place], [place] [address] PACS CLINICAL LEADER REPORT Patient Name: CHERELLE JULES MRN: Sex: : Age: [id number] F 1995 27 Account: Accession: Admit: StayType: [id number] 02/12/2022 O/P Ordered: Order ID: Entered Order: Ordering Provider: 02/12/2022 13:47 [id number] [facility] Completed: Tech Completed: Resulted DTTM: 02/12/2022 14:34 02/12/2022 14:45 Study Description: US OB GREATER THAN 14 WEEKS Study Reason: AFIEFW FINDINGS: Transabdominal obstetrical ultrasound performed. FINDINGS: Exam is somewhat limited by patient body habitus. Number of fetuses: One. position: Breech heart rate: bpm. Placental location: Posterior. No evidence of previa. Amniotic fluid index: [15.8] Cm. [Amount of fluid is within normal limits.] anatomy visualized: [Within normal limits.] [] BIOMETRIC DATA: Estimated weight 226 3 g, 50th percentile. Estimated gestational age 33 weeks 6 days. IMPRESSION: 1. size and weight are within the expected range. Report Digitally Signed by Diya Jones on 02/12/2022 02:45 PM EDT Social History Type Status Start Date End Date Code Code Syst em Smoking History Former smoker 3955478 SNOMED CT Smoking History Current every day smoker 309947562 SNOMED CT Sex Female Medications Medication Start Date End Date Route Frequency Dose Code Code System Medication Instructions Home Meds Ondansetron 4MG Oral Tablet, Disintegrating 12/11/2021 03/22/2023 ORAL NEEDED EVERY 6 HOURS 1 TABLET 628657 RxNorm TAKE 1 TABLET ORAL NEEDED EVERY [...] Date Status Code Code System 08/05/2021 resolved 81325591 SNOMED-CT Allergies and Adverse Reactions Allergy Substance Reaction Severity Start Date Concern Status Co de Code System No Known Drug Allergies Moderate Active 905051870 SNOMED-CT Plan of Treatment US OB COMPLETE 03/09/2022 US OB COMPLETE 02/12/2022 US BREAST UNI RT 01/26/2022 US OB COMPLETE 11/10/2021 Encounters Encounter Diagnosis Start Date Code Code Sys tem Other mental disorders compl icating , third trimester 02/12/2022 SNOMED-CT Personal Care Team Section Performer Name Performer Role Active Date Inactive Da te
--- OUTSIDE RECORDS SUMMARY | 2024-01-27 18:14 | XMS_ITS ---
Author Organization Unknown Address [address] [place] [address] [phone] Phone Care Team Providers Care Metal Loader Name Role Phone KAMI Clarke Attending Unavailable JAJA Clarke Primary Unavailable Immunization Immunization Date Status Additional Notes Code Code System MMR 04/05/2022 Completed 03 CVX Social History Type Status Start Date End Date Code Code Syst em Smoking History Former smoker 2450077 SNOMED CT Smoking History Current every day smoker 764206511 SNOMED CT Sex Female Medications Medication Start Date End Date Route Frequency Dose Code Code System Medication Instructions Home Meds Ondansetron 4MG Oral Tablet, Disintegrating 12/11/2021 03/22/2023 ORAL NEEDED EVERY 6 HOURS 1 TABLET 896961 RxNorm TAKE 1 TABLET ORAL NEEDED EVERY [...] Date Status Code Code System 08/05/2021 resolved 76674985 SNOMED-CT Allergies and Adverse Reactions Allergy Substance Reaction Severity Start Date Concern Status Co de Code System No Known Drug Allergies Moderate Active 473150199 SNOMED-CT Plan of Treatment US OB COMPLETE 03/09/2022 US OB COMPLETE 02/12/2022 US BREAST UNI RT 01/26/2022 US OB COMPLETE 11/10/2021 Encounters Encounter Diagnosis Start Date Code Code Sys tem Breech presentation 03/04/2022 9499529 SNOMED-C T Personal Care Team Section Performer Name Performer Role Active Date Inactive Da te
--- OUTSIDE RECORDS SUMMARY | 2024-01-27 18:15 | XMS_ITS ---
Author Organization Unknown Address [address] [place] [address] [phone] Phone Care Team Providers Care Scuba Diving Teacher Name Role Phone KAMI Clarke Attending Unavailable JAJA Clarke Primary Unavailable Immunization Immunization Date Status Additional Notes Code Code System MMR 04/05/2022 Completed 03 CVX Social History Type Status Start Date End Date Code Code Syst em Smoking History Former smoker 6792762 SNOMED CT Smoking History Current every day smoker 456877975 SNOMED CT Sex Female Medications Medication Start Date End Date Route Frequency Dose Code Code System Medication Instructions Home Meds Ondansetron 4MG Oral Tablet, Disintegrating 12/11/2021 03/22/2023 ORAL NEEDED EVERY 6 HOURS 1 TABLET 157067 RxNorm TAKE 1 TABLET ORAL NEEDED EVERY [...] Date Status Code Code System 08/05/2021 resolved 71011993 SNOMED-CT Allergies and Adverse Reactions Allergy Substance Reaction Severity Start Date Concern Status Co de Code System No Known Drug Allergies Moderate Active 438994909 SNOMED-CT Plan of Treatment US OB COMPLETE 03/09/2022 US OB COMPLETE 02/12/2022 US BREAST UNI RT 01/26/2022 US OB COMPLETE 11/10/2021 Encounters Encounter Diagnosis Start Date Code Code Sys tem Breech presentation 03/11/2022 6541493 SNOMED-C T Personal Care Team Section Performer Name Performer Role Active Date Inactive Da te
--- OUTSIDE RECORDS SUMMARY | 2024-01-27 18:15 | XMS_ITS ---
Author Organization Unknown Address [address] [place] [address] [phone] Phone Care Team Providers Care Overlock Hemmer Name Role Phone ALEJANDRA Clarke Attending Unavailable JAJA Clarke Primary Unavailable Immunization Immunization Date Status Additional Notes Code Code System MMR 04/05/2022 Completed 03 CVX Social History Type Status Start Date End Date Code Code Syst em Smoking History Former smoker 1294310 SNOMED CT Smoking History Current every day smoker 833968385 SNOMED CT Sex Female Medications Medication Start Date End Date Route Frequency Dose Code Code System Medication Instructions Home Meds Ondansetron 4MG Oral Tablet, Disintegrating 12/11/2021 03/22/2023 ORAL NEEDED EVERY 6 HOURS 1 TABLET 349348 RxNorm TAKE 1 TABLET ORAL NEEDED EVERY [...] Date Status Code Code System 08/05/2021 resolved 83681632 SNOMED-CT Allergies and Adverse Reactions Allergy Substance Reaction Severity Start Date Concern Status Co de Code System No Known Drug Allergies Moderate Active 397510279 SNOMED-CT Plan of Treatment US OB COMPLETE 03/09/2022 US OB COMPLETE 02/12/2022 US BREAST UNI RT 01/26/2022 US OB COMPLETE 11/10/2021 Encounters Encounter Diagnosis Start Date Code Code Sys tem Routine care 03/24/2022 901138638 SNOME D-CT Personal Care Team Section Performer Name Performer Role Active Date Inactive Da te
--- OUTSIDE RECORDS SUMMARY | 2024-01-27 18:15 | XMS_ITS ---
Author Organization Unknown Address [address] [place] [address] [phone] Phone Care Team Providers Care Electric Mule Driver Name Role Phone KAMI Clarke Attending Unavailable JAJA Clarke Primary Unavailable Immunization Immunization Date Status Additional Notes Code Code System [facility] 04/05/2022 Completed 03 CVX Results US OB GREATER THAN 14 WEEKS - Completed: 03/09/2022 15:55 LOINC: [place], [place] [address] PACS OBIEE LEAD DEVELOPER REPORT Patient Name: CHERELLE JULES MRN: Sex: : Age: [id number] F [id number] Account: StayType: Accession: Admit: [id number] O/P [id number] 03/09/2022 Ordered: Order ID: Ordering Provider: [id number] KOLE MCCLURE Completed: CompletedBy: Resulted: By: [id number] [facility] [id number] [facility] Study Description: US OB GREATER THAN 14 WEEKS Study Reason: EFWANDAFIBREECH FINDINGS: Number of fetuses: One. position: Breech, spine anterior and toward the right Placental location: Posterior. No evidence of previa. BIOMETRIC DATA: BPD: 91.9mm = 37+2 weeks HC: 328.4mm = 37+2 weeks AC: 339.3mm = 37+6 weeks FL: 72.6 mm = 37+1-week EFW: 3244 gms = 70% Composite Age: 37+2 weeks EDC: 28 March 2022 Heart Rate: 134BPM Amniotic fluid index: 10.7 cm. Amount of fluid is within normal limits. Umbilical cord appears free-floating. No evidence of nuchal cord. IMPRESSION: Fetus is in breech position. size and weight are within the expected range. Report Digitally Signed by Diya Jones on 03/09/2022 04:38 PM EDT Social History Type Status Start Date End Date Code Code Syst em Smoking History Former smoker 4093621 SNOMED CT Smoking History Current every day smoker 419600751 SNOMED CT Sex Female Medications Medication Start Date End Date Route Frequency Dose Code Code System Medication Instructions Home Meds Ondansetron 4MG Oral Tablet, Disintegrating 12/11/2021 03/22/2023 ORAL NEEDED EVERY 6 HOURS 1 TABLET 428555 RxNorm TAKE 1 TABLET ORAL NEEDED EVERY [...] Date Status Code Code System 08/05/2021 resolved 87250837 SNOMED-CT Allergies and Adverse Reactions Allergy Substance Reaction Severity Start Date Concern Status Co de Code System No Known Drug Allergies Moderate Active 795728618 SNOMED-CT Plan of Treatment US OB COMPLETE 03/09/2022 US OB COMPLETE 02/12/2022 US BREAST UNI RT 01/26/2022 US OB COMPLETE 11/10/2021 Encounters Encounter Diagnosis Start Date Code Code Sys tem Maternal care for breech pre sentation, not applicable or unspecified 03/09/2022 SNOMED-CT Personal Care Team Section Performer Name Performer Role Active Date Inactive Da te
--- OUTSIDE RECORDS SUMMARY | 2024-01-27 18:15 | XMS_ITS ---
Author Organization Unknown Address [address] [place] [address] [phone] Phone Care Team Providers Care Tax Compliance Agent Name Role Phone September Attending Unavailable TRIXIEMIGEL OSMAR Clarke Primary Unavailable Immunization Immunization Date Status Additional Notes Code Code System MMR 04/05/2022 Completed 03 CVX Results GROUP B STREP DNA BY PCR - C ollect Date/Time: 03/03/2022 16:32 [facility] ID: [id number] [address] [place], [place], [id number] LOINC: 32055-5 Test Value Unit Reference Range Code Code System Flag GROUP B STREP NEGATIVE Normal: Negative OTHER SOURCE: VAG/RECTA PCN ALLERGY? NO Copy Sent to OB? YES Social History Type Status Start Date End Date Code Code Syst em Smoking History Former smoker 5368359 SNOMED CT Smoking History Current every day smoker 242809962 SNOMED CT Sex Female Medications Medication Start Date End Date Route Frequency Dose Code Code System Medication Instructions Home Meds Ondansetron 4MG Oral Tablet, Disintegrating 12/11/2021 03/22/2023 ORAL NEEDED EVERY 6 HOURS 1 TABLET 899333 RxNorm TAKE 1 TABLET ORAL NEEDED EVERY [...] Date Status Code Code System 08/05/2021 resolved 06151146 SNOMED-CT Allergies and Adverse Reactions Allergy Substance Reaction Severity Start Date Concern Status Co de Code System No Known Drug Allergies Moderate Active 371318271 SNOMED-CT Plan of Treatment US OB COMPLETE 03/09/2022 US OB COMPLETE 02/12/2022 US BREAST UNI RT 01/26/2022 US OB COMPLETE 11/10/2021 Encounters Encounter Diagnosis Start Date Code Code Sys tem Routine care 03/03/2022 194043697 KARMA D-CT Personal Care Team Section Performer Name Performer Role Active Date Inactive Da te
--- OUTSIDE RECORDS SUMMARY | 2024-01-27 18:16 | XMS_ITS ---
Author Organization Unknown Address [address] [place] [address] [phone] Phone Care Team Providers Care Nursing Care Partner Name Role Phone Unavailable Xwatchlist Unavailable ALEJANDRA Clarke Attending Unavailable JAJA Clarke Primary Unavailable Immunization Immunization Date Status Additional Notes Code Code System MMR 04/05/2022 Completed 03 CVX Results VARICELLA IGG AND IGM ANTIBO DIES* - Collect Date/Time: 04/04/2022 17:20 [facility] ID: [id number] [address], [place], [phone] LOINC: 02245-2 Test Value Unit Reference Range Code Code System Flag Varicella-Zoster Ab,IgM, S Negative Negative 58618-2 LOINC Varicella-Zoster Ab,IgG, S Negative 12311-1 LOINC Varicella IgG AntibodyIndex 0.5 5403-1 LOINC DRUG SCN 13 PANEL ([facility])* - Collect Date/Time: 04/03/2022 16:46 [facility] ID: [id number] [address] [place] [address], [id number] LOINC: 69917-0 Test Value Unit Reference Range Code Code System Flag CANNABINOIDS POSITIVE Cutoff = 50 ng/mL 23416-1 LOINC A PHENCYCLIDINE NEGATIVE Cutoff = 25 ng/mL 22669-2 LOINC COCAINE NEGATIVE Cutoff = 150 ng/mL 39888-9 LOINC METHAMPHETAMINES NEGATIVE Cutoff = 50 0 ng/mL 64927-9 LOINC OPIATES NEGATIVE Cutoff = 100 ng/mL 72870-6 LOINC AMPHETAMINES NEGATIVE Cutoff = 500 ng/mL 04863-5 LOINC BENZODIAZEPINES NEGATIVE Cutoff = 150 ng/mL 59420-8 LOINC TRICYCLIC ANTIDEP NEGATIVE Cutoff = 3 00 ng/mL 3533-7 LOINC METHADONE NEGATIVE Cutoff = 200 ng/mL 79605-9 LOINC BARBITURATES NEGATIVE Cutoff = 200 ng/mL 17270-2 LOINC OXYCODONE NEGATIVE Cutoff = 100 ng/mL 78397-2 LOINC PROPOXYPHENE NEGATIVE Cutoff = 300 ng/mL 35342-7 LOINC BUPRENORPHINE NEGATIVE Cutoff = 10 mg/mL 3414-0 [facility] COVID GENEXPERT* - Co llect Date/Time: 04/03/2022 15:13 [facility] ID: [id number] [address], [place], [id number] LOINC: 21440-2 Test Value Unit Reference Range Code Code System Flag COVID NEGATIVE Normal: Negative 95627-5 LOINC Tier- INPATIENT/ED 28151-5 LOINC Social History Type Status Start Date End Date Code Code Syst em Smoking History Former smoker 4476166 SNOMED CT Smoking History Current every day smoker 762340426 SNOMED CT Sex Female Vital Signs Vital Sign Value Unit Rittman Value Rittman Unit Date/Time Recent/Initial? Code Code System Systolic Blood Pressure 122 mm[Hg] 04/05/2022 08:39 Most Recent 8480-6 LOINC Diastolic Blood Pressure 84 mm[Hg] 04/05/2022 08:39 Most Recent 8462-4 LOINC Systolic Blood Pressure 112 mm[Hg] 04/04/2022 02:45 Initial 8480-6 LOINC Diastolic Blood Pressure 68 mm[Hg] 04/04/2022 02:45 Initial 8462-4 LOINC O2 Saturation 98 % 2021 18:13 Initial 11601- 5 LOINC Pulse 76.0 /min 04/05/2022 08:39 Most Recent 8867-4 LOINC Pulse 76.0 /min 04/04/2022 02:45 Initial 8867-4 LOINC Respiration 18 /min 04/05/20 22 08:39 Most Recent 9279-1 LOINC Respiration 18 /min 04/04/20 22 03:00 Initial 9279-1 LOINC Temperature 36.8 Lin 98.2 F 04/05/20 08:39 Most Recent 8310-5 LOINC Temperature 36.7 Lin 98.1 F 04/04/20 03:00 Initial 8310-5 [facility] Medications Medication Start Date End Date Route Frequency Dose Code Code System Medication Instructions Home Meds Ondansetron 4MG Oral Tablet, Disintegrating 12/11/2021 03/22/2023 ORAL NEEDED EVERY 6 HOURS 1 TABLET 488886 RxNorm TAKE 1 TABLET ORAL NEEDED EVERY 6 HOURS FOR Nausea/Vomiting Hospital Discharge Instructions Should you have any questions prior to discharge, please contact a member of your healthcare team. If you have left the hospital and have any questions, please contact your primary care physician. Reason For Referral No Data Found Procedures Procedure Name Date Status Code Code Syste m Delivery of Products of Conc eption, External Approach 04/03/2022 completed [id number] Repair Perineum Muscle, Open Approach 04/03/2022 completed [id number] Problems Problem Start Date Resolved Date Status Code Code System 08/05/2021 resolved 79206910 SNOMED-CT Allergies and Adverse Reactions Allergy Substance Reaction Severity Start Date Concern Status Co de Code System No Known Drug Allergies Moderate Active 683161604 SNOMED-CT Plan of Treatment US OB COMPLETE 03/09/2022 US OB COMPLETE 02/12/2022 US BREAST UNI RT 01/26/2022 US OB COMPLETE 11/10/2021 Encounters Encounter Diagnosis Start Date Code Code Sys tem Labor and delivery complicat ed by cord around neck, without compression, not applicable or unspecified 04/03/2022 SNOMED-CT Personal Care Team Section Performer Name Performer Role Active Date Inactive Da louisa
--- OUTSIDE RECORDS SUMMARY | 2024-01-27 18:16 | XMS_ITS ---
Author Organization Unknown Address [address] [place] [address] [phone] Phone Care Team Providers Care Warehouse Receiving Clerk Name Role Phone ALEJANDRA Clarke Attending Unavailable Immunization Immunization Date Status Additional Notes Code Code System MMR 04/05/2022 Completed 03 CVX Social History Type Status Start Date End Date Code Code Syst em Smoking History Former smoker 5897481 SNOMED CT Smoking History Current every day smoker 484109095 SNOMED CT Sex Female Medications Medication Start Date End Date Route Frequency Dose Code Code System Medication Instructions Home Meds Ondansetron 4MG Oral Tablet, Disintegrating 12/11/2021 03/22/2023 ORAL NEEDED EVERY 6 HOURS 1 TABLET 710929 RxNorm TAKE 1 TABLET ORAL NEEDED EVERY [...] Date Status Code Code System 08/05/2021 resolved 52659895 SNOMED-CT Allergies and Adverse Reactions Allergy Substance Reaction Severity Start Date Concern Status Co de Code System No Known Drug Allergies Moderate Active 239561230 SNOMED-CT Plan of Treatment US OB COMPLETE [...]
--- OUTSIDE RECORDS SUMMARY | 2024-01-27 18:16 | XMS_ITS ---
Author Organization Unknown Address [address] [place] [phone] Phone Care Team Providers Care Marketing Content Specialist Name Role Phone [employer] Steven Attending Unavailable JAJA Clarke Primary Unavailable Immunization Immunization Date Status Additional Notes Code Code System MMR 04/05/2022 Completed 03 CVX Social History Type Status Start Date End Date Code Code Syst em Smoking History Former smoker 7884013 SNOMED CT Smoking History Current every day smoker 311973291 SNOMED CT Sex Female Medications Medication Start Date End Date Route Frequency Dose Code Code System Medication Instructions Home Meds Ondansetron 4MG Oral Tablet, Disintegrating 12/11/2021 03/22/2023 ORAL NEEDED EVERY 6 HOURS 1 TABLET 704975 RxNorm TAKE 1 TABLET ORAL NEEDED EVERY [...] Date Status Code Code System 08/05/2021 resolved 36861143 SNOMED-CT Allergies and Adverse Reactions Allergy Substance Reaction Severity Start Date Concern Status Co de Code System No Known Drug Allergies Moderate Active 376585023 SNOMED-CT Plan of Treatment US OB COMPLETE 03/09/2022 US OB COMPLETE 02/12/2022 US BREAST UNI RT 01/26/2022 US OB COMPLETE 11/10/2021 Encounters Encounter Diagnosis Start Date Code Code Sys tem Routine care 03/29/2022 385701094 SNOME D-CT Personal Care Team Section Performer Name Performer Role Active Date Inactive Da te
--- OUTSIDE RECORDS SUMMARY | 2024-01-27 18:16 | XMS_ITS ---
Author Organization Unknown Address [address] [place] [address] [phone] Phone Care Team Providers Care Computer Game Tester Name Role Phone ALEJANDRA Clarke Attending Unavailable JAJA Clarke Primary Unavailable Immunization Immunization Date Status Additional Notes Code Code System MMR 04/05/2022 Completed 03 CVX Social History Type Status Start Date End Date Code Code Syst em Smoking History Former smoker 2823407 SNOMED CT Smoking History Current every day smoker 006894441 SNOMED CT Sex Female Medications Medication Start Date End Date Route Frequency Dose Code Code System Medication Instructions Home Meds Ondansetron 4MG Oral Tablet, Disintegrating 12/11/2021 03/22/2023 ORAL NEEDED EVERY 6 HOURS 1 TABLET 431912 RxNorm TAKE 1 TABLET ORAL NEEDED EVERY [...] Date Status Code Code System 08/05/2021 resolved 39738997 SNOMED-CT Allergies and Adverse Reactions Allergy Substance Reaction Severity Start Date Concern Status Co de Code System No Known Drug Allergies Moderate Active 883958466 SNOMED-CT Plan of Treatment US OB COMPLETE 03/09/2022 US OB COMPLETE 02/12/2022 US BREAST UNI RT 01/26/2022 US OB COMPLETE 11/10/2021 Encounters Encounter Diagnosis Start Date Code Code Sys tem care 04/22/2022 292611775 SNOMED-CT Personal Care Team Section Performer Name Performer Role Active Date Inactive Da te
--- OUTSIDE RECORDS SUMMARY | 2024-01-27 18:16 | XMS_ITS ---
Author Organization Unknown Address [address] [place] [phone] Phone Care Team Providers Care Lottery Office Manager Name Role Phone ALEJANDRA Clarke Attending Unavailable JAJA Clarke Primary Unavailable Immunization Immunization Date Status Additional Notes Code Code System MMR 04/05/2022 Completed 03 CVX Social History Type Status Start Date End Date Code Code Syst em Smoking History Former smoker 7316438 SNOMED CT Smoking History Current every day smoker 028470590 SNOMED CT Sex Female Medications Medication Start Date End Date Route Frequency Dose Code Code System Medication Instructions Home Meds Ondansetron 4MG Oral Tablet, Disintegrating 12/11/2021 03/22/2023 ORAL NEEDED EVERY 6 HOURS 1 TABLET 326506 RxNorm TAKE 1 TABLET ORAL NEEDED EVERY [...] Date Status Code Code System 08/05/2021 resolved 63999426 SNOMED-CT Allergies and Adverse Reactions Allergy Substance Reaction Severity Start Date Concern Status Co de Code System No Known Drug Allergies Moderate Active 335125133 SNOMED-CT Plan of Treatment US OB COMPLETE 03/09/2022 US OB COMPLETE 02/12/2022 US BREAST UNI RT 01/26/2022 US OB COMPLETE 11/10/2021 Encounters Encounter Diagnosis Start Date Code Code Sys tem Routine care 03/17/2022 547501549 SNOME D-CT Personal Care Team Section Performer Name Performer Role Active Date Inactive Da te
--- OUTSIDE RECORDS SUMMARY | 2024-01-27 18:17 | XMS_ITS ---
Author Organization Unknown Address [address] [place] [address] [phone] Phone Care Team Providers Care Powder Room Attendant Name Role Phone ALEJANDRA Clarke Attending Unavailable JAJA Clarke Primary Unavailable Immunization Immunization Date Status Additional Notes Code Code System MMR 04/05/2022 Completed 03 CVX Social History Type Status Start Date End Date Code Code Syst em Smoking History Former smoker 7818649 SNOMED CT Smoking History Current every day smoker 929493630 SNOMED CT Sex Female Medications Medication Start Date End Date Route Frequency Dose Code Code System Medication Instructions Home Meds Ondansetron 4MG Oral Tablet, Disintegrating 12/11/2021 03/22/2023 ORAL NEEDED EVERY 6 HOURS 1 TABLET 334536 RxNorm TAKE 1 TABLET ORAL NEEDED EVERY [...] Date Status Code Code System 08/05/2021 resolved 18460098 SNOMED-CT Allergies and Adverse Reactions Allergy Substance Reaction Severity Start Date Concern Status Co de Code System No Known Drug Allergies Moderate Active 207757050 SNOMED-CT Plan of Treatment US OB COMPLETE 03/09/2022 US OB COMPLETE 02/12/2022 US BREAST UNI RT 01/26/2022 US OB COMPLETE 11/10/2021 Encounters Encounter Diagnosis Start Date Code Code Sys tem care 05/17/2022 252193697 SNOMED-CT Personal Care Team Section Performer Name Performer Role Active Date Inactive Da te
--- OUTSIDE RECORDS SUMMARY | 2024-01-27 18:17 | XMS_ITS ---
Author Organization Unknown Address [address] [place] [phone] Phone Care Team Providers Care Displayer Name Role Phone KAMI Clarke MD Attending Unavailable JAJA PRASAD Primary Unavailable Social History Type Status Start Date End Date Code Code Syst em Smoking History Former smoker 5045044 SNOMED CT Smoking History Current every day smoker 523358887 SNOMED CT Sex Female Medications Medication Start Date End Date Route Frequency Dose Code Code System Medication Instructions Home Meds Ondansetron 4MG Oral Tablet, Disintegrating 12/11/2021 03/22/2023 ORAL NEEDED EVERY 6 HOURS 1 TABLET 589338 RxNorm TAKE 1 TABLET ORAL NEEDED EVERY [...] Date Status Code Code System 08/05/2021 resolved 23379464 SNOMED-CT Allergies and Adverse Reactions Allergy Substance Reaction Severity Start Date Concern Status Co de Code System No Known Drug Allergies Moderate Active 102837808 SNOMED-CT Plan of Treatment US OB COMPLETE 03/09/2022 US OB COMPLETE 02/12/2022 US BREAST UNI RT 01/26/2022 US OB COMPLETE 11/10/2021 Encounters Encounter Diagnosis Start Date Code Code Sys tem Oligomenorrhea, unspecified 12/23/2020 SNOMED-CT Personal Care Team Section Performer Name Performer Role Active Date Inactive Da te
--- OUTSIDE RECORDS SUMMARY | 2024-01-27 18:17 | XMS_ITS ---
Author Organization Unknown Address [address] [place] [phone] Phone Care Team Providers Care Managing Jeweler Name Role Phone TRENT DOMINGUEZ MD Attending Unavailable JAJA PRASAD Primary Unavailable Results TEST (URINE) QUALI TATIVE - Collect Date/Time: 12/24/2020 10:25 [facility] ID: [id number] [address] [place] [address] LOINC: 2106-3 Test Value Unit Reference Range Code Code System Flag TEST NEGATIVE 2106-3 LOINC URINALYSIS WITH REFLEX CULT IF POSITIVE - Collect Date/Time: 12/24/2020 10:25 [facility] ID: [id number] [address] [place] [address], [address] LOINC: 61034-0 Test Value Unit Reference Range Code Code System Flag COLLECTION MODE: Clean Catch Color YELLOW yellow 5778-6 LOINC Appearance CLEAR clear 5767-9 LOINC Glucose urine NEGATIVE negative mg/dl 05755-8 LOINC Bilirubin NEGATIVE negative 5770-3 LOINC Ketones NEGATIVE negative mg/dl 2514-8 LOINC Spec gravity 1.020 1.003 - 1.030 5811-5 LOINC pH urine 5.5 5.0 - 7.0 2756-5 LOINC Protein NEGATIVE negative mg/dl 66862-5 LOINC Urobilinogen 0.2 <or= 1 EU/dl 38912-6 LOINC Nitrite. NEGATIVE negative 5802-4 LOINC Blood NEGATIVE negative 5794-3 LOINC Leukocytes. NEGATIVE negative MICROSCOPIC NOT INDICAT COMPREHENSIVE METABOLIC PANE L (CMP) - Collect Date/Time: 12/24/2020 10:04 [facility] ID: [id number] [address], [place], [address] LOINC: 97399-8 Test Value Unit Reference Range Code Code System Flag GLUCOSE 96 mg/dL L=70 H=116 2345-7 LOINC BUN 10 mg/dL L=6 H=25 3094-0 LOINC CREATININE 0.69 mg/dL L=0.51 H=0.95 2160-0 LOINC SODIUM SERUM 141 mmol/L L=136 H=145 2951-2 LOINC POTASSIUM SERUM 4.3 mmol/L L=3.4 H=5.2 2823-3 LOINC CHLORIDE SERUM 107 mmol/L L=96 H=110 2075-0 LOINC CARBON DIOXIDE (CO2) 24 mmol/L L=22 H=34 2028-9 LOINC ANION GAP 10.5 mmol/L 87756-5 LOINC CALCIUM SERUM 8.6 mg/dL L=8.2 H=10.2 86968-7 LOINC BILIRUBIN TOTAL 0.3 mg/dL L=0.0 H=1.3 1975-2 LOINC ALK. PHOS. 69 U/L L=46 H=116 6768-6 LOINC SGOT (AST) 12 U/L L=15 H=37 1920-8 LOINC L SGPT (ALT) 16 U/L L=12 H=78 1742-6 LOINC TOTAL PROTEIN 7.3 gm/dL L=6.0 H=8.0 2885-2 LOINC ALBUMIN 3.9 gm/dL L=3.4 H=5.0 1751-7 LOINC AGE 25 years eGFR (non-Afr.Amer.) 105 mL/min 48600-0 LOINC eGFR (Afr-Ethiopian) > 120 mL/min 82976-2 LOINC CBC W/ DIFFERENTIAL - Collec t Date/Time: 12/24/2020 10:04 [facility] ID: [id number] [address], [place], [address] LOINC: 39976-5 Test Value Unit Reference Range Code Code System Flag WBC 8.00 th/cmm L=5.00 H=10.00 6690-2 LOINC NEUT % 60.9 % L=40.0 H=80.0 LYMPH % 26.8 % L=10.0 H=50.0 MONO % 5.8 % L=2.0 H=12.0 23311-1 LOINC EOS % 5.5 % L=0.0 H=8.0 BASO % 0.6 % L=0.0 H=3.0 IG % 0.4 % L=0.0 H=1.1 2514-8 LOINC NRBC % 0.0 % L=0.0 H=0.0 18310-0 LOINC NEUT abs count 4.9 th/cmm L=1.6 H=8.4 751-8 LOINC LYMPH abs count 2.1 th/cmm L=1.5 H=4.0 731-0 LOINC MONO abs count 0.5 th/cmm L=0.2 H=1.0 742-7 LOINC EOS abs count 0.4 th/cmm L=0.0 H=0.5 711-2 LOINC BASO abs count 0.1 th/cmm L=0.0 H=0.2 704-7 LOINC IG abs count 0.0 th/cmm L=0.0 H=0.1 96974-9 LOINC NRBC abs count 0.0 mil/cmm L=0.0 H=0.0 24620-6 LOINC RBC 4.44 mil/cmm L=3.90 H=5.40 789-8 LOINC HEMOGLOBIN 12.7 gm/dL L=12.0 H=16.0 718-7 LOINC HEMATOCRIT 38 % L=37 H=47 4544-3 LOINC MCV 85 fL L=82 H=92 787-2 LOINC MCH 28.6 pg L=27.0 H=31.0 785-6 LOINC MCHC 33.6 % L=32.0 H=36.0 786-4 LOINC RDW-SD 40.2 fL L=39.0 H=49.0 788-0 LOINC PLATELET COUNT 212 th/cmm L=150 H=450 777-3 LOINC Social History Type Status Start Date End Date Code Code Syst em Smoking History Former smoker 9903768 SNOMED CT Smoking History Current every day smoker 802801774 SNOMED CT Sex Female Medications Medication Start Date End Date Route Frequency Dose Code Code System Medication Instructions Home Meds Ondansetron 4MG Oral Tablet, Disintegrating 12/11/2021 03/22/2023 ORAL NEEDED EVERY 6 HOURS 1 TABLET 736895 RxNorm TAKE 1 TABLET ORAL NEEDED EVERY [...] Date Status Code Code System 08/05/2021 resolved 95992135 SNOMED-CT Allergies and Adverse Reactions Allergy Substance Reaction Severity Start Date Concern Status Co de Code System No Known Drug Allergies Moderate Active 401213191 SNOMED-CT Plan of Treatment US OB COMPLETE 03/09/2022 US OB COMPLETE 02/12/2022 US BREAST UNI RT 01/26/2022 US OB COMPLETE 11/10/2021 Encounters Encounter Diagnosis Start Date Code Code Sys tem Dizziness and giddiness 12/24/2020 SNOM ED-CT Personal Care Team Section Performer Name Performer Role Active Date Inactive Da louisa
--- OUTSIDE RECORDS SUMMARY | 2024-01-27 18:17 | XMS_ITS ---
Author Organization Unknown Address [address] [place] [address] [phone] Phone Care Team Providers Care Director Engineering Name Role Phone TRIXIEMIGEL OSMAR Tricia Attending Unavailable Immunization Immunization Date Status Additional Notes Code Code System MMR 04/05/2022 Completed 03 CVX Social History Type Status Start Date End Date Code Code Syst em Smoking History Former smoker 3435662 SNOMED CT Smoking History Current every day smoker 857061551 SNOMED CT Sex Female Medications Medication Start Date End Date Route Frequency Dose Code Code System Medication Instructions Home Meds Ondansetron 4MG Oral Tablet, Disintegrating 12/11/2021 03/22/2023 ORAL NEEDED EVERY 6 HOURS 1 TABLET 113873 RxNorm TAKE 1 TABLET ORAL NEEDED EVERY [...] Date Status Code Code System 08/05/2021 resolved 47626523 SNOMED-CT Allergies and Adverse Reactions Allergy Substance Reaction Severity Start Date Concern Status Co de Code System No Known Drug Allergies Moderate Active 794560674 SNOMED-CT Plan of Treatment US OB COMPLETE 03/09/2022 US OB COMPLETE 02/12/2022 US BREAST UNI RT 01/26/2022 US OB COMPLETE 11/10/2021 Encounters Encounter Diagnosis Start Date Code Code Sys tem Sacrococcygeal disorders, not elsewhere classified SNOMED-CT Personal Care Team Section Performer Name Performer Role Active Date Inactive Da te
--- OUTSIDE RECORDS SUMMARY | 2024-01-27 18:18 | XMS_ITS ---
Author Organization Unknown Address [address] [place] [address] [phone] Phone Care Team Providers Care Security System Technician Name Role Phone KAMI Clarke MD Attending Unavailable JAJA PRASAD Primary Unavailable Social History Type Status Start Date End Date Code Code Syst em Smoking History Former smoker 1914963 SNOMED CT Smoking History Current every day smoker 203491888 SNOMED CT Sex Female Medications Medication Start Date End Date Route Frequency Dose Code Code System Medication Instructions Home Meds Ondansetron 4MG Oral Tablet, Disintegrating 12/11/2021 03/22/2023 ORAL NEEDED EVERY 6 HOURS 1 TABLET 718619 RxNorm TAKE 1 TABLET ORAL NEEDED EVERY [...] Date Status Code Code System 08/05/2021 resolved 05101372 SNOMED-CT Allergies and Adverse Reactions Allergy Substance Reaction Severity Start Date Concern Status Co de Code System No Known Drug Allergies Moderate Active 202212881 SNOMED-CT Plan of Treatment US OB COMPLETE 03/09/2022 US OB COMPLETE 02/12/2022 US BREAST UNI RT 01/26/2022 US OB COMPLETE 11/10/2021 Personal Care Team Section Performer Name Performer Role Active Date Inactive Da te
== END 2024-01-27 18:08 | disposition home or self-care (01) ==
LOC: NCHCN 18:07
PROVIDERS: Visit Provider Family Medicine
DX: R53.83 Other fatigue (principal); E16.2 Hypoglycemia, unspecified
CPT/HCPCS: 80048; 84443